=== PATIENT | female | born 1975 | race Caucasian/White ===

== ENCOUNTER 2019-02-26 14:43 | Inpatient (IN) | payer OTHER ==
[2019-02-26] MEDS ORDERED: ACETAMINOPHEN SUPPOSITORY 650 MG SUPP RECTAL STA (14:50)
[2019-02-26] MEDS ORDERED: LORazepam 2 MG/ML INJ IV STA (14:52)
[2019-02-26 14:56] LABS: Glucose,Whole Blood 116 mg/dL (75-99)
--- NOTE | 2019-02-26 15:00 | ED ---
General Adult HPI - General Stated complaint: ALTERED MENTAL STATUS Time Seen by Provider: 02/26/19 14:49 Source: EMS, RN notes reviewed Mode of arrival: EMS Limitations: altered mental status, physical limitation - History of Present Illness Initial comments: Patient is an altered 44-year-old female presenting to the emergency department for reported change in mental status. Patient is nonverbal and provides no significant history. History provided by EMS. Reportedly patient's daughter called the grandparents last night stating that she was not acting normal. They did report to EMS the patient was altered last night but still talking. Patient reportedly was worse today and was sweaty prior to calling EMS today. Further history is limited. No reported drug use. No reported injury. Family states patient's abnormal skin is from a skin condition that she has that is chronic and unchanged. - Related Data Allergies Allergy/AdvReac Type Severity Reaction Status Date / Time Unable to Assess Allergy Verified 02/26/19 14:54 Review of Systems ROS Statement: Those systems with pertinent positive or pertinent negative responses have been documented in the HPI. ROS Other: All systems not noted in ROS Statement are negative. Limitations: ROS unobtainable due to patients medical condition Past Medical History Past Medical History: Unable to Obtain History of Any Multi-Drug Resistant Organisms: Unobtainable Past Surgical History: Unable to Obtain Past Psychological History: Unable to Obtain Smoking Status: Unknown if ever smoked Past Alcohol Use History: Unable to Obtain Past Drug Use History: Unable to Obtain General Exam Limitations: altered mental status, physical limitation General appearance: obese, other (Patient is restless and nonverbal. Patient does not follow commands.) Head exam: Present: other (Forehead with some skin discoloration over approximately one third of the area, mild. There is an area near the right eyebrow with some skin breakdown/abrasion) Eye exam: Present: normal appearance, PERRL ENT exam: Present: other (Patient has diffuse tooth erosion that is consistent throughout and consistent with grinding) Neck exam: Absent: tenderness, meningismus Respiratory exam: Present: rales Cardiovascular Exam: Present: tachycardia GI/Abdominal exam: Present: soft. Absent: tenderness Extremities exam: Present: normal inspection Neurological exam: Present: altered Expanded Neurological exam: Present: protecting the airway, other (Nonverbal. Limited exam. Does not follow commands. Does withdrawal all extremities to pain) Eye Response: (4) open spontaneously Motor Response: (5) localizes to pain Verbal Response: incomprehensible sounds Psychiatric exam: Present: other (Restless/agitated. Nonverbal) Skin exam: Present: rash (Forehead with some skin discoloration and abrasion/skin breakdown) Course Vital Signs 02/26/19 02/26/19 02/26/19 14:46 15:02 15:06 Temperature 100.9 F H 102.2 F H Pulse Rate 138 H Respiratory 12 Rate Blood Pressure 101/62 O2 Sat by Pulse 89 L 98 Oximetry 02/26/19 02/26/19 02/26/19 15:18 15:20 15:40 Temperature 102 F H Pulse Rate 109 H 109 H Respiratory 20 12 12 Rate Blood Pressure 97/58 97/58 83/59 O2 Sat by Pulse 98 98 Oximetry 02/26/19 02/26/19 02/26/19 16:00 16:06 16:07 Temperature 101 F H Pulse Rate 117 H 103 H Respiratory 12 Rate Blood Pressure 89/68 105/58 O2 Sat by Pulse 95 Oximetry 02/26/19 02/26/19 02/26/19 16:20 16:33 16:40 Temperature 100.0 F H Pulse Rate 108 H 98 99 Respiratory 18 18 15 Rate Blood Pressure 103/62 93/54 92/57 O2 Sat by Pulse 100 100 100 Oximetry - Reevaluation(s) Reevaluation #1: 02/26/19 15:37 Patient reevaluated. Blood pressure is dropping. Patient is more calm at this time. Patient has limited gag reflex. 02/26/19 15:39 Discussion had with family stating patient presented to their house drowsy and altered last night. She went to bed and appeared to be sleeping well. Patient was checked on several times today and was just sleeping throughout the day. Patient never woke up and acted appropriate. EMS was called prior to patient arrival. Family adds that patient did have a similar episode in November where she was admitted to the intensive care unit at [facility] and diagnosed with pneumonia. Mother states this was associated with methamphetamine use at that time. 02/26/19 15:40 There is concern for sepsis. Blood culture and lactic acid and IV antibiotics have been ordered. Fluid bolus provided of 2 L placed on ideal body weight of 64 kg at 5 foot 8 female. 02/26/19 16:16 Case was discussed in detail with Dr. Wong, who will admit covering for hospital call. 02/26/19 16:21 Dr. Blanco did request consult with critical care for Dr. Brooke. Case was discussed in detail with Dr. Brooke 02/26/19 16:38 Repeat x-ray shows worsening interstitial changes. ET tube is towards the right mainstem bronchi. ET tube removed 1.5 cm. 02/26/19 16:59 Has been determined the primary care physician is Dr. Mcleod. Case was discussed in detail with Dr. acosta, who will admit covering for Dr. Hall who admits for Dr. Mcleod. 02/26/19 17:03 Case was discussed with Dr. Briones, who will consult covering for critical care. Dr. Wong and Dr. Brooke have been paged to notify change of covering physicians. EKG Findings - EKG Comments: EKG Findings:: Sinus tachycardia 1:15. DE 144. QRS 70. QT 3:30. QTC 456. Normal axis. Normal QRS. Nonspecific T waves. Procedures - Central Line Placement Right Femoral Consent Obtained: verbal consent (From parents), emergent situation Patient Placed on Monitor/Pulse Ox: Yes MD Prep: mask, gown, gloves Central Line Prep: Chlorhexidine scrub Local Anesthesia Used: Lidocaine 1% Amount of Anesthesia Used (mls): 1 Central Line Lumen Inserted: triple Central Line Position: good blood return, all ports aspirated, flushed, capped, sutured in place with 3-0 nylon, sutured in place with nylon Dressing Applied: Tegaderm Patient Tolerated Procedure: well Complications: none - Intubation Sedative: Versed Paralytic: Succinylcholine Laryngoscope: Fernández Size: 3 ET Tube Size: 8 Tube Secured Location: lips Tube Placement Confirmation: visualized tube passing through cords, equal breath sounds bilaterally, no breath sounds over epigastrium, confirmation by capnometry Patient Tolerated Procedure: well, no complications Intubation Complications: none - Sepsis Sepsis Focused Exam #1 Time Sepsis Criteria Met: 15:40 Sepsis Focused Exam Date: 02/26/19 Sepsis Focused Exam Time: 16:18 Sepsis Focused Exam Complete: Yes Vital Signs & RN Notes Reviewed: Yes Capillary Refill: < 2 Seconds: Fingers, Toes Peripheral Pulses: Normal: Radial (R), Radial (L) Skin Color: Normal for Patient Respiratory Exam: rales Cardiovascular Exam: tachycardia Medical Decision Making - Lab Data Result diagrams: 02/26/19 14:55 02/26/19 14:55 Lab Results 02/26/19 02/26/19 02/26/19 Range/Units 14:54 14:55 14:55 WBC 10.9 H (3.8-10.6) k/uL RBC 4.32 (3.80-5.40) m/uL Hgb 12.1 (11.4-16.0) gm/dL Hct 38.7 (34.0-46.0) % MCV 89.6 (80.0-100.0) fL MCH 28.1 (25.0-35.0) pg MCHC 31.4 (31.0-37.0) g/dL RDW 15.1 (11.5-15.5) % Plt Count 299 (150-450) k/uL Neutrophils % 81 % Lymphocytes % 14 % Monocytes % 3 % Eosinophils % 1 % Basophils % 0 % Neutrophils # 8.8 H (1.3-7.7) k/uL Lymphocytes # 1.5 (1.0-4.8) k/uL Monocytes # 0.3 (0-1.0) k/uL Eosinophils # 0.1 (0-0.7) k/uL Basophils # 0.0 (0-0.2) k/uL Hypochromasia Slight PT (9.0-12.0) sec INR (<1.2) APTT (22.0-30.0) sec Sodium 146 H (137-145) mmol/L Potassium 3.5 (3.5-5.1) mmol/L Chloride 122 H (98-107) mmol/L Carbon Dioxide 17 L (22-30) mmol/L Anion Gap 7 mmol/L BUN 18 H (7-17) mg/dL Creatinine 1.18 H (0.52-1.04) mg/dL Est GFR (CKD-EPI)AfAm 66 (>60 ml/min/1.73 sqM) Est GFR (CKD-EPI)NonAf 57 (>60 ml/min/1.73 sqM) Glucose 122 H (74-99) mg/dL POC Glucose (mg/dL) 116 H (75-99) mg/dL POC Glu Central Supply Worker ID Robert, Nathalia Plasma Lactic Acid Jan (0.7-2.0) mmol/L Calcium 8.7 (8.4-10.2) mg/dL Total Bilirubin 0.5 (0.2-1.3) mg/dL AST 104 H (14-36) U/L ALT 37 (9-52) U/L Alkaline Phosphatase 69 (38-126) U/L Creatine Kinase 4363 H* (30-135) U/L CK-MB (CK-2) (0.0-2.4) ng/mL Troponin I (0.000-0.034) ng/mL NT-Pro-B Natriuret Pep pg/mL Total Protein 5.9 L (6.3-8.2) g/dL Albumin 3.4 L (3.5-5.0) g/dL Urine Color Urine Appearance (Clear) Urine pH (5.0-8.0) Ur Specific [place] (1.001-1.035) Urine Protein (Negative) Urine Glucose (UA) (Negative) Urine Ketones (Negative) Urine Blood (Negative) Urine Nitrite (Negative) Urine Bilirubin (Negative) Urine Urobilinogen (<2.0) mg/dL Ur Leukocyte Esterase (Negative) Urine RBC (0-5) /hpf Urine WBC (0-5) /hpf Ur Squamous Epith Cells (0-4) /hpf Amorphous Sediment (None) /hpf Hyaline Casts (0-2) /lpf Urine Mucus (None) /hpf Urine Opiates Screen (NotDetected) Ur Oxycodone Screen (NotDetected) Urine Methadone Screen (NotDetected) Ur Propoxyphene Screen (NotDetected) Ur Barbiturates Screen (NotDetected) U Tricyclic Antidepress (NotDetected) Ur Phencyclidine Scrn (NotDetected) Ur Amphetamines Screen (NotDetected) U Methamphetamines Scrn (NotDetected) U Benzodiazepines Scrn (NotDetected) Urine Cocaine Screen (NotDetected) U Marijuana (THC) Screen (NotDetected) 02/26/19 02/26/19 02/26/19 Range/Units 14:55 14:55 14:55 WBC (3.8-10.6) k/uL RBC (3.80-5.40) m/uL Hgb (11.4-16.0) gm/dL Hct (34.0-46.0) % MCV (80.0-100.0) fL MCH (25.0-35.0) pg MCHC (31.0-37.0) g/dL RDW (11.5-15.5) % Plt Count (150-450) k/uL Neutrophils % % Lymphocytes % % Monocytes % % Eosinophils % % Basophils % % Neutrophils # (1.3-7.7) k/uL Lymphocytes # (1.0-4.8) k/uL Monocytes # (0-1.0) k/uL Eosinophils # (0-0.7) k/uL Basophils # (0-0.2) k/uL Hypochromasia PT 10.2 (9.0-12.0) sec INR 1.0 (<1.2) APTT 24.4 (22.0-30.0) sec Sodium (137-145) mmol/L Potassium (3.5-5.1) mmol/L Chloride (98-107) mmol/L Carbon Dioxide (22-30) mmol/L Anion Gap mmol/L BUN (7-17) mg/dL Creatinine (0.52-1.04) mg/dL Est GFR (CKD-EPI)AfAm (>60 ml/min/1.73 sqM) Est GFR (CKD-EPI)NonAf (>60 ml/min/1.73 sqM) Glucose (74-99) mg/dL POC Glucose (mg/dL) (75-99) mg/dL POC Glu Central Supply Worker ID Plasma Lactic Acid Jan 2.4 H* (0.7-2.0) mmol/L Calcium (8.4-10.2) mg/dL Total Bilirubin (0.2-1.3) mg/dL AST (14-36) U/L ALT (9-52) U/L Alkaline Phosphatase (38-126) U/L Creatine Kinase (30-135) U/L CK-MB (CK-2) 12.7 H (0.0-2.4) ng/mL Troponin I <0.012 (0.000-0.034) ng/mL NT-Pro-B Natriuret Pep pg/mL Total Protein (6.3-8.2) g/dL Albumin (3.5-5.0) g/dL Urine Color Urine Appearance (Clear) Urine pH (5.0-8.0) Ur Specific [place] (1.001-1.035) Urine Protein (Negative) Urine Glucose (UA) (Negative) Urine Ketones (Negative) Urine Blood (Negative) Urine Nitrite (Negative) Urine Bilirubin (Negative) Urine Urobilinogen (<2.0) mg/dL Ur Leukocyte Esterase (Negative) Urine RBC (0-5) /hpf Urine WBC (0-5) /hpf Ur Squamous Epith Cells (0-4) /hpf Amorphous Sediment (None) /hpf Hyaline Casts (0-2) /lpf Urine Mucus (None) /hpf Urine Opiates Screen (NotDetected) Ur Oxycodone Screen (NotDetected) Urine Methadone Screen (NotDetected) Ur Propoxyphene Screen (NotDetected) Ur Barbiturates Screen (NotDetected) U Tricyclic Antidepress (NotDetected) Ur Phencyclidine Scrn (NotDetected) Ur Amphetamines Screen (NotDetected) U Methamphetamines Scrn (NotDetected) U Benzodiazepines Scrn (NotDetected) Urine Cocaine Screen (NotDetected) U Marijuana (THC) Screen (NotDetected) 02/26/19 02/26/19 Range/Units 14:55 14:55 WBC (3.8-10.6) k/uL RBC (3.80-5.40) m/uL Hgb (11.4-16.0) gm/dL Hct (34.0-46.0) % MCV (80.0-100.0) fL MCH (25.0-35.0) pg MCHC (31.0-37.0) g/dL RDW (11.5-15.5) % Plt Count (150-450) k/uL Neutrophils % % Lymphocytes % % Monocytes % % Eosinophils % % Basophils % % Neutrophils # (1.3-7.7) k/uL Lymphocytes # (1.0-4.8) k/uL Monocytes # (0-1.0) k/uL Eosinophils # (0-0.7) k/uL Basophils # (0-0.2) k/uL Hypochromasia PT (9.0-12.0) sec INR (<1.2) APTT (22.0-30.0) sec Sodium (137-145) mmol/L Potassium (3.5-5.1) mmol/L Chloride (98-107) mmol/L Carbon Dioxide (22-30) mmol/L Anion Gap mmol/L BUN (7-17) mg/dL Creatinine (0.52-1.04) mg/dL Est GFR (CKD-EPI)AfAm (>60 ml/min/1.73 sqM) Est GFR (CKD-EPI)NonAf (>60 ml/min/1.73 sqM) Glucose (74-99) mg/dL POC Glucose (mg/dL) (75-99) mg/dL POC Glu Central Supply Worker ID Plasma Lactic Acid Jan (0.7-2.0) mmol/L Calcium (8.4-10.2) mg/dL Total Bilirubin (0.2-1.3) mg/dL AST (14-36) U/L ALT (9-52) U/L Alkaline Phosphatase (38-126) U/L Creatine Kinase (30-135) U/L CK-MB (CK-2) (0.0-2.4) ng/mL Troponin I (0.000-0.034) ng/mL NT-Pro-B Natriuret Pep 1090 pg/mL Total Protein (6.3-8.2) g/dL Albumin (3.5-5.0) g/dL Urine Color Yellow Urine Appearance Clear (Clear) Urine pH 6.0 (5.0-8.0) Ur Specific [place] 1.024 (1.001-1.035) Urine Protein 1+ H (Negative) Urine Glucose (UA) Negative (Negative) Urine Ketones Negative (Negative) Urine Blood Trace H (Negative) Urine Nitrite Negative (Negative) Urine Bilirubin Negative (Negative) Urine Urobilinogen <2.0 (<2.0) mg/dL Ur Leukocyte Esterase Negative (Negative) Urine RBC 2 (0-5) /hpf Urine WBC 1 (0-5) /hpf Ur Squamous Epith Cells <1 (0-4) /hpf Amorphous Sediment Rare H (None) /hpf Hyaline Casts 43 H (0-2) /lpf Urine Mucus Rare H (None) /hpf Urine Opiates Screen Not Detected (NotDetected) Ur Oxycodone Screen Not Detected (NotDetected) Urine Methadone Screen Not Detected (NotDetected) Ur Propoxyphene Screen Not Detected (NotDetected) Ur Barbiturates Screen Not Detected (NotDetected) U Tricyclic Antidepress Detected H (NotDetected) Ur Phencyclidine Scrn Not Detected (NotDetected) Ur Amphetamines Screen Detected H (NotDetected) U Methamphetamines Scrn Detected H (NotDetected) U Benzodiazepines Scrn Not Detected (NotDetected) Urine Cocaine Screen Not Detected (NotDetected) U Marijuana (THC) Screen Not Detected (NotDetected) - Radiology Data Radiology results: report reviewed (Computed tomography scan of the brain shows ill-defined hypodensity that could be ischemic change of indeterminate age. Old lacunar infarct. Computed tomography scan of the cervical spine shows no acute [place]. Degenerative changes.), image reviewed (Chest x-ray shows increased perihilar lung markings. Cannot rule out left-sided pneumonia.) Critical Care Time Critical Care Time: Yes Total Critical Care Time: 78 Disposition Clinical Impression: Pneumonitis, Altered mental status, Methamphetamine abuse, Rhabdomyolysis Disposition: ADMITTED IP TO THIS [facility] Condition: Critical Is patient prescribed a controlled substance at d/c from ED?: No Referrals: None,Stated [REFERRING] - 1-2 days Decision Time: 16:16
[2019-02-26] MEDS: SODIUM CHLORIDE 0.9% 500 ML 500 ML IV SCH (15:12)
--- NOTE | 2019-02-26 15:14 | XR ---
EXAMINATION TYPE: XR chest 1V portable DATE OF EXAM: 02/26/2019 COMPARISON: None INDICATION: Fever acute mental status change TECHNIQUE: Single frontal view of the chest is obtained. FINDINGS: The heart size is enlarged. The pulmonary vasculature is prominent. Increased perihilar lung markings are present. This may be greater on the left than the right. Correl ate for pulmonary edema. IMPRESSION: 1. Findings compatible with congestive heart failure in the proper clinical setting. Pneumonia on the left is not excluded. Follow-up exams are recommended.
[2019-02-26] MEDS ORDERED: VANCOMYCIN IV PER PHARMACY 1 EACH MISC MISCELLANE PRN (15:22)
[2019-02-26] MEDS ORDERED: cefTRIAXone IN SWFI 1,000 MG/10 ML SYRINGE IVP STA (15:22)
[2019-02-26] MEDS ORDERED: VANCOMYCIN 2,500 MG in SODIUM CHLORIDE 0.9% 500 ML 500 ML IVPB STA (15:25)
[2019-02-26 15:26] LABS: Albumin 3.4 g/dL (3.5-5.0); Calcium 8.7 mg/dL (8.4-10.2); Potassium 3.5 mmol/L (3.5-5.1); Total Bilirubin 0.5 mg/dL (0.2-1.3); Total Protein 5.9 g/dL (6.3-8.2)
[2019-02-26 15:29] LABS: Amorphous Sediment,Urine Rare /hpf; Appearance,Urine Clear (Clear); Bilirubin,Urine Negative (Negative); Blood,Urine Trace (Negative); Color,Urine Yellow; Glucose,Urine (UA) Negative (Negative); Hyaline Casts,Urine 43 /lpf (0-2); Ketones,Urine Negative (Negative); Leukocyte Esterase,Urine Negative (Negative); Mucus,Urine Rare /hpf; Nitrite,Urine Negative (Negative); Protein,Urine 1+ (Negative); RBC,Urine 2 /hpf (0-5); Specific Gravity,Urine 1.024 (1.001-1.035); Squamous Epithelial Cell,Urine <1 /hpf (0-4); Urobilinogen,Urine <2.0 mg/dL (<2.0); WBC,Urine 1 /hpf (0-5)
[2019-02-26 15:31] LABS: Amphetamine Screen,Urine Detected (NotDetected); Barbiturate Screen,Urine Not Detected (NotDetected); Benzodiazepines Screen,Urine Not Detected (NotDetected); Cocaine Screen,Urine Not Detected (NotDetected); Methadone Screen, Urine Not Detected (NotDetected); Opiate Screen,Urine Not Detected (NotDetected); Oxycodone Screen, Urine Not Detected (NotDetected); Phencyclidine Screen,Urine Not Detected (NotDetected); Tricyclic Antidepressant,Urine Detected (NotDetected); Urn Cannabinoid Scrn Not Detected (NotDetected)
[2019-02-26] MEDS ORDERED: SODIUM CHLORIDE 0.9% 1,000 ML IV STA (15:39)
[2019-02-26 15:41] LABS: Basophils % (A) 0 %; Eosinophils # (A) 0.1 k/uL (0-0.7); Eosinophils % (A) 1 %; HCT 38.7 % (34.0-46.0); HGB 12.1 gm/dL (11.4-16.0); Hypochromasia Slight; Lymphocytes # (A) 1.5 k/uL (1.0-4.8); Lymphocytes % (A) 14 %; MCH 28.1 pg (25.0-35.0); MCHC 31.4 g/dL (31.0-37.0); MCV 89.6 fL (80.0-100.0); Mean Platelet Volume 7.7; Monocytes # (A) 0.3 k/uL (0-1.0); Monocytes % (A) 3 %; Neutrophils # (A) 8.8 k/uL (1.3-7.7); Neutrophils % (A) 81 %; Platelet Count 299 k/uL (150-450); RBC 4.32 m/uL (3.80-5.40); RDW 15.1 % (11.5-15.5); WBC 10.9 k/uL (3.8-10.6)
[2019-02-26] MEDS ORDERED: SODIUM CHLORIDE 0.9% 500 ML 500 ML IV STA (15:41)
[2019-02-26] MEDS ORDERED: PROPOFOL 1,000 MG in EMPTY BAG 1 BAG IV ONE (15:42)
[2019-02-26] MEDS ORDERED: MIDAZOLAM 1 MG/ML 5 ML VIAL IV STA (15:43)
[2019-02-26] MEDS ORDERED: SUCCINYLCHOLINE CHLORIDE VIAL 200 MG/10 ML VIAL IV STA (15:43)
[2019-02-26 15:53] LABS: Creatine Kinase MB 12.7 ng/mL (0.0-2.4); Troponin I <0.012 ng/mL (0.000-0.034)
[2019-02-26 16:12] LABS: Partial Thromboplastin Time 24.4 sec (22.0-30.0); Prothrombin Time 10.2 sec (9.0-12.0)
[2019-02-26] MEDS ORDERED: LORazepam 2 MG/ML INJ IV PRN ×2 (16:14)
--- NOTE | 2019-02-26 16:32 | CT ---
EXAMINATION TYPE: CT brain ulysses shaw DATE OF EXAM: 02/26/2019 COMPARISON: None HISTORY: Altered mental status. CT DLP: 1629.8 mGycm, Automated exposure control for dose reduction was used. CONTRAST: Patient injected with 0 mL of Isovue 300. CT of the brain is performed utilizing 3 mm thick sections through the posterior fossa and 3 mm thick sections through the remaining calvarium. Study is performed within 24 hours of arrival to the hospital. No abnormal hyperdensity is present to suggest an acute intracranial hemorrhage. No mass lesion is evident. No acute infarcts are evident. There is a small area of hypodensity within the periventricular white matter adjacent to the anterior horn right lateral ventricle. White matter ischemic change or lacuna r infarct be considered. An older lacunar infarct appears to be within the lateral right basal gangli on. Ventricles and sulci are appropriate for the patient age. Paranasal sinuses and mastoid air cells within the [id number] are clear. IMPRESSIONS: 1. There is ill-defined hypodensity adjacent to the anterior horn right lateral ventricle and can be radha e microvascular ischemic change of indeterminate age. MRI could be utilized to further delineate the cuboid versus chronicity of this finding. 2. There appears be an old right basal ganglion lacunar infarct. CT cervical spine. COMPARISON: None CT of the cervical spine is performed in the axial plane at 2 mm thick sections. Reconstructed image s in the coronal, and sagittal plane are reviewed on the computer. No acute fractures are evident. Vertebral body alignment is normal. Degenerative disc changes and loss of disc height is present C5-6. Uncovertebral joint hypertrophy is contributing to moderate left foraminal stenosis C5-6 Vertebral body heights are preserved. No spinal canal stenosis is evident. Patchy infiltrates are present in the upper lung bedoya bilaterally. IMPRESSIONS: 1. No acute abnormality cervical spine. 2. Degenerative disc change and left foraminal stenosis C5-6
[2019-02-26] MEDS ORDERED: NALOXONE 0.4 MG/ML 1 ML VIAL IV PRN (16:56)
[2019-02-26] MEDS ORDERED: ACETAMINOPHEN SUPPOSITORY 650 MG SUPP RECTAL PRN (16:56)
[2019-02-26] MEDS ORDERED: SODIUM CHLORIDE 0.9% 1,000 ML IV SCH (17:00)
[2019-02-26] MEDS ORDERED: PIPERACILLIN-TAZOBACTAM 3.375 GM in SODIUM CHLORIDE 0.9% 100 ML IVPB STA (17:03)
[2019-02-26] MEDS ORDERED: LEVOFLOXACIN 750MG-D5W PMX 750 MG in DEXTROSE/WATER 1 150ML.BAG IVPB STA (17:03)
[2019-02-26] MEDS ORDERED: PNEUMONIA PROTOCOL UTILIZED 1 EACH MISC PO PRN (17:03)
[2019-02-26] MEDS: NOREPINEPHRINE 32 MG in SODIUM CHLORIDE 0.9% 218 ML IV SCH (17:08)
[2019-02-26 17:13] LABS: ABG Base Excess -12.3 mmol/L; ABG HCO3 17 mmol/L (21-25); ABG Oxygen Saturation 77.6 % (94-97); ABG PCO2 54 mmHg (35-45); ABG TCO2 19 mmol/L (19-24); Allen Test Performed? Yes
[2019-02-26 17:27] LABS: ABG PH 7.11 (7.35-7.45); ABG PO2 50 mmHg (83-108)
--- NOTE | 2019-02-26 17:38 | XR ---
EXAMINATION TYPE: XR chest 1V portable DATE OF EXAM: 02/26/2019 COMPARISON: 02/26/2019 INDICATION: Difficulty breathing tube placement TECHNIQUE: Single frontal view of the chest is obtained. FINDINGS: The heart size is prominent. The pulmonary vasculature is increased. There is diffuse increased lung markings bilaterally greater on the left. Endotracheal tube is in place in the right main bronchus. This is approximately 1.3 cm opacity amisha . Subsequent image demonstrates withdrawal of the endotracheal tube into the trachea. IMPRESSION: 1. Diffuse increased lung markings with cardiomegaly. 2. Pneumonia. 3. Endotracheal tube tip within the right main bronchus. This is subsequently drawn back.
--- NOTE | 2019-02-26 17:42 | XR ---
EXAMINATION TYPE: XR chest 1V portable DATE OF EXAM: 02/26/2019 COMPARISON: Earlier exam same date INDICATION: Difficulty breathing TECHNIQUE: Single frontal view of the chest is obtained. FINDINGS: The heart size is mildly prominent. The pulmonary vasculature is indistinct. Diffuse increased lung markings are present bilaterally. Pulmonary edema and pneumonia are within the differential. The endotracheal tube is been withdrawn however this is close to the amisha. Additional withdrawal is recommended. This could be pulled back approximately 2 cm. IMPRESSION: 1. Mild cardiomegaly. 2. Prominent pulmonary vasculature. 3. Diffuse increased lung markings. Correlate for pneumonia and pulmonary edema. This is slightly imp roved from earlier exam. 4. Endotracheal tube remains low lying and could be pulled back 2 cm. Report was called to patient's nurse by Dr. Chacon by telephone 173 hours 02/26/2019. 5. Nasogastric tube transverses the thorax with tip in left upper quadrant of the abdomen. This could be advanced 2 cm or more for more typical positioning.
[2019-02-26 18:28] LABS: Magnesium 1.7 mg/dL (1.6-2.3); Phosphorus 3.4 mg/dL (2.5-4.5)
[2019-02-26 18:50] LABS: Glucose,Whole Blood 137 mg/dL (75-99)
[2019-02-26 19:13] LABS: ABG HCO3 16 mmol/L (21-25); ABG Oxygen Saturation 99.8 % (94-97); ABG PCO2 42 mmHg (35-45); ABG PO2 340 mmHg (83-108); ABG TCO2 17 mmol/L (19-24); Allen Test Performed? Yes
[2019-02-26] MEDS ORDERED: Potassium Replacement Protocol 1 EACH MISC MISCELLANE PRN (19:58)
[2019-02-26] MEDS ORDERED: Magnesium Replacement Protocol 1 EACH MISC MISCELLANE PRN (19:58)
--- NOTE | 2019-02-26 19:58 | XR ---
EXAMINATION TYPE: XR chest 1V portable DATE OF EXAM: 02/26/2019 COMPARISON: Earlier exams INDICATION: Tube placement TECHNIQUE: Single frontal view of the chest is obtained. FINDINGS: The heart size is normal. The pulmonary vasculature is normal. Mild infiltrate is through the left lung. Right lung infiltrate is improved. The endotracheal tube has been pulled back and is 1.2 cm above the amisha. Nasogastric tube is been a dvanced with the tip in the upper abdomen. IMPRESSION: 1. Improving aeration to the bilateral lungs. 2. Lines and catheters discussed above.
[2019-02-26] MEDS: IPRATROPIUM-ALBUTEROL 3 ML NEB INHALATION SCH (20:06)
[2019-02-26] MEDS: DEXTROSE 5% IN WATER 1,000 ML with SODIUM BICARB (1 MEQ/ML) 100 ML IV SCH (20:50)
[2019-02-26 20:51] LABS: Glucose,Whole Blood 119 mg/dL (75-99)
[2019-02-26] MEDS: MAGNESIUM SULFATE-D5W PMX 1 GM in DEXTROSE/WATER 1 100ML.BAG IVPB SCH ×2 (21:52→23:03)
[2019-02-26] MEDS: HEPARIN SODIUM,PORCINE 5,000 UNIT/ML 1 ML VIAL SQ SCH (21:52)
[2019-02-26] MEDS: POTASSIUM BICARBONATE/CIT AC 20 MEQ TABLET.EFF NG-TUBE SCH ×2 (21:52→23:03)
[2019-02-26] MEDS: CHLORHEXIDINE GLUCONATE 15 ML CUP MUCOUS MEM SCH (21:52)
[2019-02-26] MEDS: PIPERACILLIN-TAZOBACTAM 3.375 GM in SODIUM CHLORIDE 0.9% 100 ML IVPB SCH (23:51)
[2019-02-26] MEDS: PROPOFOL 1,000 MG in EMPTY BAG 1 BAG IV SCH (23:52)
[2019-02-26] MEDS: INSULIN ASPART (NovoLOG) 100 UNIT/ML VIAL SQ SCH (23:54)
[2019-02-26 23:58] LABS: Glucose,Whole Blood 109 mg/dL (75-99)
[2019-02-27] MEDS: HEPARIN SODIUM,PORCINE 5,000 UNIT/ML 1 ML VIAL SQ SCH ×3 (01:00→16:14)
[2019-02-27] MEDS: PROPOFOL 1,000 MG in EMPTY BAG 1 BAG IV SCH ×6 (03:13→18:30)
[2019-02-27 04:09] LABS: ABG Base Excess -8.7 mmol/L; ABG HCO3 18 mmol/L (21-25); ABG Oxygen Saturation 94.7 % (94-97); ABG PCO2 40 mmHg (35-45); ABG PH 7.27 (7.35-7.45); ABG PO2 71 mmHg (83-108); ABG TCO2 20 mmol/L (19-24); Allen Test Performed? Yes
[2019-02-27 05:34] LABS: Glucose,Whole Blood 99 mg/dL (75-99)
[2019-02-27 05:48] LABS: Basophils % (A) 0 %; Eosinophils # (A) 0.1 k/uL (0-0.7); Eosinophils % (A) 1 %; HCT 34.8 % (34.0-46.0); HGB 10.9 gm/dL (11.4-16.0); Hypochromasia Moderate; Lymphocytes # (A) 1.8 k/uL (1.0-4.8); Lymphocytes % (A) 17 %; MCH 28.7 pg (25.0-35.0); MCHC 31.4 g/dL (31.0-37.0); MCV 91.3 fL (80.0-100.0); Mean Platelet Volume 7.3; Monocytes # (A) 0.2 k/uL (0-1.0); Monocytes % (A) 2 %; Neutrophils # (A) 8.4 k/uL (1.3-7.7); Neutrophils % (A) 79 %; Platelet Count 251 k/uL (150-450); RBC 3.81 m/uL (3.80-5.40); RDW 15.3 % (11.5-15.5); WBC 10.7 k/uL (3.8-10.6)
[2019-02-27] MEDS: INSULIN ASPART (NovoLOG) 100 UNIT/ML VIAL SQ SCH ×3 (05:51→19:30)
[2019-02-27 06:05] LABS: ALT 37 U/L (9-52); AST 99 U/L (14-36); African American GFR (CKD) >90 (>60 ml/min/1.73 sqM); Albumin 2.7 g/dL (3.5-5.0); Alkaline Phosphatase 68 U/L (38-126); Anion Gap 5 mmol/L; Blood Urea Nitrogen 14 mg/dL (7-17); Calcium 8.2 mg/dL (8.4-10.2); Carbon Dioxide 20 mmol/L (22-30); Chloride 121 mmol/L (98-107); Glucose 95 mg/dL (74-99); Magnesium 2.4 mg/dL (1.6-2.3); Potassium 3.5 mmol/L (3.5-5.1); Sodium 146 mmol/L (137-145); Total Bilirubin 0.2 mg/dL (0.2-1.3); Total Protein 5.1 g/dL (6.3-8.2)
[2019-02-27] MEDS ORDERED: Potassium Replacement Protocol 1 EACH MISC MISCELLANE PRN (06:14)
[2019-02-27] MEDS: POTASSIUM BICARBONATE/CIT AC 20 MEQ TABLET.EFF NG-TUBE SCH ×3 (06:53→09:46)
[2019-02-27] MEDS ORDERED: POTASSIUM BICARBONATE/CIT AC 20 MEQ TABLET.EFF NG-TUBE SCH (07:00)
[2019-02-27] MEDS: PIPERACILLIN-TAZOBACTAM 3.375 GM in SODIUM CHLORIDE 0.9% 100 ML IVPB SCH ×2 (07:08→16:14)
[2019-02-27] MEDS: IPRATROPIUM-ALBUTEROL 3 ML NEB INHALATION SCH ×4 (07:56→19:42)
[2019-02-27] MEDS: CISATRACURIUM 2 MG/ML 5 ML VIAL IV ONE ×2 (08:38→16:22)
[2019-02-27] MEDS: fentaNYL (PF) 1,000 MCG in SODIUM CHLORIDE 0.9% 80 ML IV SCH ×3 (09:44→20:01)
[2019-02-27] MEDS: DEXTROSE 5% IN WATER 1,000 ML with SODIUM BICARB (1 MEQ/ML) 100 ML IV SCH ×2 (09:45→20:00)
[2019-02-27] MEDS: PANTOPRAZOLE 40 MG/10 ML VIAL IV SCH (09:52)
[2019-02-27] MEDS: CHLORHEXIDINE GLUCONATE 15 ML CUP MUCOUS MEM SCH ×2 (09:52→22:24)
[2019-02-27] MEDS ORDERED: VANCOMYCIN 2,000 MG in SODIUM CHLORIDE 0.9% 500 ML 500 ML IVPB SCH (10:00)
--- NOTE | 2019-02-27 10:32 | XR ---
EXAMINATION TYPE: XR chest 1V portable DATE OF EXAM: 02/27/2019 COMPARISON: 02/26/2019 INDICATION: Tube placement TECHNIQUE: Single frontal view of the chest is obtained. FINDINGS: The heart size is normal. The pulmonary vasculature is prominent. There are increased lung markings greater on the left. Correlate for pneumonia. Endotracheal tube tip is within the proximal right bronchus. This should be pulled back approximately 3 to 4 cm. Nasogastric tube transverses the thorax. IMPRESSION: 1. Correlate for left lung pneumonia. 2. Endotracheal tube tip in right main bronchus. Report was called to the ICU by Dr. Chacon by telep sravan at time of interpretation. ICU aware of the findings.
[2019-02-27 12:15] LABS: Glucose,Whole Blood 106 mg/dL (75-99)
--- NOTE | 2019-02-27 12:54 | P.CNPUL ---
History of Present Illness Consult date: 02/27/19 Chief complaint: Drug overdose, respiratory failure History of present illness: This is a 44 yo female patient who was brought in to the ED for altered mentation and respiratory failure. Family stated that patient presented to their house drowsy and altered last night. She went to bed and appeared to be sleeping well. Patient was checked on several times today and was just sleeping throughout the day. Patient never woke up and acted appropriate. EMS was called prior to patient arrival. Family adds that patient did have a similar episode in November where she was admitted to the intensive care unit at [facility] and diagnosed with pneumonia. Mother states this was associated with methamphetamine use at that time. I was involved in the care of this patient during her latest hospitalization in [facility]. She had a very similar and prolonged presentation where she came in with drug overdose , altered mentation and respiratory failure /ARDS. She was intubated and mechanically ventilated. She was also in DMITRY and severe rhabdomyal ysis. The patient back then had a CT of brain was normal. Patient was fluid resuscitated. She was placed on IV vasopressors and sedation and paralytics. Slowly ventilator settings were decreased and patient was eventually able to be weaned off the vent. She initially displayed limited mentation, and her functional status is very poor. She slowly improved to the interview and admitted to suicide attempt. She was placed on one-to-one suicide precautions. She was later transferred up to medical floor, where she continued medical treatment and work with physical and occupational therapy. Patient required lengthy hospitalization. In she had a acute hypoxic respiratory failure likely secondary to pneumonia,drug overdoseand sepsis. She was on mechanical ventilator and she had a severe anion gap metabolic acidosis and rhabdo . The B/L basal pneumonia likely aspiration, sputum culture positive for MSSA and MSSA bacteremia. She had a acute kidney injury with creatinine level 9.1 possibly ATN, improved to 0.9, elevated liver enzymes, improved, Acute UTI (urinary tract infection) acute hypernatremia and hyperkalemiasecondary to acute kidney injury, improved and she also had elevated troponin level. She had polysubstance use, UDS is positive for amphetamines, benzodiazepines and opiates The patient's presentation is very similar as the patient was again postive for amphetamines and she was found to be in a mild rhabdo and lactive acidosis. She was hypotensive and she was hypoxic. She was intubated in the ED. Her CXR was consistent with diffuse bilateral pulmonary infiltrated. This morning, the patient remains on a mechanical ventilator. Currently she is an assist-control mode at a rate of 18 with a tidal volume of 550 and FiO2 of 60% and a PEEP of 8. These changes were done based on the blood gases that showed a pH of 7.26 with a pCO2 of 40 and pO2 of 71. Follow-up looked gases are still pending for now. The patient's chest x-ray showing diffuse bilateral pulmonary infiltrates. ET tube is deep in the trachea and needs to be pulled of around 1 cm. Noted the p henry's renal function is improved compared to yesterday. She came in with acute kidney injury in the creatinine is down to 0.7. A repeat CPK level needs to be done. Hemoglobin is at 10.9 with a white cell count of 10.7. She is afebrile. She is covered with accommodation Zosyn and vancomycin. She has significant respiratory secretions and sputum Gram stain and culture was sent. Blood cultures still pending for now. She is on norepinephrine infusion at 0.05 g per KG per minute. She is currently on a bicarb drip at the rate of 100 mL an hour pH is on propofol at the rate of 40 g per KG per minute and the patient is also on fentanyl at 1 mcg/kg per hour. Review of Systems ROS unobtainable: due to endotracheal tube Past Medical History Past Medical History: Pneumonia, Respiratory Disorder Additional Past Medical History / Comment(s): Polysubstane abuse, hisotry of drug overdose, history of ARDS requiring intubation and mechanical ventilation, history of severe rhabdomyalysis and DMITRY (recovered), history of MSSA pneumonia and sepsis, history of metabolic encephalopathy (recovered), hisotory of depression, suicide, obesity History of Any Multi-Drug Resistant Organisms: ESBL, Other MDRO Date of last positivie culture/infection: 01/20 MDRO Source:: Blood, Lungs Past Surgical History: Unable to Obtain Additional Past Surgical History / Comment(s): breast biopsy (date unknown) Past Anesthesia/Blood Transfusion Reactions: No Reported Reaction Past Psychological History: Anxiety, Depression Smoking Status: Current every day smoker Past Alcohol Use History: Unable to Obtain Past Drug Use History: Marijuana, Methamphetamine Medications and Allergies Home Medications Medication Instructions Recorded Confirmed Type Sertraline HCl [Zoloft] 200 mg PO PC-BRKFST 02/26/19 02/26/19 History busPIRone HCL 15 mg PO TID 02/26/19 02/26/19 History cloNIDine HCL [Catapres] 0.1 mg PO BID@0700,1200 02/26/19 02/26/19 History cloNIDine HCL [Catapres] 0.2 mg PO HS 02/26/19 02/26/19 History Allergies Allergy/AdvReac Type Severity Reaction Status Date / Time sulfamethoxazole Allergy Rash/Hives Verified 02/26/19 18:04 [From Bactrim] trimethoprim [From Bactrim] Allergy Rash/Hives Verified 02/26/19 18:04 Physical Exam Vitals: Vital Signs Temp Pulse Pulse Resp BP BP Pulse Ox 02/27/19 12:23 80 02/27/19 12:02 86 02/27/19 12:00 98 02/27/19 11:45 98 F 80 26 H 92/64 98 02/27/19 11:30 84 26 H 92/59 98 02/27/19 11:15 86 26 H 92/60 99 02/27/19 11:00 90 26 H 95/53 98 02/27/19 10:45 93 26 H 107/76 98 02/27/19 10:30 110 H 17 100/61 97 02/27/19 10:15 29 H 85/58 96 02/27/19 10:00 93 13 114/70 96 02/27/19 09:45 93 26 H 97/67 98 02/27/19 09:30 93 26 H 90/58 100 02/27/19 09:15 93 13 94/59 99 02/27/19 09:00 100 26 H 119/79 98 02/27/19 08:45 109 H 6 L 104/59 98 02/27/19 08:30 118 H 22 109/33 93 L 02/27/19 08:15 98 F 113 H 14 122/74 98 02/27/19 08:14 114 H 02/27/19 08:01 110 H 02/27/19 08:00 98.5 F 113 H 18 114/65 99 02/27/19 07:45 98.5 F 98 18 103/69 97 02/27/19 07:30 84 18 98/69 98 02/27/19 07:15 86 19 115/76 98 02/27/19 07:00 83 18 109/77 99 02/27/19 06:45 88 18 111/82 99 02/27/19 06:30 90 18 109/70 98 02/27/19 06:15 87 18 93/61 99 02/27/19 06:00 92 19 93/64 98 02/27/19 05:45 94 19 80/55 95 02/27/19 05:30 92 18 87/52 96 02/27/19 05:15 93 17 89/56 95 02/27/19 05:00 96 20 124/97 95 02/27/19 04:45 99 22 88/54 98 02/27/19 04:30 92 18 89/54 94 L 02/27/19 04:15 94 18 111/71 94 L 02/27/19 04:00 93 20 98/63 96 02/27/19 03:45 92 18 100/61 97 02/27/19 03:30 92 18 101/73 96 02/27/19 03:15 98.9 F 92 18 98/66 98 02/27/19 03:00 92 18 98/66 97 02/27/19 02:45 92 18 97/70 97 02/27/19 02:30 93 18 100/69 95 02/27/19 02:15 95 18 101/65 99 02/27/19 02:00 99.5 F 95 18 110/100 98 02/27/19 01:45 104 H 24 105/73 100 02/27/19 01:30 93 18 109/72 99 02/27/19 01:15 95 18 103/74 100 02/27/19 01:00 94 18 111/77 99 02/27/19 00:45 94 18 121/81 100 02/27/19 00:30 98 18 112/79 100 02/27/19 00:15 98 18 114/80 99 02/27/19 00:00 100.1 F H 96 18 116/84 99 02/26/19 23:45 98 18 113/79 99 02/26/19 23:30 101 H 10 L 101/75 99 02/26/19 23:15 95 18 104/78 99 02/26/19 23:00 98 18 98/69 99 02/26/19 22:45 98 18 98/71 99 05/26/19 22:39 98 18 101/67 100 02/26/19 22:30 98 18 91/59 98 02/26/19 22:15 98 18 106/71 97 02/26/19 22:00 71 18 109/77 100 02/26/19 21:45 90 18 106/72 100 02/26/19 21:30 90 18 126/91 100 02/26/19 21:15 82 18 121/86 100 02/26/19 21:00 85 18 102/84 100 02/26/19 20:45 85 18 112/81 100 02/26/19 20:30 84 18 99 02/26/19 20:15 82 18 102/76 100 02/26/19 20:14 87 02/26/19 20:07 76 02/26/19 20:05 99.6 F 89 18 102/84 02/26/19 20:00 99.6 F 84 18 98 02/26/19 19:45 82 18 107/75 98 02/26/19 19:30 87 18 97 02/26/19 19:15 86 18 112/76 99 02/26/19 19:00 99.3 F 89 18 100/68 99 02/26/19 18:40 99 F 99 18 112/59 99 02/26/19 18:20 99.5 F 101 H 18 119/69 100 02/26/19 17:40 86 18 110/79 100 02/26/19 17:20 99.7 F H 98 14 94/60 100 02/26/19 17:00 99 16 93/56 100 02/26/19 16:40 99 15 92/57 100 02/26/19 16:33 100.0 F H 98 18 93/54 100 02/26/19 16:20 108 H 18 103/62 100 02/26/19 16:07 103 H 105/58 02/26/19 16:06 101 F H 02/26/19 16:00 117 H 12 89/68 95 02/26/19 15:40 12 83/59 02/26/19 15:20 109 H 12 97/58 98 02/26/19 15:18 102 F H 109 H 20 97/58 98 02/26/19 15:06 102.2 F H 02/26/19 15:02 98 02/26/19 14:46 100.9 F H 138 H 12 101/62 89 L Intake and Output 02/26/19 02/27/19 02/27/19 22:59 06:59 14:59 Intake Total 2111.910 2403.320 1339.59 Output Total 475 690 875 Balance 1636.910 489.541 509.59 Intake: IV 1961 1000 1201 Dextrose 5% in Water 1, 101 800 600 000 ml @ 100 mls/hr IV . Q11H BRETT with Sodium Bicarb (1 Meq/ml) 100 ml Rx#:[id number] Magnesium Sulfate-D5w Pmx 100 100 1 gm In Dextrose/Water 1 100ml.bag @ 100 mls/hr IVPB Q1H BRETT Rx#: [id number] Piperacillin-Tazobactam 3 100 100 .375 gm In Sodium Chloride 0.9% 100 ml @ 25 mls/hr IVPB Q8HR BRETT Rx# :[id number] Sodium Chloride 0.9% 1, 260 000 ml @ 130 mls/hr IV . Q7H42M BRETT Rx#:[id number] Sodium Chloride 0.9% 1, 1500 000 ml @ 999 mls/hr IV . Q1H1M STA Rx#:[id number] Vancomycin 2,000 mg In 501 Sodium Chloride 0.9% 500 ml 500 ml @ 167 mls/hr IVPB Q16H BRETT Rx#: [id number] Intake, IV Titration 150.910 179.541 123.59 Amount Norepinephrine 32 mg In 20.910 0.798 Sodium Chloride 0.9% 218 ml @ 0.05 MCG/KG/MIN 3. 189 mls/hr IV .Q24H BRETT Rx#:[id number] Propofol 1,000 mg In 178.743 123.59 Empty Bag 1 bag @ Titrate IV .Q0M BRETT Rx#: [id number] Sodium Chloride 0.9% 1, 130 000 ml @ 130 mls/hr IV . Q7H42M BRETT Rx#:[id number] Oral 60 Output: Urine 475 690 875 Other: Voiding Method Indwelling Catheter Indwelling Catheter Weight 125.6 kg Gen. appearance intubated comfortable sedated nonacute distress. Orogastric and orotracheal tube are both in place. Head exam was generally normal. There was no scleral icterus or corneal arcus. Mucous membranes were moist. Neck was supple and without jugular venous distension, thyromegaly, or carotid bruits. Carotids were easily palpable bilaterally. There was no adenopathy. Lungs sounds are diminished and there is crackles in the mid and lower lung bedoya bilaterally. Overall breath sounds are quite diminished. Cardiac exam revealed the PMI to be normally situated and sized. The rhythm was regular and no extrasystoles were noted during several minutes of auscultation. The first and second heart sounds were normal and physiologic splitting of the second heart sound was noted. There were no murmurs, rubs, clicks, or gallops. Abdominal exam revealed normal bowel sounds. The abdomen was soft, non-tender, and without masses, organomegaly, or appreciable enlargement of the abdominal aorta. The patient is obese and orders cannot be accurately palpated. Examination of the extremities revealed easily palpable radial, femoral and pedal pulses. There was no cyanosis, clubbing or edema. Examination of the skin revealed no evidence of significant rashes, suspicious appearing nevi or other concerning lesions. Neurologically the patient is sedated. Pupils around 5 mm in size reactive and there is no nystagmus and there is no clonus and there is no facial asymmetry. There is no Babinski. The patient withdraws to deep painful stimulation. We had to sedate this patient and make her comfortable knowing that she was trying to get out of bed even while being on propofol. Results - Laboratory Findings CBC and BMP: 02/27/19 05:20 02/27/19 05:20 ABG ABG pH 7.27 (7.35-7.45) L 02/27/19 04:08 ABG pCO2 40 mmHg (35-45) 02/27/19 04:08 ABG pO2 71 mmHg (83-108) L 02/27/19 04:08 ABG O2 Saturation 94.7 % (94-97) 02/27/19 04:08 PT/INR, D-dimer PT 10.2 sec (9.0-12.0) 02/26/19 14:55 INR 1.0 (<1.2) 02/26/19 14:55 Abnormal lab findings: Abnormal Labs 02/26/19 02/26/19 02/26/19 14:54 14:55 14:55 WBC 10.9 H Hgb Neutrophils # 8.8 H ABG pH ABG pCO2 ABG pO2 ABG HCO3 ABG Total CO2 ABG O2 Saturation Sodium 146 H Chloride 122 H Carbon Dioxide 17 L BUN 18 H Creatinine 1.18 H Glucose 122 H POC Glucose (mg/dL) 116 H Plasma Lactic Acid Jan Calcium Magnesium AST 104 H Creatine Kinase 4363 H* CK-MB (CK-2) Total Protein 5.9 L Albumin 3.4 L Urine Protein Urine Blood Amorphous Sediment Hyaline Casts Urine Mucus U Tricyclic Antidepress Ur Amphetamines Screen U Methamphetamines Scrn 02/26/19 02/26/19 02/26/19 14:55 14:55 14:55 WBC Hgb Neutrophils # ABG pH ABG pCO2 ABG pO2 ABG HCO3 ABG Total CO2 ABG O2 Saturation Sodium Chloride Carbon Dioxide BUN Creatinine Glucose POC Glucose (mg/dL) Plasma Lactic Acid Jan 2.4 H* Calcium Magnesium AST Creatine Kinase CK-MB (CK-2) 12.7 H Total Protein Albumin Urine Protein 1+ H Urine Blood Trace H Amorphous Sediment Rare H Hyaline Casts 43 H Urine Mucus Rare H U Tricyclic Antidepress Detected H Ur Amphetamines Screen Detected H U Methamphetamines Scrn Detected H 02/26/19 02/26/19 02/26/19 17:09 18:37 19:09 WBC Hgb Neutrophils # ABG pH 7.11 L* 7.20 L ABG pCO2 54 H ABG pO2 50 L* 340 H ABG HCO3 17 L 16 L ABG Total CO2 17 L ABG O2 Saturation 77.6 L 99.8 H Sodium Chloride Carbon Dioxide BUN Creatinine Glucose POC Glucose (mg/dL) 137 H Plasma Lactic Acid Jan Calcium Magnesium AST Creatine Kinase CK-MB (CK-2) Total Protein Albumin Urine Protein Urine Blood Amorphous Sediment Hyaline Casts Urine Mucus U Tricyclic Antidepress Ur Amphetamines Screen U Methamphetamines Scrn 02/26/19 02/26/19 02/27/19 20:40 23:46 04:08 WBC Hgb Neutrophils # ABG pH 7.27 L ABG pCO2 ABG pO2 71 L ABG HCO3 18 L ABG Total CO2 ABG O2 Saturation Sodium Chloride Carbon Dioxide BUN Creatinine Glucose POC Glucose (mg/dL) 119 H 109 H Plasma Lactic Acid Jan Calcium Magnesium AST Creatine Kinase CK-MB (CK-2) Total Protein Albumin Urine Protein Urine Blood Amorphous Sediment Hyaline Casts Urine Mucus U Tricyclic Antidepress Ur Amphetamines Screen U Methamphetamines Scrn 02/27/19 02/27/19 02/27/19 05:20 05:20 12:04 WBC 10.7 H Hgb 10.9 L Neutrophils # 8.4 H ABG pH ABG pCO2 ABG pO2 ABG HCO3 ABG Total CO2 ABG O2 Saturation Sodium 146 H Chloride 121 H Carbon Dioxide 20 L BUN Creatinine Glucose POC Glucose (mg/dL) 106 H Plasma Lactic Acid Jan Calcium 8.2 L Magnesium 2.4 H AST 99 H Creatine Kinase CK-MB (CK-2) Total Protein 5.1 L Albumin 2.7 L Urine Protein Urine Blood Amorphous Sediment Hyaline Casts Urine Mucus U Tricyclic Antidepress Ur Amphetamines Screen U Methamphetamines Scrn - Diagnostic Findings Chest x-ray: image reviewed Assessment and Plan Plan: 1 acute hypoxic respiratory failure with diffuse bilateral pulmonary infiltrates, consider aspiration pneumonia. An evolving ARDS cannot be completely excluded. The patient is quite hypoxic and on a mechanical ventilator. Note that during her earlier hospitalization the patient had an MSSA pneumonia with septicemia. We are awaiting repeat sputum samples for now. Meanwhile, and history of ventilator changes were done and the patient is currently oxygenating and ventilating well. Repeat blood gases are still pending for now. 2 acute altered mental status was secondary to his drug overdose 3 acute rhabdomyolysis 4 acute kidney injury, improving and the creatinine is normalized 5 hypotension, consider secondary to sepsis/pneumonia. The patient is currently a bicarb infusion. The patient is also on norepinephrine infusion at 0.05 mg/kg per minute. 6 acute metabolic acidosis improving with bicarbonate infusion and his serum bicarb is currently up to 20 7polysubstance abuse with multiple drugs identified on the urine drug screen 8 history of depression 9 previous history of MRSA skin infection 10 acute hyperchloremic hypernatremia, sodium level is at 146 PLAN Keep the patient sedated with a combination of fentanyl and propofol. The combination was needed to achieve good sedation. Continue vent support. This is very ventilator changes were done. Repeat blood gases. Continue Zosyn and vancomycin. Sputum Gram stain and culture. Blood culture. Bicarb infusion for another 24 hours. Hemodynamically the patient is requiring pressors. I'm hoping to wean off norepinephrine infusion over the next 24 hours. We'll co ntinue to follow make further recommendations. We'll may need to initiate tube feedings with the next 24 hours. We'll continue to follow. Condition is critical. Artline catheter will be inserted. The patient wanted he has a triple lumen catheter in place. Time with Patient: Greater than 30
--- NOTE | 2019-02-27 13:55 | P.HPIM ---
History of Present Illness This is a 44 years old female with past medical history of pneumonia, substance abuse, history of ARDS requiring intubation and mechanical ventilation history of MSSA pneumonia. History of depression and suicidal ideation. Presents to the emergency room with altered mental status. Patient could not provide information was obtained from the records and staff. When the family including the daughter and the grandparents noted the patient was not acting normal. She has altered status of her mind the night before when she came back to her house but she was able to talk, becoming progressively worse and they couldn't wake he r up they called the EMS next day. Patient came to the emergency room with altered mental status and decreased responsiveness. Patient got intubated and placed on mechanical ventilation. On admission she has fever of 102.2, rest of Vitas looks stable. She has mild leukocytosis of 10.9 K, sodium 146. Creatinine 0.7, liver enzymes not elevated, lactic acid 2.4, coming back to 1.0. Creatinine kinase 4363. INR 1.0. She was acidotic on presenting to the emergency room. Urine drug screen was positive for tricyclic antidepressants, amphetamines and methamphetamines. Cultures were obtained. Chest x-ray showing possible CHF with left pneumonia. CT of the brain showing some microvascular ischemic changes as ill-defined hypodensity adjacent to the entry and on with MRI recommended. An old lacunar infarct. CT of the cervical spine: No fracture, per radiologist In the emergency room patient was started on broad-spectrum antibiotics. Review of Systems Not applicable as patient is intubated and sedated All systems: negative Constitutional: Denies chills, Denies fever Eyes: denies blurred vision, denies pain Ears, nose, mouth and throat: Denies headache, Denies sore throat Cardiovascular: Denies chest pain, Denies shortness of breath Respiratory: Denies cough Gastrointestinal: Denies abdominal pain, Denies diarrhea, Denies nausea, Denies vomiting Genitourinary: Denies dysuria, Denies hematuria Musculoskeletal: Denies myalgias Integumentary: Denies pruritus, Denies rash Neurological: Denies numbness, Denies weakness Psychiatric: Denies anxiety, Denies depression Endocrine: Denies fatigue, Denies weight change Past Medical History Past Medical History: Pneumonia, Respiratory Disorder Additional Past Medical History / Comment(s): Polysubstane abuse, hisotry of drug overdose, history of ARDS requiring intubation and mechanical ventilation, history of severe rhabdomyalysis and DMITRY (recovered), history of MSSA pneumonia and sepsis, history of metabolic encephalopathy (recovered), hisotory of depression, suicide, obesity History of Any Multi-Drug Resistant Organisms: ESBL, Other MDRO Date of last positivie culture/infection: 01/20 MDRO Source:: Blood, Lungs Past Surgical History: Unable to Obtain Additional Past Surgical History / Comment(s): breast biopsy (date unknown) Past Anesthesia/Blood Transfusion Reactions: No Reported Reaction Past Psychological History: Anxiety, Depression Smoking Status: Current every day smoker Past Alcohol Use History: Unable to Obtain Past Drug Use History: Marijuana, Methamphetamine Medications and Allergies Home Medications Medication Instructions Recorded Confirmed Type Sertraline HCl [Zoloft] 200 mg PO PC-BRKFST 02/26/19 02/26/19 History busPIRone HCL 15 mg PO TID 02/26/19 02/26/19 History cloNIDine HCL [Catapres] 0.1 mg PO BID@0700,1200 02/26/19 02/26/19 History cloNIDine HCL [Catapres] 0.2 mg PO HS 02/26/19 02/26/19 History Allergies Allergy/AdvReac Type Severity Reaction Status Date / Time sulfamethoxazole Allergy Rash/Hives Verified 02/26/19 18:04 [From Bactrim] trimethoprim [From Bactrim] Allergy Rash/Hives Verified 02/26/19 18:04 Physical Exam Vitals: Vital Signs Temp Pulse Pulse Resp BP BP Pulse Ox 02/27/19 08:14 114 H 02/27/19 08:01 110 H 02/27/19 08:00 98.5 F 113 H 18 114/65 99 02/27/19 07:45 98.5 F 98 18 103/69 97 02/27/19 07:30 84 18 98/69 98 02/27/19 07:15 86 19 115/76 98 02/27/19 07:00 83 18 109/77 99 02/27/19 06:45 88 18 111/82 99 02/27/19 06:30 90 18 109/70 98 02/27/19 06:15 87 18 93/61 99 02/27/19 06:00 92 19 93/64 98 02/27/19 05:45 94 19 80/55 95 02/27/19 05:30 92 18 87/52 96 02/27/19 05:15 93 17 89/56 95 02/27/19 05:00 96 20 124/97 95 02/27/19 04:45 99 22 88/54 98 02/27/19 04:30 92 18 89/54 94 L 02/27/19 04:15 94 18 111/71 94 L 02/27/19 04:00 93 20 98/63 96 02/27/19 03:45 92 18 100/61 97 02/27/19 03:30 92 18 101/73 96 02/27/19 03:15 98.9 F 92 18 98/66 98 02/27/19 03:00 92 18 98/66 97 02/27/19 02:45 92 18 97/70 97 02/27/19 02:30 93 18 100/69 95 02/27/19 02:15 95 18 101/65 99 02/27/19 02:00 99.5 F 95 18 110/100 98 02/27/19 01:45 104 H 24 105/73 100 02/27/19 01:30 93 18 109/72 99 02/27/19 01:15 95 18 103/74 100 02/27/19 01:00 94 18 111/77 99 02/27/19 00:45 94 18 121/81 100 02/27/19 00:30 98 18 112/79 100 02/27/19 00:15 98 18 114/80 99 02/27/19 00:00 100.1 F H 96 18 116/84 99 02/26/19 23:45 98 18 113/79 99 02/26/19 23:30 101 H 10 L 101/75 99 02/26/19 23:15 95 18 104/78 99 02/26/19 23:00 98 18 98/69 99 02/26/19 22:45 98 18 98/71 99 02/26/19 22:39 98 18 101/67 100 02/26/19 22:30 98 18 91/59 98 02/26/19 22:15 98 18 106/71 97 02/26/19 22:00 71 18 109/77 100 02/26/19 21:45 90 18 106/72 100 02/26/19 21:30 90 18 126/91 100 02/26/19 21:15 82 18 121/86 100 02/26/19 21:00 85 18 102/84 100 02/26/19 20:45 85 18 112/81 100 02/26/19 20:30 84 18 99 02/26/19 20:15 82 18 102/76 100 02/26/19 20:14 87 02/26/19 20:07 76 02/26/19 20:05 99.6 F 89 18 102/84 02/26/19 20:00 99.6 F 84 18 98 02/26/19 19:45 82 18 107/75 98 02/26/19 19:30 87 18 97 02/26/19 19:15 86 18 112/76 99 02/26/19 19:00 99.3 F 89 18 100/68 99 02/26/19 18:40 99 F 99 18 112/59 99 02/26/19 18:20 99.5 F 101 H 18 119/69 100 02/26/19 17:40 86 18 110/79 100 02/26/19 17:20 99.7 F H 98 14 94/60 100 02/26/19 17:00 99 16 93/56 100 02/26/19 16:40 99 15 92/57 100 02/26/19 16:33 100.0 F H 98 18 93/54 100 02/26/19 16:20 108 H 18 103/62 100 02/26/19 16:07 103 H 105/58 02/26/19 16:06 101 F H 02/26/19 16:00 117 H 12 89/68 95 02/26/19 15:40 12 83/59 02/26/19 15:20 109 H 12 97/58 98 02/26/19 15:18 102 F H 109 H 20 97/58 98 02/26/19 15:06 102.2 F H 02/26/19 15:02 98 02/26/19 14:46 100.9 F H 138 H 12 101/62 89 L Intake and Output 02/26/19 02/27/19 02/27/19 22:59 06:59 14:59 Intake Total 2111.910 1179.541 337.68 Output Total 475 690 300 Balance 1636.910 489.541 37.68 Intake: IV 1961 1000 300 Dextrose 5% in Water 1, 101 800 200 000 ml @ 100 mls/hr IV . Q11H BRETT with Sodium Bicarb (1 Meq/ml) 100 ml Rx#:[id number] Magnesium Sulfate-D5w Pmx 100 100 1 gm In Dextrose/Water 1 100ml.bag @ 100 mls/hr IVPB Q1H BRETT Rx#: [id number] Piperacillin-Tazobactam 3 100 100 .375 gm In Sodium Chloride 0.9% 100 ml @ 25 mls/hr IVPB Q8HR BRETT Rx# :[id number] Sodium Chloride 0.9% 1, 260 000 ml @ 130 mls/hr IV . Q7H42M BRETT Rx#:[id number] Sodium Chloride 0.9% 1, 1500 000 ml @ 999 mls/hr IV . Q1H1M STA Rx#:[id number] Intake, IV Titration 150.910 179.541 37.68 Amount Norepinephrine 32 mg In 20.910 0.798 Sodium Chloride 0.9% 218 ml @ 0.05 MCG/KG/MIN 3. 189 mls/hr IV .Q24H BRETT Rx#:[id number] Propofol 1,000 mg In 178.743 37.68 Empty Bag 1 bag @ Titrate IV .Q0M BRETT Rx#: [id number] Sodium Chloride 0.9% 1, 130 000 ml @ 130 mls/hr IV . Q7H42M BRETT Rx#:[id number] Output: Urine 475 690 300 Other: Voiding Method Indwelling Catheter Indwelling Catheter Weight 125.6 kg GENERAL: Intubated and sedated HEENT: Pupils are round and equally reacting to light. EOMI. No scleral icterus. No conjunctival pallor. Normocephalic, atraumatic. No pharyngeal erythema. No thyromegaly. CARDIOVASCULAR: S1 and S2 present. No murmurs, rubs, or gallops. PULMONARY: Chest is clear to auscultation, no wheezing or crackles. ABDOMEN: Soft, nontender, nondistended, normoactive bowel sounds. No palpable organomegaly. MUSCULOSKELETAL: No joint swelling or deformity. EXTREMITIES: No cyanosis, clubbing, or pedal edema. NEUROLOGICAL: Gross neurological examination did not reveal any focal deficits. SKIN: No rashes. Results CBC & Chem 7: 02/27/19 05:20 05/27/19 05:20 Labs: Abnormal Lab Results - Last 24 Hours (Table) 02/26/19 02/26/19 02/26/19 Range/Units 14:54 14:55 14:55 WBC 10.9 H (3.8-10.6) k/uL Hgb (11.4-16.0) gm/dL Neutrophils # 8.8 H (1.3-7.7) k/uL ABG pH (7.35-7.45) ABG pCO2 (35-45) mmHg ABG pO2 (83-108) mmHg ABG HCO3 (21-25) mmol/L ABG Total CO2 (19-24) mmol/L ABG O2 Saturation (94-97) % Sodium 146 H (137-145) mmol/L Chloride 122 H (98-107) mmol/L Carbon Dioxide 17 L (22-30) mmol/L BUN 18 H (7-17) mg/dL Creatinine 1.18 H (0.52-1.04) mg/dL Glucose 122 H (74-99) mg/dL POC Glucose (mg/dL) 116 H (75-99) mg/dL Plasma Lactic Acid Jan (0.7-2.0) mmol/L Calcium (8.4-10.2) mg/dL Magnesium (1.6-2.3) mg/dL AST 104 H (14-36) U/L Creatine Kinase 4363 H* (30-135) U/L CK-MB (CK-2) (0.0-2.4) ng/mL Total Protein 5.9 L (6.3-8.2) g/dL Albumin 3.4 L (3.5-5.0) g/dL Urine Protein (Negative) Urine Blood (Negative) Amorphous Sediment (None) /hpf Hyaline Casts (0-2) /lpf Urine Mucus (None) /hpf U Tricyclic Antidepress (NotDetected) Ur Amphetamines Screen (NotDetected) U Methamphetamines Scrn (NotDetected) 02/26/19 02/26/19 02/26/19 Range/Units 14:55 14:55 14:55 WBC (3.8-10.6) k/uL Hgb (11.4-16.0) gm/dL Neutrophils # (1.3-7.7) k/uL ABG pH (7.35-7.45) ABG pCO2 (35-45) mmHg ABG pO2 (83-108) mmHg ABG HCO3 (21-25) mmol/L ABG Total CO2 (19-24) mmol/L ABG O2 Saturation (94-97) % Sodium (137-145) mmol/L Chloride (98-107) mmol/L Carbon Dioxide (22-30) mmol/L BUN (7-17) mg/dL Creatinine (0.52-1.04) mg/dL Glucose (74-99) mg/dL POC Glucose (mg/dL) (75-99) mg/dL Plasma Lactic Acid Jan 2.4 H* (0.7-2.0) mmol/L Calcium (8.4-10.2) mg/dL Magnesium (1.6-2.3) mg/dL AST (14-36) U/L Creatine Kinase (30-135) U/L CK-MB (CK-2) 12.7 H (0.0-2.4) ng/mL Total Protein (6.3-8.2) g/dL Albumin (3.5-5.0) g/dL Urine Protein 1+ H (Negative) Urine Blood Trace H (Negative) Amorphous Sediment Rare H (None) /hpf Hyaline Casts 43 H (0-2) /lpf Urine Mucus Rare H (None) /hpf U Tricyclic Antidepress Detected H (NotDetected) Ur Amphetamines Screen Detected H (NotDetected) U Methamphetamines Scrn Detected H (NotDetected) 02/26/19 02/26/19 02/26/19 Range/Units 17:09 18:37 19:09 WBC (3.8-10.6) k/uL Hgb (11.4-16.0) gm/dL Neutrophils # (1.3-7.7) k/uL ABG pH 7.11 L* 7.20 L (7.35-7.45) ABG pCO2 54 H (35-45) mmHg ABG pO2 50 L* 340 H (83-108) mmHg ABG HCO3 17 L 16 L (21-25) mmol/L ABG Total CO2 17 L (19-24) mmol/L ABG O2 Saturation 77.6 L 99.8 H (94-97) % Sodium (137-145) mmol/L Chloride (98-107) mmol/L Carbon Dioxide (22-30) mmol/L BUN (7-17) mg/dL Creatinine (0.52-1.04) mg/dL Glucose (74-99) mg/dL POC Glucose (mg/dL) 137 H (75-99) mg/dL Plasma Lactic Acid Jan (0.7-2.0) mmol/L Calcium (8.4-10.2) mg/dL Magnesium (1.6-2.3) mg/dL AST (14-36) U/L Creatine Kinase (30-135) U/L CK-MB (CK-2) (0.0-2.4) ng/mL Total Protein (6.3-8.2) g/dL Albumin (3.5-5.0) g/dL Urine Protein (Negative) Urine Blood (Negative) Amorphous Sediment (None) /hpf Hyaline Casts (0-2) /lpf Urine Mucus (None) /hpf U Tricyclic Antidepress (NotDetected) Ur Amphetamines Screen (NotDetected) U Methamphetamines Scrn (NotDetected) 02/26/19 02/26/19 02/27/19 Range/Units 20:40 23:46 04:08 WBC (3.8-10.6) k/uL Hgb (11.4-16.0) gm/dL Neutrophils # (1.3-7.7) k/uL ABG pH 7.27 L (7.35-7.45) ABG pCO2 (35-45) mmHg ABG pO2 71 L (83-108) mmHg ABG HCO3 18 L (21-25) mmol/L ABG Total CO2 (19-24) mmol/L ABG O2 Saturation (94-97) % Sodium (137-145) mmol/L Chloride (98-107) mmol/L Carbon Dioxide (22-30) mmol/L BUN (7-17) mg/dL Creatinine (0.52-1.04) mg/dL Glucose (74-99) mg/dL POC Glucose (mg/dL) 119 H 109 H (75-99) mg/dL Plasma Lactic Acid Jan (0.7-2.0) mmol/L Calcium (8.4-10.2) mg/dL Magnesium (1.6-2.3) mg/dL AST (14-36) U/L Creatine Kinase (30-135) U/L CK-MB (CK-2) (0.0-2.4) ng/mL Total Protein (6.3-8.2) g/dL Albumin (3.5-5.0) g/dL Urine Protein (Negative) Urine Blood (Negative) Amorphous Sediment (None) /hpf Hyaline Casts (0-2) /lpf Urine Mucus (None) /hpf U Tricyclic Antidepress (NotDetected) Ur Amphetamines Screen (NotDetected) U Methamphetamines Scrn (NotDetected) 02/27/19 02/27/19 Range/Units 05:20 05:20 WBC 10.7 H (3.8-10.6) k/uL Hgb 10.9 L (11.4-16.0) gm/dL Neutrophils # 8.4 H (1.3-7.7) k/uL ABG pH (7.35-7.45) ABG pCO2 (35-45) mmHg ABG pO2 (83-108) mmHg ABG HCO3 (21-25) mmol/L ABG Total CO2 (19-24) mmol/L ABG O2 Saturation (94-97) % Sodium 146 H (137-145) mmol/L Chloride 121 H (98-107) mmol/L Carbon Dioxide 20 L (22-30) mmol/L BUN (7-17) mg/dL Creatinine (0.52-1.04) mg/dL Glucose (74-99) mg/dL POC Glucose (mg/dL) (75-99) mg/dL Plasma Lactic Acid Jan (0.7-2.0) mmol/L Calcium 8.2 L (8.4-10.2) mg/dL Magnesium 2.4 H (1.6-2.3) mg/dL AST 99 H (14-36) U/L Creatine Kinase (30-135) U/L CK-MB (CK-2) (0.0-2.4) ng/mL Total Protein 5.1 L (6.3-8.2) g/dL Albumin 2.7 L (3.5-5.0) g/dL Urine Protein (Negative) Urine Blood (Negative) Amorphous Sediment (None) /hpf Hyaline Casts (0-2) /lpf Urine Mucus (None) /hpf U Tricyclic Antidepress (NotDetected) Ur Amphetamines Screen (NotDetected) U Methamphetamines Scrn (NotDetected) Microbiology - Last 24 Hours (Table) 02/26/19 19:00 Gram Stain - Preliminary Sputum Sputum Culture - Preliminary 02/26/19 14:55 Urine Culture - Preliminary Urine,Catheterized Thrombosis Risk Factor Assmnt - Choose All That Apply Each Factor Represents 1 point: Age 41-60 years, Medical pt on bed rest, Obesity (BMI >25), Serious lung disease incl. pneumonia (< 1month) Thrombosis Risk Factor Assessment Total Risk Factor Score: 4 Thrombosis Risk Factor Assessment Level: Moderate Risk Assessment and Plan Assessment: Metabolic encephalopathy Systemic inflammatory response syndrome with fever and leukocytosis. Severe sepsis and septic shock Possible community-acquired pneumonia .rule out aspiration pneumonia High lactic acid, improved Possible rhabdomyolysis with creatinine kinase elevated Acute kidney injury, present on admission resolved Polysubstance patient is going to emergency room in unresponsive state, she was intubated and placed on mechanical ventilation. Plan: This is a 44 years old female who presents with unresponsiveness and possible pneumonia. Patient status post intubation and she is currently in the ICU with mechanical ventilation. Also possible pneumonia with severe sepsis. Continue with antibiotics. Continue with IV fluids. Follow-up culture results. Pulmonary/critical care consult. Labs and medication were reviewed.. Continue same treatment. Continue with symptomatic treatment. Resume home medication. Monitor lytes and vitals. DVT and GI prophylaxis. Further recommendations of the clinical course of the patient DVT prophylaxis: Subcutaneous heparin GI Prophylaxis: Protonix Prognosis is guarded
[2019-02-27] MEDS: NOREPINEPHRINE 32 MG in SODIUM CHLORIDE 0.9% 218 ML IV SCH (17:50)
--- NOTE | 2019-02-27 17:56 | PCN ---
PROCEDURE NOTE ARTERIAL LINE PLACEMENT: PREOP DIAGNOSIS: Acute respiratory failure. POSTOP DIAGNOSIS: Acute respiratory failure. Indications: Hemodynamic monitoring. A time-out was completed verifying correct patient, procedure, site, positioning, and implant(s) or special equipment if applicable. Rob's test was performed to ensure adequate perfusion. The patient's left wrist was prepped and draped in sterile fashion. 1% Lidocaine was used to anesthetize the area. An 18G Arrow arterial line was introduced into the radial artery. The catheter was threaded over the guide wire and the needle was removed with appropriate pulsatile blood return. Blood loss was minimal. The catheter was then sutured in place to the skin and a sterile dressing applied. Perfusion to the extremity distal to the point of catheter insertion was checked and found to be adequate. The patient tolerated the procedure well and there were no complications. No bedside complications or bleeding. MMODL / IJN: [id number] /
[2019-02-27] MEDS ORDERED: LEVOFLOXACIN 750MG-D5W PMX 750 MG in DEXTROSE/WATER 1 150ML.BAG IVPB SCH (18:00)
[2019-02-27 18:06] LABS: Glucose,Whole Blood 115 mg/dL (75-99)
[2019-02-27] MEDS: ACETAMINOPHEN IV (For NPO) 1,000 MG in EMPTY BAG 1 BAG IVPB PRN (19:51)
[2019-02-27] MEDS: VANCOMYCIN 2,000 MG in SODIUM CHLORIDE 0.9% 500 ML 500 ML IVPB SCH (20:01)
[2019-02-27 23:53] LABS: Glucose,Whole Blood 114 mg/dL (75-99)
[2019-02-28] MEDS: PIPERACILLIN-TAZOBACTAM 3.375 GM in SODIUM CHLORIDE 0.9% 100 ML IVPB SCH ×3 (00:43→16:40)
[2019-02-28] MEDS: PROPOFOL 1,000 MG in EMPTY BAG 1 BAG IV SCH ×9 (00:44→23:40)
[2019-02-28] MEDS: HEPARIN SODIUM,PORCINE 5,000 UNIT/ML 1 ML VIAL SQ SCH ×3 (00:45→16:40)
[2019-02-28] MEDS: fentaNYL (PF) 1,000 MCG in SODIUM CHLORIDE 0.9% 80 ML IV SCH ×4 (01:06→16:25)
[2019-02-28] MEDS: IPRATROPIUM-ALBUTEROL 3 ML NEB INHALATION PRN (01:44)
[2019-02-28] MEDS: INSULIN ASPART (NovoLOG) 100 UNIT/ML VIAL SQ SCH ×4 (02:00→19:45)
[2019-02-28 05:20] LABS: ABG Base Excess -0.5 mmol/L; ABG HCO3 24 mmol/L (21-25); ABG Oxygen Saturation 97.9 % (94-97); ABG PCO2 35 mmHg (35-45); ABG PH 7.44 (7.35-7.45); ABG PO2 88 mmHg (83-108); ABG TCO2 25 mmol/L (19-24); Allen Test Performed? Yes
[2019-02-28 05:45] LABS: HCT 28.8 % (34.0-46.0); Hypochromasia Slight; MCH 28.3 pg (25.0-35.0); MCHC 32.3 g/dL (31.0-37.0); MCV 87.8 fL (80.0-100.0); Mean Platelet Volume 7.3; Platelet Count 249 k/uL (150-450); RBC 3.28 m/uL (3.80-5.40); RDW 15.4 % (11.5-15.5); WBC 13.8 k/uL (3.8-10.6)
[2019-02-28 05:50] LABS: African American GFR (CKD) >90 (>60 ml/min/1.73 sqM); Anion Gap 3 mmol/L; Blood Urea Nitrogen 9 mg/dL (7-17); Calcium 7.8 mg/dL (8.4-10.2); Carbon Dioxide 23 mmol/L (22-30); Chloride 121 mmol/L (98-107); Creatine Kinase 894 U/L (30-135); Glucose 115 mg/dL (74-99); Magnesium 2.1 mg/dL (1.6-2.3); Phosphorus 2.2 mg/dL (2.5-4.5); Sodium 147 mmol/L (137-145)
[2019-02-28 05:51] LABS: HGB 9.3 gm/dL (11.4-16.0)
[2019-02-28 06:01] LABS: Glucose,Whole Blood 114 mg/dL (75-99)
[2019-02-28] MEDS ORDERED: Potassium Replacement Protocol 1 EACH MISC MISCELLANE PRN (07:05)
[2019-02-28] MEDS ORDERED: Phosphorus Replacement Protoco 1 EACH MISC MISCELLANE PRN (07:26)
[2019-02-28] MEDS ORDERED: POTASSIUM PHOSPHATE 10 MMOL in SODIUM CHLORIDE 0.9% 100 ML IV ONE (08:00)
[2019-02-28] MEDS: IPRATROPIUM-ALBUTEROL 3 ML NEB INHALATION SCH ×4 (08:07→20:04)
[2019-02-28] MEDS: DEXTROSE 5% IN WATER 1,000 ML with SODIUM BICARB (1 MEQ/ML) 100 ML IV SCH (08:08)
--- NOTE | 2019-02-28 08:17 | XR ---
EXAMINATION TYPE: XR chest 1V portable DATE OF EXAM: 02/28/2019 COMPARISON: Prior chest x-ray 02/27/2019 HISTORY: Intubated TECHNIQUE: Single frontal view of the chest is obtained. FINDINGS: Endotracheal tube and gastric tube are overlying appropriate positions. There are overlyin g cardiac leads. No evident pneumothorax. Bilateral airspace disease persists. Heart size likely stab le. Difficult to exclude effusion. IMPRESSION: Correlate for pulmonary edema, ARDS, pneumonia.
[2019-02-28] MEDS: VANCOMYCIN 2,000 MG in SODIUM CHLORIDE 0.9% 500 ML 500 ML IVPB SCH ×2 (09:07→21:11)
[2019-02-28] MEDS: CHLORHEXIDINE GLUCONATE 15 ML CUP MUCOUS MEM SCH ×2 (09:07→21:11)
[2019-02-28] MEDS: PANTOPRAZOLE 40 MG/10 ML VIAL IV SCH (09:07)
[2019-02-28] MEDS: POTASSIUM BICARBONATE/CIT AC 20 MEQ TABLET.EFF NG-TUBE SCH ×2 (09:07→12:18)
--- NOTE | 2019-02-28 11:20 | P.PN ---
Subjective Progress Note Date: 02/28/19 Principal diagnosis: Acute hypoxic respiratory failure secondary to aspiration pneumonia. This is a 44 yo female patient who was brought in to the ED for altered mentation and respiratory failure. Family stated that patient presented to their house drowsy and altered last night. She went to bed and appeared to be sleeping well. Patient was checked on several times today and was just sleeping throughout the day. Patient never woke up and acted appropriate. EMS was called prior to patient arrival. Family adds that patient did have a similar episode in November where she was admitted to the intensive care unit at [facility] and diagnosed with pneumonia. Mother states this was associated with methamphetamine use at that time. I was involved in the care of this patient during her latest hospitalization in [facility]. She had a very similar and prolonged presentation where she came in with drug overdose , altered mentation and respiratory failure /ARDS. She was intub ated and mechanically ventilated. She was also in DMITRY and severe rhabdomyalysis. The patient back then had a CT of brain was normal. Patient was fluid resuscitated. She was placed on IV vasopressors and sedation and paralytics. Slowly ventilator settings were decreased and patient was eventually able to be weaned off the vent. She initially displayed limited mentation, and her functional status is very poor. She slowly improved to the interview and admitted to suicide attempt. She was placed on one-to-one suicide precautions. She was later transferred up to medical floor, where she continued medical treatment and work with physical and occupational therapy. Patient required lengthy hospitalization. In she had a acute hypoxic respiratory failure likely secondary to pneumonia,drug overdoseand sepsis. She was on mechanical ventilator and she had a severe anion gap metabolic acidosis and rhabdo . The B/L basal pneumonia likely aspiration, sputum culture positive for MSSA and MSSA bacteremia. She had a acute kidney injury with creatinine level 9.1 possibly ATN, improved to 0.9, elevated liver enzymes, improved, Acute UTI (urinary tract infection) acute hypernatremia and hyperkalemiasecondary to acute kidney injury, improved and she also had elevated troponin level. She had polysubstance use, UDS is positive for amphetamines, benzodiazepines and opiatesThe patient's presentation is very similar as the patient was again postive for amphetamines and she was found to be in a mild rhabdo and lactive acidosis. She was hypotensive and she was hypoxic. She was intubated in the ED. Her CXR was consistent with diffuse bilateral pulmonary infiltrated. This morning, the patient remains on a mechanical ventilator. Currently she is an assist-control mode at a rate of 18 with a tidal volume of 550 and FiO2 of 60% and a PEEP of 8. These changes were done based on the blood gases that showed a pH of 7.26 with a pCO2 of 40 and pO2 of 71. Follow-up looked gases are still pending for now. The patient's chest x-ray showing diffuse bilateral pulmonary infiltrates. ET tube is deep in the trachea and needs to be pulled of around 1 cm. Noted the patient's renal function is improved compared to yesterday. She came in with acute kidney injury in the creatinine is down to 0.7. A repeat CPK level needs to be done. Hemoglobin is at 10.9 with a white cell count of 10.7. She is afebrile. She is covered with accommodation Zosyn and vancomycin. She has significant respiratory secretions and sputum Gram stain and culture was sent. Blood cultures still pending for now. She is on norepinephrine infusion at 0.05 g per KG per minute. She is currently on a bicarb drip at the rate of 100 mL an hour pH is on propofol at the rate of 40 g per KG per minute and the patient is also on fentanyl at 1 mcg/kg per hour. Reevaluated today on 02/28/2019, patient remains on mechanical ventilation, sedated. She is on propofol at 50 mcg/kg/m, she is also on fentanyl at 1.5 mcg /kg per hour. Remains on bicarb drip, not requiring any norepinephrine. Hemodynamically stable. Her ventilator settings are tidal volume of 450 respiratory rate of 30, FiO2 of 55%, and PEEP of 8. All labs were reviewed including ABG showed a pO2 of 88 pCO2 of 35 pH of 7.44. Patient is also on b icarb drip which I will discontinue. Empirically on antibiotics including vancomycin and Zosyn. Levaquin was discontinued. Chest x-ray continues to show bilateral interstitial infiltrates consistent with bilateral pneumonia, however evolving ARDS is strongly considered. Patient is sedated and no plans to hold sedation this morning but that would be addressed in the next 24 hours. Remains on GI and DVT prophylaxis, I plan to start enteral feeding today. Objective - Vital Signs Vital signs: Vital Signs Temp 99.2 F 02/28/19 05:30 Pulse 72 02/28/19 08:29 Resp 26 H 02/28/19 07:00 BP 96/55 02/28/19 07:00 Pulse Ox 93 L 02/28/19 07:00 Intake & Output 02/27/19 02/28/19 02/28/19 18:59 06:59 18:59 Intake Total 2270.626 1927.251 200 Output Total 1870 1735 60 Balance 400.626 192.251 140 Weight 127 kg Intake: IV 1801 1584 100 Dextrose 5% in Water 1, 1200 1200 100 000 ml @ 100 mls/hr IV . Q11H [facility] with Sodium Bicarb (1 Meq/ml) 100 ml Rx#:[id number] Piperacillin-Tazobactam 3 100 50 .375 gm In Sodium Chloride 0.9% 100 ml @ 25 mls/hr IVPB Q8HR [facility] Rx# :[id number] Vancomycin 2,000 mg In 501 334 Sodium Chloride 0.9% 500 ml 500 ml @ 167 mls/hr IVPB Q16H [facility] Rx#: [id number] Intake, IV Titration 409.626 343.251 100 Amount Norepinephrine 32 mg In 0 50.455 Sodium Chloride 0.9% 218 ml @ 0.05 MCG/KG/MIN 3. 189 mls/hr IV .Q24H [facility] Rx#:[id number] Propofol 1,000 mg In 309.626 149.612 Empty Bag 1 bag @ Titrate IV .Q0M [facility] Rx#: [id number] fentaNYL (PF) 1,000 mcg 100.000 143.184 100 In Sodium Chloride 0.9% 80 ml @ 1 MCG/KG/HR 12.56 mls/hr IV .Q7H58M [facility] Rx #:[id number] Oral 60 Output: Urine 1870 1735 60 Other: Voiding Method Indwelling Catheter Indwelling Catheter ABP, PAP, CO, CI - Last Documented Arterial Blood Pressure 181/178 - Exam Physical Exam: Gen.: Revealed a 44-year-old female intubated, on mechanical ventilation, sedated, in no distress. HEENT:[Neck is supple.] [No neck masses.] [No thyromegaly.] [No JVD.] PERRLA, EOMI, no icterus. Endotracheal tube and orogastric tube are intact. Chest: [Diffuse crackles and rhonchi at the bases bilaterally. Symmetrical chest expansion noted chest wall tenderness. Cardiac Exam: [Normal S1 and S2, no S3 gallop, no murmur.] Abdomen: [Obese, Soft, nontender, no megaly, no rebound, no guarding, normal bowel sounds.] Extremities: [No clubbing, no edema, no cyanosis.] Neurological Exam: Cannot be fully assessed, patient is sedated on propofol drip. She is also on fentanyl drip. Psychiatric: Could not be assessed. Lymphatics: No lymphadenopathy. Skin: No rashes. - Labs CBC & Chem 7: 02/28/19 05:30 02/28/19 05:30 Labs: Abnormal Lab Results - Last 24 Hours (Table) 02/27/19 02/27/19 02/27/19 Range/Units 06:00 12:04 17:55 WBC (3.8-10.6) k/uL RBC (3.80-5.40) m/uL Hgb (11.4-16.0) gm/dL Hct (34.0-46.0) % ABG Total CO2 (19-24) mmol/L ABG O2 Saturation (94-97) % Sodium (137-145) mmol/L Potassium (3.5-5.1) mmol/L Chloride (98-107) mmol/L Glucose (74-99) mg/dL POC Glucose (mg/dL) 106 H 115 H (75-99) mg/dL Calcium (8.4-10.2) mg/dL Phosphorus (2.5-4.5) mg/dL Creatine Kinase 2934 H* (30-135) U/L 02/27/19 02/28/19 02/28/19 Range/Units 23:41 05:03 05:30 WBC 13.8 H (3.8-10.6) k/uL RBC 3.28 L (3.80-5.40) m/uL Hgb 9.3 L D (11.4-16.0) gm/dL Hct 28.8 L (34.0-46.0) % ABG Total CO2 25 H (19-24) mmol/L ABG O2 Saturation 97.9 H (94-97) % Sodium (137-145) mmol/L Potassium (3.5-5.1) mmol/L Chloride (98-107) mmol/L Glucose (74-99) mg/dL POC Glucose (mg/dL) 114 H (75-99) mg/dL Calcium (8.4-10.2) mg/dL Phosphorus (2.5-4.5) mg/dL Creatine Kinase (30-135) U/L 02/28/19 02/28/19 Range/Units 05:30 05:49 WBC (3.8-10.6) k/uL RBC (3.80-5.40) m/uL Hgb (11.4-16.0) gm/dL Hct (34.0-46.0) % ABG Total CO2 (19-24) mmol/L ABG O2 Saturation (94-97) % Sodium 147 H (137-145) mmol/L Potassium 3.0 L (3.5-5.1) mmol/L Chloride 121 H (98-107) mmol/L Glucose 115 H (74-99) mg/dL POC Glucose (mg/dL) 114 H (75-99) mg/dL Calcium 7.8 L (8.4-10.2) mg/dL Phosphorus 2.2 L (2.5-4.5) mg/dL Creatine Kinase 894 H (30-135) U/L Microbiology - Last 24 Hours (Table) 02/26/19 14:55 Urine Culture - Final Urine,Catheterized 02/26/19 14:55 Blood Culture - Preliminary Blood No Growth after 24 hours Assessment and Plan Assessment: Impression: 1 acute hypoxic respiratory failure secondary to aspiration pneumonia, possible evolving ARDS. Patient is requiring relatively high FiO2 and high PEEP to maintain adequate oxygenation. 2 acute drug overdose, multiple but mostly methamphetamine. 3 acute kidney injury 4 acute rhabdomyolysis 5 hypotension secondary to pneumonia sepsis and sepsis. 6 acute metabolic acidosis, improved with sodium bicarb drip which I will discontinue today. 7 history of polysubstance abuse, and previous similar episode in the last year. 8 history of depression Recommendation: Continue ventilatory support, hemodynamic support, initiate nutritional support, GI and DVT prophylaxis, daily assessment of mental status and sedation holidays, continue empiric antibiotics, cut down the tidal volume to 450 since the patient may be developing evolving ARDS. Discontinue bicarb infusion continue to monitor the patient hemodynamically, presently off norepinephrine and off bicarb drip. Her condition is rather critical, previously the patient was on a long course of mechanical ventilation and d eveloped some component of critical illness polyneuropathy. Her ARDS did improve with steroids. Prognosis is definitely guarded patient is critically ill. Critical care time is 35 minutes. We'll continue to follow. Time with Patient: Greater than 30
[2019-02-28 11:28] LABS: Hemoglobin A1C 5.3 % (4.0-6.0)
[2019-02-28 11:54] LABS: ABG Base Excess -0.9 mmol/L; ABG HCO3 23 mmol/L (21-25); ABG Oxygen Saturation 92.1 % (94-97); ABG PCO2 36 mmHg (35-45); ABG PH 7.43 (7.35-7.45); ABG PO2 60 mmHg (83-108); ABG TCO2 25 mmol/L (19-24); Allen Test Performed? Yes
[2019-02-28 12:42] LABS: Glucose,Whole Blood 98 mg/dL (75-99)
[2019-02-28 18:59] LABS: Glucose,Whole Blood 104 mg/dL (75-99)
[2019-02-28] MEDS: fentaNYL (PF) 2,500 MCG in SODIUM CHLORIDE 0.9% 200 ML IV SCH (22:01)
--- NOTE | 2019-02-28 22:01 | XR ---
EXAMINATION: XR chest 1V portable, semiupright AP portable DATE AND TIME: 02/28/2019 9:52 PM CLINICAL INDICATION: PHH; desaturation TECHNIQUE: Semiupright AP portable COMPARISON: Semiupright chest radiograph, 02/28/2019 5:53 AM FINDINGS: ET tube tip superimposed over the mid trachea. NG tube present, coursing over the thoracic esophagus and on over the stomach. EKG leads. The lung inflation pattern is similar to this morning's examination, with consolidation opacity bilat erally involving the upper and mid and lower lung zones bilaterally. No new pulmonary process. The pleural spaces are negative. The cardiac silhouette is moderately enlarged, unchanged. The remainder of the mediastinal silhouette is unremarkable. The skeletal structures and soft tissues are negative for acute findings. IMPRESSION: Stable chest radiographic appearance, with severe widespread alveolar filling process, likely ARDS; c oncurrent pneumonia can only be excluded clinically.
[2019-02-28 22:19] LABS: ABG PCO2 41 mmHg (35-45); ABG PH 7.39 (7.35-7.45); ABG PO2 88 mmHg (83-108); Allen Test Performed? Yes
[2019-02-28 22:20] LABS: ABG Base Excess 0.6 mmol/L; ABG HCO3 26 mmol/L (21-25); ABG TCO2 27 mmol/L (19-24)
[2019-03-01 00:16] LABS: Glucose,Whole Blood 108 mg/dL (75-99)
[2019-03-01] MEDS: PIPERACILLIN-TAZOBACTAM 3.375 GM in SODIUM CHLORIDE 0.9% 100 ML IVPB SCH ×4 (00:20→23:33)
[2019-03-01] MEDS: HEPARIN SODIUM,PORCINE 5,000 UNIT/ML 1 ML VIAL SQ SCH ×4 (00:21→23:32)
[2019-03-01] MEDS: INSULIN ASPART (NovoLOG) 100 UNIT/ML VIAL SQ SCH ×5 (00:24→23:33)
[2019-03-01] MEDS ORDERED: CISATRACURIUM 2 MG/ML 5 ML VIAL IV ONE (04:05)
[2019-03-01] MEDS: PROPOFOL 1,000 MG in EMPTY BAG 1 BAG IV SCH ×9 (04:16→23:43)
[2019-03-01] MEDS: CISATRACURIUM 200 MG in SODIUM CHLORIDE 0.9% 180 ML IV SCH (04:52)
[2019-03-01 05:43] LABS: Glucose,Whole Blood 121 mg/dL (75-99)
[2019-03-01 06:01] LABS: HCT 28.8 % (34.0-46.0); HGB 9.2 gm/dL (11.4-16.0); MCH 28.1 pg (25.0-35.0); MCHC 31.9 g/dL (31.0-37.0); MCV 88.3 fL (80.0-100.0); Mean Platelet Volume 7.4; Platelet Count 254 k/uL (150-450); RBC 3.26 m/uL (3.80-5.40); RDW 15.5 % (11.5-15.5); WBC 12.9 k/uL (3.8-10.6)
[2019-03-01 06:21] LABS: African American GFR (CKD) >90 (>60 ml/min/1.73 sqM); Anion Gap 4 mmol/L; Blood Urea Nitrogen 7 mg/dL (7-17); Calcium 7.8 mg/dL (8.4-10.2); Carbon Dioxide 26 mmol/L (22-30); Chloride 117 mmol/L (98-107); Glucose 103 mg/dL (74-99); Magnesium 2.1 mg/dL (1.6-2.3); Phosphorus 2.7 mg/dL (2.5-4.5); Potassium 3.1 mmol/L (3.5-5.1); Sodium 147 mmol/L (137-145)
--- NOTE | 2019-03-01 06:59 | P.PN ---
Subjective This is a 44 years old female with past medical history of pneumonia, substance abuse, history of ARDS requiring intubation and mechanical ventilation history of MSSA pneumonia. History of depression and suicidal ideation. Presents to the emergency room with altered mental status. Patient could not provide information was obtained from the records and staff. When the family including the daughter and the grandparents noted the patient was not acting normal. She has altered status of her mind the night before when she came back to her house but she was able to talk, becoming progressively worse and they couldn't wake her up they called the EMS next day. Patient came to the emergency room with altered mental status and decreased responsiveness. Patient got intubated and placed on mechanical ventilation. On admission she has fever of 102.2, rest of Vitas looks stable. She has mild leukocytosis of 10.9 K, sodium 146. Creatinine 0.7, liver enzymes not elevated, lactic acid 2.4, coming back to 1.0. Creatinine kinase 4363. INR 1.0. She was acidotic on presenting to the emergency room. Urine drug screen was positive for tricyclic antidepressants, amphetamines and methamphetamines. Cultures were obtained. Chest x-ray showing possible CHF with left pneumonia. CT of the brain showing some microvascular ischemic changes as ill-defined hypodensity adjacent to the entry and on with MRI recommended. An old lacunar infarct. CT of the cervical spine: No fracture, per radiologist In the emergency room patient was started on broad-spectrum antibiotics. 02/28/2019 Patient in the ICU, intubated and sedated. She is followed closely by the pulmonary/critical care team. She is in severe sepsis and septic shock and she needed 2 pressors for pneumonia. Her repeat chest x-ray: Possible evolving ARDS, pneumonia not exclude it as per radiologist. She is currently on Zosyn and vancomycin. WBC is coming down slightly to 12.9 K creatinine 0.5. Patient remains critically ill Review of systems: N/a Medication: Tylenol 1000 mg, albuterol 0.5 mg: Artificial teardrops, 2 drops. Fentanyl citrate 2500 g, heparin 5000 unit, insulin as part as per protocol, Ativan 1-2 mg, norepinephrine to 50 mL, Zosyn 3.375 mg, propofol 1000 mg, vancomycin 2000 mg, Objective - Vital Signs Vital signs: Vital Signs Temp 99 F 02/28/19 17:00 Pulse 100 02/28/19 20:09 Resp 30 H 02/28/19 19:00 BP 103/69 02/28/19 19:00 Pulse Ox 96 02/28/19 19:00 Intake & Output 02/28/19 02/28/19 03/01/19 06:59 18:59 06:59 Intake Total 0071.868 7643.755 5 Output Total 1735 790 75 Balance 589.637 2173.755 -70 Weight 127 kg Intake: IV 1584 1083 5 Dextrose 5% in Water 1, 1200 900 000 ml @ 100 mls/hr IV . Q11H [facility] with Sodium Bicarb (1 Meq/ml) 100 ml Rx#:[id number] Normal Saline Carriers 50 5 Normal Saline Pressure 33 Bag Piperacillin-Tazobactam 3 50 100 .375 gm In Sodium Chloride 0.9% 100 ml @ 25 mls/hr IVPB Q8HR [facility] Rx# :[id number] Vancomycin 2,000 mg In 334 Sodium Chloride 0.9% 500 ml 500 ml @ 167 mls/hr IVPB Q16H [facility] Rx#: [id number] Intake, IV Titration 720.237 9963.755 Amount Norepinephrine 32 mg In 50.455 12.417 Sodium Chloride 0.9% 218 ml @ 0.05 MCG/KG/MIN 3. 189 mls/hr IV .Q24H [facility] Rx#:[id number] Potassium Phosphate 10 100 mmol In Sodium Chloride 0 .9% 100 ml @ 50 mls/hr IV ONCE ONE Rx#:[id number] Propofol 1,000 mg In 149.612 492.71 Empty Bag 1 bag @ Titrate IV .Q0M [facility] Rx#: [id number] Vancomycin 2,000 mg In 500 Sodium Chloride 0.9% 500 ml 500 ml @ 167 mls/hr IVPB Q12H [facility] Rx#: [id number] fentaNYL (PF) 1,000 mcg 143.184 257.628 In Sodium Chloride 0.9% 80 ml @ 1 MCG/KG/HR 12.56 mls/hr IV .Q7H58M [facility] Rx #:[id number] Tube Feeding 60 Other 30 Output: Urine 1735 790 75 Other: Voiding Method Indwelling Catheter Indwelling Catheter ABP, PAP, CO, CI - Last Documented Arterial Blood Pressure 121/68 - Exam GENERAL: Intubated and sedated HEENT: Pupils are round and equally reacting to light. EOMI. No scleral icterus. No conjunctival pallor. Normocephalic, atraumatic. No pharyngeal erythema. No thyromegaly. CARDIOVASCULAR: S1 and S2 present. No murmurs, rubs, or gallops. PULMONARY: Chest is clear to auscultation, no wheezing or crackles. ABDOMEN: Soft, nontender, nondistended, normoactive bowel sounds. No palpable organomegaly. MUSCULOSKELETAL: No joint swelling or deformity. EXTREMITIES: No cyanosis, clubbing, or pedal edema. NEUROLOGICAL: Gross neurological examination did not reveal any focal deficits. SKIN: No rashes. - Labs CBC & Chem 7: 03/01/19 05:00 03/01/19 05:00 Labs: Abnormal Lab Results - Last 24 Hours (Table) 02/27/19 02/28/19 02/28/19 Range/Units 23:41 05:03 05:30 WBC 13.8 H (3.8-10.6) k/uL RBC 3.28 L (3.80-5.40) m/uL Hgb 9.3 L D (11.4-16.0) gm/dL Hct 28.8 L (34.0-46.0) % ABG pO2 (83-108) mmHg ABG Total CO2 25 H (19-24) mmol/L ABG O2 Saturation 97.9 H (94-97) % Sodium (137-145) mmol/L Potassium (3.5-5.1) mmol/L Chloride (98-107) mmol/L Glucose (74-99) mg/dL POC Glucose (mg/dL) 114 H (75-99) mg/dL Calcium (8.4-10.2) mg/dL Phosphorus (2.5-4.5) mg/dL Creatine Kinase (30-135) U/L 02/28/19 02/28/19 02/28/19 Range/Units 05:30 05:49 11:50 WBC (3.8-10.6) k/uL RBC (3.80-5.40) m/uL Hgb (11.4-16.0) gm/dL Hct (34.0-46.0) % ABG pO2 60 L (83-108) mmHg ABG Total CO2 25 H (19-24) mmol/L ABG O2 Saturation 92.1 L (94-97) % Sodium 147 H (137-145) mmol/L Potassium 3.0 L (3.5-5.1) mmol/L Chloride 121 H (98-107) mmol/L Glucose 115 H (74-99) mg/dL POC Glucose (mg/dL) 114 H (75-99) mg/dL Calcium 7.8 L (8.4-10.2) mg/dL Phosphorus 2.2 L (2.5-4.5) mg/dL Creatine Kinase 894 H (30-135) U/L 02/28/19 Range/Units 18:46 WBC (3.8-10.6) k/uL RBC (3.80-5.40) m/uL Hgb (11.4-16.0) gm/dL Hct (34.0-46.0) % ABG pO2 (83-108) mmHg ABG Total CO2 (19-24) mmol/L ABG O2 Saturation (94-97) % Sodium (137-145) mmol/L Potassium (3.5-5.1) mmol/L Chloride (98-107) mmol/L Glucose (74-99) mg/dL POC Glucose (mg/dL) 104 H (75-99) mg/dL Calcium (8.4-10.2) mg/dL Phosphorus (2.5-4.5) mg/dL Creatine Kinase (30-135) U/L Microbiology - Last 24 Hours (Table) 02/26/19 14:55 Blood Culture - Preliminary Blood No Growth after 48 hours 02/26/19 19:00 Gram Stain - Preliminary Sputum Sputum Culture - Preliminary 02/26/19 14:55 Urine Culture - Final Urine,Catheterized Assessment and Plan Assessment: Metabolic encephalopathy Systemic inflammatory response syndrome with fever and leukocytosis. Severe sepsis and septic shock Possibly evolving ARDS Possible community-acquired pneumonia .rule out aspiration pneumonia High lactic acid, improved Possible rhabdomyolysis with creatinine kinase elevated Acute kidney injury, present on admission resolved Polysubstance patient is going to emergency room in unresponsive state, she was intubated and placed on mechanical ventilation. Plan: This is a 44 years old female who presents with unresponsiveness and possible pneumonia. Patient status post intubation and she is currently in the ICU with mechanical ventilation. Also possible pneumonia with severe sepsis. Continue with antibiotics. Continue with IV fluids. Follow-up culture results. Pulmonary/critical care consult. Labs and medication were reviewed.. Continue same treatment. Continue with symptomatic treatment. Resume home medication. Monitor lytes and vitals. DVT and GI prophylaxis. Further recommendations of the clinical course of the patient DVT prophylaxis: Subcutaneous heparin GI Prophylaxis: Protonix Prognosis is guarded
[2019-03-01] MEDS ORDERED: VANCOMYCIN TROUGH DUE 1 EACH MISC MISCELLANE ONE (07:00)
--- NOTE | 2019-03-01 07:35 | XR ---
EXAMINATION TYPE: XR chest 1V portable DATE OF EXAM: 03/01/2019 COMPARISON: Prior chest x-ray 02/28/2019 HISTORY: Intubated TECHNIQUE: Single frontal view of the chest is obtained. FINDINGS: Endotracheal tube and gastric tube are overlying appropriate positions. Bilateral airspace disease persists. Heart size is likely stable. There are cardiac leads. No pneumothorax. IMPRESSION: Correlate for pneumonia, pulmonary edema, ARDS, interstitial pneumonitis.
[2019-03-01 07:50] LABS: ABG Base Excess -0.5 mmol/L; ABG HCO3 24 mmol/L (21-25); ABG Oxygen Saturation 97.9 % (94-97); ABG PCO2 37 mmHg (35-45); ABG PH 7.42 (7.35-7.45); ABG PO2 97 mmHg (83-108); ABG TCO2 25 mmol/L (19-24)
[2019-03-01 08:00] LABS: Allen Test Performed? no
[2019-03-01] MEDS: IPRATROPIUM-ALBUTEROL 3 ML NEB INHALATION SCH ×4 (08:02→19:58)
[2019-03-01] MEDS: ARTIFICIAL TEARS-HYPROMELLOSE DROPS 15 ML BTL BOTH EYES SCH ×5 (09:14→23:32)
[2019-03-01] MEDS: VANCOMYCIN 2,000 MG in SODIUM CHLORIDE 0.9% 500 ML 500 ML IVPB SCH ×2 (09:16→21:15)
[2019-03-01] MEDS: POTASSIUM BICARBONATE/CIT AC 20 MEQ TABLET.EFF NG-TUBE SCH ×4 (09:16→19:01)
[2019-03-01] MEDS: CHLORHEXIDINE GLUCONATE 15 ML CUP MUCOUS MEM SCH ×2 (09:17→21:15)
[2019-03-01] MEDS: PANTOPRAZOLE 40 MG/10 ML VIAL IV SCH (09:17)
[2019-03-01] MEDS: fentaNYL (PF) 2,500 MCG in SODIUM CHLORIDE 0.9% 200 ML IV SCH (10:21)
[2019-03-01 12:31] LABS: Glucose,Whole Blood 82 mg/dL (75-99)
[2019-03-01] MEDS: methylPREDNISolone SOD SUCCI 125 MG/2 ML VIAL IV SCH ×3 (12:44→23:32)
--- NOTE | 2019-03-01 13:37 | P.PN ---
Subjective Progress Note Date: 03/01/19 Principal diagnosis: Acute hypoxic respiratory failure secondary to aspiration pneumonia. This is a 44 yo female patient who was brought in to the ED for altered mentation and respiratory failure. Family stated that patient presented to their house drowsy and altered last night. She went to bed and appeared to be sleeping well. Patient was checked on several times today and was just sleeping throughout the day. Patient never woke up and acted appropriate. EMS was called prior to patient arrival. Family adds that patient did have a similar episode in November where she was admitted to the intensive care unit at [facility] and diagnosed with pneumonia. Mother states this was associated with methamphetamine use at that time. I was involved in the care of this patient during her latest hospitalization in [facility]. She had a very similar and prolonged presentation where she came in with drug overdose , altered mentation and respiratory failure /ARDS. She was intub ated and mechanically ventilated. She was also in DMITRY and severe rhabdomyalysis. The patient back then had a CT of brain was normal. Patient was fluid resuscitated. She was placed on IV vasopressors and sedation and paralytics. Slowly ventilator settings were decreased and patient was eventually able to be weaned off the vent. She initially displayed limited mentation, and her functional status is very poor. She slowly improved to the interview and admitted to suicide attempt. She was placed on one-to-one suicide precautions. She was later transferred up to medical floor, where she continued medical treatment and work with physical and occupational therapy. Patient required lengthy hospitalization. In she had a acute hypoxic respiratory failure likely secondary to pneumonia,drug overdoseand sepsis. She was on mechanical ventilator and she had a severe anion gap metabolic acidosis and rhabdo . The B/L basal pneumonia likely aspiration, sputum culture positive for MSSA and MSSA bacteremia. She had a acute kidney injury with creatinine level 9.1 possibly ATN, improved to 0.9, elevated liver enzymes, improved, Acute UTI (urinary tract infection) acute hypernatremia and hyperkalemiasecondary to acute kidney injury, improved and she also had elevated troponin level. She had polysubstance use, UDS is positive for amphetamines, benzodiazepines and opiatesThe patient's presentation is very similar as the patient was again postive for amphetamines and she was found to be in a mild rhabdo and lactive acidosis. She was hypotensive and she was hypoxic. She was intubated in the ED. Her CXR was consistent with diffuse bilateral pulmonary infiltrated. This morning, the patient remains on a mechanical ventilator. Currently she is an assist-control mode at a rate of 18 with a tidal volume of 550 and FiO2 of 60% and a PEEP of 8. These changes were done based on the blood gases that showed a pH of 7.26 with a pCO2 of 40 and pO2 of 71. Follow-up looked gases are still pending for now. The patient's chest x-ray showing diffuse bilateral pulmonary infiltrates. ET tube is deep in the trachea and needs to be pulled of around 1 cm. Noted the patient's renal function is improved compared to yesterday. She came in with acute kidney injury in the creatinine is down to 0.7. A repeat CPK level needs to be done. Hemoglobin is at 10.9 with a white cell count of 10.7. She is afebrile. She is covered with accommodation Zosyn and vancomycin. She has significant respiratory secretions and sputum Gram stain and culture was sent. Blood cultures still pending for now. She is on norepinephrine infusion at 0.05 g per KG per minute. She is currently on a bicarb drip at the rate of 100 mL an hour pH is on propofol at the rate of 40 g per KG per minute and the patient is also on fentanyl at 1 mcg/kg per hour. Reevaluated today on 02/28/2019, patient remains on mechanical ventilation, sedated. She is on propofol at 50 mcg/kg/m, she is also on fentanyl at 1.5 mcg /kg per hour. Remains on bicarb drip, not requiring any norepinephrine. Hemodynamically stable. Her ventilator settings are tidal volume of 450 respiratory rate of 30, FiO2 of 55%, and PEEP of 8. All labs were reviewed including ABG showed a pO2 of 88 pCO2 of 35 pH of 7.44. Patient is also on b icarb drip which I will discontinue. Empirically on antibiotics including vancomycin and Zosyn. Levaquin was discontinued. Chest x-ray continues to show bilateral interstitial infiltrates consistent with bilateral pneumonia, however evolving ARDS is strongly considered. Patient is sedated and no plans to hold sedation this morning but that would be addressed in the next 24 hours. Remains on GI and DVT prophylaxis, I plan to start enteral feeding today. Reevaluated today on 03/01/2019, patient remains on mechanical ventilation, had to increase her FiO2 and PEEP yesterday, patient had to be placed on Nimbex because she was getting a synchronous with mechanical ventilation, and she was experiencing continuous cough and desaturating continuously at night. Presently on Nimbex, propofol, norepinephrine, fentanyl, and her ventilator settings are assist control rate of 26, tidal volume of 450, FiO2 is 55%, PEEP is 10. Patient is on enteral feeding via orogastric tube. Her norepinephrine is minimal at 0.04 mcg/kg/m, she is also on fentanyl 1.5 mcg/kg/m, and propofol at 50 mcg/kg/m. ABG this morning showed a pO2 of 97 pCO2 of 37 pH of 7.42. Chest x-ray shows worsening interstitial lung disease consistent with evolving ARDS. Her plateau pressures were noted to be high at 34 this morning. Peak airway pressure is in the low 40s. Solu-Medrol was started for evolving ARDS. Clearly the patient is not in any shape for weaning at this point. She is requiring significant FiO2 and significant PEEP may have to even go up higher on the PEEP. Patient had a very similar presentation in the last year at [facility], and she ended up requiring high PEEP, high FiO2, and she responded eventually after 10 days of mechanical ventilation. Objective - Vital Signs Vital signs: Vital Signs Temp 98.3 F 03/01/19 12:00 Pulse 86 03/01/19 12:16 Resp 31 H 03/01/19 12:00 BP 101/68 03/01/19 11:30 Pulse Ox 93 L 03/01/19 12:00 Intake & Output 02/28/19 03/01/19 03/01/19 18:59 06:59 18:59 Intake Total 2535.755 1484.195 415.880 Output Total 790 685 35 Balance 1745.755 799.195 380.880 Weight 127 kg 126.5 kg Intake: IV 1083 693 8 Dextrose 5% in Water 1, 900 000 ml @ 100 mls/hr IV . Q11H [facility] with Sodium Bicarb (1 Meq/ml) 100 ml Rx#:[id number] Normal Saline Carriers 50 60 5 Normal Saline Pressure 33 33 3 Bag Piperacillin-Tazobactam 3 100 100 .375 gm In Sodium Chloride 0.9% 100 ml @ 25 mls/hr IVPB Q8HR [facility] Rx# :[id number] Vancomycin 2,000 mg In 500 Sodium Chloride 0.9% 500 ml 500 ml @ 167 mls/hr IVPB Q12H [facility] Rx#: [id number] Intake, IV Titration 1362.755 390.195 407.880 Amount Norepinephrine 32 mg In 12.417 52.253 Sodium Chloride 0.9% 218 ml @ 0.05 MCG/KG/MIN 3. 189 mls/hr IV .Q24H [facility] Rx#:[id number] Potassium Phosphate 10 100 mmol In Sodium Chloride 0 .9% 100 ml @ 50 mls/hr IV ONCE ONE Rx#:[id number] Propofol 1,000 mg In 492.71 390.195 178.74 Empty Bag 1 bag @ Titrate IV .Q0M [facility] Rx#: [id number] Vancomycin 2,000 mg In 500 Sodium Chloride 0.9% 500 ml 500 ml @ 167 mls/hr IVPB Q12H [facility] Rx#: [id number] fentaNYL (PF) 1,000 mcg 257.628 In Sodium Chloride 0.9% 80 ml @ 1 MCG/KG/HR 12.56 mls/hr IV .Q7H58M [facility] Rx #:[id number] fentaNYL (PF) 2,500 mcg 176.887 In Sodium Chloride 0.9% 200 ml @ 1 MCG/KG/HR 12. 56 mls/hr IV .[id number] [facility] Rx#:[id number] Tube Feeding 60 311 Other 30 90 Output: Urine 790 685 35 Other: Voiding Method Indwelling Catheter Indwelling Catheter Indwelling Catheter ABP, PAP, CO, CI - Last Documented Arterial Blood Pressure 136/74 - Exam Physical Exam: Gen.: Revealed a 44-year-old female intubated, on mechanical ventilation, sedated, and paralyzed. in no distress. HEENT:[Neck is supple.] [No neck masses.] [No thyromegaly.] [No JVD.] PERRLA, EOMI, no icterus. Endotracheal tube and orogastric tube are intact. Chest: [Diffuse crackles and rhonchi at the bases bilaterally. Symmetrical chest expansion noted chest wall tenderness. Cardiac Exam: [Normal S1 and S2, no S3 gallop, no murmur.] Abdomen: [Obese, Soft, nontender, no megaly, no rebound, no guarding, normal bowel sounds.] Extremities: [No clubbing, no edema, no cyanosis.] Neurological Exam: Cannot be fully assessed, patient is sedated on propofol and fentanyl drip. Psychiatric: Could not be assessed. Lymphatics: No lymphadenopathy. Skin: No rashes. - Labs CBC & Chem 7: 03/01/19 05:00 03/01/19 05:00 Labs: Abnormal Lab Results - Last 24 Hours (Table) 02/28/19 02/28/19 03/01/19 Range/Units 18:46 22:05 00:05 WBC (3.8-10.6) k/uL RBC (3.80-5.40) m/uL Hgb (11.4-16.0) gm/dL Hct (34.0-46.0) % ABG HCO3 26 H (21-25) mmol/L ABG Total CO2 27 H (19-24) mmol/L ABG O2 Saturation (94-97) % Sodium (137-145) mmol/L Potassium (3.5-5.1) mmol/L Chloride (98-107) mmol/L Glucose (74-99) mg/dL POC Glucose (mg/dL) 104 H 108 H (75-99) mg/dL Calcium (8.4-10.2) mg/dL 03/01/19 03/01/19 03/01/19 Range/Units 05:00 05:00 05:32 WBC 12.9 H (3.8-10.6) k/uL RBC 3.26 L (3.80-5.40) m/uL Hgb 9.2 L (11.4-16.0) gm/dL Hct 28.8 L (34.0-46.0) % ABG HCO3 (21-25) mmol/L ABG Total CO2 (19-24) mmol/L ABG O2 Saturation (94-97) % Sodium 147 H (137-145) mmol/L Potassium 3.1 L (3.5-5.1) mmol/L Chloride 117 H (98-107) mmol/L Glucose 103 H (74-99) mg/dL POC Glucose (mg/dL) 121 H (75-99) mg/dL Calcium 7.8 L (8.4-10.2) mg/dL 03/01/19 Range/Units 07:46 WBC (3.8-10.6) k/uL RBC (3.80-5.40) m/uL Hgb (11.4-16.0) gm/dL Hct (34.0-46.0) % ABG HCO3 (21-25) mmol/L ABG Total CO2 25 H (19-24) mmol/L ABG O2 Saturation 97.9 H (94-97) % Sodium (137-145) mmol/L Potassium (3.5-5.1) mmol/L Chloride (98-107) mmol/L Glucose (74-99) mg/dL POC Glucose (mg/dL) (75-99) mg/dL Calcium (8.4-10.2) mg/dL Microbiology - Last 24 Hours (Table) 02/26/19 19:00 Gram Stain - Preliminary Sputum Sputum Culture - Preliminary Presumptive Staph aureus 02/26/19 14:55 Blood Culture - Preliminary Blood No Growth after 48 hours Assessment and Plan Assessment: Impression: 1 acute hypoxic respiratory failure secondary to aspiration pneumonia, and ARDS. Her plateau pressure was noted to be elevated at 34. 2 acute drug overdose, multiple but mostly methamphetamine. 3 acute kidney injury 4 acute rhabdomyolysis 5 hypotension secondary to pneumonia sepsis and sepsis. 6 acute metabolic acidosis, resolved, required bicarb drip. 7 history of polysubstance abuse, and previous similar episode in the last year. 8 history of depression Recommendation: Continue ventilatory support, nutritional support, hemodynamic support, continue paralytic agents, continue propofol, continue fentanyl, continue antibiotics empirically, keep the same tidal volume at 450 for now, patient is developing ARDS, chest x-ray is worsening, peak airway pressure and plateau pressures were noted to be elevated. Patient is obviously very critically ill, no plans to consider any weaning at this point. Prognosis is extremely poor and guarded. Steroids were added for her evolving ARDS. Critical care time is 34 minutes. We'll continue to follow C Time with Patient: Greater than 30
--- NOTE | 2019-03-01 17:01 | P.PN ---
Subjective This is a 44 years old female with past medical history of pneumonia, substance abuse, history of ARDS requiring intubation and mechanical ventilation history of MSSA pneumonia. History of depression and suicidal ideation. Presents to the emergency room with altered mental status. Patient could not provide information was obtained from the records and staff. When the family including the daughter and the grandparents noted the patient was not acting normal. She has altered status of her mind the night before when she came back to her house but she was able to talk, becoming progressively worse and they couldn't wake her up they called the EMS next day. Patient came to the emergency room with altered mental status and decreased responsiveness. Patient got intubated and placed on mechanical ventilation. On admission she has fever of 102.2, rest of Vitas looks stable. She has mild leukocytosis of 10.9 K, sodium 146. Creatinine 0.7, liver enzymes not elevated, lactic acid 2.4, coming back to 1.0. Creatinine kinase 4363. INR 1.0. She was acidotic on presenting to the emergency room. Urine drug screen was positive for tricyclic antidepressants, amphetamines and methamphetamines. Cultures were obtained. Chest x-ray showing possible CHF with left pneumonia. CT of the brain showing some microvascular ischemic changes as ill-defined hypodensity adjacent to the entry and on with MRI recommended. An old lacunar infarct. CT of the cervical spine: No fracture, per radiologist In the emergency room patient was started on broad-spectrum antibiotics. 02/28/2019 Patient in the ICU, intubated and sedated. She is followed closely by the pulmonary/critical care team. She is in severe sepsis and septic shock and she needed 2 pressors for pneumonia. Her repeat chest x-ray: Possible evolving ARDS, pneumonia not exclude it as per radiologist. She is currently on Zosyn and vancomycin. WBC is coming down slightly to 12.9 K creatinine 0.5. Patient remains critically ill 03/01/2019 Patient is in the ICU on mechanical ventilation. Patient probably has ARDS per chest x-ray. She is on pressors and antibiotics of Zosyn and vancomycin for her pneumonia. However patient was started on Solu-Medrol 60 mg today. Also patient is running fever at 100.6. Blood pressure on the low side improved with pressors. WBC is 12-13 K. Potassium 3.1 and creatinine 0.5. Review of systems: N/a Medication: Tylenol 1000 mg, albuterol 0.5 mg: Artificial teardrops, 2 drops. Fentanyl citrate 2500 g, heparin 5000 unit, insulin as part as per protocol, Ativan 1-2 mg, norepinephrine to 50 mL, Zosyn 3.375 mg, propofol 1000 mg, vancomycin 2000 mg, Solu-Medrol 60 mg. Objective - Vital Signs Vital signs: Vital Signs Temp 98.3 F 03/01/19 12:00 Pulse 86 03/01/19 16:02 Resp 26 H 03/01/19 14:30 BP 93/68 03/01/19 14:30 Pulse Ox 93 L 03/01/19 14:30 Intake & Output 02/28/19 03/01/19 03/01/19 18:59 06:59 18:59 Intake Total 2535.755 7991.003 0894.440 Output Total 790 685 555 Balance 1745.755 433.787 4340.440 Weight 127 kg 126.5 kg Intake: IV 1083 693 737 Dextrose 5% in Water 1, 900 000 ml @ 100 mls/hr IV . Q11H [facility] with Sodium Bicarb (1 Meq/ml) 100 ml Rx#:[id number] Normal Saline Carriers 50 60 110 Normal Saline Pressure 33 33 27 Bag Piperacillin-Tazobactam 3 100 100 100 .375 gm In Sodium Chloride 0.9% 100 ml @ 25 mls/hr IVPB Q8HR [facility] Rx# :[id number] Vancomycin 2,000 mg In 500 500 Sodium Chloride 0.9% 500 ml 500 ml @ 167 mls/hr IVPB Q12H [facility] Rx#: [id number] Intake, IV Titration 1362.755 390.195 565.440 Amount Norepinephrine 32 mg In 12.417 53.933 Sodium Chloride 0.9% 218 ml @ 0.05 MCG/KG/MIN 3. 189 mls/hr IV .Q24H [facility] Rx#:[id number] Potassium Phosphate 10 100 mmol In Sodium Chloride 0 .9% 100 ml @ 50 mls/hr IV ONCE ONE Rx#:[id number] Propofol 1,000 mg In 492.71 390.195 334.62 Empty Bag 1 bag @ Titrate IV .Q0M [facility] Rx#: [id number] Vancomycin 2,000 mg In 500 Sodium Chloride 0.9% 500 ml 500 ml @ 167 mls/hr IVPB Q12H [facility] Rx#: [id number] fentaNYL (PF) 1,000 mcg 257.628 In Sodium Chloride 0.9% 80 ml @ 1 MCG/KG/HR 12.56 mls/hr IV .Q7H58M [facility] Rx #:[id number] fentaNYL (PF) 2,500 mcg 176.887 In Sodium Chloride 0.9% 200 ml @ 1 MCG/KG/HR 12. 56 mls/hr IV .[id number] [facility] Rx#:[id number] Tube Feeding 60 311 231 Other 30 90 60 Output: Urine 790 685 555 Other: Voiding Method Indwelling Catheter Indwelling Catheter Indwelling Catheter ABP, PAP, CO, CI - Last Documented Arterial Blood Pressure 110/67 - Exam GENERAL: Intubated and sedated HEENT: Pupils are round and equally reacting to light. EOMI. No scleral icterus. No conjunctival pallor. Normocephalic, atraumatic. No pharyngeal erythema. No thyromegaly. CARDIOVASCULAR: S1 and S2 present. No murmurs, rubs, or gallops. PULMONARY: Chest is clear to auscultation, no wheezing or crackles. ABDOMEN: Soft, nontender, nondistended, normoactive bowel sounds. No palpable organomegaly. MUSCULOSKELETAL: No joint swelling or deformity. EXTREMITIES: No cyanosis, clubbing, or pedal edema. NEUROLOGICAL: Gross neurological examination did not reveal any focal deficits. SKIN: No rashes. - Labs CBC & Chem 7: 03/01/19 05:00 03/01/19 15:47 Labs: Abnormal Lab Results - Last 24 Hours (Table) 02/28/19 02/28/19 03/01/19 Range/Units 18:46 22:05 00:05 WBC (3.8-10.6) k/uL RBC (3.80-5.40) m/uL Hgb (11.4-16.0) gm/dL Hct (34.0-46.0) % ABG HCO3 26 H (21-25) mmol/L ABG Total CO2 27 H (19-24) mmol/L ABG O2 Saturation (94-97) % Sodium (137-145) mmol/L Potassium (3.5-5.1) mmol/L Chloride (98-107) mmol/L Glucose (74-99) mg/dL POC Glucose (mg/dL) 104 H 108 H (75-99) mg/dL Calcium (8.4-10.2) mg/dL 03/01/19 03/01/19 03/01/19 Range/Units 05:00 05:00 05:32 WBC 12.9 H (3.8-10.6) k/uL RBC 3.26 L (3.80-5.40) m/uL Hgb 9.2 L (11.4-16.0) gm/dL Hct 28.8 L (34.0-46.0) % ABG HCO3 (21-25) mmol/L ABG Total CO2 (19-24) mmol/L ABG O2 Saturation (94-97) % Sodium 147 H (137-145) mmol/L Potassium 3.1 L (3.5-5.1) mmol/L Chloride 117 H (98-107) mmol/L Glucose 103 H (74-99) mg/dL POC Glucose (mg/dL) 121 H (75-99) mg/dL Calcium 7.8 L (8.4-10.2) mg/dL 03/01/19 03/01/19 Range/Units 07:46 15:47 WBC (3.8-10.6) k/uL RBC (3.80-5.40) m/uL Hgb (11.4-16.0) gm/dL Hct (34.0-46.0) % ABG HCO3 (21-25) mmol/L ABG Total CO2 25 H (19-24) mmol/L ABG O2 Saturation 97.9 H (94-97) % Sodium (137-145) mmol/L Potassium 3.2 L (3.5-5.1) mmol/L Chloride (98-107) mmol/L Glucose (74-99) mg/dL POC Glucose (mg/dL) (75-99) mg/dL Calcium (8.4-10.2) mg/dL Microbiology - Last 24 Hours (Table) 02/26/19 19:00 Gram Stain - Preliminary Sputum Sputum Culture - Preliminary Presumptive Staph aureus 02/26/19 14:55 Blood Culture - Preliminary Blood No Growth after 48 hours Assessment and Plan Assessment: Metabolic encephalopathy Systemic inflammatory response syndrome with fever and leukocytosis. Severe sepsis and septic shock Possibly evolving ARDS Possible community-acquired pneumonia .rule out aspiration pneumonia High lactic acid, improved Possible rhabdomyolysis with creatinine kinase elevated Acute kidney injury, present on admission resolved Polysubstance patient is going to emergency room in unresponsive state, she was intubated and placed on mechanical ventilation. Plan: This is a 44 years old female who presents with unresponsiveness and possible pneumonia. Patient status post intubation and she is currently in the ICU with mechanical ventilation. Also possible pneumonia with severe sepsis. Continue with antibiotics. Continue with IV fluids. Follow-up culture results. Pulmonary/critical care consult. Labs and medication were reviewed.. Continue same treatment. Continue with symptomatic treatment. Resume home medication. Monitor lytes and vitals. DVT and GI prophylaxis. Further recommendations of the clinical course of the patient DVT prophylaxis: Subcutaneous heparin GI Prophylaxis: Protonix Prognosis is guarded
[2019-03-01] MEDS ORDERED: POTASSIUM CHLORIDE 20 MEQ in WATER FOR INJECTION 1 100ML.BAG IVPB STA (17:14)
[2019-03-01 18:01] LABS: Glucose,Whole Blood 123 mg/dL (75-99)
[2019-03-01] MEDS: NOREPINEPHRINE 32 MG in SODIUM CHLORIDE 0.9% 218 ML IV SCH (19:31)
[2019-03-01 23:38] LABS: Glucose,Whole Blood 156 mg/dL (75-99)
[2019-03-02] MEDS: POTASSIUM CHLORIDE 10 MEQ in WATER FOR INJECTION 1 100ML.BAG IVPB SCH ×4 (00:53→09:21)
[2019-03-02] MEDS: CISATRACURIUM 200 MG in SODIUM CHLORIDE 0.9% 180 ML IV SCH ×2 (01:07→14:14)
[2019-03-02] MEDS: PROPOFOL 1,000 MG in EMPTY BAG 1 BAG IV SCH ×8 (02:16→21:41)
[2019-03-02] MEDS: ARTIFICIAL TEARS-HYPROMELLOSE DROPS 15 ML BTL BOTH EYES SCH ×5 (04:03→20:33)
[2019-03-02] MEDS: fentaNYL (PF) 2,500 MCG in SODIUM CHLORIDE 0.9% 200 ML IV SCH ×2 (04:44→22:47)
[2019-03-02 05:45] LABS: HCT 29.4 % (34.0-46.0); HGB 9.4 gm/dL (11.4-16.0); Hypochromasia Slight; MCH 28.3 pg (25.0-35.0); MCHC 31.9 g/dL (31.0-37.0); MCV 88.7 fL (80.0-100.0); Platelet Count 219 k/uL (150-450); RBC 3.32 m/uL (3.80-5.40); RDW 15.4 % (11.5-15.5); WBC 5.8 k/uL (3.8-10.6)
[2019-03-02] MEDS: NOREPINEPHRINE 32 MG in SODIUM CHLORIDE 0.9% 218 ML IV SCH ×2 (05:58→16:33)
[2019-03-02] MEDS: INSULIN ASPART (NovoLOG) 100 UNIT/ML VIAL SQ SCH ×3 (05:59→18:42)
[2019-03-02 06:04] LABS: African American GFR (CKD) >90 (>60 ml/min/1.73 sqM); Anion Gap 6 mmol/L; Blood Urea Nitrogen 13 mg/dL (7-17); Calcium 8.1 mg/dL (8.4-10.2); Carbon Dioxide 24 mmol/L (22-30); Chloride 115 mmol/L (98-107); Glucose 141 mg/dL (74-99); Magnesium 2.2 mg/dL (1.6-2.3); Phosphorus 3.6 mg/dL (2.5-4.5); Potassium 3.9 mmol/L (3.5-5.1); Sodium 145 mmol/L (137-145)
[2019-03-02] MEDS: methylPREDNISolone SOD SUCCI 125 MG/2 ML VIAL IV SCH ×3 (06:05→16:32)
[2019-03-02 06:08] LABS: Glucose,Whole Blood 131 mg/dL (75-99)
[2019-03-02 07:06] LABS: ABG Base Excess -1.5 mmol/L; ABG HCO3 24 mmol/L (21-25); ABG Oxygen Saturation 93.6 % (94-97); ABG PCO2 43 mmHg (35-45); ABG PH 7.35 (7.35-7.45); ABG PO2 74 mmHg (83-108); ABG TCO2 25 mmol/L (19-24); Allen Test Performed? Yes
[2019-03-02] MEDS: IPRATROPIUM-ALBUTEROL 3 ML NEB INHALATION SCH ×4 (07:26→19:28)
[2019-03-02] MEDS: VANCOMYCIN 2,000 MG in SODIUM CHLORIDE 0.9% 500 ML 500 ML IVPB SCH ×2 (07:48→20:33)
[2019-03-02] MEDS: PIPERACILLIN-TAZOBACTAM 3.375 GM in SODIUM CHLORIDE 0.9% 100 ML IVPB SCH ×2 (07:50→16:32)
[2019-03-02] MEDS: CHLORHEXIDINE GLUCONATE 15 ML CUP MUCOUS MEM SCH ×2 (07:53→20:33)
[2019-03-02] MEDS: PANTOPRAZOLE 40 MG/10 ML VIAL IV SCH (07:53)
[2019-03-02] MEDS: HEPARIN SODIUM,PORCINE 5,000 UNIT/ML 1 ML VIAL SQ SCH ×2 (07:53→16:32)
--- NOTE | 2019-03-02 08:14 | XR ---
EXAMINATION TYPE: XR chest 1V portable DATE OF EXAM: 03/02/2019 COMPARISON: Prior chest x-ray 03/01/2019 HISTORY: Intubated TECHNIQUE: Single frontal view of the chest is obtained. FINDINGS: Endotracheal tube and gastric tube are overlying appropriate positions. Bilateral airspace disease is present. There are overlying cardiac leads. Heart size is stable. No pneumothorax or siza ble effusion evident. IMPRESSION: Essentially stable findings. Correlate for ARDS, pneumonia, interstitial pneumonitis, pu lmonary edema.
[2019-03-02] MEDS: FUROSEMIDE 10 MG/ML 4 ML VIAL IV SCH ×2 (11:44→20:34)
--- NOTE | 2019-03-02 12:16 | P.PN ---
Subjective Progress Note Date: 03/02/19 Principal diagnosis: Acute hypoxic respiratory failure secondary to aspiration pneumonia. And ARDS. This is a 44 yo female patient who was brought in to the ED for altered mentat ion and respiratory failure. Family stated that patient presented to their house drowsy and altered last night. She went to bed and appeared to be sleeping well. Patient was checked on several times today and was just sleeping throughout the day. Patient never woke up and acted appropriate. EMS was called prior to patient arrival. Family adds that patient did have a similar episode in November where she was admitted to the intensive care unit at [facility] and diagnosed with pneumonia. Mother states this was associated with methamphetamine use at that time. I was involved in the care of this patient during her latest hospitalization in [facility]. She had a very similar and prolonged presentation where she came in with drug overdose , altered mentation and respiratory failure /ARDS. She was intubated and mechanically ventilated. She was also in DMITRY and severe rhabdomyalysis. The patient back then had a CT of brain was normal. Patient was fluid resuscitated. She was placed on IV vasopressors and sedation and paralytics. Slowly ventilator settings were decreased and patient was ev entually able to be weaned off the vent. She initially displayed limited mentation, and her functional status is very poor. She slowly improved to the interview and admitted to suicide attempt. She was placed on one-to-one suicide precautions. She was later transferred up to medical floor, where she continued medical treatment and work with physical and occupational therapy. Patient required lengthy hospitalization. In she had a acute hypoxic respiratory failure likely secondary to pneumonia,drug overdoseand sepsis. She was on mechanical ventilator and she had a severe anion gap metabolic acidosis and rhabdo . The B/L basal pneumonia likely aspiration, sputum culture positive for MSSA and MSSA bacteremia. She had a acute kidney injury with creatinine level 9.1 possibly ATN, improved to 0.9, elevated liver enzymes, improved, Acute UTI (urinary tract infection) acute hypernatremia and hyperkalemiasecondary to acute kidney injury, improved and she also had elevated troponin level. She had polysubstance use, UDS is positive for amphetamines, benzodiazepines and opiatesThe patient's presentation is very similar as the patient was again postive for amphetamines and she was found to be in a mild rhabdo and lactive acidosis. She was hypotensive and she was hypoxic. She was intubated in the ED. Her CXR was consistent with diffuse bilateral pulmonary infiltrated. This morning, the patient remains on a mechanical ventilator. Currently she is an assist-control mode at a rate of 18 with a tidal volume of 550 and FiO2 of 60% and a PEEP of 8. These changes were done based on the blood gases that showed a pH of 7.26 with a pCO2 of 40 and pO2 of 71. Follow-up looked gases are still pending for now. The patient's chest x-ray showing diffuse bilateral pulmonary infiltrates. ET tube is deep in the trachea and needs to be pulled of around 1 cm. Noted the patient's renal function is improved compared to yesterday. She came in with acute kidney injury in the creatinine is down to 0.7. A repeat CPK level needs to be done. Hemoglobin is at 10.9 with a white cell count of 10.7. She is afebrile. She is covered with accommodation Zosyn and vancomycin. She has significant respiratory secretions and sputum Gram stain and culture was sent. Blood cultures still pending for now. She is on norepinephrine infusion at 0.05 g per KG per minute. She is currently on a bicarb drip at the rate of 100 mL an hour pH is on propofol at the rate of 40 g per KG per minute and the patient is also on fentanyl at 1 mcg/kg per hour. Reevaluated today on 02/28/2019, patient remains on mechanical ventilation, sedated. She is on propofol at 50 mcg/kg/m, she is also on fentanyl at 1.5 mcg/kg per hour. Remains on bicarb drip, not requiring any norepinephrine. Hemodynamically stable. Her ventilator settings are tidal volume of 450 respiratory rate of 30, FiO2 of 55%, and PEEP of 8. All labs were reviewed including ABG showed a pO2 of 88 pCO2 of 35 pH of 7.44. Patient is also on bicarb drip which I will discontinue. Empirically on antibiotics including vancomycin and Zosyn. Levaquin was discontinued. Chest x-ray continues to show bilateral interstitial infiltrates consistent with bilateral pneumonia, however evolving ARDS is strongly considered. Patient is sedated and no plans to hold sedation this morning but that would be addressed in the next 24 hours. Remains on GI and DVT prophylaxis, I plan to start enteral feeding today. Reevaluated today on 03/01/2019, patient remains on mechanical ventilation, had to increase her FiO2 and PEEP yesterday, patient had to be placed on Nimbex because she was getting a synchronous with mechanical ventilation, and she was experiencing continuous cough and desaturating continuously at night. Presently on Nimbex, propofol, norepinephrine, fentanyl, and her ventilator settings are assist control rate of 26, tidal volume of 450, FiO2 is 55%, PEEP is 10. Patient is on enteral feeding via orogastric tube. Her norepinephrine is minimal at 0.04 mcg/kg/m, she is also on fentanyl 1.5 mcg/kg/m, and propofol at 50 mcg/kg/m. ABG this morning showed a pO2 of 97 pCO2 of 37 pH of 7.42. Chest x-ray shows worsening interstitial lung disease consistent with evolving ARDS. Her plateau pressures were noted to be high at 34 this morning. Peak airway pressure is in the low 40s. Solu-Medrol was started for evolving ARDS. Clearly the patient is not in any shape for weaning at this point. She is requiring significant FiO2 and significant PEEP may have to even go up higher on the PEEP. Patient had a very similar presentation in the last year at [facility], and she ended up requiring high PEEP, high FiO2, and she responded eventually after 10 days of mechanical ventilation. Reevaluated today on 03/02/2019, patient remains on mechanical ventilation,, presently on tidal volume of 420 assist control rate of 28, FiO2 of 60%, PEEP is up to 14, remains on propofol at 50 mcg/kg/m, Nimbex at 2 mcg/kg/m, fentanyl at 1 mcg/kg per hour. Not requiring any norepinephrine at present. Patient has been off norepinephrine since yesterday. Chest x-ray continues to show significant bilateral infiltrates consistent with ARDS. Her plateau pressure is elevated at 32, consistent with ARDS. ABG showed a pO2 of 74 pCO2 of 43 pH of 7.35. Patient was earlier on 65% FiO2, however I brought her down to 60% and increased the PEEP from 10-14. WBC count is 5.8 hemoglobin is 9.4. Electrolytes showed slightly elevated sodium otherwise unremarkable, renal profile is normal. Remains on Solu-Medrol, diuretics were added today, remains on antibiotics empirically. Objective - Vital Signs Vital signs: Vital Signs Temp 98.9 F 03/02/19 08:00 Pulse 65 03/02/19 11:23 Resp 28 H 03/02/19 11:23 BP 113/76 03/02/19 11:00 Pulse Ox 95 03/02/19 11:00 Intake & Output 03/01/19 03/02/19 03/02/19 18:59 06:59 18:59 Intake Total 2391.009 6360.394 0181.875 Output Total 805 670 725 Balance 4360.306 5166.976 653.875 Weight 133.7 kg Intake: IV 904 516 845 Normal Saline Carriers 165 180 30 Normal Saline Pressure 39 36 15 Bag Piperacillin-Tazobactam 3 200 100 100 .375 gm In Sodium Chloride 0.9% 100 ml @ 25 mls/hr IVPB Q8HR BRETT Rx# :[id number] Potassium Chloride 10 meq 200 200 In Water For Injection 1 100ml.bag @ 100 mls/hr IVPB Q1H BRETT Rx#: [id number] Vancomycin 2,000 mg In 500 500 Sodium Chloride 0.9% 500 ml 500 ml @ 167 mls/hr IVPB Q12H BRETT Rx#: [id number] Intake, IV Titration 834.009 542.976 401.875 Amount Cisatracurium 200 mg In 164.846 135.89 Sodium Chloride 0.9% 180 ml @ 1 MCG/KG/MIN 7.62 mls/hr IV .Q24H BRETT Rx#: [id number] Norepinephrine 32 mg In 57.314 Sodium Chloride 0.9% 218 ml @ 0.05 MCG/KG/MIN 3. 189 mls/hr IV .Q24H BRETT Rx#:[id number] Potassium Chloride 20 meq 100 In Water For Injection 1 100ml.bag @ 50 mls/hr IVPB ONCE STA Rx#: [id number] Propofol 1,000 mg In 426.695 378.130 176.809 Empty Bag 1 bag @ Titrate IV .Q0M BRETT Rx#: [id number] fentaNYL (PF) 2,500 mcg 250.000 89.176 In Sodium Chloride 0.9% 200 ml @ 1 MCG/KG/HR 12. 56 mls/hr IV .[id number] BRETT Rx#:[id number] Tube Feeding 363 396 132 Other 290 400 Output: Gastric Drainage 400 Urine 805 670 325 Other: Voiding Method Indwelling Catheter Indwelling Catheter Indwelling Catheter ABP, PAP, CO, CI - Last Documented Arterial Blood Pressure 119/71 - Exam Physical Exam: Gen.: Revealed a 44-year-old female intubated, on mechanical ventilation, fully paralyzed and sedated. On propofol fentanyl and Nimbex. HEENT:[Neck is supple.] [No neck masses.] [No thyromegaly.] [No JVD.] PERRLA, EOMI, no icterus. Endotracheal tube and orogastric tube are intact. Chest: [Diffuse crackles and rhonchi at the bases bilaterally. Symmetrical chest expansion noted chest wall tenderness. Cardiac Exam: [Normal S1 and S2, no S3 gallop, no murmur.] Abdomen: [Obese, Soft, nontender, no megaly, no rebound, no guarding, normal bowel sounds.] Extremities: [No clubbing, 2+ bipedal edema, no cyanosis.] Neurological Exam: Not assessed, patient is sedated on propofol and fentanyl drip. And on Nimbex. Psychiatric: Not assessed. Lymphatics: No lymphadenopathy. Skin: No rashes. - Labs CBC & Chem 7: 03/02/19 05:38 03/02/19 05:38 Labs: Abnormal Lab Results - Last 24 Hours (Table) 03/01/19 03/01/19 03/01/19 Range/Units 15:47 17:50 23:25 RBC (3.80-5.40) m/uL Hgb (11.4-16.0) gm/dL Hct (34.0-46.0) % ABG pO2 (83-108) mmHg ABG Total CO2 (19-24) mmol/L ABG O2 Saturation (94-97) % Potassium 3.2 L (3.5-5.1) mmol/L Chloride (98-107) mmol/L Creatinine (0.52-1.04) mg/dL Glucose (74-99) mg/dL POC Glucose (mg/dL) 123 H 156 H (75-99) mg/dL Calcium (8.4-10.2) mg/dL 03/02/19 03/02/19 03/02/19 Range/Units 05:38 05:38 05:56 RBC 3.32 L (3.80-5.40) m/uL Hgb 9.4 L (11.4-16.0) gm/dL Hct 29.4 L (34.0-46.0) % ABG pO2 (83-108) mmHg ABG Total CO2 (19-24) mmol/L ABG O2 Saturation (94-97) % Potassium (3.5-5.1) mmol/L Chloride 115 H (98-107) mmol/L Creatinine 0.44 L (0.52-1.04) mg/dL Glucose 141 H (74-99) mg/dL POC Glucose (mg/dL) 131 H (75-99) mg/dL Calcium 8.1 L (8.4-10.2) mg/dL 03/02/19 Range/Units 07:03 RBC (3.80-5.40) m/uL Hgb (11.4-16.0) gm/dL Hct (34.0-46.0) % ABG pO2 74 L (83-108) mmHg ABG Total CO2 25 H (19-24) mmol/L ABG O2 Saturation 93.6 L (94-97) % Potassium (3.5-5.1) mmol/L Chloride (98-107) mmol/L Creatinine (0.52-1.04) mg/dL Glucose (74-99) mg/dL POC Glucose (mg/dL) (75-99) mg/dL Calcium (8.4-10.2) mg/dL Microbiology - Last 24 Hours (Table) 02/26/19 19:00 Gram Stain - Final Sputum Sputum Culture - Final Staphylococcus aureus 02/26/19 14:55 Blood Culture - Preliminary Blood No Growth after 72 hours Assessment and Plan Assessment: Impression: 1 acute hypoxic respiratory failure secondary to aspiration pneumonia, and ARDS. Seems to be worsening based on the chest x-ray today, hence PEEP was increased to 14. Remains on FiO2 of 60%. 2 acute drug overdose, multiple but mostly methamphetamine. 3 acute kidney injury 4 acute rhabdomyolysis 5 hypotension secondary to pneumonia sepsis and sepsis. 6 acute metabolic acidosis, resolved, required bicarb drip. 7 history of polysubstance abuse, and previous similar episode in the last year. 8 history of depression Recommendation: Continue ventilatory support, Continue nutritional support was recently on tube feeding via orogastric tube. Continue propofol, Nimbex and fentanyl. Adjust ventilator settings, presently on a lower tidal volume of 420, rate was increased up to 28, and PEEP was increased up to 14. Continue steroids for evolving ARDS. Continue empiric antibiotics, adjust based on final cultures. Continue to monitor peak airway pressures and plateau pressures on the mechanical ventilator daily. Continue GI and DVT prophylaxis. Patient is not ready for any mode of weaning at this point, her condition is extremely critical, prognosis is extremely poor and guarded, we will continue to follow. Patient did have a similar episode in the last year and we managed the patient similarly while at [facility] for very similar situation. No family members available at bedside but they have been updated on her condition by the nurses. Critical care time is 40 minutes. C Time with Patient: Greater than 30
[2019-03-02 12:22] LABS: Glucose,Whole Blood 137 mg/dL (75-99)
[2019-03-02 18:49] LABS: Glucose,Whole Blood 169 mg/dL (75-99)
--- NOTE | 2019-03-02 23:05 | PN ---
PROGRESS NOTE DATE OF SERVICE: 03/02/2019 PRESENTING COMPLAINT: Intubated. INTERVAL HISTORY: This patient, admitted with altered mental status and respiratory failure, has been taking methamphetamines. The patient remains on the ventilator, has got aspiration pneumonia and ARDS. The patient is currently on the ventilator with FiO2 of 60 and PEEP of 14. The patient did get one dose of Lasix earlier today. Secretions are clear. Tube feeding is at 50 mL/hour. Drips include Nimbex, propofol and fentanyl. REVIEW OF SYSTEMS: Review of systems cannot be done, as patient is intubated. CURRENT MEDICATIONS: Reviewed. They include: 1. IV Nimbex. 2. Propofol. 3. Fentanyl. 4. IV Solu-Medrol. 5. IV Zosyn. 6. Vancomycin. PHYSICAL EXAMINATION: Afebrile. Pulse 81, respiration 28, blood pressure 124/77, pulse ox 99% on the ventilator. GENERAL APPEARANCE: Lying in bed, intubated. BMI of 44.8. EYES: Pupils equal. Conjunctivae normal. HEENT: External appearance of nose and ears normal. Oral cavity with endotracheal tube in place. NECK: JVD unable to assess. Mass not palpable. RESPIRATORY: Effort increased. LUNGS: Diminished breath sounds. CARDIOVASCULAR: First and second sounds normal. No edema. ABDOMEN: Soft, non-tender. Liver and spleen not palpable. EXTREMITIES: She has supportive boots. NEUROLOGICAL: Patient is sedated. INVESTIGATIONS: White count 5.8, hemoglobin 9.4, potassium 3.9, BUN 13, creatinine 0.44. Chest x-ray film, personally reviewed by me, shows bilateral infiltrates. ASSESSMENT: 1. Acute severe bilateral pneumonia. Suspect aspiration pneumonia. 2. Acute metabolic encephalopathy, multifactorial. Could be drug-induced. 3. Acute hypoxic respiratory failure requiring ventilator support from pneumonia. 4. Acute drug overdose, multiple, primarily methamphetamine. 5. Acute kidney injury due to acute tubular necrosis. 6. Acute rhabdomyolysis. 7. Septic shock from pneumonia. 8. Metabolic acidosis. 9. History of depression not otherwise specified. 10.Morbid obesity; body mass index 44.8. 11.Chronic nicotine dependence. Patient is a cigarette smoker. 12.Marijuana use. PLAN: Patient remains critically ill. Continue on supportive care, including above medications. The patient is on broad-spectrum antibiotics, including Zosyn and vancomycin. Currently no family is present. Will follow. MMODL / IJN: [id number] /
[2019-03-03] MEDS: HEPARIN SODIUM,PORCINE 5,000 UNIT/ML 1 ML VIAL SQ SCH ×4 (00:05→23:45)
[2019-03-03] MEDS: ARTIFICIAL TEARS-HYPROMELLOSE DROPS 15 ML BTL BOTH EYES SCH ×3 (00:05→09:09)
[2019-03-03] MEDS: PIPERACILLIN-TAZOBACTAM 3.375 GM in SODIUM CHLORIDE 0.9% 100 ML IVPB SCH ×4 (00:05→23:45)
[2019-03-03] MEDS: methylPREDNISolone SOD SUCCI 125 MG/2 ML VIAL IV SCH ×3 (00:06→11:45)
[2019-03-03] MEDS: INSULIN ASPART (NovoLOG) 100 UNIT/ML VIAL SQ SCH ×4 (00:06→18:47)
[2019-03-03] MEDS: PROPOFOL 1,000 MG in EMPTY BAG 1 BAG IV SCH ×7 (00:10→23:38)
[2019-03-03 00:11] LABS: Glucose,Whole Blood 140 mg/dL (75-99)
[2019-03-03] MEDS: CISATRACURIUM 200 MG in SODIUM CHLORIDE 0.9% 180 ML IV SCH (03:14)
[2019-03-03 05:32] LABS: Glucose,Whole Blood 152 mg/dL (75-99)
[2019-03-03 06:29] LABS: African American GFR (CKD) >90 (>60 ml/min/1.73 sqM); Anion Gap 4 mmol/L; Blood Urea Nitrogen 22 mg/dL (7-17); Calcium 8.3 mg/dL (8.4-10.2); Carbon Dioxide 27 mmol/L (22-30); Chloride 112 mmol/L (98-107); Glucose 170 mg/dL (74-99); Potassium 3.4 mmol/L (3.5-5.1); Sodium 143 mmol/L (137-145)
[2019-03-03 06:50] LABS: HGB 9.7 gm/dL (11.4-16.0); MCH 27.8 pg (25.0-35.0); MCHC 31.4 g/dL (31.0-37.0); MCV 88.6 fL (80.0-100.0); Mean Platelet Volume 7.7; Platelet Count 316 k/uL (150-450); RDW 15.3 % (11.5-15.5); WBC 9.5 k/uL (3.8-10.6)
[2019-03-03] MEDS: POTASSIUM BICARBONATE/CIT AC 20 MEQ TABLET.EFF NG-TUBE SCH ×4 (07:08→17:42)
[2019-03-03] MEDS: IPRATROPIUM-ALBUTEROL 3 ML NEB INHALATION SCH ×4 (07:17→20:13)
[2019-03-03] MEDS: PANTOPRAZOLE 40 MG/10 ML VIAL IV SCH (08:11)
[2019-03-03] MEDS: FUROSEMIDE 10 MG/ML 4 ML VIAL IV SCH ×2 (08:11→20:51)
[2019-03-03] MEDS: VANCOMYCIN 2,000 MG in SODIUM CHLORIDE 0.9% 500 ML 500 ML IVPB SCH (08:12)
[2019-03-03] MEDS: CHLORHEXIDINE GLUCONATE 15 ML CUP MUCOUS MEM SCH ×2 (08:12→20:51)
[2019-03-03 08:20] LABS: ABG Base Excess 3.9 mmol/L; ABG HCO3 27 mmol/L (21-25); ABG Oxygen Saturation 98.9 % (94-97); ABG PCO2 36 mmHg (35-45); ABG PH 7.49 (7.35-7.45); ABG PO2 135 mmHg (83-108); ABG TCO2 28 mmol/L (19-24); Allen Test Performed? Yes
--- NOTE | 2019-03-03 08:30 | XR ---
EXAMINATION TYPE: XR chest 1V portable DATE OF EXAM: 03/03/2019 COMPARISON: Prior chest 03/02/2019 HISTORY: Intubated TECHNIQUE: Single frontal view of the chest is obtained. FINDINGS: Endotracheal tube and gastric tube are overlying appropriate positions. There are overlyin g cardiac leads. No pneumothorax. There is some improvement in aeration, interval improved visualizat ion of the left hemidiaphragm. Heart size is stable. IMPRESSION: Improvement in aeration, volume status.
[2019-03-03 11:53] LABS: Glucose,Whole Blood 142 mg/dL (75-99)
--- NOTE | 2019-03-03 12:13 | P.PN ---
Subjective Progress Note Date: 03/03/19 Principal diagnosis: Acute hypoxic respiratory failure secondary to aspiration pneumonia. And ARDS. This is a 44 yo female patient who was brought in to the ED for altered mentat ion and respiratory failure. Family stated that patient presented to their house drowsy and altered last night. She went to bed and appeared to be sleeping well. Patient was checked on several times today and was just sleeping throughout the day. Patient never woke up and acted appropriate. EMS was called prior to patient arrival. Family adds that patient did have a similar episode in November where she was admitted to the intensive care unit at [facility] and diagnosed with pneumonia. Mother states this was associated with methamphetamine use at that time. I was involved in the care of this patient during her latest hospitalization in [facility]. She had a very similar and prolonged presentation where she came in with drug overdose , altered mentation and respiratory failure /ARDS. She was intubated and mechanically ventilated. She was also in DMITRY and severe rhabdomyalysis. The patient back then had a CT of brain was normal. Patient was fluid resuscitated. She was placed on IV vasopressors and sedation and paralytics. Slowly ventilator settings were decreased and patient was ev entually able to be weaned off the vent. She initially displayed limited mentation, and her functional status is very poor. She slowly improved to the interview and admitted to suicide attempt. She was placed on one-to-one suicide precautions. She was later transferred up to medical floor, where she continued medical treatment and work with physical and occupational therapy. Patient required lengthy hospitalization. In she had a acute hypoxic respiratory failure likely secondary to pneumonia,drug overdoseand sepsis. She was on mechanical ventilator and she had a severe anion gap metabolic acidosis and rhabdo . The B/L basal pneumonia likely aspiration, sputum culture positive for MSSA and MSSA bacteremia. She had a acute kidney injury with creatinine level 9.1 possibly ATN, improved to 0.9, elevated liver enzymes, improved, Acute UTI (urinary tract infection) acute hypernatremia and hyperkalemiasecondary to acute kidney injury, improved and she also had elevated troponin level. She had polysubstance use, UDS is positive for amphetamines, benzodiazepines and opiatesThe patient's presentation is very similar as the patient was again postive for amphetamines and she was found to be in a mild rhabdo and lactive acidosis. She was hypotensive and she was hypoxic. She was intubated in the ED. Her CXR was consistent with diffuse bilateral pulmonary infiltrated. This morning, the patient remains on a mechanical ventilator. Currently she is an assist-control mode at a rate of 18 with a tidal volume of 550 and FiO2 of 60% and a PEEP of 8. These changes were done based on the blood gases that showed a pH of 7.26 with a pCO2 of 40 and pO2 of 71. Follow-up looked gases are still pending for now. The patient's chest x-ray showing diffuse bilateral pulmonary infiltrates. ET tube is deep in the trachea and needs to be pulled of around 1 cm. Noted the patient's renal function is improved compared to yesterday. She came in with acute kidney injury in the creatinine is down to 0.7. A repeat CPK level needs to be done. Hemoglobin is at 10.9 with a white cell count of 10.7. She is afebrile. She is covered with accommodation Zosyn and vancomycin. She has significant respiratory secretions and sputum Gram stain and culture was sent. Blood cultures still pending for now. She is on norepinephrine infusion at 0.05 g per KG per minute. She is currently on a bicarb drip at the rate of 100 mL an hour pH is on propofol at the rate of 40 g per KG per minute and the patient is also on fentanyl at 1 mcg/kg per hour. Reevaluated today on 02/28/2019, patient remains on mechanical ventilation, sedated. She is on propofol at 50 mcg/kg/m, she is also on fentanyl at 1.5 mcg/kg per hour. Remains on bicarb drip, not requiring any norepinephrine. Hemodynamically stable. Her ventilator settings are tidal volume of 450 respiratory rate of 30, FiO2 of 55%, and PEEP of 8. All labs were reviewed including ABG showed a pO2 of 88 pCO2 of 35 pH of 7.44. Patient is also on bicarb drip which I will discontinue. Empirically on antibiotics including vancomycin and Zosyn. Levaquin was discontinued. Chest x-ray continues to show bilateral interstitial infiltrates consistent with bilateral pneumonia, however evolving ARDS is strongly considered. Patient is sedated and no plans to hold sedation this morning but that would be addressed in the next 24 hours. Remains on GI and DVT prophylaxis, I plan to start enteral feeding today. Reevaluated today on 03/01/2019, patient remains on mechanical ventilation, had to increase her FiO2 and PEEP yesterday, patient had to be placed on Nimbex because she was getting a synchronous with mechanical ventilation, and she was experiencing continuous cough and desaturating continuously at night. Presently on Nimbex, propofol, norepinephrine, fentanyl, and her ventilator settings are assist control rate of 26, tidal volume of 450, FiO2 is 55%, PEEP is 10. Patient is on enteral feeding via orogastric tube. Her norepinephrine is minimal at 0.04 mcg/kg/m, she is also on fentanyl 1.5 mcg/kg/m, and propofol at 50 mcg/kg/m. ABG this morning showed a pO2 of 97 pCO2 of 37 pH of 7.42. Chest x-ray shows worsening interstitial lung disease consistent with evolving ARDS. Her plateau pressures were noted to be high at 34 this morning. Peak airway pressure is in the low 40s. Solu-Medrol was started for evolving ARDS. Clearly the patient is not in any shape for weaning at this point. She is requiring significant FiO2 and significant PEEP may have to even go up higher on the PEEP. Patient had a very similar presentation in the last year at [facility], and she ended up requiring high PEEP, high FiO2, and she responded eventually after 10 days of mechanical ventilation. Reevaluated today on 03/02/2019, patient remains on mechanical ventilation,, presently on tidal volume of 420 assist control rate of 28, FiO2 of 60%, PEEP is up to 14, remains on propofol at 50 mcg/kg/m, Nimbex at 2 mcg/kg/m, fentanyl at 1 mcg/kg per hour. Not requiring any norepinephrine at present. Patient has been off norepinephrine since yesterday. Chest x-ray continues to show significant bilateral infiltrates consistent with ARDS. Her plateau pressure is elevated at 32, consistent with ARDS. ABG showed a pO2 of 74 pCO2 of 43 pH of 7.35. Patient was earlier on 65% FiO2, however I brought her down to 60% and increased the PEEP from 10-14. WBC count is 5.8 hemoglobin is 9.4. Electrolytes showed slightly elevated sodium otherwise unremarkable, renal profile is normal. Remains on Solu-Medrol, diuretics were added today, remains on antibiotics empirically. Reevaluated today on 03/03/2019, patient remains on mechanical ventilation, she is on tidal volume of 420 assist control rate of 28, FiO2 is down to 40%, and the PEEP was cut down earlier to 10. Her plateau pressure is much improved today is down to 25. Patient remains on propofol at 50 mcg/kg/m, she is also on fentanyl 1 mcg/kg/h, and Nimbex which I have just discontinued since the patient is now on lower FiO2 and lower PEEP. And her chest x-ray is definitely showing significant improvement. Definite improvement noted in aeration, and definite improvement noted in volume status. And this is clearly different reflected on the significant improvement noted on the ABG. The improvement could be related to the diuretics could also be related to steroids. I believe the patient's improvement is likely related to diuretics, hence I recommended an echocardiogram to assess LV function. ABG this morning showed a pO2 of 135 pCO2 of 36 pH of 7.49. CBC and renal profile are normal. Objective - Vital Signs Vital signs: Vital Signs Temp 99.3 F 03/03/19 12:00 Pulse 97 03/03/19 12:00 Resp 28 H 03/03/19 12:00 BP 119/88 03/03/19 12:00 Pulse Ox 93 L 03/03/19 12:00 Intake & Output 03/02/19 03/03/19 03/03/19 18:59 06:59 18:59 Intake Total 9955.349 0135.191 1023.285 Output Total 3550 2355 2385 Balance -1575.615 -148.809 -1361.715 Weight 131.4 kg Intake: IV 1071 734 597.800 Normal Saline Carriers 135 195 45 Normal Saline Pressure 36 39 15 Bag Piperacillin-Tazobactam 3 200 100 .375 gm In Sodium Chloride 0.9% 100 ml @ 25 mls/hr IVPB Q8HR BRETT Rx# :[id number] Potassium Chloride 10 meq 200 In Water For Injection 1 100ml.bag @ 100 mls/hr IVPB Q1H BRETT Rx#: [id number] Vancomycin 2,000 mg In 500 500 375 Sodium Chloride 0.9% 500 ml 500 ml @ 167 mls/hr IVPB Q12H BRETT Rx#: [id number] fentaNYL (PF) 2,500 mcg 62.800 In Sodium Chloride 0.9% 200 ml @ 1 MCG/KG/HR 12. 56 mls/hr IV .[id number] BRETT Rx#:[id number] Intake, IV Titration 636.385 832.191 195.485 Amount Cisatracurium 200 mg In 178.816 198.12 98.552 Sodium Chloride 0.9% 180 ml @ 1 MCG/KG/MIN 7.62 mls/hr IV .Q24H BRETT Rx#: [id number] Propofol 1,000 mg In 368.393 496.539 96.933 Empty Bag 1 bag @ Titrate IV .Q0M BRETT Rx#: [id number] fentaNYL (PF) 2,500 mcg 89.176 137.532 In Sodium Chloride 0.9% 200 ml @ 1 MCG/KG/HR 12. 56 mls/hr IV .[id number] BRETT Rx#:[id number] Tube Feeding 267 240 30 Other 400 200 Output: Gastric Drainage 400 Urine 3150 2355 2385 Other: Voiding Method Indwelling Catheter Indwelling Catheter Indwelling Catheter # Bowel Movements 1 ABP, PAP, CO, CI - Last Documented Arterial Blood Pressure 108/96 - Exam Physical Exam: Gen.: Revealed a 44-year-old female intubated, on mechanical ventilation, fully paralyzed and sedated. On propofol fentanyl and Nimbex. HEENT:[Neck is supple.] [No neck masses.] [No thyromegaly.] [No JVD.] PERRLA, EOMI, no icterus. Endotracheal tube and orogastric tube are intact. Chest: [Good breath sound bilaterally minimal crackles nor rhonchi no wheezes. Cardiac Exam: [Normal S1 and S2, no S3 gallop, no murmur.] Abdomen: [Obese, Soft, nontender, no megaly, no rebound, no guarding, normal bowel sounds.] Extremities: [No clubbing, 2+ bipedal edema, no cyanosis.] Neurological Exam: Not assessed, patient is sedated on propofol and fentanyl drip. And on Nimbex. Psychiatric: Not assessed. Lymphatics: No lymphadenopathy. Skin: No rashes. - Labs CBC & Chem 7: 03/03/19 06:00 03/03/19 06:00 Labs: Abnormal Lab Results - Last 24 Hours (Table) 03/02/19 03/02/19 03/02/19 Range/Units 12:11 18:38 23:58 RBC (3.80-5.40) m/uL Hgb (11.4-16.0) gm/dL Hct (34.0-46.0) % ABG pH (7.35-7.45) ABG pO2 (83-108) mmHg ABG HCO3 (21-25) mmol/L ABG Total CO2 (19-24) mmol/L ABG O2 Saturation (94-97) % Potassium (3.5-5.1) mmol/L Chloride (98-107) mmol/L BUN (7-17) mg/dL Glucose (74-99) mg/dL POC Glucose (mg/dL) 137 H 169 H 140 H (75-99) mg/dL Calcium (8.4-10.2) mg/dL 03/03/19 03/03/19 03/03/19 Range/Units 05:20 06:00 06:00 RBC 3.50 L (3.80-5.40) m/uL Hgb 9.7 L (11.4-16.0) gm/dL Hct 31.0 L (34.0-46.0) % ABG pH (7.35-7.45) ABG pO2 (83-108) mmHg ABG HCO3 (21-25) mmol/L ABG Total CO2 (19-24) mmol/L ABG O2 Saturation (94-97) % Potassium 3.4 L (3.5-5.1) mmol/L Chloride 112 H (98-107) mmol/L BUN 22 H (7-17) mg/dL Glucose 170 H (74-99) mg/dL POC Glucose (mg/dL) 152 H (75-99) mg/dL Calcium 8.3 L (8.4-10.2) mg/dL 03/03/19 03/03/19 Range/Units 08:15 11:41 RBC (3.80-5.40) m/uL Hgb (11.4-16.0) gm/dL Hct (34.0-46.0) % ABG pH 7.49 H (7.35-7.45) ABG pO2 135 H (83-108) mmHg ABG HCO3 27 H (21-25) mmol/L ABG Total CO2 28 H (19-24) mmol/L ABG O2 Saturation 98.9 H (94-97) % Potassium (3.5-5.1) mmol/L Chloride (98-107) mmol/L BUN (7-17) mg/dL Glucose (74-99) mg/dL POC Glucose (mg/dL) 142 H (75-99) mg/dL Calcium (8.4-10.2) mg/dL Microbiology - Last 24 Hours (Table) 02/26/19 14:55 Blood Culture - Preliminary Blood No Growth after 96 hours 02/26/19 19:00 Gram Stain - Final Sputum Sputum Culture - Final Staphylococcus aureus Assessment and Plan Assessment: Impression: 1 acute hypoxic respiratory failure secondary to aspiration pneumonia, and ARDS. Significant improvement noted on the chest x-ray, ABG, and labs today. 2 acute drug overdose, multiple but mostly methamphetamine. 3 acute kidney injury 4 acute rhabdomyolysis 5 hypotension secondary to pneumonia sepsis and sepsis. 6 acute metabolic acidosis, resolved, required bicarb drip. 7 history of polysubstance abuse, and previous similar episode in the last year. 8 history of depression Recommendation: Continue ventilatory support, Continue nutritional support was recently on tube feeding via orogastric tube. Continue propofol, and fentanyl, discontinue Nimbex. Adjust ventilator settings, PEEP is down to 10, FiO2 is at 40%, otherwise the remaining vent settings are unchanged. Continue steroids for evolving ARDS. However the dose will be cut down to 40 mg IV push every 8 hours. Continue antibiotics for MSSA type of pneumonia Continue to monitor peak airway pressures and plateau pressures on the mechanical ventilator daily. Today seems to be significantly improved down to 25 on the plateau pressures Continue GI and DVT prophylaxis. In summary, the patient is showing some improvement today, but she remains critically ill. I have arranged for echocardiogram, cut down her PEEP, cut down her Solu-Medrol dose, continue antibiotics, continue feeding, will likely start weaning trials possibly tomorrow, Nimbex was discontinued, will cut down on the fentanyl and hopefully cut down on the propofol. Critical care time is 40 minut es. C Time with Patient: Greater than 30
--- NOTE | 2019-03-03 14:00 | ECHOF ---
Referral Reason:pulm edema possibly cardiogenic MEASUREMENTS -------- HEIGHT: 172.7 cm WEIGHT: 131.1 kg BP: 132/122 IVSd: 1.4 cm (0.6 - 1.1) LVIDd: 4.1 cm (3.9 - 5.3) LVPWd: 1.2 cm (0.6 - 1.1) IVSs: 2.0 cm LVIDs: 1.8 cm LVPWs: 1.9 cm Ao Diam: 3.5 cm (2.0 - 3.7) AV Cusp: 1.6 cm (1.5 - 2.6) LA Diam: 3.1 cm (2.7 - 3.8) MV EXCURSION: 11.800 mm (> 18.000) MV EF SLOPE: 63 mm/s (70 - 150) EPSS: 1.2 cm MV E Mark: 1.33 m/s MV DecT: 115 ms MV A Mark: 0.52 m/s MV E/A Ratio: 2.55 RAP: 5.00 mmHg RVSP: 40.91 mmHg FINDINGS -------- Resting tachycardia (HR>100bpm). This was a technically difficult study with suboptimal views. Pt. on a vent. The left ventricular size is normal. There is mild concentric left ventricular hypertrophy. Overa ll left ventricular systolic function is normal with, an EF between 60 - 65 %. The right ventricle is normal in size. The left atrial size is normal. The right atrial size is normal. The aortic valve was not well visualized. There is trace mitral regurgitation. Mild tricuspid regurgitation present. There is mild pulmonary hypertension. The right ventricular systolic pressure, as measured by Doppler, is 40.91mmHg. There is no pulmonic regurgitation present. The aortic root size is normal. Normal inferior vena cava with normal inspiratory collapse consistent with estimated right atrial pre ssure of 5 mmHg. There is no pericardial effusion. CONCLUSIONS -------- 1. Resting tachycardia (HR>100bpm). 2. This was a technically difficult study with suboptimal views. 3. Pt. on a vent. 4. The left ventricular size is normal. 5. There is mild concentric left ventricular hypertrophy. 6. Overall left ventricular systolic function is normal with, an EF between 60 - 65 %. 7. The right ventricle is normal in size. 8. The left atrial size is normal. 9. The right atrial size is normal. 10. The aortic valve was not well visualized. 11. There is trace mitral regurgitation. 12. Mild tricuspid regurgitation present. 13. There is mild pulmonary hypertension. 14. The right ventricular systolic pressure, as measured by Doppler, is 40.91mmHg. 15. There is no pulmonic regurgitation present. 16. The aortic root size is normal. 17. Normal inferior vena cava with normal inspiratory collapse consistent with estimated right atrial pressure of 5 mmHg. 18. There is no pericardial effusion. MULE DRIVER: Kandy Sumner RDCS
[2019-03-03] MEDS: fentaNYL (PF) 2,500 MCG in SODIUM CHLORIDE 0.9% 200 ML IV SCH (15:52)
[2019-03-03] MEDS: NOREPINEPHRINE 32 MG in SODIUM CHLORIDE 0.9% 218 ML IV SCH (18:10)
[2019-03-03] MEDS: methylPREDNISolone SOD SUCCI 40 MG/ML 1 ML VIAL IV SCH ×2 (18:47→23:45)
[2019-03-03 18:53] LABS: Glucose,Whole Blood 141 mg/dL (75-99)
--- NOTE | 2019-03-03 21:15 | PN ---
PROGRESS NOTE DATE OF SERVICE: 03/03/2019 PRESENTING COMPLAINT: Intubated. INTERVAL HISTORY: Patient was admitted with altered mental status and respiratory failure. The patient had been taking methamphetamines. The patient remains on the ventilator with aspiration pneumonia and ARDS. The patient's FiO2 is 40% and PEEP of 10. The patient has been off the Nimbex since this morning. Remains on a propofol drip and fentanyl drip. Having significant amount of trach secretions. Telemetry shows sinus rhythm. Tube feeding is running at 15 mL/hour. The patient does open eyes and follow some commands. REVIEW OF SYSTEMS: Patient is intubated. CURRENT MEDICATIONS: Reviewed. They include: 1. IV fentanyl drip. 2. IV Solu-Medrol. 3. IV Zosyn. 4. IV propofol. PHYSICAL EXAMINATION: Temperature 98.9, pulse 71, respiration 28, blood pressure 99/65, pulse ox 94%. GENERAL APPEARANCE: Lying in bed, intubated. EYES: Pupils equal. Conjunctivae normal. HEENT: External appearance of nose and ears normal. Oral cavity with endotracheal tube in place. NECK: JVD unable to assess. Mass not palpable. RESPIRATORY: Effort increased. LUNGS: Decreased breath sounds. CARDIOVASCULAR: First and second sounds normal. No edema. ABDOMEN: Soft, non-tender. Liver and spleen not palpable. EXTREMITIES: Has supportive boots NEUROLOGICAL: Patient's eyes are open. Does follow some simple commands. INVESTIGATIONS: White count 9.5, hemoglobin 9.7. Blood gas showed pH of 7.49. Potassium 3.4, BUN 22, creatinine 0.55. Accu-Cheks are noted. Sputum culture from 02/26 shows MSSA. ASSESSMENT: 1. Acute severe bilateral pneumonia. Suspect aspiration pneumonia with cultures positive for MSSA. 2. Acute metabolic encephalopathy, multifactorial. Could be drug-induced. 3. Acute hypoxic respiratory failure requiring ventilator support from underlying pneumonia. 4. Acute drug overdose, multiple, primarily methamphetamine. 5. Acute kidney injury due to acute tubular necrosis. 6. Acute rhabdomyolysis. 7. Septic shock from pneumonia. 8. Metabolic acidosis. 9. History of depression not otherwise specified. 10.Morbid obesity with body mass index 44.8. 11.Chronic nicotine dependence. Patient is a cigarette smoker. 12.Marijuana use. PLAN: Continue current medication and treatment plan. There is some improvement in patient's oxygen status. Patient to continue on broad-spectrum antibiotics, supportive care. Patient's is present. I did talk to him. Will follow. MMDELROY / ISABELAN: [id number] /
[2019-03-04] MEDS: INSULIN ASPART (NovoLOG) 100 UNIT/ML VIAL SQ SCH ×5 (00:13→23:09)
[2019-03-04 00:25] LABS: Glucose,Whole Blood 125 mg/dL (75-99)
[2019-03-04] MEDS: PROPOFOL 1,000 MG in EMPTY BAG 1 BAG IV SCH ×11 (01:39→23:48)
[2019-03-04 05:46] LABS: Glucose,Whole Blood 119 mg/dL (75-99)
[2019-03-04] MEDS: methylPREDNISolone SOD SUCCI 40 MG/ML 1 ML VIAL IV SCH ×4 (06:20→23:11)
[2019-03-04 06:28] LABS: HCT 31.1 % (34.0-46.0); MCH 27.9 pg (25.0-35.0); MCHC 32.1 g/dL (31.0-37.0); Mean Platelet Volume 7.5; Platelet Count 371 k/uL (150-450); RBC 3.57 m/uL (3.80-5.40); RDW 15.5 % (11.5-15.5); WBC 11.1 k/uL (3.8-10.6)
[2019-03-04 06:50] LABS: African American GFR (CKD) >90 (>60 ml/min/1.73 sqM); Anion Gap 4 mmol/L; Blood Urea Nitrogen 29 mg/dL (7-17); Carbon Dioxide 31 mmol/L (22-30); Chloride 108 mmol/L (98-107); Glucose 123 mg/dL (74-99); Magnesium 2.2 mg/dL (1.6-2.3); Phosphorus 3.1 mg/dL (2.5-4.5); Potassium 3.1 mmol/L (3.5-5.1); Sodium 143 mmol/L (137-145)
[2019-03-04] MEDS: POTASSIUM CHLORIDE 20 MEQ in WATER FOR INJECTION 1 100ML.BAG IVPB SCH ×2 (07:12→09:03)
--- NOTE | 2019-03-04 07:38 | XR ---
EXAMINATION TYPE: XR chest 1V portable DATE OF EXAM: 03/04/2019 HISTORY: Tube placement. REFERENCE: Previous study dated 03/03/2019. FINDINGS: The patient's ET tube remains in place in good position. The patient is NG tube has been pu lled back and is now in the mid esophagus and should be advanced. There is bibasilar airspace disease, worse on the left than the right. I cannot exclude small effusio ns. Heart size upper limits of normal. IMPRESSION: 1. MALPOSITIONING OF THE PATIENT'S NG TUBE. 2. BIBASILAR AIRSPACE DISEASE. 3. SMALL, BILATERAL EFFUSIONS.
[2019-03-04] MEDS: HEPARIN SODIUM,PORCINE 5,000 UNIT/ML 1 ML VIAL SQ SCH ×3 (08:02→23:18)
[2019-03-04] MEDS: FUROSEMIDE 10 MG/ML 4 ML VIAL IV SCH ×2 (08:02→20:19)
[2019-03-04] MEDS: PANTOPRAZOLE 40 MG/10 ML VIAL IV SCH (08:02)
[2019-03-04] MEDS: PIPERACILLIN-TAZOBACTAM 3.375 GM in SODIUM CHLORIDE 0.9% 100 ML IVPB SCH ×3 (08:02→23:11)
[2019-03-04] MEDS: CHLORHEXIDINE GLUCONATE 15 ML CUP MUCOUS MEM SCH ×2 (08:02→20:19)
[2019-03-04 08:23] LABS: ABG Base Excess 8.3 mmol/L; ABG HCO3 32 mmol/L (21-25); ABG PCO2 42 mmHg (35-45); ABG PH 7.49 (7.35-7.45); ABG PO2 82 mmHg (83-108); ABG TCO2 33 mmol/L (19-24); Allen Test Performed? Yes
[2019-03-04] MEDS: IPRATROPIUM-ALBUTEROL 3 ML NEB INHALATION SCH ×4 (08:28→20:17)
[2019-03-04 11:29] LABS: Glucose,Whole Blood 140 mg/dL (75-99)
--- NOTE | 2019-03-04 11:57 | P.PN ---
Subjective Progress Note Date: 03/04/19 Principal diagnosis: Acute hypoxic respiratory failure secondary to aspiration pneumonia. And ARDS. This is a 44 yo female patient who was brought in to the ED for altered mentat ion and respiratory failure. Family stated that patient presented to their house drowsy and altered last night. She went to bed and appeared to be sleeping well. Patient was checked on several times today and was just sleeping throughout the day. Patient never woke up and acted appropriate. EMS was called prior to patient arrival. Family adds that patient did have a similar episode in November where she was admitted to the intensive care unit at [facility] and diagnosed with pneumonia. Mother states this was associated with methamphetamine use at that time. I was involved in the care of this patient during her latest hospitalization in [facility]. She had a very similar and prolonged presentation where she came in with drug overdose , altered mentation and respiratory failure /ARDS. She was intubated and mechanically ventilated. She was also in DMITRY and severe rhabdomyalysis. The patient back then had a CT of brain was normal. Patient was fluid resuscitated. She was placed on IV vasopressors and sedation and paralytics. Slowly ventilator settings were decreased and patient was ev entually able to be weaned off the vent. She initially displayed limited mentation, and her functional status is very poor. She slowly improved to the interview and admitted to suicide attempt. She was placed on one-to-one suicide precautions. She was later transferred up to medical floor, where she continued medical treatment and work with physical and occupational therapy. Patient required lengthy hospitalization. In she had a acute hypoxic respiratory failure likely secondary to pneumonia,drug overdoseand sepsis. She was on mechanical ventilator and she had a severe anion gap metabolic acidosis and rhabdo . The B/L basal pneumonia likely aspiration, sputum culture positive for MSSA and MSSA bacteremia. She had a acute kidney injury with creatinine level 9.1 possibly ATN, improved to 0.9, elevated liver enzymes, improved, Acute UTI (urinary tract infection) acute hypernatremia and hyperkalemiasecondary to acute kidney injury, improved and she also had elevated troponin level. She had polysubstance use, UDS is positive for amphetamines, benzodiazepines and opiatesThe patient's presentation is very similar as the patient was again postive for amphetamines and she was found to be in a mild rhabdo and lactive acidosis. She was hypotensive and she was hypoxic. She was intubated in the ED. Her CXR was consistent with diffuse bilateral pulmonary infiltrated. This morning, the patient remains on a mechanical ventilator. Currently she is an assist-control mode at a rate of 18 with a tidal volume of 550 and FiO2 of 60% and a PEEP of 8. These changes were done based on the blood gases that showed a pH of 7.26 with a pCO2 of 40 and pO2 of 71. Follow-up looked gases are still pending for now. The patient's chest x-ray showing diffuse bilateral pulmonary infiltrates. ET tube is deep in the trachea and needs to be pulled of around 1 cm. Noted the patient's renal function is improved compared to yesterday. She came in with acute kidney injury in the creatinine is down to 0.7. A repeat CPK level needs to be done. Hemoglobin is at 10.9 with a white cell count of 10.7. She is afebrile. She is covered with accommodation Zosyn and vancomycin. She has significant respiratory secretions and sputum Gram stain and culture was sent. Blood cultures still pending for now. She is on norepinephrine infusion at 0.05 g per KG per minute. She is currently on a bicarb drip at the rate of 100 mL an hour pH is on propofol at the rate of 40 g per KG per minute and the patient is also on fentanyl at 1 mcg/kg per hour. Reevaluated today on 02/28/2019, patient remains on mechanical ventilation, sedated. She is on propofol at 50 mcg/kg/m, she is also on fentanyl at 1.5 mcg/kg per hour. Remains on bicarb drip, not requiring any norepinephrine. Hemodynamically stable. Her ventilator settings are tidal volume of 450 respiratory rate of 30, FiO2 of 55%, and PEEP of 8. All labs were reviewed including ABG showed a pO2 of 88 pCO2 of 35 pH of 7.44. Patient is also on bicarb drip which I will discontinue. Empirically on antibiotics including vancomycin and Zosyn. Levaquin was discontinued. Chest x-ray continues to show bilateral interstitial infiltrates consistent with bilateral pneumonia, however evolving ARDS is strongly considered. Patient is sedated and no plans to hold sedation this morning but that would be addressed in the next 24 hours. Remains on GI and DVT prophylaxis, I plan to start enteral feeding today. Reevaluated today on 03/01/2019, patient remains on mechanical ventilation, had to increase her FiO2 and PEEP yesterday, patient had to be placed on Nimbex because she was getting a synchronous with mechanical ventilation, and she was experiencing continuous cough and desaturating continuously at night. Presently on Nimbex, propofol, norepinephrine, fentanyl, and her ventilator settings are assist control rate of 26, tidal volume of 450, FiO2 is 55%, PEEP is 10. Patient is on enteral feeding via orogastric tube. Her norepinephrine is minimal at 0.04 mcg/kg/m, she is also on fentanyl 1.5 mcg/kg/m, and propofol at 50 mcg/kg/m. ABG this morning showed a pO2 of 97 pCO2 of 37 pH of 7.42. Chest x-ray shows worsening interstitial lung disease consistent with evolving ARDS. Her plateau pressures were noted to be high at 34 this morning. Peak airway pressure is in the low 40s. Solu-Medrol was started for evolving ARDS. Clearly the patient is not in any shape for weaning at this point. She is requiring significant FiO2 and significant PEEP may have to even go up higher on the PEEP. Patient had a very similar presentation in the last year at [facility], and she ended up requiring high PEEP, high FiO2, and she responded eventually after 10 days of mechanical ventilation. Reevaluated today on 03/02/2019, patient remains on mechanical ventilation,, presently on tidal volume of 420 assist control rate of 28, FiO2 of 60%, PEEP is up to 14, remains on propofol at 50 mcg/kg/m, Nimbex at 2 mcg/kg/m, fentanyl at 1 mcg/kg per hour. Not requiring any norepinephrine at present. Patient has been off norepinephrine since yesterday. Chest x-ray continues to show significant bilateral infiltrates consistent with ARDS. Her plateau pressure is elevated at 32, consistent with ARDS. ABG showed a pO2 of 74 pCO2 of 43 pH of 7.35. Patient was earlier on 65% FiO2, however I brought her down to 60% and increased the PEEP from 10-14. WBC count is 5.8 hemoglobin is 9.4. Electrolytes showed slightly elevated sodium otherwise unremarkable, renal profile is normal. Remains on Solu-Medrol, diuretics were added today, remains on antibiotics empirically. Reevaluated today on 03/03/2019, patient remains on mechanical ventilation, she is on tidal volume of 420 assist control rate of 28, FiO2 is down to 40%, and the PEEP was cut down earlier to 10. Her plateau pressure is much improved today is down to 25. Patient remains on propofol at 50 mcg/kg/m, she is also on fentanyl 1 mcg/kg/h, and Nimbex which I have just discontinued since the patient is now on lower FiO2 and lower PEEP. And her chest x-ray is definitely showing significant improvement. Definite improvement noted in aeration, and definite improvement noted in volume status. And this is clearly different reflected on the significant improvement noted on the ABG. The improvement could be related to the diuretics could also be related to steroids. I believe the patient's improvement is likely related to diuretics, hence I recommended an echocardiogram to assess LV function. ABG this morning showed a pO2 of 135 pCO2 of 36 pH of 7.49. CBC and renal profile are normal. Reevaluated today on 03/04/2019, remains on mechanical ventilation, off Nimbex, but remains on propofol at 50 mcg/kg/m, and on fentanyl 0.5 mcg/kg per hour. Her ventilator settings are assist control rate of 28 tidal volume of 420 FiO2 45% and PEEP is 10. ABG this morning showed a pO2 of 82 pCO2 of 42 and pH of 7.49. Patient remains on diuretics, renal profile showed a BUN of 29 creatinine 0.77 potassium is a bit low at 3.1 being corrected as per protocol. WBC count is 11 hemoglobin is 10.0. Chest x-ray showed bibasilar airspace disease, small bilateral pleural effusions. The nasogastric tube was noted to be in the mid esophagus, however apparently the nurses have advanced the tube since the x-ray, and I recommended a follow-up x-ray to document nasogastric tube placement. In spite of sedation, the patient is arousable, she generally weak, and she follows simple instructions. Objective - Vital Signs Vital signs: Vital Signs Temp 98.8 F 03/04/19 08:00 Pulse 71 03/04/19 11:30 Resp 28 H 03/04/19 11:00 BP 115/79 03/04/19 11:00 Pulse Ox 93 L 03/04/19 11:00 Intake & Output 03/03/19 03/04/19 03/04/19 18:59 06:59 18:59 Intake Total 2275.772 1490.889 886.901 Output Total 2900 2720 2720 Balance -624.228 -1229.111 -1833.099 Weight 131.4 kg 129.2 kg Intake: IV 870.720 370.0 150 Normal Saline Carriers 130 120 50 Normal Saline Pressure 15 Bag Piperacillin-Tazobactam 3 200 100 100 .375 gm In Sodium Chloride 0.9% 100 ml @ 25 mls/hr IVPB Q8HR BRETT Rx# :[id number] Vancomycin 2,000 mg In 375 Sodium Chloride 0.9% 500 ml 500 ml @ 167 mls/hr IVPB Q12H BRETT Rx#: [id number] fentaNYL (PF) 2,500 mcg 150.720 150.0 In Sodium Chloride 0.9% 200 ml @ 1 MCG/KG/HR 12. 56 mls/hr IV .[id number] BRETT Rx#:[id number] Intake, IV Titration 610.052 280.889 663.901 Amount Cisatracurium 200 mg In 98.552 Sodium Chloride 0.9% 180 ml @ 1 MCG/KG/MIN 7.62 mls/hr IV .Q24H BRETT Rx#: [id number] Potassium Chloride 20 meq 200 In Water For Injection 1 100ml.bag @ 50 mls/hr IVPB Q2H BRETT Rx#: [id number] Propofol 1,000 mg In 296.933 280.889 247.032 Empty Bag 1 bag @ Titrate IV .Q0M BRETT Rx#: [id number] fentaNYL (PF) 2,500 mcg 214.567 216.869 In Sodium Chloride 0.9% 200 ml @ 1 MCG/KG/HR 12. 56 mls/hr IV .[id number] BRETT Rx#:[id number] Tube Feeding 195 240 73 Other 600 600 Output: Urine 2900 2720 2720 Other: Voiding Method Indwelling Catheter Indwelling Catheter Indwelling Catheter # Bowel Movements 0 ABP, PAP, CO, CI - Last Documented Arterial Blood Pressure 108/96 - Exam Physical Exam: Gen.: Revealed a 44-year-old female intubated, on mechanical ventilation, in no distress, on propofol and fentanyl. Off Nimbex HEENT:[Neck is supple.] [No neck masses.] [No thyromegaly.] [No JVD.] PERRLA, EOMI, no icterus. Endotracheal tube and orogastric tube are intact. Orogastric tube is intact. Chest: [Minimal fine crackles at the bases no rhonchi and no wheezes. Symmetrical chest expansion noted.. Cardiac Exam: [Normal S1 and S2, no S3 gallop, no murmur.] Abdomen: [Obese, Soft, nontender, no megaly, no rebound, no guarding, normal bowel sounds.] Extremities: [No clubbing, 2+ bipedal edema, no cyanosis.] Neurological Exam: Arousable, generally weak, follows simple instructions. Psychiatric: Difficult to assess but she does have a blunt affect. Mental status could not be addressed remains on mechanical ventilation and sedation. Lymphatics: No lymphadenopathy. Skin: No rashes. - Labs CBC & Chem 7: 03/04/19 06:07 03/04/19 06:07 Labs: Abnormal Lab Results - Last 24 Hours (Table) 03/03/19 03/03/19 03/03/19 Range/Units 11:41 13:15 18:41 WBC (3.8-10.6) k/uL RBC (3.80-5.40) m/uL Hgb (11.4-16.0) gm/dL Hct (34.0-46.0) % ABG pH (7.35-7.45) ABG pO2 (83-108) mmHg ABG HCO3 (21-25) mmol/L ABG Total CO2 (19-24) mmol/L Potassium 3.4 L (3.5-5.1) mmol/L Chloride (98-107) mmol/L Carbon Dioxide (22-30) mmol/L BUN (7-17) mg/dL Glucose (74-99) mg/dL POC Glucose (mg/dL) 142 H 141 H (75-99) mg/dL Calcium (8.4-10.2) mg/dL 03/04/19 03/04/19 03/04/19 Range/Units 00:12 05:35 06:07 WBC 11.1 H (3.8-10.6) k/uL RBC 3.57 L (3.80-5.40) m/uL Hgb 10.0 L (11.4-16.0) gm/dL Hct 31.1 L (34.0-46.0) % ABG pH (7.35-7.45) ABG pO2 (83-108) mmHg ABG HCO3 (21-25) mmol/L ABG Total CO2 (19-24) mmol/L Potassium (3.5-5.1) mmol/L Chloride (98-107) mmol/L Carbon Dioxide (22-30) mmol/L BUN (7-17) mg/dL Glucose (74-99) mg/dL POC Glucose (mg/dL) 125 H 119 H (75-99) mg/dL Calcium (8.4-10.2) mg/dL 03/04/19 03/04/19 03/04/19 Range/Units 06:07 08:10 11:12 WBC (3.8-10.6) k/uL RBC (3.80-5.40) m/uL Hgb (11.4-16.0) gm/dL Hct (34.0-46.0) % ABG pH 7.49 H (7.35-7.45) ABG pO2 82 L (83-108) mmHg ABG HCO3 32 H (21-25) mmol/L ABG Total CO2 33 H (19-24) mmol/L Potassium 3.1 L (3.5-5.1) mmol/L Chloride 108 H (98-107) mmol/L Carbon Dioxide 31 H (22-30) mmol/L BUN 29 H (7-17) mg/dL Glucose 123 H (74-99) mg/dL POC Glucose (mg/dL) 140 H (75-99) mg/dL Calcium 8.0 L (8.4-10.2) mg/dL Microbiology - Last 24 Hours (Table) 02/26/19 14:55 Blood Culture - Preliminary Blood No Growth after 120 hours Assessment and Plan Assessment: Impression: 1 acute hypoxic respiratory failure secondary to aspiration pneumonia, and ARDS. Improving but not resolved 2 acute drug overdose, multiple but mostly methamphetamine. 3 acute kidney injury, improving. 4 acute rhabdomyolysis 5 hypotension secondary to pneumonia sepsis and sepsis. 6 acute metabolic acidosis, resolved, required bicarb drip. Resolved. 7 history of polysubstance abuse, and previous similar episode in the last year. 8 history of depression Recommendation: Continue ventilatory support, Continue nutritional support was recently on tube feeding via orogastric tube. Continue propofol, and fentanyl, Adjust ventilator settings, daily according to her ABG, today she is on 45% PEEP of an and tidal volume 420 assist-control rate 20 Continue steroids for evolving ARDS. However the dose will be cut down to 40 mg IV push every 8 hours. Continue antibiotics for MSSA type of pneumonia Continue to monitor peak airway pressures and plateau pressures on the mechanical ventilator daily. Today's plateau pressure is 26 basically unchanged compared to yesterday Continue GI and DVT prophylaxis. I have instructed the nurses to keep the patient sedated, and to follow rass scale above S3, no need for Nimbex at this point, hopefully can bring the PEEP down from 10 to 5 in the next 24 hours, and at that point we could potentially start addressing weaning trials. Patient is not ready for any weaning trials at this point, she remains critically ill, critical care time is 40 minutes. C Time with Patient: Greater than 30
--- NOTE | 2019-03-04 12:46 | XR ---
EXAMINATION TYPE: XR chest 1V portable DATE OF EXAM: 03/04/2019 HISTORY: post advancement of OT tube. REFERENCE: Previous study of earlier today. FINDINGS: The patient is ET tube remains in place, unchanged in appearance. The patient is NG tube is been advanced and is tip is now within the stomach. The heart is enlarged. There is bibasilar airspace disease. There are small, bilateral effusions. IMPRESSION: 1. IMPROVEMENT IN THE APPEARANCE OF THE PATIENT'S NG TUBE. 2. BIBASILAR AIRSPACE DISEASE. 3. SMALL, BILATERAL EFFUSIONS.
[2019-03-04] MEDS: fentaNYL (PF) 2,500 MCG in SODIUM CHLORIDE 0.9% 200 ML IV SCH (13:03)
[2019-03-04] MEDS: POTASSIUM CHLORIDE 10 MEQ in WATER FOR INJECTION 1 100ML.BAG IVPB SCH ×2 (13:33→14:40)
[2019-03-04] MEDS: NOREPINEPHRINE 32 MG in SODIUM CHLORIDE 0.9% 218 ML IV SCH (14:43)
[2019-03-04 17:55] LABS: Glucose,Whole Blood 123 mg/dL (75-99)
[2019-03-04] MEDS: LORazepam 2 MG/ML INJ IV PRN ×2 (20:23→23:54)
--- NOTE | 2019-03-04 22:46 | PN ---
PROGRESS NOTE DATE OF SERVICE: March 04, 2019. PRESENTING COMPLAINT: Intubated. INTERVAL HISTORY: Patient admitted with altered mental status, respiratory failure. The patient had been taking methamphetamines. The patient remains on the ventilator. FiO2 45 and PEEP of 5. IV drips include fentanyl and propofol. The patient is somewhat awake today. Follows some occasional commands. Trach secretions still present. The patient remains in sinus rhythm. Getting tube feeding. REVIEW OF SYSTEMS: Patient intubated. CURRENT MEDICATIONS: Reviewed that include IV fentanyl and IV propofol. Also on IV Zosyn. PHYSICAL EXAMINATION: VITAL SIGNS: Temperature 98.5, pulse 66, respiration 28, blood pressure 113/78, pulse ox 93 percent on ventilator. GENERAL APPEARANCE: Lying in bed, intubated. EYES: Does open eyes. Conjunctivae normal. HEENT: Endotracheal tube in place. NECK: JVD unable to assess. Mass not palpable. RESPIRATORY: Effort increased. LUNGS: Decreased breath sounds. CARDIOVASCULAR: 1st and 2nd sounds normal. No edema. ABDOMEN: Soft, nontender. Liver and spleen not palpable. EXTREMITIES: Lower extremity has supportive boots. NEUROLOGICAL: Patient eyes are open. Pupils are equal. Does follow simple commands. INVESTIGATIONS: Blood gas showed a pH of 7.49. White count 11.1, hemoglobin 10.0. Potassium 3.1, BUN 29, creatinine 0.77. ASSESSMENT: 1. Acute severe bilateral pneumonia, suspect aspiration pneumonia with cultures positive for MSSA. 2. Acute metabolic encephalopathy multifactorial. 3. Acute hypoxic respiratory failure requiring ventilator support from underlying pneumonia. 4. Acute drug overdose multiple primarily methamphetamine. 5. Acute kidney injury due to acute tubular necrosis, improved. 6. Acute rhabdomyolysis. 7. Septic shock from pneumonia, with improvement. 8. Metabolic acidosis. 9. History of depression, not otherwise specified. 10.Morbid obesity BMI 44.3. 11.Chronic nicotine dependence. Patient is a cigarette smoker. 12.Marijuana use. PLAN: Continue current medication and treatment plan. Remains on antibiotics. Drips include fentanyl and propofol. Follow with director of design. Remains in the ICU. MMODL / IJN: [id number] /
[2019-03-04 23:17] LABS: Glucose,Whole Blood 161 mg/dL (75-99)
[2019-03-05] MEDS: PROPOFOL 1,000 MG in EMPTY BAG 1 BAG IV SCH ×12 (02:00→22:36)
[2019-03-05 05:32] LABS: Glucose,Whole Blood 148 mg/dL (75-99)
[2019-03-05] MEDS: INSULIN ASPART (NovoLOG) 100 UNIT/ML VIAL SQ SCH ×3 (05:34→17:03)
[2019-03-05] MEDS: methylPREDNISolone SOD SUCCI 40 MG/ML 1 ML VIAL IV SCH ×2 (05:35→15:17)
[2019-03-05 06:25] LABS: HCT 32.7 % (34.0-46.0); HGB 10.5 gm/dL (11.4-16.0); MCH 27.7 pg (25.0-35.0); MCHC 32.1 g/dL (31.0-37.0); MCV 86.4 fL (80.0-100.0); Mean Platelet Volume 7.9; Platelet Count 375 k/uL (150-450); RBC 3.78 m/uL (3.80-5.40); RDW 15.7 % (11.5-15.5); WBC 11.7 k/uL (3.8-10.6)
[2019-03-05 06:37] LABS: ALT 42 U/L (9-52); AST 31 U/L (14-36); African American GFR (CKD) >90 (>60 ml/min/1.73 sqM); Albumin 3.1 g/dL (3.5-5.0); Alkaline Phosphatase 93 U/L (38-126); Anion Gap 6 mmol/L; Blood Urea Nitrogen 27 mg/dL (7-17); Calcium 8.1 mg/dL (8.4-10.2); Carbon Dioxide 31 mmol/L (22-30); Chloride 104 mmol/L (98-107); Glucose 144 mg/dL (74-99); Magnesium 2.3 mg/dL (1.6-2.3); Phosphorus 4.4 mg/dL (2.5-4.5); Potassium 3.2 mmol/L (3.5-5.1); Sodium 141 mmol/L (137-145); Total Bilirubin 0.4 mg/dL (0.2-1.3); Total Protein 5.8 g/dL (6.3-8.2)
--- NOTE | 2019-03-05 06:42 | XR ---
EXAMINATION TYPE: XR chest 1V portable DATE OF EXAM: 03/05/2019 HISTORY: adventitious lung sounds. REFERENCE: Previous study dated 03/04/2019. FINDINGS: The patient is ET tube has advanced and is now 2.3 cm from the amisha. An NG tube is presen t and its tip is within the stomach. There is bibasilar atelectasis. There are small, bilateral effusions. The heart is mildly prominent. IMPRESSION: 1. BIBASILAR ATELECTASIS. 2. MILD CARDIOMEGALY. 3. SMALL, BILATERAL EFFUSIONS.
[2019-03-05 07:37] LABS: ABG HCO3 34 mmol/L (21-25); ABG Oxygen Saturation 95.9 % (94-97); ABG PCO2 45 mmHg (35-45); ABG PH 7.48 (7.35-7.45); ABG PO2 84 mmHg (83-108); ABG TCO2 35 mmol/L (19-24); Allen Test Performed? Yes
[2019-03-05] MEDS: IPRATROPIUM-ALBUTEROL 3 ML NEB INHALATION SCH ×4 (07:43→21:21)
[2019-03-05] MEDS: PANTOPRAZOLE 40 MG/10 ML VIAL IV SCH (07:56)
[2019-03-05] MEDS: FUROSEMIDE 10 MG/ML 4 ML VIAL IV SCH ×2 (07:56→20:39)
[2019-03-05] MEDS: PIPERACILLIN-TAZOBACTAM 3.375 GM in SODIUM CHLORIDE 0.9% 100 ML IVPB SCH ×2 (08:00→15:17)
[2019-03-05] MEDS: POTASSIUM CHLORIDE 20 MEQ in WATER FOR INJECTION 1 100ML.BAG IVPB SCH ×4 (08:00→17:38)
[2019-03-05] MEDS: HEPARIN SODIUM,PORCINE 5,000 UNIT/ML 1 ML VIAL SQ SCH ×2 (08:00→15:17)
[2019-03-05] MEDS: CHLORHEXIDINE GLUCONATE 15 ML CUP MUCOUS MEM SCH ×2 (08:01→20:39)
--- NOTE | 2019-03-05 08:38 | P.PN ---
Subjective Progress Note Date: 03/05/19 Principal diagnosis: Acute hypoxic respiratory failure secondary to aspiration pneumonia. And ARDS. This is a 44 yo female patient who was brought in to the ED for altered mentat ion and respiratory failure. Family stated that patient presented to their house drowsy and altered last night. She went to bed and appeared to be sleeping well. Patient was checked on several times today and was just sleeping throughout the day. Patient never woke up and acted appropriate. EMS was called prior to patient arrival. Family adds that patient did have a similar episode in November where she was admitted to the intensive care unit at [facility] and diagnosed with pneumonia. Mother states this was associated with methamphetamine use at that time. I was involved in the care of this patient during her latest hospitalization in [facility]. She had a very similar and prolonged presentation where she came in with drug overdose , altered mentation and respiratory failure /ARDS. She was intubated and mechanically ventilated. She was also in DMITRY and severe rhabdomyalysis. The patient back then had a CT of brain was normal. Patient was fluid resuscitated. She was placed on IV vasopressors and sedation and paralytics. Slowly ventilator settings were decreased and patient was ev entually able to be weaned off the vent. She initially displayed limited mentation, and her functional status is very poor. She slowly improved to the interview and admitted to suicide attempt. She was placed on one-to-one suicide precautions. She was later transferred up to medical floor, where she continued medical treatment and work with physical and occupational therapy. Patient required lengthy hospitalization. In she had a acute hypoxic respiratory failure likely secondary to pneumonia,drug overdoseand sepsis. She was on mechanical ventilator and she had a severe anion gap metabolic acidosis and rhabdo . The B/L basal pneumonia likely aspiration, sputum culture positive for MSSA and MSSA bacteremia. She had a acute kidney injury with creatinine level 9.1 possibly ATN, improved to 0.9, elevated liver enzymes, improved, Acute UTI (urinary tract infection) acute hypernatremia and hyperkalemiasecondary to acute kidney injury, improved and she also had elevated troponin level. She had polysubstance use, UDS is positive for amphetamines, benzodiazepines and opiatesThe patient's presentation is very similar as the patient was again postive for amphetamines and she was found to be in a mild rhabdo and lactive acidosis. She was hypotensive and she was hypoxic. She was intubated in the ED. Her CXR was consistent with diffuse bilateral pulmonary infiltrated. This morning, the patient remains on a mechanical ventilator. Currently she is an assist-control mode at a rate of 18 with a tidal volume of 550 and FiO2 of 60% and a PEEP of 8. These changes were done based on the blood gases that showed a pH of 7.26 with a pCO2 of 40 and pO2 of 71. Follow-up looked gases are still pending for now. The patient's chest x-ray showing diffuse bilateral pulmonary infiltrates. ET tube is deep in the trachea and needs to be pulled of around 1 cm. Noted the patient's renal function is improved compared to yesterday. She came in with acute kidney injury in the creatinine is down to 0.7. A repeat CPK level needs to be done. Hemoglobin is at 10.9 with a white cell count of 10.7. She is afebrile. She is covered with accommodation Zosyn and vancomycin. She has significant respiratory secretions and sputum Gram stain and culture was sent. Blood cultures still pending for now. She is on norepinephrine infusion at 0.05 g per KG per minute. She is currently on a bicarb drip at the rate of 100 mL an hour pH is on propofol at the rate of 40 g per KG per minute and the patient is also on fentanyl at 1 mcg/kg per hour. Reevaluated today on 02/28/2019, patient remains on mechanical ventilation, sedated. She is on propofol at 50 mcg/kg/m, she is also on fentanyl at 1.5 mcg/kg per hour. Remains on bicarb drip, not requiring any norepinephrine. Hemodynamically stable. Her ventilator settings are tidal volume of 450 respiratory rate of 30, FiO2 of 55%, and PEEP of 8. All labs were reviewed including ABG showed a pO2 of 88 pCO2 of 35 pH of 7.44. Patient is also on bicarb drip which I will discontinue. Empirically on antibiotics including vancomycin and Zosyn. Levaquin was discontinued. Chest x-ray continues to show bilateral interstitial infiltrates consistent with bilateral pneumonia, however evolving ARDS is strongly considered. Patient is sedated and no plans to hold sedation this morning but that would be addressed in the next 24 hours. Remains on GI and DVT prophylaxis, I plan to start enteral feeding today. Reevaluated today on 03/01/2019, patient remains on mechanical ventilation, had to increase her FiO2 and PEEP yesterday, patient had to be placed on Nimbex because she was getting a synchronous with mechanical ventilation, and she was experiencing continuous cough and desaturating continuously at night. Presently on Nimbex, propofol, norepinephrine, fentanyl, and her ventilator settings are assist control rate of 26, tidal volume of 450, FiO2 is 55%, PEEP is 10. Patient is on enteral feeding via orogastric tube. Her norepinephrine is minimal at 0.04 mcg/kg/m, she is also on fentanyl 1.5 mcg/kg/m, and propofol at 50 mcg/kg/m. ABG this morning showed a pO2 of 97 pCO2 of 37 pH of 7.42. Chest x-ray shows worsening interstitial lung disease consistent with evolving ARDS. Her plateau pressures were noted to be high at 34 this morning. Peak airway pressure is in the low 40s. Solu-Medrol was started for evolving ARDS. Clearly the patient is not in any shape for weaning at this point. She is requiring significant FiO2 and significant PEEP may have to even go up higher on the PEEP. Patient had a very similar presentation in the last year at [facility], and she ended up requiring high PEEP, high FiO2, and she responded eventually after 10 days of mechanical ventilation. Reevaluated today on 03/02/2019, patient remains on mechanical ventilation,, presently on tidal volume of 420 assist control rate of 28, FiO2 of 60%, PEEP is up to 14, remains on propofol at 50 mcg/kg/m, Nimbex at 2 mcg/kg/m, fentanyl at 1 mcg/kg per hour. Not requiring any norepinephrine at present. Patient has been off norepinephrine since yesterday. Chest x-ray continues to show significant bilateral infiltrates consistent with ARDS. Her plateau pressure is elevated at 32, consistent with ARDS. ABG showed a pO2 of 74 pCO2 of 43 pH of 7.35. Patient was earlier on 65% FiO2, however I brought her down to 60% and increased the PEEP from 10-14. WBC count is 5.8 hemoglobin is 9.4. Electrolytes showed slightly elevated sodium otherwise unremarkable, renal profile is normal. Remains on Solu-Medrol, diuretics were added today, remains on antibiotics empirically. Reevaluated today on 03/03/2019, patient remains on mechanical ventilation, she is on tidal volume of 420 assist control rate of 28, FiO2 is down to 40%, and the PEEP was cut down earlier to 10. Her plateau pressure is much improved today is down to 25. Patient remains on propofol at 50 mcg/kg/m, she is also on fentanyl 1 mcg/kg/h, and Nimbex which I have just discontinued since the patient is now on lower FiO2 and lower PEEP. And her chest x-ray is definitely showing significant improvement. Definite improvement noted in aeration, and definite improvement noted in volume status. And this is clearly different reflected on the significant improvement noted on the ABG. The improvement could be related to the diuretics could also be related to steroids. I believe the patient's improvement is likely related to diuretics, hence I recommended an echocardiogram to assess LV function. ABG this morning showed a pO2 of 135 pCO2 of 36 pH of 7.49. CBC and renal profile are normal. Reevaluated today on 03/04/2019, remains on mechanical ventilation, off Nimbex, but remains on propofol at 50 mcg/kg/m, and on fentanyl 0.5 mcg/kg per hour. Her ventilator settings are assist control rate of 28 tidal volume of 420 FiO2 45% and PEEP is 10. ABG this morning showed a pO2 of 82 pCO2 of 42 and pH of 7.49. Patient remains on diuretics, renal profile showed a BUN of 29 creatinine 0.77 potassium is a bit low at 3.1 being corrected as per protocol. WBC count is 11 hemoglobin is 10.0. Chest x-ray showed bibasilar airspace disease, small bilateral pleural effusions. The nasogastric tube was noted to be in the mid esophagus, however apparently the nurses have advanced the tube since the x-ray, and I recommended a follow-up x-ray to document nasogastric tube placement. In spite of sedation, the patient is arousable, she generally weak, and she follows simple instructions. Patient was reevaluated today on 03/05/2019, remains on mechanical ventilation, presently on propofol, fentanyl, off norepinephrine, she is on a tidal volume of 420 PEEP of 8 FiO2 is 50%, and assist control rate of 28. Patient is a bit more awake, follows simple instructions, hence I proceeded today to stopping her fentanyl and propofol, and I will likely proceed later on this afternoon with weaning trial and possibly a trial of pressure support and CPAP, and if tolerated may even consider extubation. Chest x-ray continues to show some bibasilar airspace disease. ABG was reviewed. PO2 is 84 pCO2 is 45 pH of 7.48. Remains on methylprednisolone 40 mg IV push every 6, remains on Lasix at 40 mg IV push every 12 hours. Sputum was positive for MSSA, and patient remains on antibiotics accordingly. Objective - Vital Signs Vital signs: Vital Signs Temp 99.2 F 03/05/19 08:00 Pulse 92 03/05/19 08:09 Resp 28 H 03/05/19 08:00 BP 131/100 03/05/19 08:00 Pulse Ox 95 03/05/19 08:00 Intake & Output 03/04/19 03/05/19 03/05/19 18:59 06:59 18:59 Intake Total 3737.762 3797.871 153 Output Total 3457 3090 305 Balance -2141.639 -1194.129 -152 Weight 124.5 kg Intake: IV 320 200 120 Normal Saline Carriers 120 100 20 Piperacillin-Tazobactam 3 200 100 100 .375 gm In Sodium Chloride 0.9% 100 ml @ 25 mls/hr IVPB Q8HR BRETT Rx# :[id number] Intake, IV Titration 866.361 572.871 Amount Potassium Chloride 20 meq 200 In Water For Injection 1 100ml.bag @ 50 mls/hr IVPB Q2H BRETT Rx#: [id number] Propofol 1,000 mg In 447.032 572.871 Empty Bag 1 bag @ Titrate IV .Q0M BRETT Rx#: [id number] fentaNYL (PF) 2,500 mcg 219.329 In Sodium Chloride 0.9% 200 ml @ 1 MCG/KG/HR 12. 56 mls/hr IV .[id number] BRETT Rx#:[id number] Tube Feeding 129 523 33 Other 600 Output: Urine 3457 3090 305 Other: Voiding Method Indwelling Catheter Indwelling Catheter # Bowel Movements 0 ABP, PAP, CO, CI - Last Documented Arterial Blood Pressure 108/96 - Exam Physical Exam: Gen.: Revealed a 44-year-old female intubated, on mechanical ventilation, in no distress, on propofol and fentanyl. Arousable, follows simple instructions even on sedation. HEENT:[Neck is supple.] [No neck masses.] [No thyromegaly.] [No JVD.] PERRLA, EOMI, no icterus. Endotracheal tube and orogastric tube are intact. Orogastric tube is intact. Chest: [Minimal fine crackles at the bases no rhonchi and no wheezes. Symmetrical chest expansion noted.. Cardiac Exam: [Normal S1 and S2, no S3 gallop, no murmur.] Abdomen: [Obese, Soft, nontender, no megaly, no rebound, no guarding, normal bowel sounds.] Extremities: [No clubbing, 2+ bipedal edema, no cyanosis.] Neurological Exam: Arousable, generally weak, follows simple instructions. Psychiatric: Difficult to assess but she does have a blunt affect. Mental status could not be addressed remains on mechanical ventilation and sedation. Lymphatics: No lymphadenopathy. Skin: No rashes. - Labs CBC & Chem 7: 03/05/19 05:40 03/05/19 05:40 Labs: Abnormal Lab Results - Last 24 Hours (Table) 03/04/19 03/04/19 03/04/19 Range/Units 11:12 17:42 23:02 WBC (3.8-10.6) k/uL RBC (3.80-5.40) m/uL Hgb (11.4-16.0) gm/dL Hct (34.0-46.0) % RDW (11.5-15.5) % ABG pH (7.35-7.45) ABG HCO3 (21-25) mmol/L ABG Total CO2 (19-24) mmol/L Potassium (3.5-5.1) mmol/L Carbon Dioxide (22-30) mmol/L BUN (7-17) mg/dL Glucose (74-99) mg/dL POC Glucose (mg/dL) 140 H 123 H 161 H (75-99) mg/dL Calcium (8.4-10.2) mg/dL Total Protein (6.3-8.2) g/dL Albumin (3.5-5.0) g/dL 03/05/19 03/05/19 03/05/19 Range/Units 05:20 05:40 05:40 WBC 11.7 H (3.8-10.6) k/uL RBC 3.78 L (3.80-5.40) m/uL Hgb 10.5 L (11.4-16.0) gm/dL Hct 32.7 L (34.0-46.0) % RDW 15.7 H (11.5-15.5) % ABG pH (7.35-7.45) ABG HCO3 (21-25) mmol/L ABG Total CO2 (19-24) mmol/L Potassium 3.2 L (3.5-5.1) mmol/L Carbon Dioxide 31 H (22-30) mmol/L BUN 27 H (7-17) mg/dL Glucose 144 H (74-99) mg/dL POC Glucose (mg/dL) 148 H (75-99) mg/dL Calcium 8.1 L (8.4-10.2) mg/dL Total Protein 5.8 L (6.3-8.2) g/dL Albumin 3.1 L (3.5-5.0) g/dL 03/05/19 Range/Units 07:22 WBC (3.8-10.6) k/uL RBC (3.80-5.40) m/uL Hgb (11.4-16.0) gm/dL Hct (34.0-46.0) % RDW (11.5-15.5) % ABG pH 7.48 H (7.35-7.45) ABG HCO3 34 H (21-25) mmol/L ABG Total CO2 35 H (19-24) mmol/L Potassium (3.5-5.1) mmol/L Carbon Dioxide (22-30) mmol/L BUN (7-17) mg/dL Glucose (74-99) mg/dL POC Glucose (mg/dL) (75-99) mg/dL Calcium (8.4-10.2) mg/dL Total Protein (6.3-8.2) g/dL Albumin (3.5-5.0) g/dL Microbiology - Last 24 Hours (Table) 02/26/19 14:55 Blood Culture - Final Blood No Growth after 144 hours Assessment and Plan Assessment: Impression: 1 acute hypoxic respiratory failure secondary to aspiration pneumonia, and ARDS. Improving but not resolved 2 acute drug overdose, multiple but mostly methamphetamine. 3 acute kidney injury, improving. 4 acute rhabdomyolysis 5 hypotension secondary to pneumonia sepsis and sepsis. 6 acute metabolic acidosis, resolved, required bicarb drip. Resolved. 7 history of polysubstance abuse, and previous similar episode in the last year. 8 history of depression Recommendation: Continue ventilatory support, however the patient will be given possibly a trial of weaning today utilizing pressure support and CPAP. Continue nutritional support remains on enteral feeding.. Hold propofol and fentanyl this morning and assess fully mental status, and possibly weaning parameters. Consider pressure support and CPAP mode of weaning later today. Continue steroids at 40 mg IV push every 8 hours. Continue antibiotics for MSSA type of pneumonia , possible aspiration pneumonia Continue to monitor peak airway pressures and plateau pressures on the mechanical ventilator daily. Plateau pressure today is 25. Continue GI and DVT prophylaxis. In summary the patient will be given a weaning trial likely today, she will be given a trial of pressure support and CPAP, and depending on how she does may go back on full mode of mechanical ventilation, or may even consider weaning and extubation. Continues to have multiple medical problems and complex medical issues, prognosis is still definitely guarded. Patient remains critically ill will follow. Critical care time is 35 minutes C Time with Patient: Greater than 30
[2019-03-05 12:00] LABS: Glucose,Whole Blood 139 mg/dL (75-99)
[2019-03-05] MEDS: fentaNYL (PF) 2,500 MCG in SODIUM CHLORIDE 0.9% 200 ML IV SCH (13:27)
[2019-03-05] MEDS: NOREPINEPHRINE 32 MG in SODIUM CHLORIDE 0.9% 218 ML IV SCH (16:16)
[2019-03-05 17:14] LABS: Glucose,Whole Blood 116 mg/dL (75-99)
--- NOTE | 2019-03-05 22:48 | PN ---
PROGRESS NOTE DATE OF SERVICE: March 05, 2019. PRESENTING COMPLAINT: Intubated. INTERVAL HISTORY: Patient admitted with altered mental status, respiratory failure, had been taking methamphetamines, remains on the ventilator. FiO2 50 and a PEEP of 8. Drips include fentanyl. Telemetry shows sinus rhythm. Tube feeding is at 33 mL an hour. Patient does respond. Is somewhat awake. REVIEW OF SYSTEMS: Patient intubated. CURRENT MEDICATIONS: Reviewed that include IV Fentanyl and IV Zosyn. PHYSICAL EXAMINATION: VITAL SIGNS: Temperature 97.8, pulse 80, respiration 28, blood pressure 112/65, pulse ox 95% on ventilator. GENERAL APPEARANCE: Lying in bed, intubated. EYES: Open. Conjunctivae normal. HEENT endotracheal tube in place. NECK: JVD unable to assess. Mass not palpable. RESPIRATORY: Effort increased. LUNGS: Decreased breath sounds. CARDIOVASCULAR: 1st and 2nd sounds normal. No edema. ABDOMEN: Soft, nontender. Liver and spleen not palpable. EXTREMITIES: Supportive boots in place. NEUROLOGICAL: Pupils are equal. Attempt to follow simple commands. INVESTIGATIONS: White count 11.7, hemoglobin 10.5, potassium 3.2, BUN 26, creatinine 0.6. Accu-Cheks are noted. Chest x-ray noted. ASSESSMENT: 1. Acute severe bilateral pneumonia, suspect aspiration pneumonia with cultures positive for MSSA. 2. Acute metabolic encephalopathy multifactorial. 3. Acute hypoxic respiratory failure requiring ventilator support from underlying pneumonia. 4. Acute drug overdose, multiple primary methamphetamines. 5. Acute kidney injury due to acute tubular necrosis, improved. 6. Acute rhabdomyolysis. 7. Septic shock with pneumonia, improved. 8. Metabolic acidosis. 9. History of depression not otherwise specified. 10.Morbid obesity BMI 44.3. 11.Chronic nicotine dependence. Patient is a cigarette smoker. 12.Marijuana use. PLAN: Continue current medication treatment. Supportive care. antibiotics, on a fentanyl drip on the ventilator. Prognosis guarded. Follow. MMODL / IJN: [id number] /
[2019-03-06] MEDS ORDERED: Potassium Replacement Protocol 1 EACH MISC MISCELLANE PRN (00:13)
[2019-03-06] MEDS: INSULIN ASPART (NovoLOG) 100 UNIT/ML VIAL SQ SCH ×4 (00:17→19:53)
[2019-03-06] MEDS: POTASSIUM CHLORIDE 20 MEQ in WATER FOR INJECTION 1 100ML.BAG IVPB SCH ×2 (00:20→05:00)
[2019-03-06] MEDS: HEPARIN SODIUM,PORCINE 5,000 UNIT/ML 1 ML VIAL SQ SCH ×4 (00:20→23:38)
[2019-03-06] MEDS: methylPREDNISolone SOD SUCCI 40 MG/ML 1 ML VIAL IV SCH ×2 (00:20→09:33)
[2019-03-06] MEDS: PIPERACILLIN-TAZOBACTAM 3.375 GM in SODIUM CHLORIDE 0.9% 100 ML IVPB SCH (00:21)
[2019-03-06] MEDS: PROPOFOL 1,000 MG in EMPTY BAG 1 BAG IV SCH ×12 (00:22→23:30)
[2019-03-06 00:28] LABS: Glucose,Whole Blood 118 mg/dL (75-99)
[2019-03-06] MEDS: fentaNYL (PF) 2,500 MCG in SODIUM CHLORIDE 0.9% 200 ML IV SCH ×2 (00:29→08:23)
[2019-03-06 04:43] LABS: ABG Base Excess 8.3 mmol/L; ABG HCO3 32 mmol/L (21-25); ABG Oxygen Saturation 98.4 % (94-97); ABG PCO2 42 mmHg (35-45); ABG PH 7.49 (7.35-7.45); ABG PO2 117 mmHg (83-108); ABG TCO2 33 mmol/L (19-24); Allen Test Performed? Yes
[2019-03-06 06:21] LABS: Magnesium 2.2 mg/dL (1.6-2.3)
[2019-03-06 06:49] LABS: Glucose,Whole Blood 136 mg/dL (75-99)
[2019-03-06 08:01] LABS: Hypochromasia Slight; MCH 28.4 pg (25.0-35.0); MCHC 32.4 g/dL (31.0-37.0); MCV 87.5 fL (80.0-100.0); Mean Platelet Volume 8.6; Platelet Count 423 k/uL (150-450); RBC 3.89 m/uL (3.80-5.40); RDW 15.7 % (11.5-15.5); WBC 13.6 k/uL (3.8-10.6)
[2019-03-06] MEDS: IPRATROPIUM-ALBUTEROL 3 ML NEB INHALATION SCH ×4 (08:10→20:49)
[2019-03-06 08:12] LABS: African American GFR (CKD) >90 (>60 ml/min/1.73 sqM); Anion Gap 11 mmol/L; Blood Urea Nitrogen 25 mg/dL (7-17); Calcium 8.3 mg/dL (8.4-10.2); Carbon Dioxide 25 mmol/L (22-30); Chloride 104 mmol/L (98-107); Glucose 154 mg/dL (74-99); Sodium 140 mmol/L (137-145)
--- NOTE | 2019-03-06 08:50 | XR ---
EXAMINATION TYPE: XR chest 1V portable DATE OF EXAM: 03/06/2019 COMPARISON: Prior chest x-ray 03/05/2019 HISTORY: Adventitious lung sounds, abnormal chest x-ray TECHNIQUE: Single frontal view of the chest is obtained. FINDINGS: Endotracheal tube, orogastric tube are present and overlying appropriate positions, distal tip of the gastric tube is not seen however. There are overlying cardiac leads and the patient is ro tated. There is no evident pneumothorax. Lung volumes are low. Heart size is likely stable. There is prominence of interstitium, bibasilar density. IMPRESSION: Expiratory rotated exam. There may be basilar effusions, atelectasis, correlate to exclu de pneumonia, volume overload. Cardiomegaly. Follow-up recommended.
[2019-03-06] MEDS: PANTOPRAZOLE 40 MG/10 ML VIAL IV SCH (09:15)
[2019-03-06] MEDS: CHLORHEXIDINE GLUCONATE 15 ML CUP MUCOUS MEM SCH ×2 (09:15→21:03)
[2019-03-06] MEDS: FUROSEMIDE 10 MG/ML 4 ML VIAL IV SCH (09:34)
--- NOTE | 2019-03-06 09:40 | PN ---
PROGRESS NOTE DATE OF SERVICE: March 06, 2019 CRITICAL CARE TIME: 33 minutes. This is a 44-year-old female status post suicide attempt with multiple drugs including THC, amphetamines, and methamphetamine. She apparently has a history of previous and multiple suicide attempts and was recently over at [facility] with a similar situation. The patient was admitted with a diagnosis of respiratory failure secondary to aspiration pneumonia and acute respiratory distress syndrome. In addition, to the overdose, she has a history of acute kidney injury, acute rhabdomyolysis, hypotension secondary to sepsis, metabolic acidosis, polysubstance abuse, and depression. Currently, the patient was admitted to the hospital on February 26. She came with pneumonitis, ARDS, mental status changes secondary to overdose and rhabdomyolysis. She was intubated on February 26. She has been intubated now for 8 days without any movement towards weaning and extubation. Currently, she is on the volume assist-control mode with a rate of 28, tidal volume 420, FiO2 of 50% to be dropped to 40%, and PEEP of 8. Arterial blood gases show a PaO2 of 117, pCO2 42, and a pH 7.49. The blood gases are consistent with mild hyperoxia and mild metabolic alkalosis. Currently, the patient is on Diprivan at 55 mcg/kg per minute, fentanyl drip at 97 mcg/hour and 0.9 IV at 15 mL an hour and Vital high-protein at 33 with a goal of 33 mL an hour. Sputum showed evidence of oxacillin sensitive Staph aureus organisms. My plan is to have surgery consulted for tracheostomy and PEG tube placement. PHYSICAL EXAMINATION: VITAL SIGNS: Current vital signs are reviewed. Temperature is 98.2, heart rate 88, respiratory rate 28, blood pressure 92/54 with mean of 66, and saturations 95% GENERAL: Currently appears in no acute distress. She is currently sedated heavily with the propofol and fentanyl. HEENT: Examination is grossly unremarkable. There is an orally placed endotracheal tube and NG tube. NECK: Supple. Full range of motion. No adenopathy. Neck veins are flat. CARDIOVASCULAR: Examination reveals regular rhythm and rate. Heart rate 88. S1, S2 normal. Heart sounds are distant. LUNGS: Reveal coarse bilateral rhonchi. Breath sounds are diminished. No wheezes or crackles. ABDOMEN: Obese. Bowel sounds are heard. EXTREMITIES: Are intact. Mild edema. SKIN: Without rash. NEUROLOGIC: Examination is difficult to assess. X-RAY: A chest x-ray was done. The chest x-ray shows small lung volumes and endotracheal tube which is just above the tracheal amisha and bilateral basilar atelectasis and small effusions. LAB DATA: Lab data is reviewed. White count 13.6, hemoglobin 11, hematocrit 34.0, platelet count 423,000. Sodium, potassium, chloride, CO2 all normal. Anion gap normal. BUN and creatinine were normal. Microbiology as mentioned earlier, shows evidence of oxacillin sensitive Staph aureus in the sputum from February 26. MEDICATIONS: Medications are reviewed. The patient is currently on IV Tylenol, chlorhexidine, fentanyl, Lasix, subcu heparin, insulin, DuoNeb, Ativan, magnesium replacement, Solu- Medrol, Narcan, Protonix and propofol. ASSESSMENT: 1. Acute hypoxemic respiratory failure secondary to polysubstance overdose as a suicide attempt with intubation and mechanical ventilation beginning on February 26. 2. Diffuse pneumonitis with acute respiratory distress syndrome. 3. Rhabdomyolysis with acute kidney injury. 4. Polysubstance overdose with THC, amphetamines and methamphetamines. 5. Hypotension secondary to pneumonia and sepsis. 6. Acute metabolic acidosis. 7. History of polysubstance abuse with multiple previous suicide attempts. 8. History of depression. 9. History of anemia. 10.Mild metabolic alkalosis. 11.Failure to wean from mechanical ventilation. PLAN: The patient will have a surgical consult placed for a trach and PEG. We will consult Dr. Oates. Additional recommendations and suggestions are forthcoming. Overall prognosis is guarded to poor. Labs, x-rays and medications are all reviewed. Problem list is reviewed. FiO2 is dropped down to 40%. She remains on tube feeds. Additional recommendations and suggestions are forthcoming. CRITICAL CARE TIME: 33 minutes. MMODL / IJN: [id number] / MARLENE
--- NOTE | 2019-03-06 10:38 | P.GSCN ---
<Halle Shirley Karoline - Last Filed: 03/06/19 10:31> History of Present Illness Consult date: 03/06/19 Reason for Consult: trach and peg placement Requesting physician: Indiana Castellanos History of present illness: CHIEF COMPLAINT: trach and peg placement HISTORY OF PRESENT ILLNESS: 44 year old female who is currently intubated in the intensive care unit secondary to questionable suicide attempt with THC, amphetamines, and methamphetamines. Patient has remained on mechanical ventilation since admission. General surgery was consulted for trach and PEG placement. No family is present at the time of my evaluation. PAST MEDICAL HISTORY: See list. PAST SURGICAL HISTORY: See list. SOCIAL HISTORY: History of drug abuse REVIEW OF SYSTEMS: Unable to obtain PHYSICAL EXAM: VITAL SIGNS: Reviewed. GENERAL: Well-developed in no acute distress-remains on mechanical ventilation HEENT: ET tube noted. No sclera icterus. Extraocular movements grossly intact. Moist buccal mucosa. Head is atraumatic, normocephalic. ABDOMEN: Soft. Nondistended. Nontender. NEUROLOGIC: Alert. Moves all extremities. Cranial nerves II through XII grossly intact. ASSESSMENT: 1. Acute hypoxic respiratory failure secondary to polysubstance overdose and possible suicide attempt 2. ARDS PLAN: Continue ventilator management per Dr. Beltrán No family present during evaluation. Nursing to notify provider when family arrives and will further discuss trach/peg with patients mother, who is the decision maker at this time Nurse practitioner note has been reviewed by physician. Signing provider agrees with the documented findings, assessment, and plan of care. Past Medical History Past Medical History: Pneumonia, Respiratory Disorder Additional Past Medical History / Comment(s): Polysubstane abuse, hisotry of drug overdose, history of ARDS requiring intubation and mechanical ventilation, history of severe rhabdomyalysis and DMITRY (recovered), history of MSSA pneumonia and sepsis, history of metabolic encephalopathy (recovered), hisotory of depression, suicide, obesity History of Any Multi-Drug Resistant Organisms: ESBL, Other MDRO Year Discovered:: 01/20 MDRO Source:: Blood, Lungs Past Surgical History: Unable to Obtain Additional Past Surgical History / Comment(s): breast biopsy (date unknown) Past Anesthesia/Blood Transfusion Reactions: No Reported Reaction Past Psychological History: Anxiety, Depression Smoking Status: Current every day smoker Past Alcohol Use History: Unable to Obtain Past Drug Use History: Marijuana, Methamphetamine Medications and Allergies Home Medications Medication Instructions Recorded Confirmed Type Sertraline HCl [Zoloft] 200 mg PO PC-BRKFST 02/26/19 02/26/19 History busPIRone HCL 15 mg PO TID 02/26/19 02/26/19 History cloNIDine HCL [Catapres] 0.1 mg PO BID@0700,1200 02/26/19 02/26/19 History cloNIDine HCL [Catapres] 0.2 mg PO HS 02/26/19 02/26/19 History Allergies Allergy/AdvReac Type Severity Reaction Status Date / Time sulfamethoxazole Allergy Rash/Hives Verified 02/26/19 18:04 [From Bactrim] trimethoprim [From Bactrim] Allergy Rash/Hives Verified 02/26/19 18:04 Surgical - Exam Vital Signs Temp Pulse Resp BP Pulse Ox 100.9 F H 138 H 12 101/62 89 L 02/26/19 14:46 02/26/19 14:46 02/26/19 14:46 02/26/19 14:46 02/26/19 14:46 Results - Labs 03/06/19 05:13 03/06/19 05:13 Abnormal Lab Results - Last 24 Hours (Table) 03/05/19 03/05/19 03/05/19 Range/Units 11:33 12:55 17:02 WBC (3.8-10.6) k/uL Hgb (11.4-16.0) gm/dL RDW (11.5-15.5) % ABG pH (7.35-7.45) ABG pO2 (83-108) mmHg ABG HCO3 (21-25) mmol/L ABG Total CO2 (19-24) mmol/L ABG O2 Saturation (94-97) % Potassium 3.3 L (3.5-5.1) mmol/L BUN (7-17) mg/dL Glucose (74-99) mg/dL POC Glucose (mg/dL) 139 H 116 H (75-99) mg/dL Calcium (8.4-10.2) mg/dL Phosphorus (2.5-4.5) mg/dL 03/05/19 03/06/19 03/06/19 Range/Units 22:30 00:16 04:39 WBC (3.8-10.6) k/uL Hgb (11.4-16.0) gm/dL RDW (11.5-15.5) % ABG pH 7.49 H (7.35-7.45) ABG pO2 117 H (83-108) mmHg ABG HCO3 32 H (21-25) mmol/L ABG Total CO2 33 H (19-24) mmol/L ABG O2 Saturation 98.4 H (94-97) % Potassium 3.2 L (3.5-5.1) mmol/L BUN (7-17) mg/dL Glucose (74-99) mg/dL POC Glucose (mg/dL) 118 H (75-99) mg/dL Calcium (8.4-10.2) mg/dL Phosphorus (2.5-4.5) mg/dL 03/06/19 03/06/19 03/06/19 Range/Units 05:13 05:13 05:13 WBC 13.6 H (3.8-10.6) k/uL Hgb 11.0 L (11.4-16.0) gm/dL RDW 15.7 H (11.5-15.5) % ABG pH (7.35-7.45) ABG pO2 (83-108) mmHg ABG HCO3 (21-25) mmol/L ABG Total CO2 (19-24) mmol/L ABG O2 Saturation (94-97) % Potassium (3.5-5.1) mmol/L BUN 25 H (7-17) mg/dL Glucose 154 H (74-99) mg/dL POC Glucose (mg/dL) (75-99) mg/dL Calcium 8.3 L (8.4-10.2) mg/dL Phosphorus 5.0 H (2.5-4.5) mg/dL 03/06/19 Range/Units 06:38 WBC (3.8-10.6) k/uL Hgb (11.4-16.0) gm/dL RDW (11.5-15.5) % ABG pH (7.35-7.45) ABG pO2 (83-108) mmHg ABG HCO3 (21-25) mmol/L ABG Total CO2 (19-24) mmol/L ABG O2 Saturation (94-97) % Potassium (3.5-5.1) mmol/L BUN (7-17) mg/dL Glucose (74-99) mg/dL POC Glucose (mg/dL) 136 H (75-99) mg/dL Calcium (8.4-10.2) mg/dL Phosphorus (2.5-4.5) mg/dL Diabetes panel 03/05/19 03/05/19 03/06/19 Range/Units 12:55 22:30 05:13 Sodium 140 (137-145) mmol/L Potassium 3.3 L 3.2 L 4.0 (3.5-5.1) mmol/L Chloride 104 (98-107) mmol/L Carbon Dioxide 25 (22-30) mmol/L BUN 25 H (7-17) mg/dL Creatinine 0.64 (0.52-1.04) mg/dL Glucose 154 H (74-99) mg/dL Calcium 8.3 L (8.4-10.2) mg/dL Calcium panel 03/06/19 03/06/19 Range/Units 05:13 05:13 Calcium 8.3 L (8.4-10.2) mg/dL Phosphorus 5.0 H (2.5-4.5) mg/dL Pituitary panel 03/05/19 03/05/19 03/06/19 Range/Units 12:55 22:30 05:13 Sodium 140 (137-145) mmol/L Potassium 3.3 L 3.2 L 4.0 (3.5-5.1) mmol/L Chloride 104 (98-107) mmol/L Carbon Dioxide 25 (22-30) mmol/L BUN 25 H (7-17) mg/dL Creatinine 0.64 (0.52-1.04) mg/dL Glucose 154 H (74-99) mg/dL Calcium 8.3 L (8.4-10.2) mg/dL Adrenal panel 03/05/19 03/05/19 03/06/19 Range/Units 12:55 22:30 05:13 Sodium 140 (137-145) mmol/L Potassium 3.3 L 3.2 L 4.0 (3.5-5.1) mmol/L Chloride 104 (98-107) mmol/L Carbon Dioxide 25 (22-30) mmol/L BUN 25 H (7-17) mg/dL Creatinine 0.64 (0.52-1.04) mg/dL Glucose 154 H (74-99) mg/dL Calcium 8.3 L (8.4-10.2) mg/dL <Jo AnnnathaliaMario - Last Filed: 03/06/19 13:25> History of Present Illness History of present illness: As above. Patient admitted after suicide attempts. Patient remains on the ventilator. Patient is not weaning appropriately per pulmonary. They are requesting a tracheostomy and PEG tube placement. No family present to discuss the procedure with currently. If consent obtained and the patient remains ventilated Will proceed with above procedures. Surgical - Exam Vital Signs Temp Pulse Resp BP Pulse Ox 100.9 F H 138 H 12 101/62 89 L 02/26/19 14:46 02/26/19 14:46 02/26/19 14:46 02/26/19 14:46 02/26/19 14:46 Results - Labs 03/06/19 05:13 03/06/19 11:03 Abnormal Lab Results - Last 24 Hours (Table) 03/05/19 03/05/19 03/05/19 Range/Units 12:55 17:02 22:30 WBC (3.8-10.6) k/uL Hgb (11.4-16.0) gm/dL RDW (11.5-15.5) % ABG pH (7.35-7.45) ABG pO2 (83-108) mmHg ABG HCO3 (21-25) mmol/L ABG Total CO2 (19-24) mmol/L ABG O2 Saturation (94-97) % Potassium 3.3 L 3.2 L (3.5-5.1) mmol/L BUN (7-17) mg/dL Glucose (74-99) mg/dL POC Glucose (mg/dL) 116 H (75-99) mg/dL Calcium (8.4-10.2) mg/dL Phosphorus (2.5-4.5) mg/dL 03/06/19 03/06/19 03/06/19 Range/Units 00:16 04:39 05:13 WBC (3.8-10.6) k/uL Hgb (11.4-16.0) gm/dL RDW (11.5-15.5) % ABG pH 7.49 H (7.35-7.45) ABG pO2 117 H (83-108) mmHg ABG HCO3 32 H (21-25) mmol/L ABG Total CO2 33 H (19-24) mmol/L ABG O2 Saturation 98.4 H (94-97) % Potassium (3.5-5.1) mmol/L BUN (7-17) mg/dL Glucose (74-99) mg/dL POC Glucose (mg/dL) 118 H (75-99) mg/dL Calcium (8.4-10.2) mg/dL Phosphorus 5.0 H (2.5-4.5) mg/dL 03/06/19 03/06/19 03/06/19 Range/Units 05:13 05:13 06:38 WBC 13.6 H (3.8-10.6) k/uL Hgb 11.0 L (11.4-16.0) gm/dL RDW 15.7 H (11.5-15.5) % ABG pH (7.35-7.45) ABG pO2 (83-108) mmHg ABG HCO3 (21-25) mmol/L ABG Total CO2 (19-24) mmol/L ABG O2 Saturation (94-97) % Potassium (3.5-5.1) mmol/L BUN 25 H (7-17) mg/dL Glucose 154 H (74-99) mg/dL POC Glucose (mg/dL) 136 H (75-99) mg/dL Calcium 8.3 L (8.4-10.2) mg/dL Phosphorus (2.5-4.5) mg/dL 03/06/19 Range/Units 11:03 WBC (3.8-10.6) k/uL Hgb (11.4-16.0) gm/dL RDW (11.5-15.5) % ABG pH (7.35-7.45) ABG pO2 (83-108) mmHg ABG HCO3 (21-25) mmol/L ABG Total CO2 (19-24) mmol/L ABG O2 Saturation (94-97) % Potassium 3.3 L (3.5-5.1) mmol/L BUN (7-17) mg/dL Glucose (74-99) mg/dL POC Glucose (mg/dL) (75-99) mg/dL Calcium (8.4-10.2) mg/dL Phosphorus (2.5-4.5) mg/dL Diabetes panel 03/05/19 03/05/19 03/06/19 Range/Units 12:55 22:30 05:13 Sodium 140 (137-145) mmol/L Potassium 3.3 L 3.2 L 4.0 (3.5-5.1) mmol/L Chloride 104 (98-107) mmol/L Carbon Dioxide 25 (22-30) mmol/L BUN 25 H (7-17) mg/dL Creatinine 0.64 (0.52-1.04) mg/dL Glucose 154 H (74-99) mg/dL Calcium 8.3 L (8.4-10.2) mg/dL 03/06/19 Range/Units 11:03 Sodium (137-145) mmol/L Potassium 3.3 L (3.5-5.1) mmol/L Chloride (98-107) mmol/L Carbon Dioxide (22-30) mmol/L BUN (7-17) mg/dL Creatinine (0.52-1.04) mg/dL Glucose (74-99) mg/dL Calcium (8.4-10.2) mg/dL Calcium panel 03/06/19 03/06/19 Range/Units 05:13 05:13 Calcium 8.3 L (8.4-10.2) mg/dL Phosphorus 5.0 H (2.5-4.5) mg/dL Pituitary panel 03/05/19 03/05/19 03/06/19 Range/Units 12:55 22:30 05:13 Sodium 140 (137-145) mmol/L Potassium 3.3 L 3.2 L 4.0 (3.5-5.1) mmol/L Chloride 104 (98-107) mmol/L Carbon Dioxide 25 (22-30) mmol/L BUN 25 H (7-17) mg/dL Creatinine 0.64 (0.52-1.04) mg/dL Glucose 154 H (74-99) mg/dL Calcium 8.3 L (8.4-10.2) mg/dL 03/06/19 Range/Units 11:03 Sodium (137-145) mmol/L Potassium 3.3 L (3.5-5.1) mmol/L Chloride (98-107) mmol/L Carbon Dioxide (22-30) mmol/L BUN (7-17) mg/dL Creatinine (0.52-1.04) mg/dL Glucose (74-99) mg/dL Calcium (8.4-10.2) mg/dL Adrenal panel 03/05/19 03/05/19 03/06/19 Range/Units 12:55 22:30 05:13 Sodium 140 (137-145) mmol/L Potassium 3.3 L 3.2 L 4.0 (3.5-5.1) mmol/L Chloride 104 (98-107) mmol/L Carbon Dioxide 25 (22-30) mmol/L BUN 25 H (7-17) mg/dL Creatinine 0.64 (0.52-1.04) mg/dL Glucose 154 H (74-99) mg/dL Calcium 8.3 L (8.4-10.2) mg/dL 03/06/19 Range/Units 11:03 Sodium (137-145) mmol/L Potassium 3.3 L (3.5-5.1) mmol/L Chloride (98-107) mmol/L Carbon Dioxide (22-30) mmol/L BUN (7-17) mg/dL Creatinine (0.52-1.04) mg/dL Glucose (74-99) mg/dL Calcium (8.4-10.2) mg/dL
[2019-03-06 12:44] LABS: Glucose,Whole Blood 95 mg/dL (75-99)
[2019-03-06] MEDS: POTASSIUM BICARBONATE/CIT AC 20 MEQ TABLET.EFF NG-TUBE SCH ×2 (13:32→15:35)
[2019-03-06 17:57] LABS: Glucose,Whole Blood 88 mg/dL (75-99)
[2019-03-06] MEDS ORDERED: POTASSIUM BICARBONATE/CIT AC 20 MEQ TABLET.EFF PO ONE (19:00)
--- NOTE | 2019-03-06 22:01 | PN ---
PROGRESS NOTE DATE OF SERVICE: March 06, 2019. PRESENTING COMPLAINT: Intubated. INTERVAL HISTORY: Patient admitted with altered mental status, respiratory failure, had been taking methamphetamines, remains on the ventilator with FiO2 of 40 and a PEEP of 8. Remains on a fentanyl drip. Tube feedings running at 35 mL an hour. The patient is awake, attempts to follow some commands. REVIEW OF SYSTEMS: Patient intubated. CURRENT MEDICATIONS: Reviewed that include IV fentanyl. Zosyn was discontinued. PHYSICAL EXAMINATION: VITAL SIGNS: Temperature 98.6, pulse 86, respirations 28, blood pressure 99/64, pulse ox 99% on ventilator. GENERAL APPEARANCE: Lying in bed intubated, partially awake. EYES: Pupils equal. Conjunctivae normal. HEENT endotracheal tube in place. NECK: JVD unable to assess. Mass not palpable. RESPIRATORY: Effort increased. LUNGS: Decreased breath sounds. CARDIOVASCULAR: 1st and 2nd sounds. No edema. ABDOMEN: Soft, nontender. Liver and spleen not palpable. PSYCHIATRY: Unable to assess. NEUROLOGICAL: Pupils equal. Does attempt to move about. INVESTIGATIONS: White count 13.6, hemoglobin 11.0, potassium 4.0, BUN 25, creatinine 0.64. Chest x-ray film personally reviewed by me shows some bibasilar infiltrates. ASSESSMENT: 1. Acute severe bilateral pneumonia, suspect aspiration pneumonia with cultures positive for MSSA. 2. Acute metabolic encephalopathy multifactorial. 3. Acute hypoxic respiratory failure requiring ventilator support from underlying pneumonia. 4. Acute drug overdose, multiple, primarily methamphetamines. 5. Acute kidney injury due to acute tubular necrosis, improved. 6. Acute rhabdomyolysis. 7. Septic shock and pneumonia, improved. 8. Metabolic acidosis. 9. History of depression, not otherwise specified. 10.Morbid obesity BMI 44.3. 11.Chronic nicotine dependence, patient is a cigarette smoker. 12.Marijuana use. PLAN: Continue current medication and treatment plan. Patient remains on a fentanyl drip. Dr. Oates was consulted for PEG tube and a tracheostomy. Antibiotics per Dr. Beltrán. Follow. MMODL / IJN: [id number] /
[2019-03-06 23:36] LABS: Glucose,Whole Blood 104 mg/dL (75-99)
[2019-03-06] MEDS: ACETAMINOPHEN IV (For NPO) 1,000 MG in EMPTY BAG 1 BAG IVPB PRN (23:52)
[2019-03-07] MEDS: INSULIN ASPART (NovoLOG) 100 UNIT/ML VIAL SQ SCH ×3 (00:03→19:33)
[2019-03-07] MEDS: PROPOFOL 1,000 MG in EMPTY BAG 1 BAG IV SCH ×13 (00:12→23:44)
[2019-03-07 05:40] LABS: ABG HCO3 30 mmol/L (21-25); ABG Oxygen Saturation 96.9 % (94-97); ABG PCO2 43 mmHg (35-45); ABG PH 7.46 (7.35-7.45); ABG PO2 90 mmHg (83-108); ABG TCO2 31 mmol/L (19-24); Allen Test Performed? Yes
[2019-03-07 06:07] LABS: Glucose,Whole Blood 110 mg/dL (75-99)
[2019-03-07 06:11] LABS: HCT 32.9 % (34.0-46.0); HGB 10.9 gm/dL (11.4-16.0); Hypochromasia Slight; MCH 28.6 pg (25.0-35.0); MCHC 33.3 g/dL (31.0-37.0); MCV 86.1 fL (80.0-100.0); Mean Platelet Volume 7.6; Platelet Count 384 k/uL (150-450); RBC 3.82 m/uL (3.80-5.40); RDW 15.7 % (11.5-15.5); WBC 19.8 k/uL (3.8-10.6)
[2019-03-07 06:15] LABS: African American GFR (CKD) >90 (>60 ml/min/1.73 sqM); Anion Gap 6 mmol/L; Blood Urea Nitrogen 19 mg/dL (7-17); Calcium 8.4 mg/dL (8.4-10.2); Carbon Dioxide 29 mmol/L (22-30); Chloride 105 mmol/L (98-107); Glucose 102 mg/dL (74-99); Potassium 3.8 mmol/L (3.5-5.1); Sodium 140 mmol/L (137-145)
[2019-03-07 06:30] LABS: Triglycerides 988 mg/dL (<150)
[2019-03-07] MEDS: fentaNYL (PF) 2,500 MCG in SODIUM CHLORIDE 0.9% 200 ML IV SCH (07:07)
[2019-03-07] MEDS: IPRATROPIUM-ALBUTEROL 3 ML NEB INHALATION SCH ×4 (07:45→20:34)
[2019-03-07 07:49] LABS: Phosphorus 4.7 mg/dL (2.5-4.5)
--- NOTE | 2019-03-07 08:36 | XR ---
EXAMINATION TYPE: XR chest 1V portable DATE OF EXAM: 03/07/2019 COMPARISON: 03/06/2019 HISTORY: Shortness of breath TECHNIQUE: Single frontal view of the chest is obtained. FINDINGS: ET tube 1 cm above amisha. NG tube stable. Bilateral consolidation and small effusion. No pneumothorax. Hypertrophic change of the vertebral column. IMPRESSION: Diffuse bilateral airspace disease suggestive of CHF or pneumonia correlate clinically.
[2019-03-07] MEDS: HEPARIN SODIUM,PORCINE 5,000 UNIT/ML 1 ML VIAL SQ SCH ×2 (08:51→17:10)
[2019-03-07] MEDS: PANTOPRAZOLE 40 MG/10 ML VIAL IV SCH (08:51)
[2019-03-07] MEDS: CHLORHEXIDINE GLUCONATE 15 ML CUP MUCOUS MEM SCH ×2 (09:03→22:37)
[2019-03-07 09:37] LABS: Prothrombin Time 11.1 sec (9.0-12.0)
--- NOTE | 2019-03-07 09:44 | PN ---
PROGRESS NOTE DATE OF SERVICE: 03/07/2019 CRITICAL CARE TIME: 34 minutes. This is a 44-year-old female status post multiple suicide attempts with multiple drugs including tetrahydrocannabinol, amphetamines and methamphetamines. She has a history of previous and multiple suicide attempts and was recently over at [facility] with a similar situation. The patient was admitted here with a diagnosis of respiratory failure secondary to aspiration pneumonia and acute respiratory distress syndrome. In addition to the overdose, she has a history of acute kidney injury, acute rhabdomyolysis, hypotension, sepsis, metabolic acidosis, polysubstance abuse, and depression. The patient was admitted to the hospital on February 26. She came in with pneumonitis and apparent acute lung injury with mental status changes secondary to overdose and rhabdo. She was intubated on February 26. She has now been intubated for 9 days. There had been no movement towards weaning and extubation. In fact, she is on still high amounts of Diprivan at 75 mcg/kg per minute and fentanyl at 133 mcg/hour. She becomes very agitated when her sedatives are lowered. I did have Dr. Oates see her yesterday for possible trach and PEG. I think we should proceed in that fashion. Currently, she is on the volume assist-control mode rate of 28, tidal volume 420, FiO2 of 40%, PEEP of 8. Her blood gases show pO2 of 90, pCO2 of 43 and a pH 7.46. She is getting a 0.9 IV at about 15 mL an hour, fentanyl drip 133 mcg/hour, Diprivan at 75 mcg/kg per hour and Vital high-protein at 33 with a goal of 33 mL an hour. She currently is sedated. She does arouse. PHYSICAL EXAMINATION: VITAL SIGNS: Current vital signs are reviewed. Temperature is 97.8, heart rate 99, respiratory rate 28, blood pressure 110/56, mean 74, saturations are 96%. GENERAL: She appears in no acute distress. She is currently heavily sedated. HEENT: Examination is grossly unremarkable. There is an orally placed endotracheal tube and NG tube. NECK: Supple. Full range of motion without adenopathy, thyromegaly or neck vein distention. CARDIOVASCULAR: Examination reveals regular rhythm and rate. S1, S2 normal. Heart rate about 90 beats per minute. No murmur. LUNGS: Reveal breath sounds are diminished throughout. There is coarse rhonchi. No wheezes. No crackles. Breath sounds equal bilaterally. ABDOMEN: Soft. Bowel sounds are heard. No masses or tenderness. EXTREMITIES: Are intact. No cyanosis, clubbing, or edema. SKIN: Without rash. NEUROLOGIC: Examination cannot be adequately assessed. MICROBIOLOGIC STUDY: Microbiologic study shows a sputum that was positive for Staph aureus on February 26. It was an oxacillin sensitive Staph aureus. LABS: Labs are reviewed. White count 19.8, hemoglobin 10.9, hematocrit 32.9, platelet count 384,000. Sodium, potassium, chloride, CO2 all normal. Anion gap normal. BUN and creatinine were 19 and 0.6. MEDICATIONS: Medications are reviewed. They appear to be appropriate. She is on the standard ICU admission orders and Vent bundle orders. ASSESSMENT: 1. Acute hypoxemic respiratory failure secondary to polysubstance overdose as a suicide attempt with intubation and mechanical ventilation beginning on February 26. 2. Failure to wean from mechanical ventilation. 3. Diffuse pneumonitis with acute respiratory distress syndrome, improved. 4. Rhabdomyolysis with acute kidney injury. 5. Polysubstance overdose with marijuana, amphetamines, methamphetamine. 6. Hypotension secondary to his pneumonia and sepsis, resolved. 7. Acute metabolic acidosis. 8. History of polysubstance abuse with multiple previous suicide attempts. 9. History of depression. 10.History of anemia. 11.History of mild metabolic alkalosis. 12.Failure to wean from mechanical ventilation with consultation with surgery for possible trach and PEG. PLAN: I asked Dr. Oates to see the patient yesterday for possible tracheostomy and PEG tube placement. The patient is still requiring fentanyl 133 mcg/hour and Diprivan at 75 mcg/kg per minute. The patient becomes very agitated. I think tracheostomy is the way to go. She continues with tube feeds. Labs, x-rays and medications are all reviewed. Prognosis is guarded. X-rays reviewed. CRITICAL CARE TIME: 34 minutes. MMODL / IJN: [id number] /
--- NOTE | 2019-03-07 11:21 | P.PN ---
<CasperHalle Karoline - Last Filed: 03/07/19 12:22> Subjective Progress Note Date: 03/07/19 CHIEF COMPLAINT: trach and peg placement HISTORY OF PRESENT ILLNESS: Patient remains sedated and intubated in the ICU. No weaning attempts today per pulmonary. PHYSICAL EXAM: VITAL SIGNS: Reviewed. GENERAL: Well-developed in no acute distress-remains on mechanical ventilation HEENT: ET tube noted. No sclera icterus. Extraocular movements grossly intact. Moist buccal mucosa. Head is atraumatic, normocephalic. ABDOMEN: Soft. Nondistended. Nontender. NEUROLOGIC: Sedated on mechanical ventilation. ASSESSMENT: 1. Acute hypoxic respiratory failure secondary to polysubstance overdose and possible suicide attempt 2. ARDS PLAN: Continue ventilator management per Dr. Beltrán Patients parents at bedside. Discussed trach and peg. Parents agreeable to undergo trach and PEG. Will board case for tomorrow morning. Please discontinue tube feedings at midnight. Nurse practitioner note has been reviewed by physician. Signing provider agrees with the documented findings, assessment, and plan of care. Objective - Vital Signs Vital signs: Vital Signs Temp 97.8 F 03/07/19 03:00 Pulse 99 03/07/19 07:59 Resp 28 H 03/07/19 07:00 BP 110/56 03/07/19 07:00 Pulse Ox 96 03/07/19 07:00 Intake & Output 03/06/19 03/07/19 03/07/19 18:59 06:59 18:59 Intake Total 7667.245 5032.562 315.842 Output Total 510 725 90 Balance 5664.690 4514.562 225.842 Weight 121.7 kg 121 kg Intake: IV 165 180 15 Normal Saline Carriers 165 180 15 Intake, IV Titration 609.154 734.562 267.842 Amount ACETAMINOPHEN IV (For NPO 100 ) 1,000 mg In Empty Bag 1 bag @ 400 mls/hr IVPB Q6HR PRN Rx#:[id number] Propofol 1,000 mg In 488.976 488.831 266.691 Empty Bag 1 bag @ Titrate IV .Q0M BRETT Rx#: [id number] fentaNYL (PF) 2,500 mcg 120.178 145.731 1.151 In Sodium Chloride 0.9% 200 ml @ 1 MCG/KG/HR 12. 56 mls/hr IV .[id number] [facility] Rx#:[id number] Tube Feeding 363 396 33 Other 400 500 Output: Urine 510 725 90 Other: Voiding Method Indwelling Catheter Indwelling Catheter ABP, PAP, CO, CI - Last Documented Arterial Blood Pressure 108/96 - Labs CBC & Chem 7: 03/07/19 05:22 03/07/19 05:22 Labs: Abnormal Lab Results - Last 24 Hours (Table) 03/06/19 03/06/19 03/07/19 Range/Units 11:03 23:34 05:22 WBC 19.8 H (3.8-10.6) k/uL Hgb 10.9 L (11.4-16.0) gm/dL Hct 32.9 L (34.0-46.0) % RDW 15.7 H (11.5-15.5) % ABG pH (7.35-7.45) ABG HCO3 (21-25) mmol/L ABG Total CO2 (19-24) mmol/L Potassium 3.3 L (3.5-5.1) mmol/L BUN (7-17) mg/dL Glucose (74-99) mg/dL POC Glucose (mg/dL) 104 H (75-99) mg/dL Phosphorus (2.5-4.5) mg/dL Triglycerides (<150) mg/dL 03/07/19 03/07/19 03/07/19 Range/Units 05:22 05:22 05:35 WBC (3.8-10.6) k/uL Hgb (11.4-16.0) gm/dL Hct (34.0-46.0) % RDW (11.5-15.5) % ABG pH 7.46 H (7.35-7.45) ABG HCO3 30 H (21-25) mmol/L ABG Total CO2 31 H (19-24) mmol/L Potassium (3.5-5.1) mmol/L BUN 19 H (7-17) mg/dL Glucose 102 H (74-99) mg/dL POC Glucose (mg/dL) (75-99) mg/dL Phosphorus 4.7 H (2.5-4.5) mg/dL Triglycerides 988 H (<150) mg/dL 03/07/19 Range/Units 05:56 WBC (3.8-10.6) k/uL Hgb (11.4-16.0) gm/dL Hct (34.0-46.0) % RDW (11.5-15.5) % ABG pH (7.35-7.45) ABG HCO3 (21-25) mmol/L ABG Total CO2 (19-24) mmol/L Potassium (3.5-5.1) mmol/L BUN (7-17) mg/dL Glucose (74-99) mg/dL POC Glucose (mg/dL) 110 H (75-99) mg/dL Phosphorus (2.5-4.5) mg/dL Triglycerides (<150) mg/dL <Mario Oates - Last Filed: 03/07/19 17:19> Subjective As above. Patient remains on the ventilator. I spoke with the patient's mother by phone. The procedures both tracheostomy and PEG tube were discussed in detail. The risks of bleeding, infection, catheter malplacement, pneumothorax, bowel injury, accidental removal of trach or peg, and anesthesia-related complications including were reviewed. They understand and wish for us to proceed. Objective - Vital Signs Vital signs: Vital Signs Temp 99.6 F 03/07/19 12:00 Pulse 88 03/07/19 13:30 Resp 28 H 03/07/19 13:30 BP 78/54 03/07/19 13:30 Pulse Ox 98 03/07/19 13:30 Intake & Output 03/06/19 03/07/19 03/07/19 18:59 06:59 18:59 Intake Total 6505.651 1165.562 757.090 Output Total 510 725 440 Balance 5378.714 0901.562 317.090 Weight 121.7 kg 121 kg Intake: IV 165 180 115 Normal Saline Carriers 165 180 115 Intake, IV Titration 609.154 734.562 477.090 Amount ACETAMINOPHEN IV (For NPO 100 ) 1,000 mg In Empty Bag 1 bag @ 400 mls/hr IVPB Q6HR PRN Rx#:[id number] Propofol 1,000 mg In 488.976 488.831 415.400 Empty Bag 1 bag @ Titrate IV .Q0M BRETT Rx#: [id number] fentaNYL (PF) 2,500 mcg 120.178 145.731 61.690 In Sodium Chloride 0.9% 200 ml @ 1 MCG/KG/HR 12. 56 mls/hr IV .[id number] BRETT Rx#:[id number] Tube Feeding 363 396 165 Other 400 500 Output: Urine 510 725 440 Other: Voiding Method Indwelling Catheter Indwelling Catheter ABP, PAP, CO, CI - Last Documented Arterial Blood Pressure 108/96 - Labs CBC & Chem 7: 03/07/19 05:22 03/07/19 05:22 Labs: Abnormal Lab Results - Last 24 Hours (Table) 03/06/19 03/07/19 03/07/19 Range/Units 23:34 05:22 05:22 WBC 19.8 H (3.8-10.6) k/uL Hgb 10.9 L (11.4-16.0) gm/dL Hct 32.9 L (34.0-46.0) % RDW 15.7 H (11.5-15.5) % ABG pH (7.35-7.45) ABG HCO3 (21-25) mmol/L ABG Total CO2 (19-24) mmol/L BUN 19 H (7-17) mg/dL Glucose 102 H (74-99) mg/dL POC Glucose (mg/dL) 104 H (75-99) mg/dL Phosphorus (2.5-4.5) mg/dL Triglycerides 988 H (<150) mg/dL 03/07/19 03/07/19 03/07/19 Range/Units 05:22 05:35 05:56 WBC (3.8-10.6) k/uL Hgb (11.4-16.0) gm/dL Hct (34.0-46.0) % RDW (11.5-15.5) % ABG pH 7.46 H (7.35-7.45) ABG HCO3 30 H (21-25) mmol/L ABG Total CO2 31 H (19-24) mmol/L BUN (7-17) mg/dL Glucose (74-99) mg/dL POC Glucose (mg/dL) 110 H (75-99) mg/dL Phosphorus 4.7 H (2.5-4.5) mg/dL Triglycerides (<150) mg/dL 03/07/19 03/07/19 Range/Units 11:46 16:50 WBC (3.8-10.6) k/uL Hgb (11.4-16.0) gm/dL Hct (34.0-46.0) % RDW (11.5-15.5) % ABG pH (7.35-7.45) ABG HCO3 (21-25) mmol/L ABG Total CO2 (19-24) mmol/L BUN (7-17) mg/dL Glucose (74-99) mg/dL POC Glucose (mg/dL) 123 H 74 L (75-99) mg/dL Phosphorus (2.5-4.5) mg/dL Triglycerides (<150) mg/dL
[2019-03-07 11:57] LABS: Glucose,Whole Blood 123 mg/dL (75-99)
--- NOTE | 2019-03-07 12:29 | CDI ---
Documentation Clarification Form Date: 03/07/2019 12:17:42 PM From: Rachelle Gresham RN, CCDS Phone : Admit Date: 02/26/2019 4:56:00 PM Patient Name: Yana Edwards Visit Number: [id number] ATTENTION: The Clinical Documentation Specialists (CDI) and [facility] Coding Staff appreciate your assistance in clarifying documentation. Please respond to the clarification below the line at the bottom and electronically sign. The CDI & [facility] Coding staff will review the response and follow-up if needed. Please note: Queries are made part of the Legal Health Record. If you have any questions, please contact the author of this message via ITS. Dr. Ketan Beltrán A diagnosis of anemia lacks specificity to accurately reflect your patients severity of condition and clarification is needed as you have documented the diagnosis. History/Risk Factors: Anemia, polysubstance abuse/OD, pneumonitis with ARDS, Rhabdo with DMITRY, Hypotension Clinical indicators: 03/06 & 03/07 Pulmonary Progress notes: "History of anemia." Hemoglobin: 12.1/10.9/9.2 Hematocrit: 38.7/34.8/28.8 Treatment: Monitoring labs am daily IVF& IVF boluses In order to capture the severity of condition, please clarify the type of anemia and etiology if known: Chronic blood loss anemia Iron deficiency anemia Nutritional anemia Anemia of chronic disease Unable to determine Other, please specify (Last Revision: July 2017) Anmia of chronic disease MTDD
[2019-03-07] MEDS ORDERED: LIDOCAINE 1% INJ 10MG/ML (20 ML MDV) SQ ONE (14:31)
--- NOTE | 2019-03-07 16:19 | XR ---
EXAMINATION TYPE: XR chest 1V portable DATE OF EXAM: 03/07/2019 COMPARISON: 03/07/2019 HISTORY: PICC line placement TECHNIQUE: Single frontal view of the chest is obtained. FINDINGS: The left-sided PICC terminates in the proximal superior vena cava. There is rightward medi astinal shift likely secondary to patient positioning. There is no postprocedural pneumothorax. There is a worsening retrocardiac and left basilar airspace process with trace left pleural effusion. Mini mal right basilar atelectasis and low lung volumes are seen. Cardiomediastinal silhouette enlargement remains. Enteric tube appears appropriately placed and there is similar positioning of the appropria tely placed endotracheal tube. IMPRESSION: Interval insertion of a left-sided PICC terminating in the proximal superior vena cava. No postprocedural pneumothorax. Worsening left basilar airspace disease and small pleural effusion wi th stable right basilar atelectasis.
[2019-03-07 17:02] LABS: Glucose,Whole Blood 74 mg/dL (75-99)
[2019-03-07] MEDS ORDERED: MIDAZOLAM 2 MG/2 ML VIAL ONE (17:20)
[2019-03-07] MEDS ORDERED: VECURONIUM 10 MG VIAL IV ONE (17:20)
[2019-03-07] MEDS ORDERED: BUPIVACAIN-EPI 0.25%-1:200,000 30 ML VIAL SQ ONE ×2 (18:01)
--- NOTE | 2019-03-07 19:06 | P.OP ---
Date of Procedure: 03/07/19 Procedure(s) Performed: PREOPERATIVE DIAGNOSIS: Respiratory failure, malnutrition POSTOPERATIVE DIAGNOSIS: Same PROCEDURE: Tracheostomy, EGD with PEG tube placement SURGEON: Иван EBL: Minimal ANESTHESIA: General COMPLICATIONS: None OPERATIVE PROCEDURE: Patient was placed in the operative table in the supine position. A shoulder roll was utilized. The neck was prepped and draped in usual sterile fashion. The skin was infiltrated with local anesthesia. A small cervical incision was created using the scalpel. Dissection through the subcutaneous fat and platysma layer took place using electrocautery. The underlying strap muscles were divided in the midline. The thyroid isthmus was divided using electrocautery as well. No bleeding was seen. The trachea was easily identified at this time. The endotracheal tube was advanced and the balloon was reinflated. The patient was preoxygenated with 100% FiO2. The FiO2 was then brought down to room air. Once the end title oxygen level was less than 35 a vertical tracheostomy was created using the electrocautery. This went through the second and third tracheal ring. The patient was again preoxygenated with 100% FiO2. The spreader operator automatic was utilized. Carefully the endotracheal tube was withdrawn just proximal to our tracheostomy. In this case the patient's subcutaneous fat was fairly prominent. The extra long 8-[place] Shiley tracheostomy catheter was advanced under direct visualization into the trachea. The inner cannula was inserted. This was then connected to the ventilator. Positive end tidal CO2 was confirmed. The tracheal ties were utilized. The trach was sutured to the skin superiorly using 2 separate 0 silk sutures. The skin was closed using 3-0 Vicryl sutures. A dressing was applied. The patient was kept in the supine position on the operating room table. The Olympus gastroscope was inserted into the oropharynx and passed under direct visualization to the region of the duodenum. No obstruction was seen. The pylorus was widely patent. The stomach was carefully inspected. The patient had evidence of gastritis with a few small erosions. A small hiatal hernia was also seen. A biopsy of the antrum took place. The stomach was fully insufflated with air. The abdominal wall was inspected. The light was seen shining through the abdominal wall in the left upper quadrant. This site was chosen for PEG tube placement. The area was prepped in the usual sterile fashion. A small vertical incision was made using the scalpel. The Seldinger needle was advanced into the lumen of the stomach the wire was advanced. The wire was grasped with an endoscopic snare. The wire was pulled through the oropharynx. The catheter was then threaded over the guidewire and the guidewire and catheter were pulled anteriorly until the hub of the PEG tube catheter was seated against the anterior wall the stomach. The circular bolster was applied and tightened down to a level of 4.5cm. The endoscope was then readvanced into the stomach. There was no evidence of any bleeding and there was appropriate tightness on the bolster. The catheter was cut appropriately. The dual port feeding adapter was applied. DISPOSITION: Stable to ICU
[2019-03-07 19:26] LABS: Glucose,Whole Blood 76 mg/dL (75-99)
--- NOTE | 2019-03-07 22:35 | PN ---
PROGRESS NOTE DATE OF SERVICE: 03/04/2019. PRESENTING COMPLAINT: Trach. INTERVAL HISTORY: Patient admitted with altered mental status, respiratory failure. Had been taking methamphetamines. Remains on the ventilator. The patient had a tracheostomy and a PEG tube done by Dr. Oates today. The patient is on a propofol drip at 60 mics and fentanyl patch at 0.8 mics. The patient is arousable. Tube feedings are temporarily held. PEEP of 8. REVIEW OF SYSTEMS: The patient is on the ventilator. CURRENT MEDICATIONS: Reviewed include IV propofol, IV fentanyl. PHYSICAL EXAMINATION: On examination, temperature 99.6, pulse 78 respirations 28, blood pressure 98/53, pulse ox 100 percent. GENERAL APPEARANCE: Lying in bed, lethargic but arousable. EYES: Pupils equal. Conjunctivae normal. NECK: Tracheostomy in place. Mass not palpable. RESPIRATORY: Effort increased. LUNGS: Decreased breath sounds. CARDIOVASCULAR: 1st and 2nd sounds normal. No edema. ABDOMEN: Soft, nontender. Liver and spleen not palpable. PEG tube in place. PSYCHIATRY: Unable to assess. NEUROLOGICAL: Pupils are equal. The patient is arousable. INVESTIGATIONS: Accu-Cheks are noted. Sugar did go down to 74. White count 19.8, hemoglobin 10.9, potassium 3.8, BUN 19, creatinine 0.60. ASSESSMENT: 1. Acute bilateral pneumonia, suspect aspiration pneumonia with cultures positive for MSSA, status post antibiotic. 2. Acute metabolic encephalopathy, multifactorial. 3. Acute hypoxic respiratory failure requiring ventilator support. 4. Acute drug overdose, multiple primary methamphetamine. 5. Acute kidney injury due to acute tubular necrosis, improved. 6. Acute rhabdomyolysis. 7. Septic shock from pneumonia. 8. Metabolic acidosis. 9. History of depression, not otherwise specified. 10.Morbid obesity BMI 44.3. 11.Chronic nicotine dependence patient is a cigarette smoker. 12.Marijuana use. PLAN: Continue current medication and treatment plan. Patient now has a PEG tube and a tracheostomy tube. Weaning as per Dr. Beltrán. MMODL / IJN: [id number] /
[2019-03-07] MEDS ORDERED: SODIUM CHLORIDE 0.9% 500 ML 500 ML IV ONE (23:56)
[2019-03-07 23:59] LABS: Glucose,Whole Blood 84 mg/dL (75-99)
[2019-03-08] MEDS: INSULIN ASPART (NovoLOG) 100 UNIT/ML VIAL SQ SCH ×4 (00:03→18:07)
[2019-03-08] MEDS: HEPARIN SODIUM,PORCINE 5,000 UNIT/ML 1 ML VIAL SQ SCH ×4 (00:04→23:18)
[2019-03-08] MEDS: ACETAMINOPHEN IV (For NPO) 1,000 MG in EMPTY BAG 1 BAG IVPB PRN ×2 (00:25→11:17)
[2019-03-08] MEDS: PROPOFOL 1,000 MG in EMPTY BAG 1 BAG IV SCH ×5 (02:41→15:05)
[2019-03-08 05:09] LABS: Allen Test Performed? Yes
[2019-03-08 05:40] LABS: ABG Base Excess -1.2 mmol/L; ABG HCO3 23 mmol/L (21-25); ABG PCO2 35 mmHg (35-45); ABG PH 7.43 (7.35-7.45); ABG PO2 116 mmHg (83-108); ABG TCO2 24 mmol/L (19-24)
[2019-03-08 06:14] LABS: Glucose,Whole Blood 83 mg/dL (75-99)
[2019-03-08 06:16] LABS: HCT 29.8 % (34.0-46.0); HGB 9.8 gm/dL (11.4-16.0); MCH 28.9 pg (25.0-35.0); MCHC 33.1 g/dL (31.0-37.0); MCV 87.3 fL (80.0-100.0); Mean Platelet Volume 7.3; Platelet Count 334 k/uL (150-450); RBC 3.41 m/uL (3.80-5.40); RDW 15.7 % (11.5-15.5); WBC 15.8 k/uL (3.8-10.6)
[2019-03-08 06:28] LABS: African American GFR (CKD) >90 (>60 ml/min/1.73 sqM); Anion Gap 9 mmol/L; Blood Urea Nitrogen 11 mg/dL (7-17); Calcium 8.1 mg/dL (8.4-10.2); Carbon Dioxide 23 mmol/L (22-30); Chloride 108 mmol/L (98-107); Glucose 76 mg/dL (74-99); Potassium 3.5 mmol/L (3.5-5.1); Sodium 140 mmol/L (137-145)
--- NOTE | 2019-03-08 07:26 | XR ---
EXAMINATION TYPE: XR chest 1V portable DATE OF EXAM: 03/08/2019 COMPARISON: Prior chest x-ray 03/07/2019 HISTORY: Interval tracheostomy tube placement TECHNIQUE: Single frontal view of the chest is obtained. FINDINGS: Endotracheal tube has been removed, tracheostomy tube has been placed and the tube is over lying the tracheal air column in appropriate position. Left-sided PICC line shows the distal tip over lying superior vena cava. Pleural parenchymal changes are similar, exam is expiratory and rotated. He art size is unchanged. No evident pneumothorax or pleural effusion. IMPRESSION: Interval tracheostomy tube placement. No other significant interval change. Suspect bila teral airspace disease.
[2019-03-08] MEDS: IPRATROPIUM-ALBUTEROL 3 ML NEB INHALATION SCH ×4 (07:31→19:22)
[2019-03-08] MEDS: PANTOPRAZOLE 40 MG/10 ML VIAL IV SCH (08:04)
[2019-03-08] MEDS: CHLORHEXIDINE GLUCONATE 15 ML CUP MUCOUS MEM SCH ×2 (08:04→21:15)
[2019-03-08] MEDS: POTASSIUM BICARBONATE/CIT AC 20 MEQ TABLET.EFF NG-TUBE SCH ×2 (08:04→11:07)
--- NOTE | 2019-03-08 09:39 | PN ---
PROGRESS NOTE DATE OF SERVICE: 03/08/2019. CRITICAL CARE TIME: 35 minutes. This is a 44-year-old female status post multiple suicide attempts with multiple drugs including THC, amphetamines and methamphetamines. She has a history of previous and multiple suicide attempts and was recently over at [facility] [place] with a similar situation. The patient was admitted here with a diagnosis of respiratory failure secondary to aspiration with acute respiratory distress syndrome. In addition to the overdose, she has a history of acute kidney injury, acute rhabdomyolysis, hypotension, sepsis, metabolic acidosis, polysubstance abuse, and depression. She was admitted to the hospital on February 26. She was intubated on February 26 for hypoxemic respiratory failure. The patient is postop day #1 status post tracheostomy and PEG tube placement by Dr. Colin Oates yesterday. The patient is currently on the volume assist-control mode rate of 28, tidal volume 420, FiO2 of 40%, PEEP of 8, which will be decreased to 5. Blood gases on those settings include a PaO2 of 116, pCO2 of 35, and a pH 7.43. Blood gases are consistent with a mild respiratory alkalosis. The patient is on saline IV at 10 mL an hour, propofol at 65 mcg/kg per minute and fentanyl drip at 85 mcg/hour. Tube feeds are currently on hold because her PEG tube was placed less than 24 hours ago. Previously, she was on Vital high-protein at 33 with a goal of 33 mL an hour. I told the nurse that we are going to work on transitioning her fentanyl to IV Dilaudid and reducing her propofol. We will put in a consult for [facility] because ultimately she needs LTAC, which stands for long-term acute care. She had an uneventful night following the tracheostomy and PEG tube last night. I was not called with any acute issues. PHYSICAL EXAMINATION: VITAL SIGNS: Current vital signs are reviewed. Her temperature was 99.5, heart rate 95, respiratory rate 19, blood pressure 95/61, mean 72, and saturations are 96% on the 40% and 5 of PEEP. GENERAL: Appears in no acute distress. Currently sedated heavily with propofol and fentanyl. HEENT: Examination is grossly unremarkable. NECK: Supple. Full range of motion. No adenopathy or thyromegaly. Neck veins are flat. There is a midline tracheostomy tube. CARDIOVASCULAR: Examination reveals regular rhythm and rate. Heart rate 95. S1, S2 normal. No S3, S4, or murmur. Heart sounds are distant. LUNGS: Reveal a few scattered bilateral rhonchi. No wheezes or crackles. Breath sounds equal bilaterally. ABDOMEN: Soft. No bowel sounds. No masses or tenderness. EXTREMITIES: Are intact. Mild edema. SKIN: Without rash. NEUROLOGIC: Examination could not be adequately performed as she is quite sedated. LABORATORY DATA: Laboratory data is reviewed. White count 15.8, hemoglobin 9.8, hematocrit 29.8, platelet count 334,000. Blood gases have been noted. Sodium 140, potassium 3.5, chloride 108, CO2 of 23. Anion gap is 9. BUN and creatinine were 11 and 0.58. Calcium 8.1. MICROBIOLOGIC STUDIES: Microbiologic studies show evidence of a sputum from February 26 revealing evidence of Staph aureus. It was an oxacillin sensitive Staph. X-RAY: Chest x-rays showing bilateral airspace disease. There was removal of the previous endotracheal tube and insertion of a tracheostomy tube. Otherwise, chest x-ray is stable. MEDICATIONS: Medications are reviewed. They all appear appropriate. Some of the highlights include updrafts, chlorhexidine, Tylenol, Dilaudid, and potassium replacement. She is also on GI and DVT prophylaxis. ASSESSMENT: 1. Acute hypoxemic respiratory failure secondary to polysubstance overdose as a suicide attempt with intubation and mechanical ventilation beginning on February 26, thought to relate to aspiration. 2. Failure to wean from mechanical ventilation, status post postoperative day #1 status post tracheostomy and PEG tube placement. 3. Diffuse pneumonitis with acute respiratory distress syndrome, improved. 4. Rhabdomyolysis with acute kidney injury. 5. Polysubstance overdose with marijuana, amphetamines, and methamphetamines. 6. Hypotension secondary to pneumonia and sepsis, resolved. 7. Acute metabolic acidosis. 8. History of polysubstance abuse with multiple previous suicide attempts. 9. History of depression. 10.History of anemia. 11.Mild respiratory alkalosis. 12.Failure to wean from mechanical ventilation. PLAN: The patient had a tracheostomy and PEG tube placed yesterday. It was done by Dr. Mario Oates. She seems to have tolerated the procedure well. She is currently still on propofol at 65 mcg/kg per minute and fentanyl 85 mcg/hour. We will transition the fentanyl over to IV Dilaudid and see if we cannot get the fentanyl off. We will also wean the propofol. We will ask [facility] to evaluate the patient for eventual transfer. After 24 hours, will resume tube feeds with Vital high-protein at 33 with a goal of 33. Overall prognosis remains very poor. I did talk to the mother yesterday. She gave consent for the tracheostomy and PEG tube placement. CRITICAL CARE TIME: 35 minutes. GENA / MATTHEW: [id number] /
--- NOTE | 2019-03-08 10:38 | P.PN ---
Subjective Progress Note Date: 03/08/19 Principal diagnosis: Respiratory failure Patient doing well on the ventilator. Her sedation has been decreased. She is responding to commands. No issues with the tracheostomy or PEG tube at this time. Objective - Vital Signs Vital signs: Vital Signs Temp 100.4 F H 03/08/19 08:00 Pulse 104 H 03/08/19 10:00 Resp 28 H 03/08/19 10:00 BP 106/69 03/08/19 10:00 Pulse Ox 100 03/08/19 10:00 Intake & Output 03/07/19 03/08/19 03/08/19 18:59 06:59 18:59 Intake Total 621.597 3626.327 72.835 Output Total 730 1140 210 Balance 167.090 517.327 -137.165 Weight 121.9 kg Intake: IV 155 120 40 Normal Saline Carriers 155 120 40 Intake, IV Titration 553.821 1163.327 32.835 Amount ACETAMINOPHEN IV (For NPO 100 ) 1,000 mg In Empty Bag 1 bag @ 400 mls/hr IVPB Q6HR PRN Rx#:[id number] Propofol 1,000 mg In 515.400 517.808 27.225 Empty Bag 1 bag @ Titrate IV .Q0M [facility] Rx#: [id number] Sodium Chloride 0.9% 500 750 ml 500 ml @ 999 mls/hr IV .Q31M [facility] Rx#:[id number] fentaNYL (PF) 2,500 mcg 61.690 169.519 5.61 In Sodium Chloride 0.9% 200 ml @ 1 MCG/KG/HR 12. 56 mls/hr IV .[id number] [facility] Rx#:[id number] Tube Feeding 165 0 Output: Urine 725 1140 210 Estimated Blood Loss 5 Other: Voiding Method Indwelling Catheter Indwelling Catheter ABP, PAP, CO, CI - Last Documented Arterial Blood Pressure 108/96 - Exam Trach site with minimal serosanguineous drainage Abdomen soft, nondistended, mild tenderness around PEG tube site - Labs CBC & Chem 7: 03/08/19 05:58 03/08/19 05:58 Labs: Abnormal Lab Results - Last 24 Hours (Table) 03/07/19 03/07/19 03/08/19 Range/Units 11:46 16:50 05:33 WBC (3.8-10.6) k/uL RBC (3.80-5.40) m/uL Hgb (11.4-16.0) gm/dL Hct (34.0-46.0) % RDW (11.5-15.5) % ABG pO2 116 H (83-108) mmHg ABG O2 Saturation 99.0 H (94-97) % Chloride (98-107) mmol/L POC Glucose (mg/dL) 123 H 74 L (75-99) mg/dL Calcium (8.4-10.2) mg/dL 03/08/19 03/08/19 Range/Units 05:58 05:58 WBC 15.8 H (3.8-10.6) k/uL RBC 3.41 L (3.80-5.40) m/uL Hgb 9.8 L (11.4-16.0) gm/dL Hct 29.8 L (34.0-46.0) % RDW 15.7 H (11.5-15.5) % ABG pO2 (83-108) mmHg ABG O2 Saturation (94-97) % Chloride 108 H (98-107) mmol/L POC Glucose (mg/dL) (75-99) mg/dL Calcium 8.1 L (8.4-10.2) mg/dL Microbiology - Last 24 Hours (Table) 03/08/19 05:20 Catheter Tip Culture - Preliminary Catheter Tip Assessment and Plan (1) Pneumonitis Narrative/Plan: Begin tube feeds today. Continue trach care. We'll follow. Current Visit: Yes Status: Acute Code(s): J18.9 - PNEUMONIA, UNSPECIFIED ORGANISM SNOMED Code(s): 017353951
[2019-03-08 11:39] LABS: Glucose,Whole Blood 70 mg/dL (75-99)
[2019-03-08] MEDS: fentaNYL (PF) 2,500 MCG in SODIUM CHLORIDE 0.9% 200 ML IV SCH (15:03)
[2019-03-08] MEDS: HYDROmorphone 1 MG/ML 1 ML SYRINGE IVP PRN ×3 (15:04→22:16)
[2019-03-08] MEDS ORDERED: DEXTROSE 5% IN WATER 1,000 ML IV ONE (15:06)
[2019-03-08 18:13] LABS: Glucose,Whole Blood 80 mg/dL (75-99)
[2019-03-08] MEDS: IPRATROPIUM-ALBUTEROL 3 ML NEB INHALATION PRN (23:07)
[2019-03-08 23:40] LABS: Glucose,Whole Blood 125 mg/dL (75-99)
[2019-03-09] MEDS: INSULIN ASPART (NovoLOG) 100 UNIT/ML VIAL SQ SCH ×4 (00:10→18:10)
[2019-03-09] MEDS: HYDROmorphone 1 MG/ML 1 ML SYRINGE IVP PRN ×6 (01:39→22:25)
[2019-03-09] MEDS: ACETAMINOPHEN IV (For NPO) 1,000 MG in EMPTY BAG 1 BAG IVPB PRN (02:14)
[2019-03-09] MEDS: IPRATROPIUM-ALBUTEROL 3 ML NEB INHALATION PRN ×2 (03:21→23:27)
[2019-03-09] MEDS: HALOPERIDOL LACTATE 5 MG/ML 1 ML VIAL IVP PRN ×3 (03:57→22:25)
[2019-03-09 05:05] LABS: ABG Base Excess -1.4 mmol/L; ABG HCO3 24 mmol/L (21-25); ABG Oxygen Saturation 97.3 % (94-97); ABG PCO2 39 mmHg (35-45); ABG PH 7.39 (7.35-7.45); ABG PO2 95 mmHg (83-108); ABG TCO2 25 mmol/L (19-24); Allen Test Performed? Yes
[2019-03-09 05:19] LABS: Basophils % (A) 0 %; Eosinophils # (A) 0.2 k/uL (0-0.7); Eosinophils % (A) 1 %; HCT 31.1 % (34.0-46.0); HGB 9.8 gm/dL (11.4-16.0); Hypochromasia Slight; Lymphocytes # (A) 2.6 k/uL (1.0-4.8); Lymphocytes % (A) 16 %; MCH 27.6 pg (25.0-35.0); MCHC 31.5 g/dL (31.0-37.0); MCV 87.7 fL (80.0-100.0); Mean Platelet Volume 7.7; Monocytes # (A) 0.5 k/uL (0-1.0); Monocytes % (A) 3 %; Neutrophils # (A) 12.6 k/uL (1.3-7.7); Neutrophils % (A) 79 %; Platelet Count 288 k/uL (150-450); RBC 3.54 m/uL (3.80-5.40); RDW 15.3 % (11.5-15.5); WBC 16.1 k/uL (3.8-10.6)
[2019-03-09 05:39] LABS: African American GFR (CKD) >90 (>60 ml/min/1.73 sqM); Anion Gap 7 mmol/L; Blood Urea Nitrogen 8 mg/dL (7-17); Calcium 8.4 mg/dL (8.4-10.2); Carbon Dioxide 22 mmol/L (22-30); Chloride 111 mmol/L (98-107); Glucose 101 mg/dL (74-99); Potassium 3.7 mmol/L (3.5-5.1); Sodium 140 mmol/L (137-145)
[2019-03-09 05:44] LABS: Glucose,Whole Blood 99 mg/dL (75-99)
[2019-03-09] MEDS: fentaNYL (PF) 2,500 MCG in SODIUM CHLORIDE 0.9% 200 ML IV SCH (05:46)
[2019-03-09] MEDS ORDERED: Potassium Replacement Protocol 1 EACH MISC MISCELLANE PRN (05:49)
[2019-03-09] MEDS ORDERED: POTASSIUM BICARBONATE/CIT AC 20 MEQ TABLET.EFF NG-TUBE SCH (06:00)
--- NOTE | 2019-03-09 07:18 | PN ---
PROGRESS NOTE DATE OF SERVICE: 03/08/2019 PRESENTING COMPLAINT: Lying in bed, on the ventilator. INTERVAL HISTORY: Patient admitted with altered mental status, respiratory failure, had been taking methamphetamine. Remains on the ventilator. Had a tracheostomy and PEG tube placed yesterday on 03/07/2019. Patient's propofol drip and fentanyl patch were both weaned off. Getting IV fluids. PEG tube feeding at 33 mL an hour. FiO2 is at 40 and a PEEP of 5. The patient is awake, following commands. REVIEW OF SYSTEMS: Cannot be done as patient has got a tracheostomy. CURRENT MEDICATIONS: Current medications are reviewed that include bronchodilators and IV Dilaudid p.r.n. PHYSICAL EXAMINATION: On examination, temperature 100, pulse 108, respiration 31, blood pressure 117/90, pulse ox 98% on the ventilator. GENERAL APPEARANCE: Lying in bed, awake. EYES: Pupils equal. Conjunctivae normal. NECK: Tracheostomy in place. Mass not palpable. RESPIRATORY: Effort increased. LUNGS: Decreased breath sounds. CARDIOVASCULAR: First and second sounds normal. No edema. ABDOMEN: Soft, nontender. PEG tube in place. NEUROLOGICAL: Awake, following commands. INVESTIGATIONS: White count 15.8, hemoglobin 9.8, potassium 3.5. ASSESSMENT: 1. Acute bilateral pneumonia suspect aspiration pneumonia with cultures positive for MSSA, status post antibiotic. 2. Acute metabolic encephalopathy, multifactorial, improving. 3. Acute hypoxic respiratory failure requiring ventilator support. 4. Acute drug overdose multiple including methamphetamine. 5. Acute kidney injury due to acute tubular necrosis, improved. 6. Acute rhabdomyolysis. 7. Septic shock from pneumonia. 8. Metabolic acidosis. 9. History of depression, not otherwise specified. 10.Morbid obesity, body mass index 44.3. 11.Chronic nicotine dependence. Patient is a cigarette smoker. 12.Marijuana use. 13.Tracheostomy and a PEG tube in place. PLAN: Continue current medication and treatment plan. I discussed with Dr. Beltrán. No further need for antibiotics per him. The patient's propofol and fentanyl both have been weaned off. Will follow. MMODL / IJN: [id number] /
--- NOTE | 2019-03-09 07:39 | PN ---
PROGRESS NOTE ADDENDUM TO PROGRESS NOTE DATE OF SERVICE: 03/07/2019 Patient's note dictated on 03/07/2019 at 2027 and date transcribed on 03/07/2019 at 2230, the correct date of service is 03/07/2019. MMODL / IJN: [id number] /
[2019-03-09] MEDS: IPRATROPIUM-ALBUTEROL 3 ML NEB INHALATION SCH ×4 (07:59→19:55)
[2019-03-09] MEDS: HEPARIN SODIUM,PORCINE 5,000 UNIT/ML 1 ML VIAL SQ SCH ×3 (08:05→23:13)
[2019-03-09] MEDS: CHLORHEXIDINE GLUCONATE 15 ML CUP MUCOUS MEM SCH ×2 (08:05→20:14)
[2019-03-09] MEDS: PANTOPRAZOLE 40 MG/10 ML VIAL IV SCH (08:05)
--- NOTE | 2019-03-09 08:40 | XR ---
EXAMINATION TYPE: XR chest 1V portable DATE OF EXAM: 03/09/2019 COMPARISON: 03/08/2019 HISTORY: Tube placement TECHNIQUE: Single frontal view of the chest is obtained. FINDINGS: Left-sided central line and tracheostomy tube stable. Diffuse bilateral airspace disease a nd tiny effusion of the right suspected. No pneumothorax. IMPRESSION: Stable diffuse pleural-parenchymal changes. Bilateral airspace disease present may repre sent diffuse pneumonia versus pulmonary edema.
--- NOTE | 2019-03-09 10:33 | P.PN ---
Subjective Progress Note Date: 03/09/19 CHIEF COMPLAINT: trach and peg placement HISTORY OF PRESENT ILLNESS: Patient examined this morning in the ICU. S/P Trach and PEG tube placement. Remains on mechanical ventilation. She is awake. PHYSICAL EXAM: VITAL SIGNS: Reviewed. GENERAL: Well-developed in no acute distress-remains on mechanical ventilation HEENT: Trach noted with no bleeding. No sclera icterus. Extraocular movements grossly intact. Moist buccal mucosa. Head is atraumatic, normocephalic. ABDOMEN: Soft. Nondistended. Nontender. PEG tube with TF infusing. NEUROLOGIC: Awake on mechanical ventilation. ASSESSMENT: 1. Acute hypoxic respiratory failure secondary to polysubstance overdose and possible suicide attempt 2. ARDS PLAN: Continue ventilator management per Dr. Beltrán Continue tube feedings We will follow on an as-needed basis. Please call with questions. Nurse practitioner note has been reviewed by physician. Signing provider agrees with the documented findings, assessment, and plan of care. Objective - Vital Signs Vital signs: Vital Signs Temp 99.9 F H 03/09/19 08:00 Pulse 98 03/09/19 10:00 Resp 31 H 03/09/19 10:00 BP 103/58 03/09/19 10:00 Pulse Ox 96 03/09/19 10:00 Intake & Output 03/08/19 03/09/19 03/09/19 18:59 06:59 18:59 Intake Total 4731.679 2112 372 Output Total 2605 1005 240 Balance -848.355 85 132 Weight 124.2 kg 124.2 kg Intake: IV 1120 160 40 Dextrose 5% in Water 1, 1000 000 ml @ 999 mls/hr IV . Q1H1M [facility] Rx#:[id number] Normal Saline Carriers 120 160 40 Intake, IV Titration 306.645 Amount Propofol 1,000 mg In 301.035 Empty Bag 1 bag @ Titrate IV .Q0M [facility] Rx#: [id number] fentaNYL (PF) 2,500 mcg 5.61 In Sodium Chloride 0.9% 200 ml @ 1 MCG/KG/HR 12. 56 mls/hr IV .[id number] [facility] Rx#:[id number] Tube Feeding 330 330 132 Other 600 200 Output: Urine 2605 1005 240 Other: Voiding Method Indwelling Catheter Indwelling Catheter Indwelling Catheter ABP, PAP, CO, CI - Last Documented Arterial Blood Pressure 108/96 - Labs CBC & Chem 7: 03/09/19 05:02 03/09/19 05:02 Labs: Abnormal Lab Results - Last 24 Hours (Table) 03/08/19 03/08/19 03/09/19 Range/Units 11:27 23:28 04:59 WBC (3.8-10.6) k/uL RBC (3.80-5.40) m/uL Hgb (11.4-16.0) gm/dL Hct (34.0-46.0) % Neutrophils # (1.3-7.7) k/uL ABG Total CO2 25 H (19-24) mmol/L ABG O2 Saturation 97.3 H (94-97) % Chloride (98-107) mmol/L Creatinine (0.52-1.04) mg/dL Glucose (74-99) mg/dL POC Glucose (mg/dL) 70 L 125 H (75-99) mg/dL 03/09/19 03/09/19 Range/Units 05:02 05:02 WBC 16.1 H (3.8-10.6) k/uL RBC 3.54 L (3.80-5.40) m/uL Hgb 9.8 L (11.4-16.0) gm/dL Hct 31.1 L (34.0-46.0) % Neutrophils # 12.6 H (1.3-7.7) k/uL ABG Total CO2 (19-24) mmol/L ABG O2 Saturation (94-97) % Chloride 111 H (98-107) mmol/L Creatinine 0.48 L (0.52-1.04) mg/dL Glucose 101 H (74-99) mg/dL POC Glucose (mg/dL) (75-99) mg/dL Microbiology - Last 24 Hours (Table) 03/08/19 12:00 Urine Culture - Preliminary Urine,Catheterized 03/08/19 05:20 Catheter Tip Culture - Preliminary Catheter Tip
--- NOTE | 2019-03-09 10:35 | PN ---
PROGRESS NOTE DATE OF SERVICE: 03/09/2019 CRITICAL CARE TIME: 36 minutes. A 44-year-old female with multiple suicide attempts with multiple drugs including THC, amphetamines and methamphetamines. She has a previous recent admission for a suicide attempt over at [facility]. The patient was admitted here with a diagnosis of respiratory failure secondary to aspiration and developed acute respiratory distress syndrome. In addition, she has a history of acute kidney injury, acute rhabdomyolysis, hypotension, sepsis, metabolic acidosis, polysubstance abuse, and depression. She was admitted on the 26 of February intubated on the same day for hypoxemic respiratory failure. She is postop day #2, status post tracheostomy and PEG tube placement by Dr. Colin Oates. She is currently on the volume assist-control mode rate of 28, tidal volume 420, FiO2 of 40%, PEEP of 5. Blood gases show pO2 of 95, pCO2 of 39, and pH 7.39. She is getting saline at KVO water flushes and Vital high-protein at 33 with a goal of 33 mL an hour. Yesterday she was on fentanyl drip. That has been weaned off. It has been replaced with intermittent IV Dilaudid. In addition, the propofol that she was on was weaned off. She apparently has been seen by [facility]. Hopefully we get her transferred over so that he can work on trying to wean her further. Attempts here have failed. We will attempt again today though. PHYSICAL EXAMINATION: VITAL SIGNS: Current vital signs are reviewed. Last temperature is 101. Heart rate 110, respiratory rate 23, blood pressure 90/46, mean 60, saturations are 94% on 40% and 5 of PEEP. GENERAL: Appears in no acute distress. HEENT: Examination is grossly unremarkable. Mucous membranes are moist. No oral lesions. NECK: Supple. Full range of motion. There is no adenopathy or thyromegaly. Midline tracheostomy is noted. No neck vein distention. CARDIOVASCULAR: Examination reveals regular rhythm and rate. Heart rate right around 100 beats per minute. It is regular. S1, S2 normal. There is no S3, S4. No murmur. LUNGS: Reveal scattered rhonchi. Breath sounds are equal. No wheezes or crackles. Breath sounds are equal bilaterally. ABDOMEN: Soft. Bowel sounds are heard. EXTREMITIES: Are intact. No cyanosis, clubbing, or significant edema. Slight edema noted. SKIN: Without rash. NEUROLOGIC: Examination is difficult to assess. She is off sedation, but still somewhat sleepy. She does arouse. MICROBIOLOGIC STUDY: Microbiologic study shows evidence of Staph aureus in the sputum. I believe it is oxacillin sensitive Staph aureus. LABS: Labs are reviewed. White count 16.1, hemoglobin 9.8, hematocrit 31.1, platelet count 288,000. Sodium 140, potassium 3.7, chloride 111, CO2 is 22. Anion gap is 7. BUN and creatinine were 8 and 0.48. The rest of the labs look okay. Microbiologic studies are reviewed. MEDICATIONS: Medications are reviewed. ASSESSMENT: 1. Acute hypoxemic respiratory failure secondary to polysubstance overdose as a suicide attempt with intubation and mechanical ventilation beginning on February 26, likely related to underlying aspiration. 2. Failure to wean from mechanical ventilation, status post postoperative day #2 tracheostomy and PEG tube placement. 3. Diffuse pneumonitis with acute respiratory distress syndrome, improved. 4. Rhabdomyolysis induced acute kidney injury, improved. 5. Polysubstance overdose with marijuana, amphetamines and methamphetamines. 6. Hypotension secondary to pneumonia and sepsis, resolved. 7. Acute metabolic acidosis. 8. History of polysubstance abuse with multiple previous suicide attempts. 9. History of depression. 10.History of anemia. 11.Failure to wean from mechanical ventilation. PLAN: The patient remains on the ventilator. She is now off propofol and fentanyl. She is getting IV Dilaudid. Her IV is 0.9 at KVO. She is getting Vital high-protein at 33 with a goal of 33. Blood gases appear normal. We will attempt a weaning trial today. [facility] is evaluating the patient for possible transfer. CRITICAL CARE TIME: 35 minutes. MMODL / IJN: [id number] /
[2019-03-09 12:07] LABS: Glucose,Whole Blood 107 mg/dL (75-99)
[2019-03-09] MEDS ORDERED: VANCOMYCIN IV PER PHARMACY 1 EACH MISC MISCELLANE PRN (12:11)
[2019-03-09] MEDS ORDERED: VANCOMYCIN 2,000 MG in SODIUM CHLORIDE 0.9% 500 ML 500 ML IVPB STA (12:52)
[2019-03-09 18:19] LABS: Glucose,Whole Blood 101 mg/dL (75-99)
[2019-03-09] MEDS: SCOPOLAMINE 1.5MG/72HR PATCH TRANSDERM SCH (20:14)
--- NOTE | 2019-03-09 23:00 | P.CONS ---
History of Present Illness - Reason for Consult Consult date: 03/09/19 - Chief Complaint Drug overdose - History of Present Illness 44-year-old female who is known to the service from her recent hospitalization at an outside facility. During that stay the patient had a polysubstance overdose and was found with respiratory failure in a parked vehicle. She was resuscitated in an intensive care unit. She was intubated sedated and mechanically ventilated and there was concerns to anoxic encephalopathy as well as to ARDS. The patient surprisingly improved her status quite quickly and regained her mental status. Eventually she was discharged to the outpatient psychiatric follow-up service and her regular medical care. The patient again suffered a polysubstance overdose was brought to hospital with evidence of actinic acidosis, mild rhabdomyolysis and respiratory failure hypoxic in nature. She required intubation and mechanical ventilation and was evidence of significant pulmonic infiltration. Initially she required vasopressor support as well as bicarbonate therapy. Eventually these improved, her renal failure improved but she remained with poor pulmonary status. Because of his tracheostomy and PEG tube him and placed to assist with her recovery. At this time the patient is sitting upright she is able to follow simple commands and is able to communicate to yes and no questions effectively. She is developed a fever to 101.5 and with at the infectious diseases consultation was requested Review of Systems ROS unobtainable: due to endotracheal tube Past Medical History Past Medical History: Pneumonia, Respiratory Disorder Additional Past Medical History / Comment(s): Polysubstane abuse, hisotry of drug overdose, history of ARDS requiring intubation and mechanical ventilation, history of severe rhabdomyalysis and DMITRY (recovered), history of MSSA pneumonia and sepsis, history of metabolic encephalopathy (recovered), hisotory of depression, suicide, obesity History of Any Multi-Drug Resistant Organisms: ESBL, Other MDRO Year Discovered:: 01/20 MDRO Source:: Blood, Lungs Past Surgical History: Unable to Obtain Additional Past Surgical History / Comment(s): breast biopsy (date unknown) Past Anesthesia/Blood Transfusion Reactions: No Reported Reaction Past Psychological History: Anxiety, Depression Smoking Status: Current every day smoker Past Alcohol Use History: Unable to Obtain Past Drug Use History: Marijuana, Methamphetamine Medications and Allergies Home Medications and Allergies Comment(s): Current Medications Acetaminophen (Tylenol Tab) 1,000 mg PEG/G-TUBE Q6HR PRN PRN Reason: Fever and/or Pain Albuterol/Ipratropium (Duoneb 0.5 Mg-3 Mg/3 Ml Soln) 3 ml INHALATION RT-Q2H PRN PRN Reason: Shortness Of Breath Or Wheezing Last Admin: 03/09/19 03:21 Dose: 3 ml Documented by: Albuterol/Ipratropium (Duoneb 0.5 Mg-3 Mg/3 Ml Soln) 3 ml INHALATION RT-QID [facility] Last Admin: 03/09/19 19:55 Dose: 3 ml Documented by: Chlorhexidine Gluconate (Peridex) 15 ml MUCOUS MEM BID [facility] Last Admin: 03/09/19 20:14 Dose: 15 ml Documented by: Haloperidol Lactate (Haldol) 4 mg IVP Q4HR PRN PRN Reason: Agitation or Acute Psychosis Last Admin: 03/09/19 22:25 Dose: 4 mg Documented by: Heparin Sodium (Porcine) (Heparin) 5,000 unit SQ Q8HR [facility] Last Admin: 03/09/19 18:05 Dose: 5,000 unit Documented by: Hydromorphone HCl (Dilaudid) 1 mg IVP Q2HR PRN PRN Reason: Pain/Discomfort Last Admin: 03/09/19 22:25 Dose: 1 mg Documented by: Propofol 1,000 mg/ IV Solution 100 mls @ 0 mls/hr IV .Q0M [facility]; Protocol Last Titration: 03/08/19 17:07 Dose: 0 mcg/kg/min, 0 mls/hr Documented by: Fentanyl Citrate 2,500 mcg/ (Sodium Chloride) 250 mls @ 12.56 mls/hr IV .[id number] [facility] Last Admin: 03/09/19 05:46 Dose: Not Given Documented by: Vancomycin HCl 2,000 mg/ (Sodium Chloride) 500 mls @ 167 mls/hr IVPB Q12H [facility] Insulin Aspart (Novolog) 0 unit SQ Q6HR [facility]; Protocol Last Admin: 03/09/19 18:10 Dose: Not Given Documented by: Miscellaneous Information (Pneumonia Protocol Utilized) 1 each PO ONCE PRN PRN Reason: Per Protocol Miscellaneous Information (Magnesium Per Protocol) 1 each MISCELLANE DAILY PRN; Protocol PRN Reason: Per Protocol Miscellaneous Information (Phosphorus Per Protocol) 1 each MISCELLANE DAILY PRN; Protocol PRN Reason: Per Protocol Miscellaneous Information (Potassium Per Protocol) 1 each MISCELLANE DAILY PRN; Protocol PRN Reason: Per Protocol Miscellaneous Information (Potassium Per Protocol) 1 each MISCELLANE DAILY PRN; Protocol PRN Reason: Per Protocol Miscellaneous Information (Pharmacy To Dose Iv Vancomycin) 1 each MISCELLANE DIRECTED PRN PRN Reason: Per Protocol Naloxone HCl (Narcan) 0.2 mg IV Q2M PRN PRN Reason: Opioid Reversal Pantoprazole Sodium (Protonix) 40 mg IV DAILY [facility] Last Admin: 03/09/19 08:05 Dose: 40 mg Documented by: Scopolamine (Transderm-Scop 1.5mg/72hr Patch) 1 patch TRANSDERM Q72H [facility] Last Admin: 03/09/19 20:14 Dose: 1 patch Documented by: Home Medications Medication Instructions Recorded Confirmed Type Sertraline HCl [Zoloft] 200 mg PO PC-[id number] 02/26/19 02/26/19 History busPIRone HCL 15 mg PO TID 02/26/19 02/26/19 History cloNIDine HCL [Catapres] 0.1 mg PO BID@0700,1200 02/26/19 02/26/19 History cloNIDine HCL [Catapres] 0.2 mg PO HS 02/26/19 02/26/19 History Allergies Allergy/AdvReac Type Severity Reaction Status Date / Time sulfamethoxazole Allergy Rash/Hives Verified 02/26/19 18:04 [From Bactrim] trimethoprim [From Bactrim] Allergy Rash/Hives Verified 02/26/19 18:04 Physical Exam Vitals: Vital Signs Temp Pulse Resp BP Pulse Ox 03/09/19 22:00 106 H 36 H 110/76 98 03/09/19 21:00 104 H 22 121/79 98 03/09/19 20:09 112 H 03/09/19 20:00 100.5 F H 105 H 20 108/66 96 03/09/19 19:55 103 H 03/09/19 19:00 106 H 19 107/78 95 03/09/19 18:00 108 H 31 H 107/48 98 03/09/19 17:00 82 29 H 107/58 100 03/09/19 16:05 76 03/09/19 16:00 99.1 F 86 20 100/57 100 03/09/19 15:52 78 03/09/19 15:00 91 28 H 90/66 98 03/09/19 14:00 111 H 18 98/64 93 L 03/09/19 13:00 97 32 H 99/60 99 03/09/19 12:00 99.5 F 92 31 H 113/76 99 03/09/19 11:55 91 03/09/19 11:26 98 03/09/19 11:00 112 H 26 H 103/58 97 03/09/19 10:00 98 31 H 103/58 96 03/09/19 09:00 92 26 H 98/50 97 03/09/19 08:25 100 03/09/19 08:11 104 H 03/09/19 08:00 99.9 F H 96 28 H 106/64 95 03/09/19 07:00 110 H 23 90/46 94 L 03/09/19 06:00 93 20 88/45 98 03/09/19 05:00 92 28 H 104/69 97 03/09/19 04:00 104 H 21 103/67 98 03/09/19 03:31 99 03/09/19 03:21 105 H 03/09/19 03:00 106 H 19 112/65 97 03/09/19 02:00 101 F H 107 H 16 118/86 93 L 03/09/19 01:00 104 H 34 H 111/74 99 03/09/19 00:00 104 H 28 H 101/54 03/08/19 23:21 113 H 03/08/19 23:07 114 H 03/08/19 23:00 106 H 13 125/83 94 L Intake and Output 03/09/19 03/09/19 03/09/19 06:59 14:59 22:59 Intake Total 718 770 898 Output Total 535 440 350 Balance 183 330 548 Intake: IV 120 40 500 Normal Saline Carriers 120 40 Vancomycin 2,000 mg In 500 Sodium Chloride 0.9% 500 ml 500 ml @ 167 mls/hr IVPB ONCE STA Rx#: [id number] Tube Feeding 198 330 198 Other 400 400 200 Output: Urine 535 440 350 Other: Voiding Method Indwelling Catheter Indwelling Catheter Indwelling Catheter Weight 124.2 kg 124.2 kg 44-year-old woman who is mechanically ventilated via tracheostomy, is comfortable HEENT: Anicteric conjunctiva are pink and moist nasal mucosa grossly intact with out significant lesions, there is no thrush. Tracheostomy tube site is intact without bleeding or drainage Neck: The neck is supple without significant lymphadenopathy or thyromegaly be palpated around the tracheostomy Lungs: Symmetrical bilateral air entry is noted, basilar crackles are heard. Ex piratory wheezes are heard no muna bronchial cells dullness are noted Heart: Regular rate and rhythm with an audible S1-S2, no S3 no S4. There is no significant murmur click or rub, PMI was nondisplaced. Abdomen: Mildly obese, Positive bowel sounds soft and nontender without palpable masses or organomegaly. There was no guarding or rebound. The PEG tube site is intact without bleeding or drainage Extremities: The left upper extremity has evidence of some ulceration on the arm. There some scant drainage. PICC line left arm is intact. The bilateral lower extremities have evidence of some edema but no significant open lesions are seen The right groin has evidence of the prior triple-lumen catheter site that is without erythema or crepitance fluctuance or expressible drainage. No lymph adenopathy is noted in the right groin and no other abnormal lymph nodes are noted cervical epitrochlear or axillary at this time Neuro: The patient is awake and alert and follows commands such as hand squeezing and lifting bilateral lower extremities upon command. Upon questioning she is able to relate that she is having some pain in her tracheostomy site is otherwise comfortable. When asking how she is doing she does shed some tears Results CBC & Chem 7: 03/09/19 05:02 03/09/19 05:02 Labs: Abnormal Lab Results - Last 24 Hours (Table) 03/08/19 03/09/19 03/09/19 Range/Units 23:28 04:59 05:02 WBC 16.1 H (3.8-10.6) k/uL RBC 3.54 L (3.80-5.40) m/uL Hgb 9.8 L (11.4-16.0) gm/dL Hct 31.1 L (34.0-46.0) % Neutrophils # 12.6 H (1.3-7.7) k/uL ABG Total CO2 25 H (19-24) mmol/L ABG O2 Saturation 97.3 H (94-97) % Chloride (98-107) mmol/L Creatinine (0.52-1.04) mg/dL Glucose (74-99) mg/dL POC Glucose (mg/dL) 125 H (75-99) mg/dL 03/09/19 03/09/19 03/09/19 Range/Units 05:02 11:54 18:07 WBC (3.8-10.6) k/uL RBC (3.80-5.40) m/uL Hgb (11.4-16.0) gm/dL Hct (34.0-46.0) % Neutrophils # (1.3-7.7) k/uL ABG Total CO2 (19-24) mmol/L ABG O2 Saturation (94-97) % Chloride 111 H (98-107) mmol/L Creatinine 0.48 L (0.52-1.04) mg/dL Glucose 101 H (74-99) mg/dL POC Glucose (mg/dL) 107 H 101 H (75-99) mg/dL Microbiology - Last 24 Hours (Table) 03/08/19 12:00 Urine Culture - Final Urine,Catheterized 03/08/19 12:00 Blood Culture Gram Stain - Preliminary Blood Blood Culture - Preliminary Coagulase Negative Staph 03/08/19 05:20 Catheter Tip Culture - Preliminary Catheter Tip Coagulase Negative Staph 03/08/19 12:00 Blood Culture - Final Blood Laboratory Results WBC 16.1 k/uL (3.8-10.6) H 03/09/19 05:02 RBC 3.54 m/uL (3.80-5.40) L 03/09/19 05:02 Hgb 9.8 gm/dL (11.4-16.0) L 03/09/19 05:02 Hct 31.1 % (34.0-46.0) L 03/09/19 05:02 MCV 87.7 fL (80.0-100.0) 03/09/19 05:02 MCH 27.6 pg (25.0-35.0) 03/09/19 05:02 MCHC 31.5 g/dL (31.0-37.0) 03/09/19 05:02 RDW 15.3 % (11.5-15.5) 03/09/19 05:02 Plt Count 288 k/uL (150-450) 03/09/19 05:02 Neutrophils % 79 % 03/09/19 05:02 Lymphocytes % 16 % 03/09/19 05:02 Monocytes % 3 % 03/09/19 05:02 Eosinophils % 1 % 03/09/19 05:02 Basophils % 0 % 03/09/19 05:02 Neutrophils # 12.6 k/uL (1.3-7.7) H 03/09/19 05:02 Lymphocytes # 2.6 k/uL (1.0-4.8) 03/09/19 05:02 Monocytes # 0.5 k/uL (0-1.0) 03/09/19 05:02 Eosinophils # 0.2 k/uL (0-0.7) 03/09/19 05:02 Basophils # 0.0 k/uL (0-0.2) 03/09/19 05:02 Hypochromasia Slight 03/09/19 05:02 PT 11.1 sec (9.0-12.0) 03/07/19 05:22 INR 1.0 (<1.2) 03/07/19 05:22 APTT 24.4 sec (22.0-30.0) 02/26/19 14:55 Sample Site rbra 03/09/19 04:59 ABG pH 7.39 (7.35-7.45) 03/09/19 04:59 ABG pCO2 39 mmHg (35-45) 03/09/19 04:59 ABG pO2 95 mmHg (83-108) 03/09/19 04:59 ABG HCO3 24 mmol/L (21-25) 03/09/19 04:59 ABG Total CO2 25 mmol/L (19-24) H 03/09/19 04:59 ABG O2 Saturation 97.3 % (94-97) H 03/09/19 04:59 ABG Base Excess -1.4 mmol/L 03/09/19 04:59 Rob Test Yes 03/09/19 04:59 FiO2 40 % 03/09/19 04:59 Sodium 140 mmol/L (137-145) 03/09/19 05:02 Potassium 3.7 mmol/L (3.5-5.1) 03/09/19 05:02 Chloride 111 mmol/L (98-107) H 03/09/19 05:02 Carbon Dioxide 22 mmol/L (22-30) 03/09/19 05:02 Anion Gap 7 mmol/L 03/09/19 05:02 BUN 8 mg/dL (7-17) 03/09/19 05:02 Creatinine 0.48 mg/dL (0.52-1.04) L 03/09/19 05:02 Est GFR (CKD-EPI)AfAm >90 (>60 ml/min/1.73 sqM) 03/09/19 05:02 Est GFR (CKD-EPI)NonAf >90 (>60 ml/min/1.73 sqM) 03/09/19 05:02 Glucose 101 mg/dL (74-99) H 03/09/19 05:02 POC Glucose (mg/dL) 101 mg/dL (75-99) H 03/09/19 18:07 POC Glu [employer] ID Casey Browning 03/09/19 18:[address] Glu mg/dL 105 02/27/19 05:20 Hemoglobin A1c 5.3 % (4.0-6.0) 02/27/19 05:20 Lactic Ac Sepsis Rflx Y 02/26/19 15:27 Plasma Lactic Acid Jan 1.0 mmol/L (0.7-2.0) 02/26/19 18:35 Calcium 8.4 mg/dL (8.4-10.2) 03/09/19 05:02 Phosphorus 4.7 mg/dL (2.5-4.5) H 03/07/19 05:22 Magnesium 2.0 mg/dL (1.6-2.3) 03/07/19 05:22 Total Bilirubin 0.4 mg/dL (0.2-1.3) 03/05/19 05:40 AST 31 U/L (14-36) 03/05/19 05:40 ALT 42 U/L (9-52) 03/05/19 05:40 Alkaline Phosphatase 93 U/L (38-126) 03/05/19 05:40 Creatine Kinase 894 U/L (30-135) H 02/28/19 05:30 CK-MB (CK-2) 12.7 ng/mL (0.0-2.4) H 02/26/19 14:55 Troponin I <0.012 ng/mL (0.000-0.034) 02/26/19 14:55 NT-Pro-B Natriuret Pep 1090 pg/mL 02/26/19 14:55 Total Protein 5.8 g/dL (6.3-8.2) L 03/05/19 05:40 Albumin 3.1 g/dL (3.5-5.0) L 03/05/19 05:40 Triglycerides 988 mg/dL (<150) H 03/07/19 05:22 HCG, Qual Not Detected 03/07/19 05:22 Urine Color Yellow 02/26/19 14:55 Urine Appearance Clear (Clear) 02/26/19 14:55 Urine pH 6.0 (5.0-8.0) 02/26/19 14:55 Ur Specific Crystal 1.024 (1.001-1.035) 02/26/19 14:55 Urine Protein 1+ (Negative) H 02/26/19 14:55 Urine Glucose (UA) Negative (Negative) 02/26/19 14:55 Urine Ketones Negative (Negative) 02/26/19 14:55 Urine Blood Trace (Negative) H 02/26/19 14:55 Urine Nitrite Negative (Negative) 02/26/19 14:55 Urine Bilirubin Negative (Negative) 02/26/19 14:55 Urine Urobilinogen <2.0 mg/dL (<2.0) 02/26/19 14:55 Ur Leukocyte Esterase Negative (Negative) 02/26/19 14:55 Urine RBC 2 /hpf (0-5) 02/26/19 14:55 Urine WBC 1 /hpf (0-5) 02/26/19 14:55 Ur Squamous Epith Cells <1 /hpf (0-4) 02/26/19 14:55 Amorphous Sediment Rare /hpf (None) H 02/26/19 14:55 Hyaline Casts 43 /lpf (0-2) H 02/26/19 14:55 Urine Mucus Rare /hpf (None) H 02/26/19 14:55 Vancomycin Trough 16.9 ug/mL 03/01/19 06:50 Urine Opiates Screen Not Detected (NotDetected) 02/26/19 14:55 Ur Oxycodone Screen Not Detected (NotDetected) 02/26/19 14:55 Urine Methadone Screen Not Detected (NotDetected) 02/26/19 14:55 Ur Propoxyphene Screen Not Detected (NotDetected) 02/26/19 14:55 Ur Barbiturates Screen Not Detected (NotDetected) 02/26/19 14:55 U Tricyclic Antidepress Detected (NotDetected) H 02/26/19 14:55 Ur Phencyclidine Scrn Not Detected (NotDetected) 02/26/19 14:55 Ur Amphetamines Screen Detected (NotDetected) H 02/26/19 14:55 U Methamphetamines Scrn Detected (NotDetected) H 02/26/19 14:55 U Benzodiazepines Scrn Not Detected (NotDetected) 02/26/19 14:55 Urine Cocaine Screen Not Detected (NotDetected) 02/26/19 14:55 U Marijuana (THC) Screen Not Detected (NotDetected) 02/26/19 14:55 Microbiology Entire Visit 03/08/19 12:00 Urine,Catheterized Urine Culture - Final 03/08/19 12:00 Blood Blood Culture Gram Stain - Preliminary 03/08/19 12:00 Blood Blood Culture - Preliminary Coagulase Negative Staph 03/08/19 05:20 Catheter Tip Catheter Tip Culture - Preliminary Coagulase Negative Staph 03/08/19 12:00 Blood Blood Culture - Final 02/26/19 14:55 Blood Blood Culture - Final No Growth after 144 hours 02/26/19 19:00 Sputum Gram Stain - Final 02/26/19 19:00 Sputum Sputum Culture - Final Staphylococcus aureus 02/26/19 14:55 Urine,Catheterized Urine Culture - Final Abdominal x-ray: image reviewed (Bilateral infiltrates persist) Assessment and Plan (1) Methamphetamine abuse Current Visit: Yes Status: Acute Code(s): F15.10 - OTHER STIMULANT ABUSE, UNCOMPLICATED SNOMED Code(s): 291516408 (2) Acute respiratory failure with hypoxia Current Visit: Yes Status: Acute Code(s): J96.01 - ACUTE RESPIRATORY FAILURE WITH HYPOXIA SNOMED Code(s): 08131851 (3) Depression Current Visit: Yes Status: Acute Code(s): F32.9 - MAJOR DEPRESSIVE DISORDER, SINGLE EPISODE, UNSPECIFIED SNOMED Code(s): 82401925 (4) Gram-positive cocci bacteremia Narrative/Plan: 44-year-old male presents to hospital with her second polysubstance overdose in a relatively short period of time. On this event she has developed respiratory failure that did not respond to ongoing treatment and is now had tracheostomy tube placed. 40 she's having some improvements but there is still plan for her to transfer to a ventilator facility in the near future. As noted she did have a fever approximately 48 hours ago. This is now improved. The right groin central line was removed and PICC lines in place in the left arm. There is a blood culture with coagulase-negative staph. Follow blood cultures are pending. Catheter tip appearing also had some coagulase-negative staph. At this time removing of the catheter will be the effective treatment. We will utilize 48 hours of vancomycin to ensure no other pathogens are found. The pat ient has had approximately 11 days of antibiotic therapy. MSSA was isolated from her sputum. Once IV vancomycin has been discontinued within be able to utilize cephalexin suspension via her PEG tube, planning another 7 days. Renal failure has resolved. Leukocytosis is improving. This evidence of a few lesions on her left arm for which silver alginate will be applied and wrapped in place. Current Visit: Yes Status: Acute Code(s): R78.81 - BACTEREMIA SNOMED Code(s): 044019693345
[2019-03-09] MEDS: VANCOMYCIN 2,000 MG in SODIUM CHLORIDE 0.9% 500 ML 500 ML IVPB SCH (23:13)
[2019-03-09] MEDS: ACETAMINOPHEN TAB 500 MG TAB PEG/G-TUBE PRN (23:13)
--- NOTE | 2019-03-09 23:23 | PN ---
PROGRESS NOTE DATE OF SERVICE: 03/09/2019 PRESENTING COMPLAINT: On the ventilator. INTERVAL HISTORY: Patient admitted with altered mental status, respiratory failure. Had been taking amphetamine. On the ventilator, awake. The patient is off all sedatives. Status post tracheostomy and a PEG tube that was done on 03/07/2019. Getting PEG tube feeding. Awake, following commands. FiO2 of 40 and a PEEP of 5. REVIEW OF SYSTEMS: Cannot be done as patient has a tracheostomy. CURRENT MEDICATIONS: Reviewed. The patient is off of fentanyl, propofol. PHYSICAL EXAMINATION: Temp 99.1, pulse 86, respiration 20, blood pressure 100/57, pulse ox 100% on CPAP. GENERAL APPEARANCE: Lying in bed, awake, following commands. EYES: Pupils equal. Conjunctivae normal. NECK: Tracheostomy in place. Mass not palpable. Respiratory effort normal. LUNGS: Decreased breath sounds. CARDIOVASCULAR: 1st and 2nd sounds normal. No edema. ABDOMEN: Soft, nontender. Liver and spleen not palpable. PEG tube in place. NEUROLOGICAL: Awake, moving all 4 limbs, following commands. INVESTIGATIONS: White count 16.1, hemoglobin 9.8, potassium 3.7, BUN 8, creatinine 0.48. ASSESSMENT: 1. Acute bilateral pneumonia, suspect aspiration pneumonia with cultures positive for MSSA status post antibiotics. 2. Acute metabolic encephalopathy, multifactorial, much improved. 3. Acute hypoxic respiratory failure requiring ventilator support. 4. Acute drug overdose, multiple including methamphetamine. 5. Acute kidney injury due to acute tubular necrosis, improved. 6. Acute rhabdomyolysis. 7. Septic shock from pneumonia, recovered. 8. Metabolic acidosis. 9. History of depression, not otherwise specified. 10.Morbid obesity BMI of 44.3. 11.Chronic nicotine dependence, patient is a cigarette smoker. 12.Marijuana use. 13.Tracheostomy and a PEG tube on 03/07/2019. PLAN: Continue current medication, treatment plan, supportive care. [facility] Will follow with Dr. Beltrán. GENA / MATTHEW: [id number] /
[2019-03-10 00:14] LABS: Glucose,Whole Blood 98 mg/dL (75-99)
[2019-03-10] MEDS: fentaNYL (PF) 2,500 MCG in SODIUM CHLORIDE 0.9% 200 ML IV SCH ×2 (01:45→20:42)
[2019-03-10] MEDS: HYDROmorphone 1 MG/ML 1 ML SYRINGE IVP PRN ×5 (01:47→21:38)
[2019-03-10] MEDS: IPRATROPIUM-ALBUTEROL 3 ML NEB INHALATION PRN (03:22)
[2019-03-10 04:45] LABS: ABG Base Excess -1.5 mmol/L; ABG HCO3 23 mmol/L (21-25); ABG Oxygen Saturation 98.8 % (94-97); ABG PCO2 38 mmHg (35-45); ABG PH 7.39 (7.35-7.45); ABG PO2 130 mmHg (83-108); ABG TCO2 25 mmol/L (19-24); Allen Test Performed? Yes
[2019-03-10 05:45] LABS: HCT 29.2 % (34.0-46.0); HGB 9.4 gm/dL (11.4-16.0); Hypochromasia Slight; MCH 28.4 pg (25.0-35.0); MCHC 32.3 g/dL (31.0-37.0); MCV 87.9 fL (80.0-100.0); Mean Platelet Volume 7.5; Platelet Count 313 k/uL (150-450); RBC 3.32 m/uL (3.80-5.40); RDW 15.7 % (11.5-15.5); WBC 13.2 k/uL (3.8-10.6)
[2019-03-10 06:06] LABS: African American GFR (CKD) >90 (>60 ml/min/1.73 sqM); Anion Gap 5 mmol/L; Blood Urea Nitrogen 9 mg/dL (7-17); Calcium 8.3 mg/dL (8.4-10.2); Carbon Dioxide 22 mmol/L (22-30); Chloride 113 mmol/L (98-107); Glucose 90 mg/dL (74-99); Potassium 3.7 mmol/L (3.5-5.1); Sodium 140 mmol/L (137-145)
[2019-03-10] MEDS: INSULIN ASPART (NovoLOG) 100 UNIT/ML VIAL SQ SCH ×5 (06:09→23:26)
[2019-03-10 06:13] LABS: Glucose,Whole Blood 100 mg/dL (75-99)
[2019-03-10] MEDS ORDERED: Potassium Replacement Protocol 1 EACH MISC MISCELLANE PRN (06:46)
[2019-03-10] MEDS ORDERED: POTASSIUM BICARBONATE/CIT AC 20 MEQ TABLET.EFF NG-TUBE ONE (07:00)
[2019-03-10] MEDS: IPRATROPIUM-ALBUTEROL 3 ML NEB INHALATION SCH ×4 (08:12→19:29)
--- NOTE | 2019-03-10 08:17 | XR ---
EXAMINATION TYPE: XR chest 1V portable DATE OF EXAM: 03/10/2019 COMPARISON: 03/09/2019 HISTORY: Shortness of breath TECHNIQUE: Single frontal view of the chest is obtained. FINDINGS: Left-sided central line and tracheostomy tube stable. Diffuse bilateral airspace disease a nd tiny effusion of the right suspected. No pneumothorax. IMPRESSION: Stable diffuse pleural-parenchymal changes. Bilateral airspace disease present may repres ent diffuse pneumonia versus pulmonary edema.
--- NOTE | 2019-03-10 08:21 | PN ---
PROGRESS NOTE DATE OF SERVICE: 03/10/2019. CRITICAL CARE TIME: 33 minutes. This is a 44-year-old female with a history of multiple suicide attempts with multiple drugs including THC, amphetamines and methamphetamines. She had a previous recent admission for suicide attempt over at [facility]. The patient was admitted here with a diagnosis of respiratory failure secondary to aspiration and developed acute respiratory distress syndrome. In addition, she has a history of acute kidney injury, acute rhabdomyolysis, hypotension, sepsis, metabolic acidosis, polysubstance abuse, and depression. She was admitted and intubated on the same day, February 26. This is for hypoxemic respiratory failure. She is postop day #3, status post tracheostomy and PEG tube placement by Dr. Mario Oates. She remains on ventilator. She has been weaned down to pressure support of 8, CPAP of 5 and 40%. She has gone quite a long time with this. She seems to be tolerating it relatively well. She did have a blood gas showing a pO2 of 130, pCO2 of 38, pH 7.39. The patient is currently on saline IV at KVO and Vital 1.2 at 45 with a goal of 63 mL an hour. The patient has been weaned off many of her sedative drugs. She appears to be relatively stable. Vital signs are stable. Her mental status is still in question. She was evaluated by [facility] for possible transfer. PHYSICAL EXAMINATION: VITAL SIGNS: Current vital signs include a temperature 99.6, heart rate 105, respiratory rate 27, blood pressure 120/76, mean 90, saturations are 97% on 40% FiO2. GENERAL: Appears in no acute distress. Currently calm. HEENT: Examination is grossly unremarkable. Current HEENT examination is unremarkable. NECK: Supple. Full range of motion. No adenopathy. There is a midline tracheostomy. No adenopathy or thyromegaly. No neck vein distention. CARDIOVASCULAR: Examination reveals mild tachycardia. Heart rate right around 100 beats per minute. It is regular. S1, S2 normal. No murmur. LUNGS: Reveal few scattered rhonchi. No wheezes or crackles. ABDOMEN: Soft. Bowel sounds are heard. EXTREMITIES: Are intact. Some slight edema. SKIN: Without rash. NEUROLOGIC: Examination is difficult to assess, but she is much more awake and alert. She does have global extremity weakness. MICROBIOLOGIC STUDIES: She has a recent catheter tip and blood cultures both positive for Coag-negative staph. Infectious Disease is managing. X-RAY: Chest x-ray has not yet been done. MEDICATIONS: Medications are reviewed. Everything seems to be relatively appropriate. ASSESSMENT: 1. Acute hypoxemic respiratory failure secondary to polysubstance overdose as a suicide attempt with intubation and mechanical ventilation beginning on February 26, likely related to underlying aspiration. 2. Failure to wean from mechanical ventilation, status postoperative day #3 tracheostomy and PEG tube placement. 3. Diffuse pneumonitis with acute respiratory distress syndrome, improved. 4. Rhabdomyolysis induced acute kidney injury, improved. 5. Polysubstance overdose with marijuana, amphetamines and methamphetamine. 6. Hypotension secondary to pneumonia and sepsis, resolved. 7. Acute metabolic acidosis. 8. History of polysubstance abuse with multiple previous suicide attempts. 9. History of depression. 10.History of anemia. 11.Failure to wean from mechanical ventilation. PLAN: The patient remains on the PSV 8, CPAP of 5. She is on 40% FiO2. Her tube feeds will be increased to goal. She is getting a saline IV KVO. The patient's labs x-rays and medications are all reviewed. Additional recommendations and suggestions are forthcoming. She has been referred to [facility] for possible transfer. Additional recommendations and suggestions forthcoming. CRITICAL CARE TIME: 33 minutes. GENA / MATTHEW: [id number] /
[2019-03-10] MEDS: HEPARIN SODIUM,PORCINE 5,000 UNIT/ML 1 ML VIAL SQ SCH ×3 (08:48→23:26)
[2019-03-10] MEDS: PANTOPRAZOLE 40 MG/10 ML VIAL IV SCH (08:48)
[2019-03-10] MEDS: CHLORHEXIDINE GLUCONATE 15 ML CUP MUCOUS MEM SCH ×2 (08:48→20:42)
--- NOTE | 2019-03-10 11:12 | P.PN ---
Subjective Progress Note Date: 03/10/19 CHIEF COMPLAINT: trach and peg placement HISTORY OF PRESENT ILLNESS: Patient remains in the ICU. She is S/P Trach and PEG tube placement. PHYSICAL EXAM: VITAL SIGNS: Reviewed. GENERAL: Well-developed in no acute distress-remains on mechanical ventilation HEENT: Trach noted with no bleeding. No sclera icterus. Extraocular movements grossly intact. Moist buccal mucosa. Head is atraumatic, normocephalic. ABDOMEN: Soft. Nondistended. Nontender. PEG tube with TF infusing. NEUROLOGIC: Awake on mechanical ventilation. ASSESSMENT: 1. Acute hypoxic respiratory failure secondary to polysubstance overdose and possible suicide attempt 2. ARDS PLAN: Continue ventilator management per Dr. Beltrán Continue tube feedings We will continue to follow on an as-needed basis only. Please call with q uestions or concerns. Nurse practitioner note has been reviewed by physician. Signing provider agrees with the documented findings, assessment, and plan of care. Objective - Vital Signs Vital signs: Vital Signs Temp 99.1 F 03/10/19 09:00 Pulse 102 H 03/10/19 11:00 Resp 33 H 03/10/19 11:00 BP 118/69 03/10/19 11:00 Pulse Ox 97 03/10/19 11:00 Intake & Output 03/09/19 03/10/19 03/10/19 18:59 06:59 18:59 Intake Total 1369 1377 441 Output Total 640 770 280 Balance 729 607 161 Weight 124.2 kg 122.1 kg Intake: IV 540 581 100 KVO 80 100 Normal Saline Carriers 40 Vancomycin 2,000 mg In 500 501 Sodium Chloride 0.9% 500 ml 500 ml @ 167 mls/hr IVPB ONCE STA Rx#: [id number] Tube Feeding 429 396 341 Other 400 400 Output: Urine 640 770 280 Other: Voiding Method Indwelling Catheter Indwelling Catheter Indwelling Catheter ABP, PAP, CO, CI - Last Documented Arterial Blood Pressure 108/96 - Labs CBC & Chem 7: 03/10/19 05:33 03/10/19 05:33 Labs: Abnormal Lab Results - Last 24 Hours (Table) 03/09/19 03/09/19 03/10/19 Range/Units 11:54 18:07 04:38 WBC (3.8-10.6) k/uL RBC (3.80-5.40) m/uL Hgb (11.4-16.0) gm/dL Hct (34.0-46.0) % RDW (11.5-15.5) % ABG pO2 130 H (83-108) mmHg ABG Total CO2 25 H (19-24) mmol/L ABG O2 Saturation 98.8 H (94-97) % Chloride (98-107) mmol/L Creatinine (0.52-1.04) mg/dL POC Glucose (mg/dL) 107 H 101 H (75-99) mg/dL Calcium (8.4-10.2) mg/dL 03/10/19 03/10/19 03/10/19 Range/Units 05:33 05:33 06:01 WBC 13.2 H (3.8-10.6) k/uL RBC 3.32 L (3.80-5.40) m/uL Hgb 9.4 L (11.4-16.0) gm/dL Hct 29.2 L (34.0-46.0) % RDW 15.7 H (11.5-15.5) % ABG pO2 (83-108) mmHg ABG Total CO2 (19-24) mmol/L ABG O2 Saturation (94-97) % Chloride 113 H (98-107) mmol/L Creatinine 0.41 L (0.52-1.04) mg/dL POC Glucose (mg/dL) 100 H (75-99) mg/dL Calcium 8.3 L (8.4-10.2) mg/dL Microbiology - Last 24 Hours (Table) 03/08/19 12:00 Urine Culture - Final Urine,Catheterized 03/08/19 12:00 Blood Culture Gram Stain - Preliminary Blood Blood Culture - Preliminary Coagulase Negative Staph 03/08/19 05:20 Catheter Tip Culture - Preliminary Catheter Tip Coagulase Negative Staph 03/08/19 12:00 Blood Culture - Final Blood
[2019-03-10] MEDS: VANCOMYCIN 2,000 MG in SODIUM CHLORIDE 0.9% 500 ML 500 ML IVPB SCH ×2 (11:41→23:26)
[2019-03-10 11:48] LABS: Glucose,Whole Blood 106 mg/dL (75-99)
[2019-03-10 17:27] LABS: Glucose,Whole Blood 107 mg/dL (75-99)
--- NOTE | 2019-03-10 21:19 | PN ---
PROGRESS NOTE DATE OF SERVICE: March 10, 2019. PRESENTING COMPLAINT: Tired. INTERVAL HISTORY: Patient admitted with altered mental status, respiratory failure, has been taking amphetamine. The patient is off all sedatives. Has a tracheostomy and a PEG tube in place. On trach support. Getting PEG tube feedings. Awake, following commands. Mother at the bedside. REVIEW OF SYSTEMS: Cannot be done patient is on a trach. CURRENT MEDICATIONS: Reviewed that include DuoNeb, vancomycin. PHYSICAL EXAMINATION: VITAL SIGNS: Temperature 99, pulse 87, respiration 22, blood pressure 121/74, pulse ox 100 percent on CPAP. GENERAL APPEARANCE: Lying in bed, awake. EYES: Pupils equal. Conjunctivae normal. NECK: Tracheostomy in place. CPAP in place. RESPIRATORY effort normal. LUNGS: Decreased breath sounds. CARDIOVASCULAR: First and second sounds normal. No edema. ABDOMEN: Soft, nontender. Liver and spleen not palpable. PEG tube in place. NEUROLOGICAL: Moving all 4 limbs. INVESTIGATIONS: White count 7.2, hemoglobin 9.4, potassium 3.7, BUN 9, creatinine 0.41. Accu-Cheks are noted. The patient's catheter tip showed coagulase-negative Staph and patient's blood culture showed coagulase-negative Staph. ASSESSMENT: 1. Acute bilateral pneumonia, suspect aspiration pneumonia. Cultures positive for MSSA, status post antibiotic. 2. Acute metabolic encephalopathy multifactorial, resolved. 3. Acute hypoxic respiratory failure. The patient also has got a tracheostomy and a CPAP. 4. Acute drug overdose multiple including methamphetamine. 5. Acute kidney injury due to acute tubular necrosis, resolved. 6. Acute rhabdomyolysis. 7. Septic shock from pneumonia. 8. Metabolic acidosis. 9. History of depression not otherwise specified. 10.Morbid obesity BMI 44.3. 11.Chronic nicotine dependence, patient is a cigarette smoker. 12.Marijuana use. 13.Tracheostomy and a PEG tube on 03/07/2019. Overall, patient is doing better. Patient's cultures may be contaminant. We will see how she does clinically. Last night, though patient had a low-grade fever of 100.5. White count is at 13.2, hence has got to keep that in the back of the mind. Care was discussed with the mother at the bedside. MMODL / IJN: [id number] /
[2019-03-10] MEDS: POTASSIUM BICARBONATE/CIT AC 20 MEQ TABLET.EFF NG-TUBE SCH (22:49)
[2019-03-10] MEDS: HALOPERIDOL LACTATE 5 MG/ML 1 ML VIAL IVP PRN (23:35)
[2019-03-10 23:37] LABS: Glucose,Whole Blood 105 mg/dL (75-99)
[2019-03-11] MEDS: POTASSIUM BICARBONATE/CIT AC 20 MEQ TABLET.EFF NG-TUBE SCH (00:10)
[2019-03-11] MEDS: HYDROmorphone 1 MG/ML 1 ML SYRINGE IVP PRN ×9 (00:27→23:56)
[2019-03-11] MEDS ORDERED: ALTEPLASE 2 MG VIAL (CATHFLO) IV STA ×2 (04:26→04:28)
[2019-03-11 05:48] LABS: Glucose,Whole Blood 95 mg/dL (75-99)
[2019-03-11 05:48] LABS: African American GFR (CKD) >90 (>60 ml/min/1.73 sqM); Anion Gap 5 mmol/L; Blood Urea Nitrogen 11 mg/dL (7-17); Calcium 8.2 mg/dL (8.4-10.2); Carbon Dioxide 25 mmol/L (22-30); Chloride 112 mmol/L (98-107); Glucose 90 mg/dL (74-99); Potassium 4.1 mmol/L (3.5-5.1); Sodium 142 mmol/L (137-145)
[2019-03-11] MEDS: INSULIN ASPART (NovoLOG) 100 UNIT/ML VIAL SQ SCH ×3 (05:55→21:44)
[2019-03-11 06:02] LABS: HCT 30.1 % (34.0-46.0); HGB 9.6 gm/dL (11.4-16.0); Hypochromasia Slight; MCHC 31.9 g/dL (31.0-37.0); Mean Platelet Volume 7.8; Platelet Count 322 k/uL (150-450); RBC 3.42 m/uL (3.80-5.40); RDW 15.5 % (11.5-15.5); WBC 9.6 k/uL (3.8-10.6)
[2019-03-11] MEDS: IPRATROPIUM-ALBUTEROL 3 ML NEB INHALATION SCH ×4 (08:06→19:51)
[2019-03-11] MEDS: CHLORHEXIDINE GLUCONATE 15 ML CUP MUCOUS MEM SCH ×2 (09:00→23:20)
[2019-03-11] MEDS: PANTOPRAZOLE 40 MG/10 ML VIAL IV SCH (09:00)
[2019-03-11] MEDS: HEPARIN SODIUM,PORCINE 5,000 UNIT/ML 1 ML VIAL SQ SCH ×3 (09:00→23:20)
--- NOTE | 2019-03-11 09:19 | PN ---
PROGRESS NOTE DATE OF SERVICE: 03/11/2019 CRITICAL CARE TIME: 34 minutes This is a 44-year-old female patient with history of multiple suicide attempts including multiple drugs, including THC, amphetamines and methamphetamines. She had a previous recent admission with a suicide attempt over at [facility]. She was diagnosed here with respiratory failure secondary to aspiration. She also developed acute respiratory distress syndrome. She also has a history of acute kidney injury, acute rhabdomyolysis, hypotension, sepsis, metabolic acidosis, polysubstance abuse and depression. She was admitted on February 26 and intubated on the same day. The patient is postop day #4 status post tracheostomy and PEG tube placement by Dr. Mario Oates. Yesterday, we placed the patient on trach collar. She has been on trach collar since 5 pm yesterday. It is at 35%. Her saline is running at KVO. She is also getting vital 1.2 at 65 with a goal of 65 mL an hour. She has been doing relatively well. [facility]. It may be reasonable to continue to send her there. She had an uneventful night according to the nurses. Vital signs include a temperature 98.2, heart rate 86, respiratory rate 30, blood pressure 97/70, mean 79 and saturations 100% on the 35% trach collar. She appears in no acute distress. HEENT: Examination is grossly unremarkable. NECK: Supple. Full range of motion. No adenopathy, thyromegaly or neck vein distention. There is a midline tracheostomy. CARDIOVASCULAR: Examination reveals regular rhythm and rate. S1, S2 normal. No S3, S4, or murmur. LUNGS: Reveal a few scattered rhonchi. Breath sounds equal. No wheezes or crackles. ABDOMEN: Soft. Bowel sounds are heard. PEG tube noted. EXTREMITIES: Intact. Minimal edema. SKIN: Without rash. NEUROLOGIC: Examination is brief but nonfocal. She does move all 4 extremities well. She does have some global weakness, though. LABS: From this morning are pending. Microbiologic studies showed evidence of Staph aureus in the sputum back from February 26. It was an oxacillin sensitive Staph aureus. More recently, on a catheter tip and blood cultures from March 08 she had coag-negative staph. Chest x-ray is reviewed. Medications are reviewed. ASSESSMENT: 1. Acute hypoxemic respiratory failure secondary to polysubstance overdose as a suicide attempt with intubation and mechanical ventilation beginning on February 26, related to underlying aspiration pneumonia. 2. Failure to wean from mechanical ventilation, status postoperative day #4, tracheostomy and PEG tube placement. 3. Diffuse pneumonitis with acute respiratory distress syndrome, improved. 4. Rhabdomyolysis induced acute kidney injury, improved. 5. History of polysubstance overdose with marijuana, amphetamines, methamphetamines. 6. Hypotension secondary to pneumonia and sepsis, resolved. 7. Acute metabolic acidosis. 8. History of polysubstance abuse with multiple previous suicide attempts. 9. History of depression. 10.History of anemia. 11.Failure to wean from mechanical ventilation. Assessed retaining tracheostomy and PEG tube placement as above. PLAN: Currently, the patient has been transitioned from PSV and CPAP to trach collar. She is on trach collar 35% who has been on since 5 pm yesterday. Her IV is 0.9 at KVO. She is getting nourished. She is [facility]. Swallow evaluation to be done by Speech Pathology. No additional recommendations are made. Prognosis is guarded. We will continue to follow closely. CRITICAL CARE TIME: 34 minutes. MMODL / IJN: [id number] /
[2019-03-11] MEDS: VANCOMYCIN 2,000 MG in SODIUM CHLORIDE 0.9% 500 ML 500 ML IVPB SCH (11:48)
[2019-03-11 12:13] LABS: Glucose,Whole Blood 93 mg/dL (75-99)
--- NOTE | 2019-03-11 16:26 | P.CN ---
Psychiatric Consult - . Consult date: 03/11/19 Consult:: 03/11/19 16:19 IDENTIFYING DATA: A 44-year-old female. HPI: Patient admitted to the medical floor [facility] with mental status changes. Per chart history she had respiratory failure and had been intubated and on the ventilator. She is currently still on ventilator with a trach. Per chart history she also has been treated for bilateral pneumonia, she has had metabolic encephalopathy, there has been some chart history of acute drug overdose, patient denies any overdose. Per chart history she also had kidney issues, rhabdomyolysis and septic shock. Per chart history her drug screen showed positive for tricyclics, amphetamine and methamphetamine. Patient denies having taken an overdose. She denies any confusion is the reason for admission. She relays that she was having breathing problems. She denies any recent or current thoughts of harm to self. PAST PSYCHIATRIC HISTORY: Patient per chart history was on Zoloft 200 mg daily and BuSpar 15 mg 3 times a day. Per chart history there is some history of depression and suicide attempt. Patient does admit to a history of depression but states that her depression has been fairly stable. She says she can't think of the name of her psychiatrist. She herself denies any history of suicide attempt. PMH: History of ards requiring intubation and mechanical ventilation, history of rhabdomyolysis, history of pneumonia and sepsis. ALLERGIES: Sulfamethoxazole, trimethoprim MEDICATIONS: DuoNeb, DuoNeb when necessary, Tylenol when necessary, Peridex, fentanyl, Haldol when necessary, heparin, Dilaudid when necessary, NovoLog, Narcan when necessary, Protonix, scopolamine, vancomycin CHEMICAL DEPENDENCY HISTORY: Denies any drugs or alcohol recently, denies history of problems FAMILY PSYCHIATRIC HISTORY: Brother with depression FAMILY CHEMICAL DEPENDENCY HISTORY: None known at this time SOCIAL HISTORY: She states she lives by herself, no recent work it sounds MENTAL STATUS EXAM: She is found in her room, she is alert. She currently has a trach. She is able to whisper things. She describes her mood as "okay." She denies any thoughts of harm to self or others. She does not verbalize any hallucinations or muna delusions. She does not show any agitation. She is oriented to person but not to place or date. IMPRESSIONS: Delirium; depression by history PLAN: Continue to treat possible causes of delirium. Patient does seem to be agreeable to reinitiate Zoloft when discussed, however we did discuss delaying reinitiation until delirium further clears. Would maintain one-to-one sitter at this time until further information is gained regarding evaluation of the patient and information regarding events precipitating her admission. Would consider reinitiation of Zoloft once her delirium is further cleared. Continue to assess regarding any suicidal ideations which is currently denying. We'll continue to assess her need for inpatient psychiatric hospitalization.
[2019-03-11 17:37] LABS: Glucose,Whole Blood 93 mg/dL (75-99)
[2019-03-11] MEDS: fentaNYL (PF) 2,500 MCG in SODIUM CHLORIDE 0.9% 200 ML IV SCH (21:44)
[2019-03-11] MEDS ORDERED: VANCOMYCIN TROUGH DUE 1 EACH MISC MISCELLANE ONE (23:00)
[2019-03-11 23:29] LABS: Glucose,Whole Blood 95 mg/dL (75-99)
[2019-03-12] MEDS: VANCOMYCIN 2,000 MG in SODIUM CHLORIDE 0.9% 500 ML 500 ML IVPB SCH (00:03)
[2019-03-12] MEDS: INSULIN ASPART (NovoLOG) 100 UNIT/ML VIAL SQ SCH ×5 (00:06→23:39)
[2019-03-12] MEDS: HYDROmorphone 1 MG/ML 1 ML SYRINGE IVP PRN ×6 (02:28→22:02)
[2019-03-12 06:38] LABS: Glucose,Whole Blood 108 mg/dL (75-99)
[2019-03-12] MEDS: PANTOPRAZOLE 40 MG/10 ML VIAL IV SCH (08:12)
[2019-03-12] MEDS: HEPARIN SODIUM,PORCINE 5,000 UNIT/ML 1 ML VIAL SQ SCH ×3 (08:14→23:35)
[2019-03-12] MEDS: CHLORHEXIDINE GLUCONATE 15 ML CUP MUCOUS MEM SCH ×2 (08:14→20:37)
[2019-03-12] MEDS: IPRATROPIUM-ALBUTEROL 3 ML NEB INHALATION SCH ×4 (08:53→19:38)
--- NOTE | 2019-03-12 10:36 | PN ---
PROGRESS NOTE DATE OF SERVICE: 03/12/2019 Critical care time 32 minutes. This is a 44-year-old female with a history of multiple suicide attempts in the past and more recently secondary to THC, amphetamines and methamphetamine. She had a previous recent admission at [facility] for similar suicide attempt. The patient was admitted with a diagnosis of respiratory failure secondary to aspiration. She developed acute lung injury with ARDS. The patient has a history of acute kidney injury, acute rhabdomyolysis, hypotension, sepsis, metabolic acidosis, polysubstance abuse, and depression. She was initially admitted on February 26 and intubated on the same day. She is postop day #5, status post tracheostomy and PEG tube placement done by Dr. Mario Oates. She has been on trach collar now for a couple of days. She is on 28% trach collar. Doing relatively well. She is getting a basic IV of saline at 20 mL an hour. She has got Vital AF 1.2 at 65 with a goal of 65 mL an hour. Yesterday, we actually got her out of bed and walked up and down the hallway. All-in-all doing very well. The plan was initially to send her to [facility], but I believe she does not really need to go. She probably could now stay here. PHYSICAL EXAMINATION: VITAL SIGNS: Current vital signs are reviewed temperature is 99.3 heart rate respiratory rate 28, blood pressure 113/76 mean 88 and 28% trach collar, saturation 96%. GENERAL: Appears in no acute distress. HEENT examination is grossly unremarkable. NECK: Neck is supple. Full range of motion. There is midline tracheostomy with trach collar in place. CARDIOVASCULAR examination reveals regular rhythm and rate. Heart rate 80. LUNGS reveal a few scattered rhonchi. No wheezes or crackles. ABDOMEN is obese. Bowel sounds are heard. PEG tube is noted. EXTREMITIES are intact. Minimal edema. SKIN without rash. NEUROLOGIC examination is brief but nonfocal. LABS: Reviewed. No labs from today as yet. Microbiology is reviewed. The patient had a Gram stain back in February 26 showing Staph aureus. More recently, she has had blood cultures and catheter tip showing coag- negative Staph/Staph epidermidis. No recent chest x-ray. Medications are reviewed. ASSESSMENT: 1. Acute hypoxemic respiratory failure secondary to polysubstance overdose with intubation and mechanical ventilation beginning on February 26, 2019, related to underlying aspiration pneumonia. 2. Failure to wean from mechanical ventilation status postop day #4. 3. Tracheostomy and PEG tube placement. 4. Diffuse pneumonitis with acute respiratory distress syndrome. 5. Rhabdomyolysis induced acute kidney injury, improved. 6. History of polysubstance overdose with marijuana, amphetamines, methamphetamine. 7. Hypotension secondary to pneumonia and sepsis, resolved. 8. Acute metabolic acidosis. 9. History of polysubstance abuse, multiple previous suicide attempts. 10.History of depression. 11.History of asthma. 12.Failure to wean from mechanical ventilation, status post tracheostomy and PEG tube placement. PLAN: The patient has been successfully on trach collar for more than 2 days. She is doing well. She has been weaned down to 28%. Her initial infection was related to oxacillin sensitive Staph aureus back on February 26. That has been treated. Infectious Disease is following. We will continue to follow. Prognosis is guarded. I likely will not need to go to [facility] at this time. Will let the primary decide. GENA / ISABELAN: [id number] /
[2019-03-12 11:10] LABS: HCT 30.2 % (34.0-46.0); HGB 9.3 gm/dL (11.4-16.0); MCH 26.8 pg (25.0-35.0); MCHC 30.8 g/dL (31.0-37.0); MCV 86.9 fL (80.0-100.0); Mean Platelet Volume 7.6; Platelet Count 345 k/uL (150-450); RBC 3.47 m/uL (3.80-5.40); RDW 15.4 % (11.5-15.5); WBC 8.2 k/uL (3.8-10.6)
[2019-03-12 11:21] LABS: African American GFR (CKD) >90 (>60 ml/min/1.73 sqM); Anion Gap 6 mmol/L; Blood Urea Nitrogen 10 mg/dL (7-17); Calcium 8.4 mg/dL (8.4-10.2); Carbon Dioxide 24 mmol/L (22-30); Chloride 109 mmol/L (98-107); Glucose 105 mg/dL (74-99); Magnesium 1.9 mg/dL (1.6-2.3); Phosphorus 3.9 mg/dL (2.5-4.5); Potassium 3.8 mmol/L (3.5-5.1); Sodium 139 mmol/L (137-145)
[2019-03-12 12:26] LABS: Glucose,Whole Blood 105 mg/dL (75-99)
[2019-03-12] MEDS: VANCOMYCIN 2,250 MG in SODIUM CHLORIDE 0.9% 500 ML 500 ML IVPB SCH ×2 (12:56→22:06)
[2019-03-12] MEDS: ALTEPLASE 2 MG VIAL (CATHFLO) IV PRN ×4 (14:18→21:01)
[2019-03-12] MEDS: fentaNYL (PF) 2,500 MCG in SODIUM CHLORIDE 0.9% 200 ML IV SCH (14:34)
[2019-03-12 18:00] LABS: Glucose,Whole Blood 107 mg/dL (75-99)
[2019-03-12] MEDS: HALOPERIDOL 5 MG TAB PO PRN (20:37)
[2019-03-12] MEDS: SCOPOLAMINE 1.5MG/72HR PATCH TRANSDERM SCH (20:37)
--- NOTE | 2019-03-12 23:15 | PN ---
PROGRESS NOTE DATE OF SERVICE: 03/11/2019. PRESENTING COMPLAINT: Tired. INTERVAL HISTORY: The patient was seen by me yesterday in the ICU. The patient initially presented with altered mental status, respiratory failure, had been taking amphetamines. The patient has remained off all sedative. Has a tracheostomy and a PEG tube. PEG tube running at goal. Patient also on trach shield. Comfortable. Following commands. REVIEW OF SYSTEMS: Cannot be done as patient is on a trach. CURRENT MEDICATIONS: Reviewed that include DuoNeb, vancomycin. PHYSICAL EXAMINATION: On examination, temperature 98.8, respiratiosn 20, blood pressure 100/70, pulse ox 93 percent on trach shield. GENERAL APPEARANCE: Lying in bed, awake, comfortable. EYES: Pupils equal. Conjunctivae normal. NECK: Tracheostomy in place with a trach shield. Respiratory effort normal. LUNGS: Decreased breath sounds. CARDIOVASCULAR: 1st and 2nd sounds normal. No edema. ABDOMEN: Soft, nontender. Liver and spleen not palpable. PEG tube in place. NEUROLOGICAL: Moving all 4 limbs. Following commands. INVESTIGATIONS: White count 9.6, hemoglobin 9.6, potassium 4.1, BUN 11, creatinine 0.43. Accu-Cheks noted 95 and 93. ASSESSMENT: 1. Acute bilateral pneumonia suspect aspiration pneumonia. Cultures positive for MSSA. Has completed course of antibiotic. 2. Acute metabolic encephalopathy, multifactorial resolved. 3. Acute hypoxic respiratory failure. The patient has got a tracheostomy and a CPAP. 4. Acute drug overdose, multiple, including methamphetamine. 5. Acute kidney injury due to ATN, resolved. 6. Acute rhabdomyolysis. 7. Septic shock from pneumonia, resolved. 8. Metabolic acidosis. 9. History of depression, not otherwise specified. 10.Morbid obesity BMI 44.3. 11.Chronic nicotine dependence, patient is a cigarette smoker. 12.Marijuana use. 13.Tracheostomy and PEG tube on 03/07/2019. PLAN: Continue current medication and treatment plan. Patient continues to improve. The patient is on vancomycin. Will have Dr. Paniagua finalize the antibiotics. MMODL / IJN: [id number] /
--- NOTE | 2019-03-12 23:21 | PN ---
PROGRESS NOTE DATE OF SERVICE: March 12, 2019. PRESENTING COMPLAINT: Tired. INTERVAL HISTORY: Patient admitted with altered mental status, respiratory failure, had been taking amphetamine. The patient remains off the ventilator on a trach shield of 28%. PEG tube feeding is at goal. Comfortable, following commands. REVIEW OF SYSTEMS: Cannot be done as patient is on trach. CURRENT MEDICATIONS: Reviewed that include vancomycin. PHYSICAL EXAMINATION: VITAL SIGNS: Temperature 98.5, pulse 86, respirations 20, blood pressure 95/67, pulse ox 99% on trach collar 28%. GENERAL APPEARANCE: Lying in bed, awake. EYES: Pupils are equal. Conjunctivae normal. NECK: Tracheostomy in place. RESPIRATORY effort normal. LUNGS decreased breath sounds. CARDIOVASCULAR: 1st and 2nd sounds normal. No edema. ABDOMEN: Soft, nontender. Liver and spleen not palpable. PEG tube in place. NEUROLOGICAL: Moving all 4 limbs. Following commands. INVESTIGATIONS: White count 8.2, hemoglobin 9.3, potassium 3.8, BUN 10, creatinine 0.42. Accu-Cheks are noted. ASSESSMENT: 1. Acute bilateral pneumonia suspect aspiration pneumonia secondary to MSSA, status post antibiotic. 2. Acute metabolic encephalopathy multifactorial resolved. 3. Acute hypoxic respiratory failure. The patient has a tracheostomy and a CPAP. 4. Acute drug overdose, multiple including methamphetamine. 5. Acute kidney injury due to acute tubular necrosis, resolved. 6. Acute rhabdomyolysis. 7. Septic shock from pneumonia on presentation. 8. Metabolic acidosis. 9. History of depression not otherwise specified. 10.Morbid obesity BMI 44.3. 11.Chronic nicotine dependence, patient is a cigarette smoker. 12.Marijuana use. 13.Tracheostomy and a PEG tube as of 03/07/2019. PLAN: Overall doing much better. The patient will not be needing [facility]. In regards to tracheostomy and whether it can be capped and swallowing, we will defer this to Pulmonary to determine the same. Activity santana, doing much better. We will discuss with Pulmonary about disposition tomorrow. MMODL / IJN: [id number] /
[2019-03-12 23:47] LABS: Glucose,Whole Blood 98 mg/dL (75-99)
[2019-03-13] MEDS: HYDROmorphone 1 MG/ML 1 ML SYRINGE IVP PRN ×8 (00:02→22:33)
[2019-03-13 05:44] LABS: Glucose,Whole Blood 116 mg/dL (75-99)
[2019-03-13 05:47] LABS: African American GFR (CKD) >90 (>60 ml/min/1.73 sqM)
[2019-03-13] MEDS: INSULIN ASPART (NovoLOG) 100 UNIT/ML VIAL SQ SCH ×3 (05:48→19:13)
[2019-03-13 06:32] LABS: HCT 29.7 % (34.0-46.0); HGB 9.6 gm/dL (11.4-16.0); MCH 27.8 pg (25.0-35.0); MCHC 32.2 g/dL (31.0-37.0); MCV 86.3 fL (80.0-100.0); Mean Platelet Volume 8.8; Platelet Count 278 k/uL (150-450); RBC 3.44 m/uL (3.80-5.40); RDW 15.7 % (11.5-15.5); WBC 7.8 k/uL (3.8-10.6)
[2019-03-13 06:38] LABS: Anion Gap 6 mmol/L; Blood Urea Nitrogen 11 mg/dL (7-17); Calcium 8.4 mg/dL (8.4-10.2); Carbon Dioxide 23 mmol/L (22-30); Chloride 111 mmol/L (98-107); Glucose 112 mg/dL (74-99); Magnesium 1.9 mg/dL (1.6-2.3); Phosphorus 4.1 mg/dL (2.5-4.5); Potassium 3.8 mmol/L (3.5-5.1); Sodium 140 mmol/L (137-145)
[2019-03-13] MEDS ORDERED: POTASSIUM BICARBONATE/CIT AC 20 MEQ TABLET.EFF NG-TUBE ONE (07:00)
[2019-03-13] MEDS: MAGNESIUM SULFATE-D5W PMX 1 GM in DEXTROSE/WATER 1 100ML.BAG IVPB SCH ×2 (07:05→08:38)
[2019-03-13] MEDS: IPRATROPIUM-ALBUTEROL 3 ML NEB INHALATION SCH ×4 (08:03→20:17)
[2019-03-13] MEDS: CHLORHEXIDINE GLUCONATE 15 ML CUP MUCOUS MEM SCH ×2 (08:37→21:09)
[2019-03-13] MEDS: PANTOPRAZOLE 40 MG/10 ML VIAL IV SCH (08:38)
[2019-03-13] MEDS: HEPARIN SODIUM,PORCINE 5,000 UNIT/ML 1 ML VIAL SQ SCH ×2 (08:38→15:20)
[2019-03-13] MEDS: fentaNYL (PF) 2,500 MCG in SODIUM CHLORIDE 0.9% 200 ML IV SCH (09:04)
[2019-03-13] MEDS: VANCOMYCIN 2,250 MG in SODIUM CHLORIDE 0.9% 500 ML 500 ML IVPB SCH (10:15)
--- NOTE | 2019-03-13 11:31 | XR ---
EXAMINATION TYPE: XR chest 1V portable DATE OF EXAM: 03/13/2019 COMPARISON: 03/10/2019 HISTORY: Pneumonia and ARDS TECHNIQUE: Single frontal view of the chest is obtained. FINDINGS: The tracheostomy tube is noted. There are low lung volumes. Scattered interstitial opaciti es are scattered throughout the lungs with no discrete alveolar opacities. No sizable pneumothorax or pleural effusion. Left-sided PICC terminates in the proximal superior vena cava. Cardiomediastinal s ilhouette is within normal limits. IMPRESSION: Low lung volumes and diffuse interstitial airspace disease. Overall improved aeration o f the lungs in comparison the prior.
[2019-03-13 11:44] VITALS: BMI 39.2
[2019-03-13 12:02] LABS: Glucose,Whole Blood 91 mg/dL (75-99)
--- NOTE | 2019-03-13 13:44 | P.PN ---
Progress Note - Text Progress Note Date: 03/13/19 Patient remains on trach collar. Tolerating tube feeds at goal. Going for modified swallow today. No issues related to the tracheostomy or PEG tube. We'll follow intermittently.
--- NOTE | 2019-03-13 14:50 | FL ---
EXAMINATION TYPE: FL barium swallow w video DATE OF EXAM: 03/13/2019 MODIFIED SWALLOW / DEGLUTITION STUDY CLINICAL HISTORY: Post tracheostomy placement exam. TECHNIQUE: Deglutition study is performed utilizing thin liquid barium, honey and nectar thick liqui d barium, barium thick applesauce, and barium coated cracker. 1.07 minutes of fluoroscopy time was ut ilized with 0 images saved as the examination was video recorded. COMPARISON: None. FINDINGS: The oral and pharyngeal phases show satisfactory initiation and propagation with all modali ties tested. Normal mastication is seen with solid modalities tested. There is no evidence of penet ration or aspiration with any modality tested. No significant pharyngeal residue was appreciated. IMPRESSION: Normal deglutition study. Please refer to speech therapist notes for further details if necessary.
[2019-03-13] MEDS: ACETAMINOPHEN TAB 500 MG TAB PEG/G-TUBE PRN (16:52)
--- NOTE | 2019-03-13 17:43 | P.PN ---
Subjective Progress Note Date: 03/13/19 On today's evaluation of 03/13/2019 the patient is awake and alert and following commands and answering questions appropriately. She is post prolonged ventilator dependent respiratory failure and the patient is a tracheostomy tube in place with a 28% trach collar. She also underwent a swallow evaluation and she passed blood any major difficulties. She has a PEG tube for enteral feeding and nutritional support. I recommended switching her to oral feeds. She'll be seen also by psychiatry. No muscle weakness. No fever. No chills. No other significant events over the past 24 hours. The patient had staph aureus in the sputum the patient completed the course of vancomycin. This was an MSSA. Nevertheless the patient also had staph epidermidis in the catheter tip and in the blood. ID is on the case. Most recent hemoglobin is at 9.6. White cell count is not elevated at 7.8. Objective - Vital Signs Vital signs: Vital Signs Temp 98.5 F 03/13/19 16:00 Pulse 101 H 03/13/19 16:34 Resp 30 H 03/13/19 16:00 BP 116/75 03/13/19 16:00 Pulse Ox 88 L 03/13/19 16:00 Intake & Output 03/12/19 03/13/19 03/13/19 18:59 06:59 18:59 Intake Total 1635 1780 1450 Output Total 1190 801 Balance 485 757 9426 Weight 117.2 kg 117.2 kg Intake: IV 520 600 600 KVO 20 Magnesium Sulfate-D5w Pmx 100 100 1 gm In Dextrose/Water 1 100ml.bag @ 100 mls/hr IVPB Q1H BRETT Rx#: [id number] Vancomycin 2,000 mg In 500 Sodium Chloride 0.9% 500 ml 500 ml @ 167 mls/hr IVPB Q12H BRETT Rx#: [id number] Vancomycin 2,250 mg In 500 500 Sodium Chloride 0.9% 500 ml 500 ml @ 167 mls/hr IVPB Q12H BRETT Rx#: [id number] Tube Feeding 715 780 650 Other 400 400 200 Output: Urine 1190 800 Stool 1 Other: Voiding Method Indwelling Catheter Bedside Commode # Voids 1 1 ABP, PAP, CO, CI - Last Documented Arterial Blood Pressure 108/96 - Exam Gen. appearance, comfortable molecular distress Head exam was generally normal. There was no scleral icterus or corneal arcus. Mucous membranes were moist. Neck was supple and without jugular venous distension, thyromegaly, or carotid bruits. Carotids were easily palpable bilaterally. There was no adenopathy. The patient has an extra long Shiley tracheostomy tube in place. Lungs were clear to auscultation and percussion, and with normal diaphragmatic excursion. No wheezes or rales were noted. Cardiac exam revealed the PMI to be normally situated and sized. The rhythm was regular and no extrasystoles were noted during several minutes of auscultation. The first and second heart sounds were normal and physiologic splitting of the second heart sound was noted. There were no murmurs, rubs, clicks, or gallops. Abdominal exam revealed normal bowel sounds. The abdomen was soft, non-tender, and without masses, organomegaly, or appreciable enlargement of the abdominal aorta. The patient has a PEG tube in place. Examination of the extremities revealed easily palpable radial, femoral and pedal pulses. There was no cyanosis, clubbing or edema. Examination of the skin revealed no evidence of significant rashes, suspicious appearing nevi or other concerning lesions. Neurologically the patient is awake and alert and there is no focal neurological deficits. - Labs CBC & Chem 7: 03/13/19 06:00 03/13/19 05:22 Labs: Abnormal Lab Results - Last 24 Hours (Table) 03/12/19 03/13/19 03/13/19 Range/Units 17:48 05:22 05:33 RBC (3.80-5.40) m/uL Hgb (11.4-16.0) gm/dL Hct (34.0-46.0) % RDW (11.5-15.5) % Chloride 111 H (98-107) mmol/L Creatinine 0.41 L (0.52-1.04) mg/dL Glucose 112 H (74-99) mg/dL POC Glucose (mg/dL) 107 H 116 H (75-99) mg/dL 03/13/19 Range/Units 06:00 RBC 3.44 L (3.80-5.40) m/uL Hgb 9.6 L (11.4-16.0) gm/dL Hct 29.7 L (34.0-46.0) % RDW 15.7 H (11.5-15.5) % Chloride (98-107) mmol/L Creatinine (0.52-1.04) mg/dL Glucose (74-99) mg/dL POC Glucose (mg/dL) (75-99) mg/dL Assessment and Plan Plan: 1 acute hypoxic respiratory failure with diffuse bilateral pulmonary infiltrates, recovered and the patient had staph aureus in his sputum. The patient completed treatment and the patient has a tracheostomy tube in place for now there was inserted as part of her weaning process. She is currently on trach collar oxygen. Calm and comfortable. Chest x-ray showing improvement in bilateral pulmonary infiltrates. She does have low lung volumes and there is improved aeration and there is some persistent interstitial changes bilaterally. 2 acute altered mental status was secondary to his drug overdose, improved and the patient has recovered and normalized in terms of her mentation 3 acute rhabdomyolysis, recovered 4 acute kidney injury, improving and the creatinine is normalized 5 hypotension, recovered normal hemodynamics 6 acute metabolic acidosis improved 7polysubstance abuse with multiple drugs identified on the urine drug screen 8 history of depression 9 previous history of MRSA skin infection 10 enteral feeding via PEG tube for nutritional support 11 line infection with staph epi Plan Complete a course of vancomycin and then stop. The patient will be switched to Keflex 500 mg 4 times a day per IDs recommendation. Swallow evaluation was done and the patient passed and the patient will be given oral feeds instead of enteral nutrition. Continue bronchodilators. Pulmonary toileting. Second evaluation. We'll continue to follow. Restart Zoloft 100 mg by mouth daily. Restart BuSpar 50 mg by mouth 3 times a day.
[2019-03-13] MEDS: CEPHALEXIN 500 MG CAP PO SCH ×2 (17:48→21:39)
[2019-03-13 18:11] LABS: Glucose,Whole Blood 113 mg/dL (75-99)
[2019-03-13 18:41] LABS: Glucose,Whole Blood 112 mg/dL (75-99)
[2019-03-13 20:40] LABS: Glucose,Whole Blood 78 mg/dL (75-99)
[2019-03-13] MEDS: MELATONIN 1 MG TAB PO SCH (21:39)
[2019-03-13] MEDS: busPIRone HCl 5 MG TAB PO SCH (21:39)
--- NOTE | 2019-03-13 23:46 | P.PN ---
Subjective Progress Note Date: 03/13/19 44-year-old female who is known to the service from her recent hospitalization at an outside facility. During that stay the patient had a polysubstance overdose and was found with respiratory failure in a parked vehicle. She was resuscitated in an intensive care unit. She was intubated sedated and mechanically ventilated and there was concerns to anoxic encephalopathy as well as to ARDS. The patient surprisingly improved her status quite quickly and regained her mental status. Eventually she was discharged to the outpatient psychiatric follow-up service and her regular medical care. The patient again suffered a polysubstance overdose was brought to hospital with evidence of actinic acidosis, mild rhabdomyolysis and respiratory failure hypoxic in nature. She required intubation and mechanical ventilation and was evidence of significant pulmonic infiltration. Initially she required vasopressor support as well as bicarbonate therapy. Eventually these improved, her renal failure improved but she remained with poor pulmonary status. Because of his tracheostomy and PEG tube him and placed to assist with her recovery. At this time the patient is sitting upright she is able to follow simple commands and is able to communicate to yes and no questions effectively. She is de veloped a fever to 101.5 and with at the infectious diseases consultation was requested 03/13/2019 patient is now had marked improvement. Trach and PEG have been performed she's now on trach collar. She is taking in food and nutrition orally as well through her PEG. She's had significant improvement of her status Objective - Vital Signs Vital signs: Vital Signs Temp 98.9 F 03/13/19 20:00 Pulse 97 03/13/19 22:00 Resp 34 H 03/13/19 22:00 BP 108/98 03/13/19 22:00 Pulse Ox 95 03/13/19 22:00 Intake & Output 03/13/19 03/13/19 03/14/19 06:59 18:59 06:59 Intake Total 1780 1780 610 Output Total 801 2 Balance 979 1780 608 Weight 117.2 kg 117.2 kg Intake: IV 600 600 0 KVO 0 Magnesium Sulfate-D5w Pmx 100 100 1 gm In Dextrose/Water 1 100ml.bag @ 100 mls/hr IVPB Q1H BRETT Rx#: [id number] Vancomycin 2,250 mg In 500 500 Sodium Chloride 0.9% 500 ml 500 ml @ 167 mls/hr IVPB Q12H BRETT Rx#: [id number] Oral 50 Tube Feeding 780 780 260 Other 400 400 300 Output: Urine 800 1 Stool 1 1 Other: Voiding Method Bedside Commode Bedside Commode # Voids 1 1 1 # Bowel Movements 1 ABP, PAP, CO, CI - Last Documented Arterial Blood Pressure 108/96 - Exam 44-year-old woman who is mechanically ventilated via tracheostomy, is comfortable HEENT: Anicteric conjunctiva are pink and moist nasal mucosa grossly intact without significant lesions, there is no thrush. Tracheostomy tube site is intact without bleeding or drainage Neck: The neck is supple without significant lymphadenopathy or thyromegaly be palpated around the tracheostomy Lungs: Symmetrical bilateral air entry is noted, basilar crackles are heard. Expiratory wheezes are heard no muna bronchial cells dullness are noted Heart: Regular rate and rhythm with an audible S1-S2, no S3 no S4. There is no significant murmur click or rub, PMI was nondisplaced. Abdomen: Mildly obese, Positive bowel sounds soft and nontender without palpable masses or organomegaly. There was no guarding or rebound. The PEG tube site is intact without bleeding or drainage Extremities: The left upper extremity has evidence of some ulceration on the arm. There some scant drainage. PICC line left arm is intact. The bilateral lower extremities have evidence of some edema but no significant open lesions are seen The right groin has evidence of the prior triple-lumen catheter site that is without erythema or crepitance fluctuance or expressible drainage. No lymphadenopathy is noted in the right groin and no other abnormal lymph nodes are noted cervical epitrochlear or axillary at this time Neuro: The patient is awake and alert and follows commands such as hand squeezing and lifting bilateral lower extremities upon command. Upon questioning she is able to relate that she is having some pain in her tracheostomy site is otherwise comfortable. When asking how she is doing she seems to have improved mood today., Is aware of her progress - Labs CBC & Chem 7: 03/13/19 06:00 03/13/19 05:22 Labs: Abnormal Lab Results - Last 24 Hours (Table) 03/13/19 03/13/19 03/13/19 Range/Units 05:22 05:33 06:00 RBC 3.44 L (3.80-5.40) m/uL Hgb 9.6 L (11.4-16.0) gm/dL Hct 29.7 L (34.0-46.0) % RDW 15.7 H (11.5-15.5) % Chloride 111 H (98-107) mmol/L Creatinine 0.41 L (0.52-1.04) mg/dL Glucose 112 H (74-99) mg/dL POC Glucose (mg/dL) 116 H (75-99) mg/dL 03/13/19 03/13/19 Range/Units 17:59 18:30 RBC (3.80-5.40) m/uL Hgb (11.4-16.0) gm/dL Hct (34.0-46.0) % RDW (11.5-15.5) % Chloride (98-107) mmol/L Creatinine (0.52-1.04) mg/dL Glucose (74-99) mg/dL POC Glucose (mg/dL) 113 H 112 H (75-99) mg/dL Laboratory Results WBC 7.8 k/uL (3.8-10.6) 03/13/19 06:00 RBC 3.44 m/uL (3.80-5.40) L 03/13/19 06:00 Hgb 9.6 gm/dL (11.4-16.0) L 03/13/19 06:00 Hct 29.7 % (34.0-46.0) L 03/13/19 06:00 MCV 86.3 fL (80.0-100.0) 03/13/19 06:00 MCH 27.8 pg (25.0-35.0) 03/13/19 06:00 MCHC 32.2 g/dL (31.0-37.0) 03/13/19 06:00 RDW 15.7 % (11.5-15.5) H 03/13/19 06:00 Plt Count 278 k/uL (150-450) 03/13/19 06:00 Neutrophils % 79 % 03/09/19 05:02 Lymphocytes % 16 % 03/09/19 05:02 Monocytes % 3 % 03/09/19 05:02 Eosinophils % 1 % 03/09/19 05:02 Basophils % 0 % 03/09/19 05:02 Neutrophils # 12.6 k/uL (1.3-7.7) H 03/09/19 05:02 Lymphocytes # 2.6 k/uL (1.0-4.8) 03/09/19 05:02 Monocytes # 0.5 k/uL (0-1.0) 03/09/19 05:02 Eosinophils # 0.2 k/uL (0-0.7) 03/09/19 05:02 Basophils # 0.0 k/uL (0-0.2) 03/09/19 05:02 Hypochromasia Slight 03/11/19 05:27 PT 11.1 sec (9.0-12.0) 03/07/19 05:22 INR 1.0 (<1.2) 03/07/19 05:22 APTT 24.4 sec (22.0-30.0) 02/26/19 14:55 Sample Site rrad 03/10/19 04:38 ABG pH 7.39 (7.35-7.45) 03/10/19 04:38 ABG pCO2 38 mmHg (35-45) 03/10/19 04:38 ABG pO2 130 mmHg (83-108) H 03/10/19 04:38 ABG HCO3 23 mmol/L (21-25) 03/10/19 04:38 ABG Total CO2 25 mmol/L (19-24) H 03/10/19 04:38 ABG O2 Saturation 98.8 % (94-97) H 03/10/19 04:38 ABG Base Excess -1.5 mmol/L 03/10/19 04:38 Rob Test Yes 03/10/19 04:38 FiO2 40 % 03/10/19 04:38 Sodium 140 mmol/L (137-145) 03/13/19 05:22 Potassium 3.8 mmol/L (3.5-5.1) 03/13/19 05:22 Chloride 111 mmol/L (98-107) H 03/13/19 05:22 Carbon Dioxide 23 mmol/L (22-30) 03/13/19 05:22 Anion Gap 6 mmol/L 03/13/19 05:22 BUN 11 mg/dL (7-17) 03/13/19 05:22 Creatinine 0.41 mg/dL (0.52-1.04) L 03/13/19 05:22 Est GFR (CKD-EPI)AfAm >90 (>60 ml/min/1.73 sqM) 03/13/19 05:22 Est GFR (CKD-EPI)NonAf >90 (>60 ml/min/1.73 sqM) 03/13/19 05:22 Glucose 112 mg/dL (74-99) H 03/13/19 05:22 POC Glucose (mg/dL) 78 mg/dL (75-99) 03/13/19 20:28 POC Glu Blood Bank Attendant ID Christiane Salter 03/13/19 20:[address] Glu mg/dL 105 02/27/19 05:20 Hemoglobin A1c 5.3 % (4.0-6.0) 02/27/19 05:20 Lactic Ac Sepsis Rflx Y 02/26/19 15:27 Plasma Lactic Acid Jan 1.0 mmol/L (0.7-2.0) 02/26/19 18:35 Calcium 8.4 mg/dL (8.4-10.2) 03/13/19 05:22 Phosphorus 4.1 mg/dL (2.5-4.5) 03/13/19 05:22 Magnesium 1.9 mg/dL (1.6-2.3) 03/13/19 05:22 Total Bilirubin 0.4 mg/dL (0.2-1.3) 03/05/19 05:40 AST 31 U/L (14-36) 03/05/19 05:40 ALT 42 U/L (9-52) 03/05/19 05:40 Alkaline Phosphatase 93 U/L (38-126) 03/05/19 05:40 Creatine Kinase 894 U/L (30-135) H 02/28/19 05:30 CK-MB (CK-2) 12.7 ng/mL (0.0-2.4) H 02/26/19 14:55 Troponin I <0.012 ng/mL (0.000-0.034) 02/26/19 14:55 NT-Pro-B Natriuret Pep 1090 pg/mL 02/26/19 14:55 Total Protein 5.8 g/dL (6.3-8.2) L 03/05/19 05:40 Albumin 3.1 g/dL (3.5-5.0) L 03/05/19 05:40 Triglycerides 988 mg/dL (<150) H 03/07/19 05:22 HCG, Qual Not Detected 03/07/19 05:22 Urine Color Yellow 02/26/19 14:55 Urine Appearance Clear (Clear) 02/26/19 14:55 Urine pH 6.0 (5.0-8.0) 02/26/19 14:55 Ur Specific [place] 1.024 (1.001-1.035) 02/26/19 14:55 Urine Protein 1+ (Negative) H 02/26/19 14:55 Urine Glucose (UA) Negative (Negative) 02/26/19 14:55 Urine Ketones Negative (Negative) 02/26/19 14:55 Urine Blood Trace (Negative) H 02/26/19 14:55 Urine Nitrite Negative (Negative) 02/26/19 14:55 Urine Bilirubin Negative (Negative) 02/26/19 14:55 Urine Urobilinogen <2.0 mg/dL (<2.0) 02/26/19 14:55 Ur Leukocyte Esterase Negative (Negative) 02/26/19 14:55 Urine RBC 2 /hpf (0-5) 02/26/19 14:55 Urine WBC 1 /hpf (0-5) 02/26/19 14:55 Ur Squamous Epith Cells <1 /hpf (0-4) 02/26/19 14:55 Amorphous Sediment Rare /hpf (None) H 02/26/19 14:55 Hyaline Casts 43 /lpf (0-2) H 02/26/19 14:55 Urine Mucus Rare /hpf (None) H 02/26/19 14:55 Vancomycin Trough 13.1 ug/mL 03/11/19 23:26 Urine Opiates Screen Not Detected (NotDetected) 02/26/19 14:55 Ur Oxycodone Screen Not Detected (NotDetected) 02/26/19 14:55 Urine Methadone Screen Not Detected (NotDetected) 02/26/19 14:55 Ur Propoxyphene Screen Not Detected (NotDetected) 02/26/19 14:55 Ur Barbiturates Screen Not Detected (NotDetected) 02/26/19 14:55 U Tricyclic Antidepress Detected (NotDetected) H 02/26/19 14:55 Ur Phencyclidine Scrn Not Detected (NotDetected) 02/26/19 14:55 Ur Amphetamines Screen Detected (NotDetected) H 02/26/19 14:55 U Methamphetamines Scrn Detected (NotDetected) H 02/26/19 14:55 U Benzodiazepines Scrn Not Detected (NotDetected) 02/26/19 14:55 Urine Cocaine Screen Not Detected (NotDetected) 02/26/19 14:55 U Marijuana (THC) Screen Not Detected (NotDetected) 02/26/19 14:55 Microbiology 03/10/19 08:45 Sputum Gram Stain - Final 03/10/19 08:45 Sputum Sputum Culture - Final 03/08/19 12:00 Blood Blood Culture Gram Stain - Final 03/08/19 12:00 Blood Blood Culture - Final Staphylococcus epidermidis 03/08/19 05:20 Catheter Tip Catheter Tip Culture - Final Staphylococcus epidermidis Gram Neg Bacilli 03/08/19 12:00 Urine,Catheterized Urine Culture - Final 03/08/19 12:00 Blood Blood Culture - Final 02/26/19 14:55 Blood Blood Culture - Final No Growth after 144 hours 02/26/19 19:00 Sputum Gram Stain - Final 02/26/19 19:00 Sputum Sputum Culture - Final Staphylococcus aureus 02/26/19 14:55 Urine,Catheterized Urine Culture - Final Assessment and Plan (1) Methamphetamine abuse Current Visit: Yes Status: Acute Code(s): F15.10 - OTHER STIMULANT ABUSE, UNCOMPLICATED SNOMED Code(s): 982790414 (2) Acute respiratory failure with hypoxia Current Visit: Yes Status: Acute Code(s): J96.01 - ACUTE RESPIRATORY FAILURE WITH HYPOXIA SNOMED Code(s): 25560614 (3) Depression Current Visit: Yes Status: Acute Code(s): F32.9 - MAJOR DEPRESSIVE DISORDER, SINGLE EPISODE, UNSPECIFIED SNOMED Code(s): 10395011 (4) Gram-positive cocci bacteremia Narrative/Plan: 44-year-old male presents to hospital with her second polysubstance overdose in a relatively short period of time. On this event she has developed respiratory failure that did not respond to ongoing treatment and is now had tracheostomy tube placed. 41 she's having some improvements but there is still plan for her to transfer to a ventilator facility in the near future. As noted she did have a fever approximately 48 hours ago. This is now improved. The right groin central line was removed and PICC lines in place in the left arm. There is a blood culture with coagulase-negative staph. Follow blood cultures are pending. Catheter tip appearing also had some coagulase-negative staph. At this time removing of the catheter will be the effective treatment. We will utilize 48 hours of vancomycin to ensure no other pathogens are found. The patient has had approximately 11 days of antibiotic therapy. MSSA was isolated from her sputum. Once IV vancomycin has been discontinued within be able to utilize cephalexin suspension via her PEG tube, planning another 7 days. Renal failure has resolved. Leukocytosis is improving. This evidence of a few lesions on her left arm for which silver alginate will be applied and wrapped in place. 03/13/2019 patient has had ongoing significant improvement of her status. There is evidence of the improvement respiratory failure she no history [place] in place. Her swallowing apparently is adequate and she is able to take in some nutrition orally and nursing relates that she is able to swallow some pills. Overall marked improvement. Leukocytosis has generally resolved. The blood culture was collected was negative staph in his contamination to does not need any further vancomycin therapy and is discontinued. For the recent MSSA from her sputum would complete a course of oral Keflex 500 mg every 6 hours with nursing relates she can take as a tablet through her oral cavity. Current Visit: Yes Status: Acute Code(s): R78.81 - BACTEREMIA SNOMED Code(s): 791162853350
[2019-03-14] MEDS: HYDROmorphone 1 MG/ML 1 ML SYRINGE IVP PRN ×6 (00:47→16:37)
[2019-03-14] MEDS: HEPARIN SODIUM,PORCINE 5,000 UNIT/ML 1 ML VIAL SQ SCH ×4 (00:47→23:33)
[2019-03-14 05:41] LABS: Anisocytosis Slight; HCT 29.3 % (34.0-46.0); HGB 9.5 gm/dL (11.4-16.0); MCH 27.9 pg (25.0-35.0); MCHC 32.3 g/dL (31.0-37.0); MCV 86.4 fL (80.0-100.0); Platelet Count 347 k/uL (150-450); RBC 3.39 m/uL (3.80-5.40); RDW 16.1 % (11.5-15.5); WBC 8.5 k/uL (3.8-10.6)
[2019-03-14 05:51] LABS: African American GFR (CKD) >90 (>60 ml/min/1.73 sqM); Anion Gap 5 mmol/L; Blood Urea Nitrogen 8 mg/dL (7-17); Calcium 8.4 mg/dL (8.4-10.2); Carbon Dioxide 23 mmol/L (22-30); Chloride 110 mmol/L (98-107); Glucose 99 mg/dL (74-99); Phosphorus 3.8 mg/dL (2.5-4.5); Potassium 3.9 mmol/L (3.5-5.1); Sodium 138 mmol/L (137-145)
--- NOTE | 2019-03-14 06:29 | PN ---
PROGRESS NOTE DATE OF SERVICE: 03/13/2019 PRESENTING COMPLAINT: Tired. INTERVAL HISTORY: Patient admitted with altered mental status, respiratory failure, having taken amphetamines. The patient has got a trach shield and a PEG tube feeding. The patient went for a modified swallow eval today and did do that. The patient actually did walk in the hallways. Overall doing much better. REVIEW OF SYSTEMS: Review of systems was attempted reading. Patient is slightly anxious but not depressed. CURRENT MEDICATIONS: Current medications are reviewed. Vancomycin was discontinued by Dr. Paniagua, switched over to Keflex. PHYSICAL EXAMINATION: On examination, temperature 98.9, pulse 80, respiration 20, blood pressure 114/49, pulse ox 97% on room air. GENERAL APPEARANCE: Lying in bed, awake comfortable. EYES: Pupils equal. Conjunctivae normal. NECK: Tracheostomy in place. RESPIRATORY: Effort normal. LUNGS: Decreased breath sounds. CARDIOVASCULAR: First and second sounds normal. No edema. ABDOMEN: Soft, nontender. Liver and spleen not palpable. PEG tube in place. PSYCHIATRY: Alert and oriented x3. NEUROLOGICAL: Moving all 4 limbs. Following commands. Did walk in the hallway. INVESTIGATIONS: Accu-Cheks are noted. ASSESSMENT: 1. Acute bilateral pneumonia suspect aspiration pneumonia secondary to MSSA, improved. 2. Acute metabolic encephalopathy multifactorial, resolved. 3. Acute hypoxic respiratory failure, now resolved. 4. Patient has a tracheostomy tube and a PEG tube feeding. 5. Acute drug overdose including methamphetamine. 6. Acute kidney injury due to acute tubular necrosis, resolved. 7. Acute rhabdomyolysis. 8. Septic shock from pneumonia on presentation. 9. Metabolic acidosis. 10.History of depression, not otherwise specified. 11.Morbid obesity, body mass index 44.3. 12.Chronic nicotine dependence. Patient is a cigarette smoker. 13.Marijuana use. PLAN: Did talk to the patient, she would like to get discharged soon. The patient's 10-year- old daughter is living with her parents. floorworker distributor is involved in discharge planning. Will follow. The patient can have a feeding with cuff being deflated with at a later date will probably have tracheostomy removed and a PEG tube removed. MMODL / IJN: [id number] /
[2019-03-14] MEDS: INSULIN ASPART (NovoLOG) 100 UNIT/ML VIAL SQ SCH ×4 (07:56→21:16)
--- NOTE | 2019-03-14 08:56 | XR ---
EXAMINATION TYPE: XR chest 1V DATE OF EXAM: 03/14/2019 COMPARISON: Prior chest x-ray 03/13/2019 HISTORY: Pneumonia TECHNIQUE: Single frontal view of the chest is obtained. FINDINGS: Tracheostomy tube and left-sided PICC line are stable, distal tip of the PICC line is like ly the innominate vein. There is no pneumothorax or pleural effusion evident. Lung volumes are low. H eart size is stable and enlarged. Patient is rotated. Bilateral lungs show a similar appearance. IMPRESSION: Expiratory rotated exam. Correlate for possible pneumonia, edema, follow-up recommended.
[2019-03-14] MEDS: busPIRone HCl 5 MG TAB PO SCH ×3 (08:58→21:10)
[2019-03-14] MEDS: PANTOPRAZOLE 40 MG/10 ML VIAL IV SCH (08:58)
[2019-03-14] MEDS: SERTRALINE 100 MG TAB PO SCH (08:58)
[2019-03-14] MEDS: CEPHALEXIN 500 MG CAP PO SCH ×4 (08:59→21:12)
[2019-03-14] MEDS ORDERED: VANCOMYCIN TROUGH DUE 1 EACH MISC MISCELLANE ONE (09:00)
[2019-03-14] MEDS: IPRATROPIUM-ALBUTEROL 3 ML NEB INHALATION SCH ×4 (09:33→19:54)
--- NOTE | 2019-03-14 13:17 | P.PN ---
Subjective Progress Note Date: 03/14/19 On 03/14/2019 the patient doing well per no complaints. No respiratory distress. She has a tracheostomy tube in place. She has also a PEG tube in place. She is able to swallow properly as the patient's past a swallow evaluation. She is awake and alert. Following commands and answering questions. Function is stable. With a +0.5. She was to start on a combination of Zoloft and BuSpar. Sitter at the bedside. Objective - Vital Signs Vital signs: Vital Signs Temp 97.9 F 03/14/19 09:00 Pulse 80 03/14/19 13:07 Resp 28 H 03/14/19 11:00 BP 108/66 03/14/19 09:00 Pulse Ox 93 L 03/14/19 11:00 Intake & Output 03/13/19 03/14/19 03/14/19 18:59 06:59 18:59 Intake Total 1780 1730 425 Output Total 4 Balance 1780 1726 425 Weight 117.2 kg 119.2 kg Intake: IV 600 0 KVO 0 Magnesium Sulfate-D5w Pmx 100 1 gm In Dextrose/Water 1 100ml.bag @ 100 mls/hr IVPB Q1H BRETT Rx#: [id number] Vancomycin 2,250 mg In 500 Sodium Chloride 0.9% 500 ml 500 ml @ 167 mls/hr IVPB Q12H BRETT Rx#: [id number] Oral 50 360 Tube Feeding 780 780 65 Other 400 900 Output: Urine 1 Stool 3 Other: Voiding Method Bedside Commode Bedside Commode # Voids 1 1 1 # Bowel Movements 1 ABP, PAP, CO, CI - Last Documented Arterial Blood Pressure 108/96 - Exam Gen. appearance, comfortable molecular distress Head exam was generally normal. There was no scleral icterus or corneal arcus. Mucous membranes were moist. Neck was supple and without jugular venous distension, thyromegaly, or carotid bruits. Carotids were easily palpable bilaterally. There was no adenopathy. The patient has an extra long Shiley tracheostomy tube in place. Lungs were clear to auscultation and percussion, and with normal diaphragmatic excursion. No wheezes or rales were noted. Cardiac exam revealed the PMI to be normally situated and sized. The rhythm was regular and no extrasystoles were noted during several minutes of auscultation. The first and second heart sounds were normal and physiologic splitting of the second heart sound was noted. There were no murmurs, rubs, clicks, or gallops. Abdominal exam revealed normal bowel sounds. The abdomen was soft, non-tender, and without masses, organomegaly, or appreciable enlargement of the abdominal aorta. The patient has a PEG tube in place. Examination of the extremities revealed easily palpable radial, femoral and pedal pulses. There was no cyanosis, clubbing or edema. Examination of the skin revealed no evidence of significant rashes, suspicious appearing nevi or other concerning lesions. Neurologically the patient is awake and alert and there is no focal neurological deficits. - Labs CBC & Chem 7: 03/14/19 05:32 03/14/19 05:32 Labs: Abnormal Lab Results - Last 24 Hours (Table) 03/13/19 03/13/19 03/14/19 Range/Units 17:59 18:30 05:32 RBC (3.80-5.40) m/uL Hgb (11.4-16.0) gm/dL Hct (34.0-46.0) % RDW (11.5-15.5) % Chloride 110 H (98-107) mmol/L Creatinine 0.42 L (0.52-1.04) mg/dL POC Glucose (mg/dL) 113 H 112 H (75-99) mg/dL 03/14/19 Range/Units 05:32 RBC 3.39 L (3.80-5.40) m/uL Hgb 9.5 L (11.4-16.0) gm/dL Hct 29.3 L (34.0-46.0) % RDW 16.1 H (11.5-15.5) % Chloride (98-107) mmol/L Creatinine (0.52-1.04) mg/dL POC Glucose (mg/dL) (75-99) mg/dL Assessment and Plan Plan: 1 acute hypoxic respiratory failure with diffuse bilateral pulmonary infiltrates, recovered and the patient had staph aureus in his sputum. The patient completed treatment and the patient has a tracheostomy tube in place for now there was inserted as part of her weaning process. She is currently on trach collar oxygen. Calm and comfortable. Chest x-ray showing improvement in bilateral pulmonary infiltrates. She does have low lung volumes and there is improved aeration and there is some persistent interstitial changes bilaterally. 2 acute altered mental status was secondary to his drug overdose, improved and the patient has recovered and normalized in terms of her mentation 3 acute rhabdomyolysis, recovered 4 acute kidney injury, improving and the creatinine is normalized 5 hypotension, recovered normal hemodynamics 6 acute metabolic acidosis improved 7polysubstance abuse with multiple drugs identified on the urine drug screen 8 history of depression 9 previous history of MRSA skin infection 10 enteral feeding via PEG tube for nutritional support 11 line infection with staph epi Plan Patient is doing well. Completed course of Keflex. Trach care. We will proceed with decannulation of tracheostomy and removal PEG tube on outpatient basis after patient is discharged from the hospital. A psych evaluation. Restart Zoloft. Restart BuSpar. Increased level of activity as tolerated. C hest with this patient to a medical floor once cleared by psychiatry. Sitter at the bedside.
--- NOTE | 2019-03-14 13:43 | P.PN ---
Progress Note - Text Progress Note Date: 03/14/19 Interval History: Patient is a 44-year-old female who is being seen in follow-up to a psychiatric consultation. Patient was admitted with altered mental status requiring intubation and eventually a tracheostomy and a PEG tube. Patient was treated for pneumonia, she had also been treated in November of this year for a similar episode. Patient was seen in her room and she wrote her answers out on paper to my questions. Patient states that she had used methamphetamines a few times with a friend for fun didn't particularly like it and stated that in November 2018 she probably took too much but this was not a suicide attempt. Patient does not recall using methamphetamine before this admission even though her urine drug screen was positive for tricyclic antidepressants, amphetamines and methamphetamines. Patient states she has no recollection of events prior to coming into the hospital. Patient had been living with her 10-year-old daughter and is financially supported by her parents. Patient states that after her discharge from the hospital in November she was referred to [facility] or she has been going and treated with Zoloft 200 mg a day and BuSpar 15 mg 3 times a day. She states that she was treated for anxiety in the past when she wasn't leaving the house, was given Xanax in the past from her primary care physician and was seen in a clinic and treated with Celexa. Patient states that she was taking Celexa when she was admitted in November given by her primary care physician and it was changed when she went to [facility]. Patient states her next appointment at [facility] was to be on March 03. Patient states that she has never attempted suicide, has no current suicidal ideation and does not endorse a history of psychotic symptoms or manic symptoms. she states that she has had symptoms of depression since the age of 17 and has been on and off meds over the years and mostly on them. She states her anxiety at one point was severe enough to cause her to not leave the house. Patient feels that her current medications of Zoloft 200 mg a day and BuSpar 15 3 times a day been working well for her. She is unable to tell me why she had started using methamphetamines again. Mental Status: Appearance/Attitude: patient is lying in a hospital bed, she has a trach and did not talk but wrote her answers on a piece of paper to my questions and she was cooperative Behavior: patient did not exhibit any psychomotor agitation or retardation Speech/Language: patient was not speaking she wrote her answers were coherent Thought Process: patient was goal-directed there is no evidence of loose association or flight of ideas Thought Content: patient denied auditory or visual hallucinations no paranoid or delusional ideation was elicited. Patient states that she can't recall what happened prior to her admission, she hasn't received call feeling ill and she doesn't recall using methamphetamines. She does state that she had not been feeling suicidal and this was not a suicide attempt. Patient had been living with her daughter and had been attending appointments at [facility] which she thought had been helpful Suicidal/Homicidal Ideation: patient denies any current suicidal or homicidal ideation Sensorium/Cognition: patient is alert and oriented to person, place and time further cognitive testing was not performed Mood/Affect: patient's mood was pleasant and her affect was appropriate Insight/Judgment: Patient's insight and judgment are fair Assessment: Patient is not currently expressing any suicidal ideation and has not expressed any to staff when I spoke with them. Patient states that she was doing well on the Zoloft and BuSpar while she was being seen at [facility] to target her depressive and anxiety symptoms. Patient is not endorsing any manic or psychotic symptoms and has no history of suicide attempts in the past. Patient has no history of inpatient psychiatric care and was referred to [facility] after her discharge him another hospital in November of this year for similar episode. Patient is agreeable to return to [facility]. Plan: We will discontinue suicide precautions as patient is not currently suicidal, I spoke with social media editor about arranging follow-up appointment at [facility] so that they can restart the patient's meds which will need to be slowly titrated back to the prior dosage. Patient informed me that she will be living with her mother after discharge and this is where her 10-year-old daughter is currently living. Patient was informed to avoid all alcohol and drug use to be compliant with her medications and appointments after discharge. This time I see no need to transfer this patient to an inpatient psychiatric facility and she should be referred back to [facility] for continuing care. I will sign off the case if there are any further questions or concerns please and has dated to contact me
[2019-03-14] MEDS: ACETAMINOPHEN TAB 500 MG TAB PEG/G-TUBE PRN ×2 (14:14→21:12)
[2019-03-14 17:19] LABS: Glucose,Whole Blood 113 mg/dL (75-99)
[2019-03-14] MEDS: ALPRAZolam 1 MG TAB PO PRN (19:39)
[2019-03-14 21:07] LABS: Glucose,Whole Blood 109 mg/dL (75-99)
[2019-03-14] MEDS: HALOPERIDOL 5 MG TAB PO PRN (21:11)
[2019-03-14] MEDS: MELATONIN 1 MG TAB PO SCH (21:11)
--- NOTE | 2019-03-14 23:52 | PN ---
PROGRESS NOTE DATE OF SERVICE: 03/14/2019 PRESENTING COMPLAINT: Tired. INTERVAL HISTORY: Patient admitted with altered mental status, respiratory failure, having taken amphetamines. Doing well, walking in the hallway. Has been getting the trach shield cuffed. PEG tube feeding has been held. Doing much better. Feels comfortable. Looking forward to going home. REVIEW OF SYSTEMS: Done for constitutional, cardiovascular, GI, pulmonary; relevant findings as above. CURRENT MEDICATIONS: Reviewed. They include Keflex. PHYSICAL EXAMINATION: Temperature 97.9, pulse 93, respiration 27, blood pressure 108/66, pulse ox 94% on room air. GENERAL APPEARANCE: Sitting up. Comfortable. EYES: Pupils equal. Conjunctivae normal. NECK: Tracheostomy in place. RESPIRATORY: Effort normal. LUNGS: Fair air entry. CARDIOVASCULAR: First and second sounds normal. No edema. ABDOMEN: Soft, non-tender. Liver and spleen not palpable. PEG tube in place. PSYCHIATRY: Alert and oriented x3. Mood and affect smiling. NEUROLOGICAL: Moving all 4 limbs. Did actually walk in the hallway. INVESTIGATIONS: White count 8.5, hemoglobin 9.5, potassium 3.5, BUN 8, creatinine 0.82. ASSESSMENT: 1. Acute bilateral pneumonia. Suspect aspiration pneumonia secondary to MSSA, improved. 2. Acute metabolic encephalopathy, multifactorial, resolved. 3. Acute hypoxic respiratory failure from pneumonia, resolved. 4. Patient has a tracheostomy and PEG tube feeding. 5. Acute drug overdose, including methamphetamine. 6. Acute kidney injury due to acute tubular necrosis, resolved. 7. Acute rhabdomyolysis. 8. Septic shock from pneumonia on presentation. 9. Metabolic acidosis. 10.History of depression not otherwise specified. 11.Morbid obesity; body mass index 44.3. 12.Chronic nicotine dependence. Patient is a cigarette smoker. 13.Marijuana use. PLAN: Spoke to the patient this morning. Patient is ready to be discharged. I did discuss with the patient that she will follow up in Dr. Briones's office for the cough, and the PEG tube can be removed at a later date. internet technology manager informed me that tracheostomy teaching will not be able to be done today, and therefore we will hold off the discharge until tomorrow. The patient's other questions were answered. Patient's other home medications will be resumed. Patient is doing well. MMODL / IJN: [id number] /
--- NOTE | 2019-03-15 00:09 | P.PN ---
Subjective Progress Note Date: 03/14/19 44-year-old female who is known to the service from her recent hospitalization at an outside facility. During that stay the patient had a polysubstance overdose and was found with respiratory failure in a parked vehicle. She was resuscitated in an intensive care unit. She was intubated sedated and mechanically ventilated and there was concerns to anoxic encephalopathy as well as to ARDS. The patient surprisingly improved her status quite quickly and regained her mental status. Eventually she was discharged to the outpatient psychiatric follow-up service and her regular medical care. The patient again suffered a polysubstance overdose was brought to hospital with evidence of actinic acidosis, mild rhabdomyolysis and respiratory failure hypoxic in nature. She required intubation and mechanical ventilation and was evidence of significant pulmonic infiltration. Initially she required vasopressor support as well as bicarbonate therapy. Eventually these improved, her renal failure improved but she remained with poor pulmonary status. Because of his tracheostomy and PEG tube him and placed to assist with her recovery. At this time the patient is sitting upright she is able to follow simple commands and is able to communicate to yes and no questions effectively. She is de veloped a fever to 101.5 and with at the infectious diseases consultation was requested 03/13/2019 patient is now had marked improvement. Trach and PEG have been performed she's now on trach collar. She is taking in food and nutrition orally as well through her PEG. She's had significant improvement of her status 03/14/2019 reveals the patient to have further improvement of her status. She is improved well enough that she likely will be discharged home with home care under the care of her family. She is unable to go to live with her young daughter Objective - Vital Signs Vital signs: Vital Signs Temp 98.7 F 03/14/19 23:41 Pulse 98 03/14/19 23:41 Resp 33 H 03/14/19 23:41 BP 120/82 03/14/19 23:41 Pulse Ox 95 03/14/19 23:41 Intake & Output 03/14/19 03/14/19 03/15/19 06:59 18:59 06:59 Intake Total 1730 425 350 Output Total 4 Balance 1726 425 350 Weight 119.2 kg Intake: IV 0 KVO 0 Oral 50 360 350 Tube Feeding 780 65 Other 900 Output: Urine 1 Stool 3 Other: Voiding Method Bedside Commode Bedside Commode Bedside Commode # Voids 1 2 3 # Bowel Movements 1 1 1 ABP, PAP, CO, CI - Last Documented Arterial Blood Pressure 108/96 - Exam 44-year-old woman who is mechanically ventilated via tracheostomy, is comfortable HEENT: Anicteric conjunctiva are pink and moist nasal mucosa grossly intact without significant lesions, there is no thrush. Tracheostomy tube site is intact without bleeding or drainage Neck: The neck is supple without significant lymphadenopathy or thyromegaly be palpated around the tracheostomy Lungs: Symmetrical bilateral air entry is noted, basilar crackles are heard. Expiratory wheezes are heard no muna bronchial cells dullness are noted Heart: Regular rate and rhythm with an audible S1-S2, no S3 no S4. There is no significant murmur click or rub, PMI was nondisplaced. Abdomen: Mildly obese, Positive bowel sounds soft and nontender without palpable masses or organomegaly. There was no guarding or rebound. The PEG tube site is intact without bleeding or drainage Extremities: The left upper extremity has evidence of some ulceration on the arm. There some scant drainage. PICC line left arm is intact. The bilateral lower extremities have evidence of some edema but no significant open lesions are seen The right groin has evidence of the prior triple-lumen catheter site that is without erythema or crepitance fluctuance or expressible drainage. No l ymphadenopathy is noted in the right groin and no other abnormal lymph nodes are noted cervical epitrochlear or axillary at this time Neuro: The patient is awake and alert and follows commands such as hand squeezing and lifting bilateral lower extremities upon command. Upon questioning she is able to relate that she is having some pain in her tracheostomy site is otherwise comfortable. When asking how she is doing she seems to have improved mood today., Is aware of her progress - Labs CBC & Chem 7: 03/14/19 05:32 03/14/19 05:32 Labs: Abnormal Lab Results - Last 24 Hours (Table) 03/14/19 03/14/19 03/14/19 Range/Units 05:32 05:32 17:07 RBC 3.39 L (3.80-5.40) m/uL Hgb 9.5 L (11.4-16.0) gm/dL Hct 29.3 L (34.0-46.0) % RDW 16.1 H (11.5-15.5) % Chloride 110 H (98-107) mmol/L Creatinine 0.42 L (0.52-1.04) mg/dL POC Glucose (mg/dL) 113 H (75-99) mg/dL 03/14/19 Range/Units 20:56 RBC (3.80-5.40) m/uL Hgb (11.4-16.0) gm/dL Hct (34.0-46.0) % RDW (11.5-15.5) % Chloride (98-107) mmol/L Creatinine (0.52-1.04) mg/dL POC Glucose (mg/dL) 109 H (75-99) mg/dL Laboratory Results WBC 8.5 k/uL (3.8-10.6) 03/14/19 05:32 RBC 3.39 m/uL (3.80-5.40) L 03/14/19 05:32 Hgb 9.5 gm/dL (11.4-16.0) L 03/14/19 05:32 Hct 29.3 % (34.0-46.0) L 03/14/19 05:32 MCV 86.4 fL (80.0-100.0) 03/14/19 05:32 MCH 27.9 pg (25.0-35.0) 03/14/19 05:32 MCHC 32.3 g/dL (31.0-37.0) 03/14/19 05:32 RDW 16.1 % (11.5-15.5) H 03/14/19 05:32 Plt Count 347 k/uL (150-450) 03/14/19 05:32 Neutrophils % 79 % 03/09/19 05:02 Lymphocytes % 16 % 03/09/19 05:02 Monocytes % 3 % 03/09/19 05:02 Eosinophils % 1 % 03/09/19 05:02 Basophils % 0 % 03/09/19 05:02 Neutrophils # 12.6 k/uL (1.3-7.7) H 03/09/19 05:02 Lymphocytes # 2.6 k/uL (1.0-4.8) 03/09/19 05:02 Monocytes # 0.5 k/uL (0-1.0) 03/09/19 05:02 Eosinophils # 0.2 k/uL (0-0.7) 03/09/19 05:02 Basophils # 0.0 k/uL (0-0.2) 03/09/19 05:02 Hypochromasia Slight 03/11/19 05:27 Anisocytosis Slight 03/14/19 05:32 PT 11.1 sec (9.0-12.0) 03/07/19 05:22 INR 1.0 (<1.2) 03/07/19 05:22 APTT 24.4 sec (22.0-30.0) 02/26/19 14:55 Sample Site rrad 03/10/19 04:38 ABG pH 7.39 (7.35-7.45) 03/10/19 04:38 ABG pCO2 38 mmHg (35-45) 03/10/19 04:38 ABG pO2 130 mmHg (83-108) H 03/10/19 04:38 ABG HCO3 23 mmol/L (21-25) 03/10/19 04:38 ABG Total CO2 25 mmol/L (19-24) H 03/10/19 04:38 ABG O2 Saturation 98.8 % (94-97) H 03/10/19 04:38 ABG Base Excess -1.5 mmol/L 03/10/19 04:38 Rob Test Yes 03/10/19 04:38 FiO2 40 % 03/10/19 04:38 Sodium 138 mmol/L (137-145) 03/14/19 05:32 Potassium 3.9 mmol/L (3.5-5.1) 03/14/19 05:32 Chloride 110 mmol/L (98-107) H 03/14/19 05:32 Carbon Dioxide 23 mmol/L (22-30) 03/14/19 05:32 Anion Gap 5 mmol/L 03/14/19 05:32 BUN 8 mg/dL (7-17) 03/14/19 05:32 Creatinine 0.42 mg/dL (0.52-1.04) L 03/14/19 05:32 Est GFR (CKD-EPI)AfAm >90 (>60 ml/min/1.73 sqM) 03/14/19 05:32 Est GFR (CKD-EPI)NonAf >90 (>60 ml/min/1.73 sqM) 03/14/19 05:32 Glucose 99 mg/dL (74-99) 03/14/19 05:32 POC Glucose (mg/dL) 109 mg/dL (75-99) H 03/14/19 20:56 POC Glu [employer] ID Rochelle Cobian 03/14/19 20:[address] Glu mg/dL 105 02/27/19 05:20 Hemoglobin A1c 5.3 % (4.0-6.0) 02/27/19 05:20 Lactic Ac Sepsis Rflx Y 02/26/19 15:27 Plasma Lactic Acid Jan 1.0 mmol/L (0.7-2.0) 02/26/19 18:35 Calcium 8.4 mg/dL (8.4-10.2) 03/14/19 05:32 Phosphorus 3.8 mg/dL (2.5-4.5) 03/14/19 05:32 Magnesium 2.0 mg/dL (1.6-2.3) 03/14/19 05:32 Total Bilirubin 0.4 mg/dL (0.2-1.3) 03/05/19 05:40 AST 31 U/L (14-36) 03/05/19 05:40 ALT 42 U/L (9-52) 03/05/19 05:40 Alkaline Phosphatase 93 U/L (38-126) 03/05/19 05:40 Creatine Kinase 894 U/L (30-135) H 02/28/19 05:30 CK-MB (CK-2) 12.7 ng/mL (0.0-2.4) H 02/26/19 14:55 Troponin I <0.012 ng/mL (0.000-0.034) 02/26/19 14:55 NT-Pro-B Natriuret Pep 1090 pg/mL 02/26/19 14:55 Total Protein 5.8 g/dL (6.3-8.2) L 03/05/19 05:40 Albumin 3.1 g/dL (3.5-5.0) L 03/05/19 05:40 Triglycerides 988 mg/dL (<150) H 03/07/19 05:22 HCG, Qual Not Detected 03/07/19 05:22 Urine Color Yellow 02/26/19 14:55 Urine Appearance Clear (Clear) 02/26/19 14:55 Urine pH 6.0 (5.0-8.0) 02/26/19 14:55 Ur Specific [place] 1.024 (1.001-1.035) 02/26/19 14:55 Urine Protein 1+ (Negative) H 02/26/19 14:55 Urine Glucose (UA) Negative (Negative) 02/26/19 14:55 Urine Ketones Negative (Negative) 02/26/19 14:55 Urine Blood Trace (Negative) H 02/26/19 14:55 Urine Nitrite Negative (Negative) 02/26/19 14:55 Urine Bilirubin Negative (Negative) 02/26/19 14:55 Urine Urobilinogen <2.0 mg/dL (<2.0) 02/26/19 14:55 Ur Leukocyte Esterase Negative (Negative) 02/26/19 14:55 Urine RBC 2 /hpf (0-5) 02/26/19 14:55 Urine WBC 1 /hpf (0-5) 02/26/19 14:55 Ur Squamous Epith Cells <1 /hpf (0-4) 02/26/19 14:55 Amorphous Sediment Rare /hpf (None) H 02/26/19 14:55 Hyaline Casts 43 /lpf (0-2) H 02/26/19 14:55 Urine Mucus Rare /hpf (None) H 02/26/19 14:55 Vancomycin Trough 8.7 ug/mL 03/14/19 05:32 Urine Opiates Screen Not Detected (NotDetected) 02/26/19 14:55 Ur Oxycodone Screen Not Detected (NotDetected) 02/26/19 14:55 Urine Methadone Screen Not Detected (NotDetected) 02/26/19 14:55 Ur Propoxyphene Screen Not Detected (NotDetected) 02/26/19 14:55 Ur Barbiturates Screen Not Detected (NotDetected) 02/26/19 14:55 U Tricyclic Antidepress Detected (NotDetected) H 02/26/19 14:55 Ur Phencyclidine Scrn Not Detected (NotDetected) 02/26/19 14:55 Ur Amphetamines Screen Detected (NotDetected) H 02/26/19 14:55 U Methamphetamines Scrn Detected (NotDetected) H 02/26/19 14:55 U Benzodiazepines Scrn Not Detected (NotDetected) 02/26/19 14:55 Urine Cocaine Screen Not Detected (NotDetected) 02/26/19 14:55 U Marijuana (THC) Screen Not Detected (NotDetected) 02/26/19 14:55 Microbiology 03/10/19 08:45 Sputum Gram Stain - Final 03/10/19 08:45 Sputum Sputum Culture - Final 03/08/19 12:00 Blood Blood Culture Gram Stain - Final 03/08/19 12:00 Blood Blood Culture - Final Staphylococcus epidermidis 03/08/19 05:20 Catheter Tip Catheter Tip Culture - Final Staphylococcus epidermidis Gram Neg Bacilli 03/08/19 12:00 Urine,Catheterized Urine Culture - Final 03/08/19 12:00 Blood Blood Culture - Final 02/26/19 14:55 Blood Blood Culture - Final No Growth after 144 hours 02/26/19 19:00 Sputum Gram Stain - Final 02/26/19 19:00 Sputum Sputum Culture - Final Staphylococcus aureus 02/26/19 14:55 Urine,Catheterized Urine Culture - Final Assessment and Plan (1) Methamphetamine abuse Current Visit: Yes Status: Acute Code(s): F15.10 - OTHER STIMULANT ABUSE, UNCOMPLICATED SNOMED Code(s): 163774374 (2) Acute respiratory failure with hypoxia Current Visit: Yes Status: Acute Code(s): J96.01 - ACUTE RESPIRATORY FAILURE WITH HYPOXIA SNOMED Code(s): 72040519 (3) Depression Current Visit: Yes Status: Acute Code(s): F32.9 - MAJOR DEPRESSIVE DISORDER, SINGLE EPISODE, UNSPECIFIED SNOMED Code(s): 10870505 (4) Gram-positive cocci bacteremia Narrative/Plan: 44-year-old male presents to hospital with her second polysubstance overdose in a relatively short period of time. On this event she has developed respiratory failure that did not respond to ongoing treatment and is now had tracheostomy tube placed. 41 she's having some improvements but there is still plan for her to transfer to a ventilator facility in the near future. As noted she did have a fever approximately 48 hours ago. This is now improved. The right groin central line was removed and PICC lines in place in the left arm. There is a blood culture with coagulase-negative staph. Follow blood cultures are pending. Catheter tip appearing also had some coagulase-negative staph. At this time removing of the catheter will be the effective treatment. We will utilize 48 hours of vancomycin to ensure no other pathogens are found. The patient has had approximately 11 days of antibiotic therapy. MSSA was isolated from her sputum. Once IV vancomycin has been discontinued within be able to utilize cephalexin suspension via her PEG tube, planning another 7 days. Renal failure has resolved. Leukocytosis is improving. This evidence of a few lesions on her left arm for which silver alginate will be applied and wrapped in place. 03/13/2019 patient has had ongoing significant improvement of her status. There is evidence of the improvement respiratory failure she no history [place] in place. Her swallowing apparently is adequate and she is able to take in some nutrition orally and nursing relates that she is able to swallow some pills. Overall marked improvement. Leukocytosis has generally resolved. The blood culture was collected was negative staph in his contamination to does not need any further vancomycin therapy and is discontinued. For the recent MSSA from he r sputum would complete a course of oral Keflex 500 mg every 6 hours with nursing relates she can take as a tablet through her oral cavity. 11/14/2018 reveals the patient if further improvement. She is doing well with trach collar in place. She isn't ready yet to be decannulated. Will need follow-up with pulmonary critical care in the next few weeks. She does have evidence of MSSA pneumonia and is doing well she's been transitioned to oral antibiotic therapy and she completed the course it's been sent to her pharmacy. Current Visit: Yes Status: Acute Code(s): R78.81 - BACTEREMIA SNOMED Code(s): 472568632143
[2019-03-15] MEDS: HALOPERIDOL 5 MG TAB PO PRN ×3 (02:01→11:42)
[2019-03-15] MEDS: ACETAMINOPHEN TAB 500 MG TAB PEG/G-TUBE PRN (06:17)
[2019-03-15 06:20] LABS: Anisocytosis Slight; HCT 28.8 % (34.0-46.0); HGB 9.2 gm/dL (11.4-16.0); MCH 27.7 pg (25.0-35.0); MCHC 31.8 g/dL (31.0-37.0); MCV 87.1 fL (80.0-100.0); Mean Platelet Volume 7.6; Platelet Count 372 k/uL (150-450); RBC 3.31 m/uL (3.80-5.40); RDW 16.4 % (11.5-15.5); WBC 8.6 k/uL (3.8-10.6)
[2019-03-15 06:30] LABS: African American GFR (CKD) >90 (>60 ml/min/1.73 sqM); Anion Gap 9 mmol/L; Blood Urea Nitrogen 6 mg/dL (7-17); Calcium 8.6 mg/dL (8.4-10.2); Carbon Dioxide 20 mmol/L (22-30); Chloride 111 mmol/L (98-107); Glucose 90 mg/dL (74-99); Phosphorus 3.9 mg/dL (2.5-4.5); Potassium 3.7 mmol/L (3.5-5.1); Sodium 140 mmol/L (137-145)
[2019-03-15] MEDS ORDERED: Potassium Replacement Protocol 1 EACH MISC MISCELLANE PRN (06:55)
[2019-03-15] MEDS ORDERED: POTASSIUM CHLORIDE ER 20 MEQ TAB.ER PO ONE (07:00)
[2019-03-15] MEDS: IPRATROPIUM-ALBUTEROL 3 ML NEB INHALATION SCH ×2 (07:15→11:07)
[2019-03-15] MEDS: INSULIN ASPART (NovoLOG) 100 UNIT/ML VIAL SQ SCH ×2 (09:22→14:37)
[2019-03-15] MEDS: HEPARIN SODIUM,PORCINE 5,000 UNIT/ML 1 ML VIAL SQ SCH (09:24)
[2019-03-15] MEDS: busPIRone HCl 5 MG TAB PO SCH (09:25)
[2019-03-15] MEDS: SERTRALINE 100 MG TAB PO SCH (09:25)
[2019-03-15] MEDS: CEPHALEXIN 500 MG CAP PO SCH ×2 (09:26→14:38)
[2019-03-15 09:32] VITALS: BP 131/82; RESP 16; TEMP 98.7
[2019-03-15 09:33] LABS: Glucose,Whole Blood 105 mg/dL (75-99)
[2019-03-15 11:19] VITALS: PULSE 86
[2019-03-15] MEDS: ALPRAZolam 1 MG TAB PO PRN (11:42)
[2019-03-15 12:32] LABS: Glucose,Whole Blood 110 mg/dL (75-99)
--- NOTE | 2019-03-15 14:27 | P.PN ---
Subjective Progress Note Date: 03/15/19 On 03/15/2019 the patient is ambulating and the patient is tolerating food and she's not using her PEG tube. Tracheostomy tube in place. No fever or chills. Ranges are being made to discharge this patient home today. She'll be going, and Keflex 5 mg by mouth 4 times a day. Respiratory medications were all reviewed. She is doing well. No specific complaints for now. Zoloft was restarted. She is taking Zoloft 100 mg by mouth daily and she is also on BuSpar 50 mg by mouth 3 times a day. Psychiatry felt that she is not suicidal at this point in time.She will be following up with psychiatry on outpatient basis. Sitter has been discontinued. Objective - Vital Signs Vital signs: Vital Signs Temp 98.7 F 03/15/19 08:00 Pulse 86 03/15/19 11:19 Resp 16 03/15/19 08:00 BP 131/82 03/15/19 08:00 Pulse Ox 95 03/15/19 04:00 Intake & Output 03/14/19 03/15/19 03/15/19 18:59 06:59 18:59 Intake Total 425 550 Balance 425 550 Weight 120 kg Intake: Oral 360 550 Tube Feeding 65 Other: Voiding Method Bedside Commode Bedside Commode # Voids 2 2 2 # Bowel Movements 1 1 ABP, PAP, CO, CI - Last Documented Arterial Blood Pressure 108/96 - Exam Gen. appearance, comfortable molecular distress Head exam was generally normal. There was no scleral icterus or corneal arcus. Mucous membranes were moist. Neck was supple and without jugular venous distension, thyromegaly, or carotid bruits. Carotids were easily palpable bilaterally. There was no adenopathy. The patient has an extra long Shiley tracheostomy tube in place. Lungs were clear to auscultation and percussion, and with normal diaphragmatic excursion. No wheezes or rales were noted. Cardiac exam revealed the PMI to be normally situated and sized. The rhythm was regular and no extrasystoles were noted during several minutes of auscultation. The first and second heart sounds were normal and physiologic splitting of the second heart sound was noted. There were no murmurs, rubs, clicks, or gallops. Abdominal exam revealed normal bowel sounds. The abdomen was soft, non-tender, and without masses, organomegaly, or appreciable enlargement of the abdominal aorta. The patient has a PEG tube in place. Examination of the extremities revealed easily palpable radial, femoral and ped al pulses. There was no cyanosis, clubbing or edema. Examination of the skin revealed no evidence of significant rashes, suspicious appearing nevi or other concerning lesions. Neurologically the patient is awake and alert and there is no focal neurological deficits. - Labs CBC & Chem 7: 03/15/19 05:29 03/15/19 05:29 Labs: Abnormal Lab Results - Last 24 Hours (Table) 03/14/19 03/14/19 03/15/19 Range/Units 17:07 20:56 05:29 RBC (3.80-5.40) m/uL Hgb (11.4-16.0) gm/dL Hct (34.0-46.0) % RDW (11.5-15.5) % Chloride 111 H (98-107) mmol/L Carbon Dioxide 20 L (22-30) mmol/L BUN 6 L (7-17) mg/dL Creatinine 0.50 L (0.52-1.04) mg/dL POC Glucose (mg/dL) 113 H 109 H (75-99) mg/dL 03/15/19 03/15/19 03/15/19 Range/Units 05:29 09:21 12:21 RBC 3.31 L (3.80-5.40) m/uL Hgb 9.2 L (11.4-16.0) gm/dL Hct 28.8 L (34.0-46.0) % RDW 16.4 H (11.5-15.5) % Chloride (98-107) mmol/L Carbon Dioxide (22-30) mmol/L BUN (7-17) mg/dL Creatinine (0.52-1.04) mg/dL POC Glucose (mg/dL) 105 H 110 H (75-99) mg/dL Assessment and Plan Plan: 1 acute hypoxic respiratory failure with diffuse bilateral pulmonary infiltrates, recovered and the patient is post tracheostomy tube insertion and the patient is currently on room air with a tracheostomy tube in place that'll b e decannulated on outpatient basis later stage. She'll be also discharged home on Keflex to be followed up on outpatient basis with another chest x-ray knowing that she has some residual inflammatory changes and infiltrates in the lungs on most recent x-ray findings. 2 acute altered mental status was secondary to his drug overdose, improved and the patient has recovered and normalized in terms of her mentation 3 acute rhabdomyolysis, recovered 4 acute kidney injury, improving and the creatinine is normalized 5 hypotension, recovered normal hemodynamics 6 acute metabolic acidosis improved 7polysubstance abuse with multiple drugs identified on the urine drug screen 8 history of depression 9 previous history of MRSA skin infection 10 enteral feeding via PEG tube for nutritional support 11 line infection with staph epi Plan Discharge home on Keflex, outpatient follow-up regarding decannulation of the tracheostomy tube and removal of the PEG tube, continue Zoloft, continue BuSpar, follow-up with psychiatry. We're going to see this patient in outpatient basis.
--- NOTE | 2019-03-16 11:37 | DS ---
DISCHARGE SUMMARY DATE OF ADMISSION: 02/26/2019 DATE OF DISCHARGE: 03/15/2019 FINAL DIAGNOSES: 1. Acute bilateral pneumonia suspect aspiration pneumonia secondary to MSSA, POA. 2. Acute metabolic encephalopathy multifactorial including drugs. 3. Acute hypoxic respiratory failure from pneumonia, POA. 4. Multiple drug use including methamphetamines. 5. Acute kidney injury due to acute tubular necrosis from sepsis. 6. Acute rhabdomyolysis, multifactorial. 7. Septic shock from pneumonia on presentation. 8. Metabolic acidosis. 9. History of depression, not otherwise specified. 10.Morbid obesity, body mass index 44.3. 11.Chronic nicotine dependence. Patient is a cigarette smoker. PROCEDURES: Tracheostomy and PEG tube feeding. CONSULTATIONS: Dr. Pedersen and colleagues from Pulmonary Critical Care; Dr. Giovanni Paniagua from Infectious Disease; Dr. Fermin from Psychiatry; Dr. Grey/Иван Villavicencio Dr. from General Surgery. HOSPITAL COURSE: This patient who had a previous admission to [facility] with multiple drugs was intubated here, came with altered mental status, felt to be metabolic encephalopathy. Urine drug screen was positive for tricyclic antidepressants, amphetamines and methamphetamines. The patient was intubated, was in respiratory failure. The patient did get a PEG tube and a tracheostomy tube, but patient did recover rather nicely by the time of discharge, she was pulse oxing good on room air and with the inner being deflated, patient was able to feed herself. Did pass a swallow test with the same. The PEG tube feeding was therefore held. The patient is actually able to walk in the hallway. Patient was offered rehab but the patient decided to go and live with her parents after discharge where also her 10-year-old daughter is present. The patient is not depressed, not suicidal, was actually rather cheerful, able to communicate well before discharge. On the day of discharge, I discussed care with the patient and plans. Also spoke to respiratory therapy regarding cannula care and also to the discharge planners. Discussion and discharge planning more than 35 minutes. PHYSICAL EXAMINATION: On examination, temperature 98.7, pulse 98, respirations 16, blood pressure 131/82, pulse ox 95% on room air. On examination, tracheostomy tube was present. LUNGS: Fair air entry. ABDOMEN: Soft, nontender. PEG tube is present. PSYCH: AO x3. Mood and affect normal. INVESTIGATIONS: White count 8.6, hemoglobin 9.2, potassium 3.7, BUN 6, creatinine 0.50. DISCHARGE MEDICATIONS: 1. Zoloft 200 mg before breakfast. 2. Buspirone 50 mg p.o. t.i.d. 3. Xanax 1 mg p.o. b.i.d. p.r.n. 4. Keflex 500 mg q.i.d. 20 capsules. 5. DuoNeb q.i.d. 6. Melatonin 2 mg q.h.s. 7. Catapres 0.1 mg p.o. b.i.d. Follow up at [facility] in 1 week. Follow up with Dr. Oates on 04/22/2019. Follow with Dr. Mcleod on 03/20/2019. Follow up with Dr. Briones on 03/22/2019. ADDITIONAL PLAN: The patient's tracheostomy tube can probably come out in the next couple of weeks and PEG tube can be taken off also down the road depending on patient's clinical status. MMODL / IJN: [id number] /
== END 2019-03-15 15:00 | disposition home health service (06) | DRG 4 ==
LOC: EC 14:43 → 2SICU 16:56
PROVIDERS: ADMIT Hospitalist; ATTEND Hospitalist
PROC: 5A1955Z Respiratory Ventilation, Greater than 96 Consecutive Hours (ICD-10-PCS; 2019-02-26)
PROC: 0BH17EZ Insertion of Endotracheal Airway into Trachea, Via Natural or Artificial Opening (ICD-10-PCS; 2019-02-26)
PROC: 06HM33Z Insertion of Infusion Device into Right Femoral Vein, Percutaneous Approach (ICD-10-PCS; 2019-02-26)
PROC: 0D9670Z Drainage of Stomach with Drainage Device, Via Natural or Artificial Opening (ICD-10-PCS; 2019-02-26)
PROC: 03HY32Z Insertion of Monitoring Device into Upper Artery, Percutaneous Approach (ICD-10-PCS; 2019-02-27)
PROC: 4A133B1 Monitoring of Arterial Pressure, Peripheral, Percutaneous Approach (ICD-10-PCS; 2019-02-27)
PROC: 4A133J1 Monitoring of Arterial Pulse, Peripheral, Percutaneous Approach (ICD-10-PCS; 2019-02-27)
PROC: 3E0G76Z Introduction of Nutritional Substance into Upper GI, Via Natural or Artificial Opening (ICD-10-PCS; 2019-02-28)
PROC: 0DB78ZX Excision of Stomach, Pylorus, Via Natural or Artificial Opening Endoscopic, Diagnostic (ICD-10-PCS; 2019-03-07)
PROC: 0DH63UZ Insertion of Feeding Device into Stomach, Percutaneous Approach (ICD-10-PCS; 2019-03-07)
PROC: 0B110F4 Bypass Trachea to Cutaneous with Tracheostomy Device, Open Approach (ICD-10-PCS; principal; 2019-03-07 12:55)
DX: T43.621A Poisoning by amphetamines, accidental (unintentional), initial encounter (principal); A41.01 Sepsis due to Methicillin susceptible Staphylococcus aureus; R65.21 Severe sepsis with septic shock; N17.0 Acute kidney failure with tubular necrosis; J69.0 Pneumonitis due to inhalation of food and vomit; J15.211 Pneumonia due to Methicillin susceptible Staphylococcus aureus; G93.41 Metabolic encephalopathy; J96.01 Acute respiratory failure with hypoxia; J84.9 Interstitial pulmonary disease, unspecified; E87.4 Mixed disorder of acid-base balance; E46 Unspecified protein-calorie malnutrition; M62.82 Rhabdomyolysis; E87.0 Hyperosmolality and hypernatremia; Z68.41 Body mass index [BMI] 40.0-44.9, adult; Z99.11 Dependence on respirator [ventilator] status; F05 Delirium due to known physiological condition; E66.01 Morbid (severe) obesity due to excess calories; T40.7X1A Poisoning by cannabis (derivatives), accidental (unintentional), initial encounter; K44.9 Diaphragmatic hernia without obstruction or gangrene; D64.9 Anemia, unspecified; F32.9 Major depressive disorder, single episode, unspecified; F12.90 Cannabis use, unspecified, uncomplicated; F15.10 Other stimulant abuse, uncomplicated; J45.909 Unspecified asthma, uncomplicated; F41.9 Anxiety disorder, unspecified; F17.210 Nicotine dependence, cigarettes, uncomplicated; Z71.6 Tobacco abuse counseling; Z79.899 Other long term (current) drug therapy; Z87.01 Personal history of pneumonia (recurrent); Z91.5 Personal history of self-harm; Z86.73 Personal history of transient ischemic attack (TIA), and cerebral infarction without residual deficits; Z86.19 Personal history of other infectious and parasitic diseases; Z88.2 Allergy status to sulfonamides
CPT/HCPCS: 31500; 36410; 36415; 36556; 36573; 36600; 43239; 43246; 70450; 71045; 72125; 74230; 76937; 80048; 80053; 80202; 80306; 81001; 82550; 82553; 82805; 83036; 83605; 83735; 83880; 84100; 84132; 84478; 84484; 84703; 85025; 85027; 85610; 85730; 87040; 87070; 87077; 87086; 87186; 87205; 88305; 93005; 93306; 94002; 94003; 94640; 96361; 96365; 96366; 96368; 96375; 99291; 99292

== ENCOUNTER 2019-03-16 08:16 | Emergency (ER) | payer OTHER ==
--- NOTE | 2019-03-16 08:53 | ED ---
General Adult HPI - General Stated complaint: EZEQUIEL Time Seen by Provider: 03/16/19 08:27 Source: patient, family Mode of arrival: wheelchair Limitations: physical limitation - History of Present Illness Initial comments: Dictation was produced using [employer] dictation software. please excuse any grammatical, word or spelling errors. Chief Complaint: She is a 44-year-old female presents with difficulty breathing. History of Present Illness: 44-year-old female past medical history of tracheostomy and PEG tube placement. She was brought in through triage for difficulty in breathing possible tracheal collusion. Patient unable to speak at this time given history of trach. Patient had trach placement performed 7 days ago. Patient allegedly woke up dyspneic. She was brought to the emergency department Unable to obtain ROS secondary to tracheostomy. PHYSICAL EXAM: General Impression: Alert, dyspneic, diaphoretic, pale HEENT: Normocephalic atraumatic, extra-ocular movements intact, pupils equal and reactive to light bilaterally, mucous membranes moist, tracheostomy in place Cardiovascular: Heart regular rate and rhythm, S1&S2 audible, no murmurs, rubs or gallops Chest: Bilateral breath sounds Abdomen: Bowel sounds present, abdomen soft, non-tender, non-distended, no organomegaly Musculoskeletal: Pulses present and equal in all extremities, no peripheral edema Motor: no focal deficits noted Neurological: Moves all extremities grossly Skin: Intact with no visualized rashes ED course: 44-year-old female presents with acute dyspnea. Patient was brought immediately to resuscitation bay. Patient placed on nonrebreather over tr acheostomy. Suction tubing was set up. Inner cannula was removed and suction catheter was placed with removal of thin mucous material. Check yesterday was flushed with normal saline. Patient coughed up a large hard mucous plug. Patient immediately and dramatically improved. Patient currently not showing any signs of respiratory distress. According to family patient has not been changing inner cannula on a daily basis as instructed. Chart review was performed. Patient is trach and PEG secondary to drug overdose.Return evaluation obtained. CBC, metabolic panel are grossly unremarkable. Patient does have mild gap acidosis likely secondary to respiratory difficulties. Initial venous blood gas shows pH is 7.13. Patient was given intravenous fluids. Patient was observed in emergency department and repeat venous blood gas was obtained showing improvement of pH. Patient's symptoms likely secondary to mucous plug. Patient observed in emergency department with stable medical condition after mucous plug was removed. Extensive education was done at bedside with family as to proper tracheostomy care. Mother at bedside was taught how to properly use suctioning and changing into cannula. Patient wants to go home request not to be admitted inpatient. Patient given intravenous fluids. At this point patient mother feel cold possible: Home. Return parameters discussed. Patient clear for discharge. Mother reports that patient will have care on a regular basis performed by home respiratory therapy. EKG interpretation: Ventricular rate 114, sinus tachycardia,. Interval 170, care is 80, QTc 465. No IN prolongation, no QTC prolongation, no ST or T-wave changes noted. . Overall, this EKG is unremarkable - Related Data Home Medications Medication Instructions Recorded Confirmed Sertraline HCl [Zoloft] 200 mg PO PC-[id number] 02/26/19 03/16/19 busPIRone HCL 15 mg PO TID 02/26/19 03/16/19 Previous Rx's Medication Instructions Recorded ALPRAZolam [Xanax] 1 mg PO BID PRN tab 03/15/19 Cephalexin [Keflex] 500 mg PO QID #20 cap 03/15/19 Ipratropium-Albuterol Nebulize 3 ml INHALATION RT-QID #0 ampul.neb 03/15/19 [Duoneb 0.5 mg-3 mg/3 ml Soln] Melatonin 2 mg PO HS tab 03/15/19 cloNIDine HCL [Catapres] 0.1 mg PO BID #0 03/15/19 Allergies Allergy/AdvReac Type Severity Reaction Status Date / Time sulfamethoxazole Allergy Rash/Hives Verified 03/16/19 08:29 [From Bactrim] trimethoprim [From Bactrim] Allergy Rash/Hives Verified 03/16/19 08:29 Review of Systems ROS Statement: Those systems with pertinent positive or pertinent negative responses have been documented in the HPI. ROS Other: All systems not noted in ROS Statement are negative. Past Medical History Past Medical History: Pneumonia, Respiratory Disorder Additional Past Medical History / Comment(s): Polysubstane abuse, hisotry of drug overdose, history of ARDS requiring intubation and mechanical ventilation, history of severe rhabdomyalysis and DMITRY (recovered), history of MSSA pneumonia and sepsis, history of metabolic encephalopathy (recovered), hisotory of depression, suicide, obesity History of Any Multi-Drug Resistant Organisms: None Reported Date of last positivie culture/infection: None MDRO Source:: None Past Surgical History: Unable to Obtain Additional Past Surgical History / Comment(s): breast biopsy (date unknown) Past Anesthesia/Blood Transfusion Reactions: No Reported Reaction Past Psychological History: Anxiety, Depression Smoking Status: Current every day smoker Past Alcohol Use History: Unable to Obtain Past Drug Use History: Marijuana, Methamphetamine General Exam Limitations: physical limitation Course Vital Signs 03/16/19 03/16/19 03/16/19 08:29 08:33 08:41 Temperature 99 F Pulse Rate 147 H 118 H Respiratory 41 H 35 H 41 H Rate Blood Pressure 151/107 149/98 O2 Sat by Pulse 69 L 100 Oximetry 03/16/19 03/16/19 09:36 11:47 Temperature Pulse Rate 120 H 103 H Respiratory 21 24 Rate Blood Pressure 122/100 132/97 O2 Sat by Pulse 100 100 Oximetry Medical Decision Making - Lab Data Result diagrams: 03/16/19 08:35 03/16/19 08:35 Lab Results 03/16/19 03/16/19 03/16/19 Range/Units 08:35 08:35 08:35 WBC 11.5 H (3.8-10.6) k/uL RBC 4.09 (3.80-5.40) m/uL Hgb 11.4 (11.4-16.0) gm/dL Hct 36.8 (34.0-46.0) % MCV 90.2 (80.0-100.0) fL MCH 27.9 (25.0-35.0) pg MCHC 31.0 (31.0-37.0) g/dL RDW 16.2 H (11.5-15.5) % Plt Count 510 H (150-450) k/uL Neutrophils % 52 % Lymphocytes % 38 % Monocytes % 5 % Eosinophils % 3 % Basophils % 1 % Neutrophils # 6.0 (1.3-7.7) k/uL Lymphocytes # 4.4 (1.0-4.8) k/uL Monocytes # 0.5 (0-1.0) k/uL Eosinophils # 0.3 (0-0.7) k/uL Basophils # 0.1 (0-0.2) k/uL Hypochromasia Slight Anisocytosis Slight VBG pH 7.13 L* (7.31-7.41) VBG pCO2 33 L (37-51) mmHg VBG HCO3 11 L (24-28) mmol/L Sodium 146 H (137-145) mmol/L Potassium 3.9 (3.5-5.1) mmol/L Chloride 114 H (98-107) mmol/L Carbon Dioxide 20 L (22-30) mmol/L Anion Gap 12 mmol/L BUN 6 L (7-17) mg/dL Creatinine 0.66 (0.52-1.04) mg/dL Est GFR (CKD-EPI)AfAm >90 (>60 ml/min/1.73 sqM) Est GFR (CKD-EPI)NonAf >90 (>60 ml/min/1.73 sqM) Glucose 243 H (74-99) mg/dL Plasma Lactic Acid Jan (0.7-2.0) mmol/L Calcium 9.3 (8.4-10.2) mg/dL Magnesium 2.1 (1.6-2.3) mg/dL 03/16/19 03/16/19 Range/Units 08:35 11:02 WBC (3.8-10.6) k/uL RBC (3.80-5.40) m/uL Hgb (11.4-16.0) gm/dL Hct (34.0-46.0) % MCV (80.0-100.0) fL MCH (25.0-35.0) pg MCHC (31.0-37.0) g/dL RDW (11.5-15.5) % Plt Count (150-450) k/uL Neutrophils % % Lymphocytes % % Monocytes % % Eosinophils % % Basophils % % Neutrophils # (1.3-7.7) k/uL Lymphocytes # (1.0-4.8) k/uL Monocytes # (0-1.0) k/uL Eosinophils # (0-0.7) k/uL Basophils # (0-0.2) k/uL Hypochromasia Anisocytosis VBG pH 7.45 H (7.31-7.41) VBG pCO2 27 L (37-51) mmHg VBG HCO3 18 L (24-28) mmol/L Sodium (137-145) mmol/L Potassium (3.5-5.1) mmol/L Chloride (98-107) mmol/L Carbon Dioxide (22-30) mmol/L Anion Gap mmol/L BUN (7-17) mg/dL Creatinine (0.52-1.04) mg/dL Est GFR (CKD-EPI)AfAm (>60 ml/min/1.73 sqM) Est GFR (CKD-EPI)NonAf (>60 ml/min/1.73 sqM) Glucose (74-99) mg/dL Plasma Lactic Acid Jan 1.8 (0.7-2.0) mmol/L Calcium (8.4-10.2) mg/dL Magnesium (1.6-2.3) mg/dL Disposition Clinical Impression: Mucus plugging of bronchi Disposition: HOME SELF-CARE Condition: Good Instructions (If sedation given, give patient instructions): Tracheostomy Care (ED) Is patient prescribed a controlled substance at d/c from ED?: No Referrals: Arias Mcleod DO [Primary Care Provider] - 1-2 days Time of Disposition: 11:59
[2019-03-16 08:56] LABS: Anisocytosis Slight; Basophils # (A) 0.1 k/uL (0-0.2); Basophils % (A) 1 %; Eosinophils # (A) 0.3 k/uL (0-0.7); Eosinophils % (A) 3 %; HCT 36.8 % (34.0-46.0); HGB 11.4 gm/dL (11.4-16.0); Hypochromasia Slight; Lymphocytes # (A) 4.4 k/uL (1.0-4.8); Lymphocytes % (A) 38 %; MCH 27.9 pg (25.0-35.0); MCV 90.2 fL (80.0-100.0); Mean Platelet Volume 7.2; Monocytes # (A) 0.5 k/uL (0-1.0); Monocytes % (A) 5 %; Neutrophils % (A) 52 %; Platelet Count 510 k/uL (150-450); RBC 4.09 m/uL (3.80-5.40); RDW 16.2 % (11.5-15.5); WBC 11.5 k/uL (3.8-10.6)
[2019-03-16 09:09] LABS: VBG PH 7.13 (7.31-7.41)
--- NOTE | 2019-03-16 09:17 | XR ---
EXAMINATION TYPE: XR chest 1V DATE OF EXAM: 03/16/2019 COMPARISON: Prior chest x-ray 03/14/2019 HISTORY: Pain TECHNIQUE: Single frontal view of the chest is obtained. FINDINGS: Left-sided PICC line has been removed. Tracheostomy tube is overlying appropriate position . Technique is somewhat apical lordotic. Lung volumes are low. Heart size is stable. No evident pneum othorax. Difficult to exclude retrocardiac density. There are overlying cardiac leads. IMPRESSION: Expiratory exam. Suspect cardiomegaly. Difficult to exclude lower lobe atelectasis, pneu monia, small effusion, follow-up PA and lateral chest x-ray be of benefit.
[2019-03-16 09:19] LABS: African American GFR (CKD) >90 (>60 ml/min/1.73 sqM); Anion Gap 12 mmol/L; Blood Urea Nitrogen 6 mg/dL (7-17); Calcium 9.3 mg/dL (8.4-10.2); Carbon Dioxide 20 mmol/L (22-30); Chloride 114 mmol/L (98-107); Glucose 243 mg/dL (74-99); Magnesium 2.1 mg/dL (1.6-2.3); Potassium 3.9 mmol/L (3.5-5.1); Sodium 146 mmol/L (137-145)
[2019-03-16 11:24] LABS: VBG PH 7.45 (7.31-7.41)
[2019-03-16] MEDS ORDERED: SODIUM CHLORIDE 0.9% 1,000 ML IV STA (11:56)
[2019-03-16 14:06] VITALS: BP 138/89; PULSE 96; RESP 22; TEMP 98.7
== END 2019-03-16 14:13 | disposition home or self-care (01) ==
LOC: EC 08:16 → SUPCPDRO 08:16 → EC 14:13
DX: T17.590A Other foreign object in bronchus causing asphyxiation, initial encounter (principal); F32.9 Major depressive disorder, single episode, unspecified; E66.9 Obesity, unspecified; F41.9 Anxiety disorder, unspecified; E87.2 Acidosis; F17.200 Nicotine dependence, unspecified, uncomplicated; Z86.19 Personal history of other infectious and parasitic diseases; Z87.01 Personal history of pneumonia (recurrent); Z68.35 Body mass index [BMI] 35.0-35.9, adult; Z93.0 Tracheostomy status; Z98.890 Other specified postprocedural states; Z79.899 Other long term (current) drug therapy; Z88.1 Allergy status to other antibiotic agents; Z88.2 Allergy status to sulfonamides
CPT/HCPCS: 36415; 71045; 80048; 82803; 83605; 83735; 85025; 96360; 99285